=== PATIENT | female | born 2000 | race Caucasian/White ===

== ENCOUNTER 2019-01-21 15:45 | Outpatient (CLI) | payer OTHER, SELFPAY ==
[2019-01-21 15:54] VITALS: BMI 40.8
[2019-01-21 16:37] LABS: ROM Internal Control Test YES-OK TO RESULT pt. (Internal QC); ROM Patient Test Negative (Negative); Record Kit Lot#, ROM+ J8255
[2019-01-21] MEDS: Lactated Ringers 1,000 ML 999 ML IV (17:15)
[2019-01-21 17:25] LABS: Absolute Lymphocyte Count 1.72 X10^3/uL (0.83-4.51); Absolute Neutrophil Count 9.7 X10^3/uL (2.0-7.7); Basophil# 0.02 X10^3/uL; Basophil% 0.2 % (0-1); Eosinophil# 0.05 X10^3/uL; Eosinophils% 0.4 % (0-5); Hematocrit 35.6 % (37-47); Hemoglobin 10.8 g/dL (12.0-15.0); Lymphocyte # 1.72 X10^3/ul (4.0); Lymphocyte % 13.7 % (19-41); Mean Corp Hgb Conc 30.3 g/dL (32-36); Mean Corpuscular Hgb 25.2 pg (27.0-32.0); Mean Platelet Vol. 12.8 fl (6.2-12.0); Monocyte# 1.01 X10^3/uL; NRBC Flagged by Analyzer 0 % (0-5); Neutrophil # 9.71 X10^3/uL (2.7-7.7); Neutrophil % 77.3 % (47-70); Platelet Count 156 K/mm3 (150-450); RBC Distribution Width CV 16.1 % (11.6-14.6); RBC Distribution Width SD 48.9 fl (35.1-43.9); Red Blood Count 4.29 M/mm3 (4.2-5.4); White Blood Count 12.6 K/mm3 (4.4-11.0)
--- NOTE | 2019-01-21 19:40 | OB.TRI.PN ---
Progress Notes Date of Service: 01/21/19 Progress Note: 18 year old female at 34w4d. Presented to L&D for menstrual like cramping. Denies headache, visual changes, chest pain, shortness of breath, vaginal bleeding. Rating pain 8/10 at times. Had increased vaginal discharge and unsure if ROM. O: Gen:No acute distress.Coping well and appears comfortable Heart:RRR, no murmur FHT 135, moderate variability, accels, no decels, Reactive TOCO: Irregular and infrequent. No palpable contractions. Cervix: 3cm/thick/-4. Inner os thicker and only 1cm. No cervical change ROM PLus negative A: Threatened labor P: 1) Celestone x 2 in office 4 days ago. Was 1cm in office 4 days ago. Reviewed PTL and when to call. D/C home and follow up in 1-2 days. Consulted and agrees with plan. 2) ROM Plus negative 3) Vistaril 100mg PO once for therapeutic rest. Laboratory Studies: Laboratory Tests 01/21/19 01/21/19 Range/Units 17:15 15:55 WBC 12.6 H (4.4-11.0) K/mm3 RBC 4.29 (4.2-5.4) M/mm3 Hgb 10.8 L (12.0-15.0) g/dL Hct 35.6 L (37-47) % MCV 83.0 (81-99) fL MCH 25.2 L (27.0-32.0) pg MCHC 30.3 L (32-36) g/dL RDW Std Deviation 48.9 H (35.1-43.9) fl RDW Coeff of Gisel 16.1 H (11.6-14.6) % Plt Count 156 (150-450) K/mm3 MPV 12.8 H (6.2-12.0) fl Immature Gran % (Auto) 0.400 (0.0-0.9) % Neut % (Auto) 77.3 H (47-70) % Lymph % (Auto) 13.7 L (19-41) % Wolfe % (Auto) 8.0 (0-10) % Eos % (Auto) 0.4 (0-5) % Baso % (Auto) 0.2 (0-1) % Absolute Neuts (auto) 9.7 H (2.0-7.7) X10^3/uL Absolute Lymphs (auto) 1.72 (0.83-4.51) X10^3/uL Nucleated RBC % 0 (0-5) % Vag Amniotic Fld Detect Negative (Negative)
[2019-01-21] MEDS: hydrOXYzine PAM 25 MG Capsule 100 MG PO (20:23)
== END 2019-01-21 20:25 | disposition home or self-care (01) ==
LOC: WPOUT 15:51 → OBT 15:52 → WP 01-22 11:09
PROVIDERS: Family Provider Pediatrics; PCP Pediatrics; Referring Provider Advanced Practice Midwife; Visit Provider Advanced Practice Midwife
DX: O60.03 Preterm labor without delivery, third trimester (principal); Z3A.34 34 weeks gestation of pregnancy
CPT/HCPCS: 59025; 59050; 84112; 85025; 99218; J7120; G0378

== ENCOUNTER 2019-02-05 17:25 | Outpatient (CLI) | payer OTHER, SELFPAY ==
[2019-02-05 18:09] VITALS: BMI 41.5
[2019-02-05] MEDS: Acetaminophen 500 MG Tablet 1000 MG PO (18:15)
[2019-02-05 18:51] LABS: ROM Internal Control Test YES-OK TO RESULT pt. (Internal QC); ROM Patient Test Negative (Negative)
[2019-02-05 18:52] LABS: Record Kit Lot#, ROM+ J8255
--- NOTE | 2019-02-06 06:44 | OB.TRI.NOTE ---
History of Present Illness Date of Service: 02/05/19 Was patient seen by the physician?: No Reason For Visit: LEAKING FLUID Date of Service: 02/05/19 Final LINDSEY: 02/28/19 Gestational age: 36 Weeks and 6 Days Allergies No Known Allergies Allergy (Verified 07/11/16 20:38) Laboratory Studies: Laboratory Tests 02/05/19 Range/Units 18:15 Vag Amniotic Fld Detect Negative (Negative) NST - FHR Rate Baby A Baseline: 125 Variability:: Moderate, Marked Decelerations:: None NST Reactive:: Yes FHR Category:: Category I Uterine Activity:: no ctxs Impression/Plan 18-year-old female 1 para 0 36-5/7 weeks for threatened labor. No evidence of spontaneous rupture membranes. No evidence of labor. Patient was given labor precautions and was discharged home to follow-up in the office or here as needed.
== END 2019-02-05 20:00 | disposition home or self-care (01) ==
LOC: WPOUT 17:45 → OBT 17:47
PROVIDERS: Obstetrics & Gynecology; Family Provider Pediatrics; PCP Pediatrics; Visit Provider Advanced Practice Midwife
DX: O60.03 Preterm labor without delivery, third trimester (principal); Z3A.36 36 weeks gestation of pregnancy
CPT/HCPCS: 59025; 59050; 84112; 99218; G0378

== ENCOUNTER 2019-02-12 05:44 | Outpatient (CLI) | payer OTHER, SELFPAY ==
[2019-02-12 06:37] LABS: ROM Internal Control Test YES-OK TO RESULT pt. (Internal QC); ROM Patient Test Negative (Negative)
[2019-02-12 08:13] VITALS: BMI 42.3
--- NOTE | 2019-02-14 12:15 | OB.TRI.PN ---
Progress Notes Date of Service: 02/12/19 Progress Note: female presented for leakage of fluid. Denied any contractions or vaginal bleeding. LINDSEY: 02/28/19 O: 135, moderate variability, accels, no decels, reactive TOCO: no contractions ROM plus negative A: Vaginal discharge P: 1) No signs of labor or ROM. 2) D/C home Laboratory Studies: Laboratory Tests 02/12/19 Range/Units 06:00 Vag Amniotic Fld Detect Negative (Negative)
== END 2019-02-12 08:20 | disposition home or self-care (01) ==
LOC: WPOUT 05:57 → WP 05:58
PROVIDERS: Family Provider Pediatrics; PCP Pediatrics; Referring Provider Obstetrics & Gynecology; Visit Provider Obstetrics & Gynecology
DX: O26.899 Other specified pregnancy related conditions, unspecified trimester (principal); N89.8 Other specified noninflammatory disorders of vagina; Z3A.00 Weeks of gestation of pregnancy not specified
CPT/HCPCS: 59025; 59050; 84112; 99218; G0378

== ENCOUNTER 2019-03-07 06:35 | Inpatient (IN) | payer OTHER, SELFPAY ==
[2019-03-07 07:07] VITALS: BMI 42.9
[2019-03-07] MEDS: Lactated Ringers 1,000 ML 50 ML IV (07:20)
[2019-03-07] MEDS: Nalbuphine 10 MG/ML Ampul IV (07:36)
[2019-03-07] MEDS: Lactated Ringers 500 ML 999 ML IV ×2 (07:42→09:21)
[2019-03-07 07:49] LABS: Absolute Lymphocyte Count 1.31 X10^3/uL (0.83-4.51); Basophil# 0.02 X10^3/uL; Basophil% 0.3 % (0-1); Eosinophil# 0.18 X10^3/uL; Eosinophils% 2.3 % (0-5); Hematocrit 35.4 % (37-47); Hemoglobin 10.9 g/dL (12.0-15.0); Lymphocyte # 1.31 X10^3/ul (4.0); Lymphocyte % 16.4 % (19-41); Mean Corp Hgb Conc 30.8 g/dL (32-36); Mean Corpuscular Hgb 24.9 pg (27.0-32.0); Mean Platelet Vol. 12.3 fl (6.2-12.0); Monocyte# 0.41 X10^3/uL; Monocyte% 5.1 % (0-10); NRBC Flagged by Analyzer 0 % (0-5); Neutrophil # 6.02 X10^3/uL (2.7-7.7); Neutrophil % 75.5 % (47-70); Platelet Count 130 K/mm3 (150-450); RBC Distribution Width CV 16.9 % (11.6-14.6); Red Blood Count 4.37 M/mm3 (4.2-5.4)
[2019-03-07] MEDS: Oxytocin 30 units/NS 500 ml 30 UNITS/500 ML IV.SOLN IV (08:21)
[2019-03-07 09:05] LABS: AST(SGOT) 10 U/L (15-37); Alanine Aminotransfer ALT/SGPT 17 U/L (13-56); Creatinine, Serum 0.85 mg/dL (0.55-1.02); EST Glomerular Filtration Rate 91 mL/min (>60); Est Glom Filt Rate - Afr Amer 110 mL/min (>60); Estimated Creatinine Clearance 107.39 ml/min; International Normalized Ratio 0.9; Prothrombin Time (Protime)PT. 12.2 SECONDS (11.7-14.9); Uric Acid 7.6 mg/dL (2.6-6.0)
[2019-03-07 09:06] LABS: Partial Thromboplast Time 26.4 Seconds (24.1-36.2)
[2019-03-07] MEDS: fentaNYL-bupivacaine (epidural) 100 ML BAG EPIDURAL (09:39)
[2019-03-07 10:48] LABS: Amphetamine Urine VISTA NEGATIVE (<1000 ng/mL); Barbiturate Urine VISTA NEGATIVE (< 200 ng/mL); Benzodiazepine Urine VISTA NEGATIVE (< 200 ng/mL); Cocaine Urine VISTA NEGATIVE (< 300 ng/mL); Ecstacy Urine VISTA NEGATIVE (< 500 ng/mL); Methadone Urine VISTA NEGATIVE (< 300 ng/mL); PCP Urine VISTA NEGATIVE (< 25 ng/mL); THC Urine VISTA NEGATIVE (< 50 ng/mL); Vista UDS pH Range 6
--- NOTE | 2019-03-07 12:51 | PCM.HP.OB ---
History Date of Admission: 03/07/19 Final LINDSEY: 02/28/19 Final LINDSEY Source: US <20 weeks Gestational age: 41 Weeks and 0 Days History of this : This is a 18 year-old, avid 1 para 0 at 41 weeks gestation presents for induction of labor. She actually woke up this morning having some significant tract contractions. She denies any gross vaginal bleeding or leaking of fluid. She is had good movement. has been complicated to date by maternal obesity with BMI of 42, she has a history of depression, she has a history of marijuana use before realizing she was . She is had some anemia during the . Medical history is significant for asthma, tobacco use, headaches, Chiari I malformation, and thyroid nodule. Surgical history: Tonsillectomy, myringotomy, and surgical repair of a broken elbow Allergies No Known Allergies Allergy (Verified 02/12/19 08:14) Home Medications: Home Medications Albuterol Inhaler [Ventolin Hfa (SP)] 2 puff INHALATION Q4H PRN PRN 08/11/14 Pnv No.103/Folic/Om3s/Fish Oil [ Gummies] 1 ea PO DAILY 01/21/19 Ferrous Sulfate [Ferosul] 325 mg PO DAILY 03/07/19 Smoking Status: Former smoker Substance Use Type: Marijuana Number of Fetus(es): 1 History Past Pregnancies: Past Pregnancies Delivery Date Name GA/ Weeks Outcome Route Wt Infant Sex Labor Length Anesthesia Delivery Location Provider FOB Review of Systems Constitutional: Denies: Chills, Fever Eyes: Denies: Blurred vision Cardiovascular: Denies: Chest Pain Respiratory: Denies: Cough Genitourinary: Denies: Dysuria Skin: Denies: Rash Physical Exam General: Alert, Cooperative, No apparent distress Cardiovascular: Regular rate Lungs: No rhonchi Abdomen: Soft, Non Tender, Gravid, Obese, Appropriate for Gestational Age Extremities:: Deep tendon reflexes - 2+, Other - edema 1+ Neurological: Cranial nerves II-XII grossly intact [employer] 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 Here for induction of labor. Pitocin and artificial rupture membranes for induction of labor. Some mildly elevated blood pressures. No symptoms of preeclampsia with severe features. Will monitor blood pressures. Preeclampsia labs were sent and reviewed. Uric acid is elevated, otherwise they are within normal limits. May have dural as needed for pain control. Estimated weight is less than 4500 g clinically and pelvis is clinically adequate to expect vaginal delivery.
[2019-03-07] MEDS: Lactated Ringers 1,000 ML 200 ML IV (13:40)
[2019-03-07] MEDS: Oxytocin 30 units/NS 500 ml 30 UNITS/500 ML IV.SOLN 334 UNITS IV (13:44)
--- NOTE | 2019-03-07 13:59 | PCM.OPRPT ---
Vaginal Delivery Maternal Presentation: Medically Indicated Induction Method of Induction: Pitocin, Amniotomy Medical Reason for Induction: - - 41 weeks Amniotic Membrane Rupture Type: Artificial Amniotic Fluid Description: Clear Final LINDSEY: 02/28/19 Final LINDSEY Source: US <20 weeks Gestational age: 41 Weeks and 0 Days Date of Procedure: 03/07/19 Pre-Operative Diagnosis: preeclampsia without severe features, labor Post-Operative Diagnosis: same Surgery/ Procedure Performed: Spontaneous Vaginal Delivery Type of Anesthesia: Epidural Description of Procedure: A vigorous female was delivered DOMI over intact perineum. Loose nuchal cord x2 was easily reduced. The remainder the was delivered with maternal pushing and gentle traction only in less than 15 seconds. The Pitocin infusion was initiated for active management of the third stage. The cord was clamped and cut after 1 minute. The was attended to by the waiting nursing staff. The placenta was delivered spontaneously and intact. The cervix and vagina were intact. First-degree vaginal 1.5 cm laceration was oversewn with 3-0 Vicryl Rapide sutures. Sponge and needle counts were correct. A vaginal sweep was completed by me. Presentation: DOMI Placental Delivery Description: Spontaneous Placenta Disposition: [facility] Cord Vessel Description: 3 Vessels Nuchal Cord Compression: Without compression Cord Entanglement: Around neck x 2, loose Drain: [place] to straight drain Estimated Blood Loss: 200 Infant A gender: Female (1 minute): 8 (5 minute): 9 Episiotomy Description: None Laceration: 1st degree - vaginal Medications given after delivery: IV Pitocin Complications: None
[2019-03-07] MEDS: 0.9% Saline Lock 10 ML Syringe IV (16:20)
[2019-03-07 21:18] VITALS: BP 133/70; PULSE 108; RESP 18; TEMP 37.5
--- NOTE | 2019-03-07 22:11 | NURSING ---
Patient up to bathroom with stand by assist from this RN, performed brianda care and voided. Patient tolerated activity well, reports some dizziness. Bed changed.
[2019-03-08] MEDS: Naproxen 250 MG Tablet 500 MG PO ×3 (01:28→22:00)
[2019-03-08 01:46] VITALS: BP 137/61; PULSE 99; RESP 18; TEMP 36.8
[2019-03-08] MEDS: oxyCODONE 5 MG Tablet PO (04:08)
[2019-03-08 04:10] VITALS: BP 123/58; PULSE 89; RESP 18; TEMP 36.6
--- NOTE | 2019-03-08 08:13 | PN.OBGYN_ITS ---
Subjective: Patient seen at bedside doing well. Patient reports good pain control. Mild lochia. Breast-feeding without difficulty. Voiding without difficulty. - Physical Exam Vitals/I&O's: Vital Signs Temp Pulse Resp BP 97.9 F 89 18 123/58 H 03/08/19 04:10 03/08/19 04:10 03/08/19 04:10 03/08/19 04:10 Oxygen Delivery Method Room Air Weight: 128 kg Body Mass Index (BMI) 42.9 Intake and Output for Last 24 Hours 03/06/19 03/07/19 03/08/19 23:59 23:59 23:59 Intake Total 2524.03 / 2524.03 Output Total 400 / 400 150 / 150 Balance 2124.03 / 2124.03 -150 / -150 General: Alert, Oriented x3 Laboratory Results 03/07/19 07:20: Blood Type A POSITIVE, Antibody Screen NEGATIVE 03/07/19 07:20: PT 12.2, INR 0.9, APTT 26.4 03/07/19 07:20: Creatinine 0.85, Estim Creat Clear Calc 107.39, Est GFR (MDRD) A f Amer 110, Est GFR (MDRD) Non-Af 91, Uric Acid 7.6 H, AST 10 L, ALT 17 03/07/19 09:10: Urine Opiates Screen NEGATIVE, Urine Methadone Screen NEGATIVE, Ur Barbiturates Screen NEGATIVE, Ur Phencyclidine Scrn NEGATIVE, Ur Amphetamines Screen NEGATIVE, U Methamphetamin-MDMA NEGATIVE, U Benzodiazepines Scrn NEGATIVE, Urine Cocaine Screen NEGATIVE, U Cannabinoids Screen NEGATIVE, Ur Drug Screen Comment Current Medications Acetaminophen (Tylenol) 1,000 mg PO Q8H PRN PRN PRN Reason: Pain Score 1-3/10 Bisacodyl (Dulcolax) 10 mg RECTAL UD PRN PRN Reason: If no BM Dibucaine (Dibucaine) 1 applic TOPICAL TID PRN PRN; Protocol PRN Reason: Discomfort Hydrocortisone (Hytone) 1 applic TOPICAL TID PRN PRN; Protocol PRN Reason: Discomfort Methylergonovine Maleate (Methergine) 0.2 mg IM X1 PRN PRN Reason: Excess bleeding/uterine atony Naproxen (Naprosyn) 500 mg PO Q8H PRN PRN PRN Reason: Pain Score 1-3/10 Last Admin: 03/08/19 01:28 Dose: 500 mg Documented by: Ondansetron HCl (Zofran) 4 mg IV Q4H PRN PRN PRN Reason: Nausea Oxycodone HCl (Oxyir) 5 mg PO Q4H PRN PRN PRN Reason: Pain Score 6-10/10 Last Admin: 03/08/19 04:08 Dose: 5 mg Documented by: Prochlorperazine Edisylate (Compazine Iv) 10 mg IV Q6H PRN PRN PRN Reason: NAUSEA/VOMITING Senna/Docusate Sodium (Senokot-S, Cherelle-Colace) 1 - 2 tablet PO DAILY PRN PRN PRN Reason: Constipation Simethicone (Mylicon) 80 mg PO PCHS PRN PRN Reason: Indigestion/Stomach pain Sodium Chloride () 5 - 15 ml IV UD PRN PRN Reason: SALINE FLUSH Last Admin: 03/07/19 16:20 Dose: 10 ml Documented by: Medical Necessity - Tobacco Use Smoking Status: Former smoker Assessment/Plan Post day #1 Routine care Ambulation Pain management
[2019-03-08 08:20] VITALS: BP 117/58; PULSE 76; RESP 14; TEMP 36.4
[2019-03-08 12:36] VITALS: BP 124/77; PULSE 98; RESP 16; TEMP 36.9; O2SAT 99
[2019-03-08 16:45] VITALS: BP 137/92; PULSE 86; RESP 18; TEMP 36.6
[2019-03-08 20:00] VITALS: BP 135/62; PULSE 92; RESP 16; TEMP 36.7
[2019-03-09 02:00] VITALS: BP 136/68; PULSE 92; RESP 16; TEMP 36.6
[2019-03-09 08:10] VITALS: BP 118/64; PULSE 95; RESP 16; TEMP 36.7; O2SAT 97
--- NOTE | 2019-03-09 08:36 | PCM.PN.OB ---
Subjective: No complaints - Physical Exam Vitals/I&O's: Vital Signs Temp Pulse Resp BP Pulse Ox 98.1 F 95 16 118/64 97 03/09/19 08:10 03/09/19 08:10 03/09/19 08:10 03/09/19 08:10 03/09/19 08:10 Oxygen Delivery Method Room Air Weight: 282 lb 3.067 oz Body Mass Index (BMI) 42.9 Intake and Output for Last 24 Hours 03/07/19 03/08/19 03/09/19 23:59 23:59 23:59 Intake Total 2524.03 / 2524.03 Output Total 400 / 400 400 / 400 Balance 2124.03 / 2124.03 -400 / -400 General: Alert, Oriented x3 Abdomen: Soft, Non Tender, Non-Distended - ff mid & below umb Extremities: No Calf Tenderness Current Medications Acetaminophen (Tylenol) 1,000 mg PO Q8H PRN PRN PRN Reason: Pain Score 1-3/10 Bisacodyl (Dulcolax) 10 mg RECTAL UD PRN PRN Reason: If no BM Dibucaine (Dibucaine) 1 applic TOPICAL TID PRN PRN; Protocol PRN Reason: Discomfort Hydrocortisone (Hytone) 1 applic TOPICAL TID PRN PRN; Protocol PRN Reason: Discomfort Methylergonovine Maleate (Methergine) 0.2 mg IM X1 PRN PRN Reason: Excess bleeding/uterine atony Naproxen (Naprosyn) 500 mg PO Q8H PRN PRN PRN Reason: Pain Score 1-3/10 Last Admin: 03/08/19 22:00 Dose: 500 mg Documented by: Ondansetron HCl (Zofran) 4 mg IV Q4H PRN PRN PRN Reason: Nausea Oxycodone HCl (Oxyir) 5 mg PO Q4H PRN PRN PRN Reason: Pain Score 6-10/10 Last Admin: 03/08/19 04:08 Dose: 5 mg Documented by: Prochlorperazine Edisylate (Compazine Iv) 10 mg IV Q6H PRN PRN PRN Reason: NAUSEA/VOMITING Senna/Docusate Sodium (Senokot-S, Cherelle-Colace) 1 - 2 tablet PO DAILY PRN PRN PRN Reason: Constipation Simethicone (Mylicon) 80 mg PO PCHS PRN PRN Reason: Indigestion/Stomach pain Sodium Chloride () 5 - 15 ml IV UD PRN PRN Reason: SALINE FLUSH Last Admin: 03/07/19 16:20 Dose: 10 ml Documented by: Medical Necessity - Tobacco Use Smoking Status: Former smoker Assessment/Plan PPD#2 D/c home later today PreE - BP's normal, f/u 3-4 days for BP check
--- NOTE | 2019-03-09 08:37 | DCINST_ITS ---
Discharge Diet: No Restrictions Discharge Activity: Return to Normal Activity, May not drive while taking narcotic pain medications., May Shower May resume sexual activity in: 4-6 weeks Additional Activity Instructions:: Nothing in the vagina for 4-6 weeks. You may return to work/school in 6 weeks. Call your doctor if your incision/area has: Continuous Slow Oozing, Sudden Increased Bleeding, Increased Pain/ Swelling, Increased Redness, Foul Smelling Discharge Additional Instructions: If you experience any of the following, contact your healthcare provider. * Bleeding that soaks a pad every hour for 2 hours * Fever 100.4 or higher * Unrelieved incision or abdominal pain * Swelling, redness, discharge or bleeding from your incision or episiotomy site * Your incision begins to separate * Problems urinating (including inability to urinate or burning while urinating). * Visual changes * Severe headache * Flu-like symptoms * Pain or redness in one of both of your breasts * Pain, warmth, tenderness or swelling in your legs, especially the calf area * Frequent nausea and vomiting * Symptoms of depression or anxiety If you experience any of the following, call 911 or go to the nearest Emergency Room. * Chest pain * Problems breathing * Seizure activity * Partial or complete paralysis of a body part, slurred speech, weakness or drooping of the face, or a sudden inability to walk or hold your balance Allergies/Adverse Reactions: Allergies No Known Allergies Allergy (Verified 02/12/19 08:14) Medications to take at Discharge Albuterol Inhaler [Ventolin Hfa] 2 puff INHALATION Q4H PRN PRN 08/11/14 Pnv No.103/Folic/Om3s/Fish Oil [ Gummies] 1 ea PO DAILY 01/21/19 Ferrous Sulfate [Ferosul] 325 mg PO DAILY 03/07/19 Ibuprofen [Motrin] 800 mg PO TID PRN PRN #60 tab 03/09/19 The following prescriptions were given: Ibuprofen [Motrin] 800 mg PO TID PRN PRN #60 tab PRN Reason: Pain Transmission Status: Pending to [facility] Please Follow Up With: Grace Lozada MD - [phone] When: Call to make an appointment with your doctor's office in 1 week and 6 weeks Primary Care Physician: Yeison Michael MD [Primary Care Provider] - Test Results: Test results from this visit will be discussed in further detail at your follow- up appointment, if applicable.
== END 2019-03-09 12:25 | disposition home or self-care (01) | DRG 807 ==
PROVIDERS: Admitting Provider Obstetrics & Gynecology; Family Provider Pediatrics; PCP Pediatrics; Referring Provider Obstetrics & Gynecology; Visit Provider Obstetrics & Gynecology
DX: O14.04 Mild to moderate pre-eclampsia, complicating childbirth (principal); Z37.1 Single stillbirth; O69.81X0 Labor and delivery complicated by cord around neck, without compression, not applicable or unspecified; O99.214 Obesity complicating childbirth; E66.01 Morbid (severe) obesity due to excess calories; Z3A.41 41 weeks gestation of pregnancy; Z87.891 Personal history of nicotine dependence; J45.909 Unspecified asthma, uncomplicated; O99.52 Diseases of the respiratory system complicating childbirth; D64.9 Anemia, unspecified; O99.02 Anemia complicating childbirth; O70.0 First degree perineal laceration during delivery
CPT/HCPCS: 59050; 80307; 82565; 84450; 84460; 84550; 85025; 85610; 85730; 86850; 86900; 86901; 99218; J7120; A4216; G0378; J3490

== ENCOUNTER 2019-03-10 06:03 | Emergency (ER) | payer OTHER, SELFPAY ==
[2019-03-10] VITALS (9 sets, daily range): BP systolic 133–160; BP diastolic 69–83; PULSE 102–121; RESP 13–20; TEMP 37.8; O2SAT 96–977; BMI 42.7
--- NOTE | 2019-03-10 06:22 | RAD_ITS ---
HISTORY: SORE THROAT, COUGH, FEVER DIZZY AND WEAKNESS FOR A COUPLE DAYS BUT GETTING WORSE/PT HAD A BABY TUESDAY EXAMINATION/TECHNIQUE: XR Chest 1 View: Portable COMPARISON: 08/11/2014 FINDINGS: Cardiac telemetry leads in place. Normal heart size. No vascular congestion, pleural effusion, or pulmonary infiltration. No pneumothorax. The bony thorax appears intact. RAD/Chest 1 View (Portable) IMPRESSION: No acute cardiopulmonary disease. at 0640 Reported and signed by: Fili Xiao MD Electronically Signed: Fili Xiao, at 6:39 EST Tel , Service support ,
--- NOTE | 2019-03-10 06:26 | ED.VISSUMM ---
- ER Visit Summary Date of Service: 03/10/19 Chief Complaint: Fever History of Present Illness: The patient is a 18 F presenting with fever. Patient had a normal spontaneous vaginal delivery on Tuesday. She was discharged from the hospital yesterday. She has a cough that started 5 days ago. Her fever started yesterday. She complains of fever, rhinorrhea, sore throat, cough, shortness of breath, nausea, constipation, mild abdominal pain, mild headache. Denies neck pain. Denies dysuria. She was diagnosed with preeclampsia after her delivery. She has a scheduled follow-up appointment on Tuesday. She is breast-feeding without difficulty. Physical Examination: Vitals are stable. Blood pressure 160/74, temperature 100.1, heart rate 121. Alert no acute distress. HEENT exam pharyngeal erythema with no exudate. Uvula midline Neck is supple. No meningismus Lungs are clear and equal bilaterally. No mastitis Heart is regular and tachycardic Abdomen is soft nontender nondistended. No guarding or rebound Extremities are unremarkable. Skin is warm and dry. No rash No focal neurologic deficit. Remainder of exam is unremarkable. Emergency Department Course and Treatment: Patient was given IV fluids, Zofran, Tylenol. CBC shows hemoglobin 9.1, previous 10.9; platelet 129, previous 130. Rapid strep is negative. Chest x-ray shows no acute process. Chemistries unremarkable. Alk phos 150, AST 44. Influenza negative. On reevaluation, patient is feeling improved. Repeat blood pressure 138/72, temperature 99.3. Urinalysis is pending. Discussed with Dr. Fraga. Her blood pressure will continue to be monitored. She will be advised to follow-up at her scheduled appointment on Tuesday. Disposition pending urine results, will be checked out to the oncoming physician. Disposition: Pending Impression: Febrile illness This note was generated with [employer] dictation software. It may contain incorrect words, spelling, and punctuation that were not noted in review of the chart prior to signing ED Disposition - Plan for ED Patient: Referrals: Yeison Michael MD [Primary Care Provider] -
[2019-03-10] MEDS: Acetaminophen 500 MG Tablet 1000 MG PO (06:30)
[2019-03-10] MEDS: 0.9% Normal Saline 1,000 ML 1000 ML IV ×2 (06:31→08:45)
[2019-03-10] MEDS: Ondansetron 4 MG/2 ML Vial IV (06:31)
[2019-03-10 06:33] LABS: Absolute Lymphocyte Count 0.92 X10^3/uL (0.83-4.51); Absolute Neutrophil Count 8.4 X10^3/uL (2.0-7.7); Basophil# 0.02 X10^3/uL; Basophil% 0.2 % (0-1); Eosinophil# 0.19 X10^3/uL; Eosinophils% 1.9 % (0-5); Hematocrit 29.4 % (37-47); Hemoglobin 9.1 g/dL (12.0-15.0); Lymphocyte # 0.92 X10^3/ul (4.0); Mean Corpuscular Hgb 25.1 pg (27.0-32.0); Mean Corpuscular Volume 81.2 fL (81-99); Mean Platelet Vol. 12.2 fl (6.2-12.0); Monocyte# 0.61 X10^3/uL; Monocyte% 5.9 % (0-10); NRBC Flagged by Analyzer 0 % (0-5); Neutrophil # 8.42 X10^3/uL (2.7-7.7); Platelet Count 129 K/mm3 (150-450); RBC Distribution Width CV 17.4 % (11.6-14.6); RBC Distribution Width SD 51.1 fl (35.1-43.9); Red Blood Count 3.62 M/mm3 (4.2-5.4); White Blood Count 10.3 K/mm3 (4.4-11.0)
[2019-03-10 06:51] LABS: ALB/GLOB Ratio 0.6 RATIO (0.9-2.4); AST(SGOT) 44 U/L (15-37); Alanine Aminotransfer ALT/SGPT 50 U/L (13-56); Albumin, Serum 2.3 g/dL (3.2-5.0); Alkaline Phosphatase 150 U/L (45-117); Anion Gap 10 (5-15); BUN 7 mg/dL (7-18); BUN/Creat Ratio 8.7 RATIO (10-20); Calcium,Total 7.9 mg/dL (8.5-10.1); Chloride 108 mmol/L (98-107); EST Glomerular Filtration Rate 98 mL/min (>60); Est Glom Filt Rate - Afr Amer 118 mL/min (>60); Globulin 3.8 g/dL (2.2-4.2); Glucose 98 mg/dL (74-106); Potassium 3.7 mmol/L (3.5-5.1); Protein, Total 6.1 g/dL (6.4-8.2); Sodium Level 141 mmol/L (136-145)
[2019-03-10 08:46] LABS: Mucous, Urine 0 SEEN /hpf (<or=2+)
[2019-03-10 08:49] LABS: Color, Urine Yellow (Yellow); Glucose, Dipstick Normal (Normal); Ketone-Dipstick Negative (Negative); Leukocyte Esterase-Dipstick 500 /ul (Negative); Nitrite-Dipstick Negative (Negative); Occult Blood-Urine 250 /ul (Negative); Protein-Dipstick 30 mg/dl (Negative); Specific Gravity, Urine 1.005 (1.002-1.030); Urine Bilirubin Dipstick Negative (Negative); Urine Clarity Cloudy (Clear); Urine Urobilinogen Normal (Normal); Urine pH 6.5 (5.0 - 8.0)
[2019-03-10 09:02] LABS: Bacteria 1+ /hpf (None Seen); Red Blood Cells-Urine 10-25 SEEN /hpf (0-5); Squamous Epithelial Cells - UA 0-5 SEEN /hpf (5-10); Transitional Epithelial - Ur 0-5 SEEN /hpf (0-5); White Blood Cells 25-50 SEEN /hpf (0-5)
--- NOTE | 2019-03-10 09:11 | ED.DEP ---
ED Disposition - Plan for ED Patient: Disposition: Home or Assisted Living Instructions: Bladder Infection, Female (Adult) Prescriptions: Cephalexin [Keflex] 500 mg PO Q6 #12 cap Prescription Printed Referrals: Grace Lozada MD [STAFF PHYSICIAN] - Additional Instructions: Follow-up on Tuesday for repeat blood pressure check as discussed.
== END 2019-03-10 10:16 | disposition home or self-care (01) ==
PROVIDERS: Emergency Provider Emergency Medicine; Family Provider Pediatrics; PCP Pediatrics
DX: O86.4 Pyrexia of unknown origin following delivery (principal); O86.20 Urinary tract infection following delivery, unspecified
CPT/HCPCS: 71045; 80053; 81001; 85025; 87086; 87088; 87804; 87880; 96361; 96374; 99283; J7030; A4216; J2405

== ENCOUNTER 2020-10-25 21:06 | Emergency (ER) | payer BC, MEDICAID, SELFPAY ==
[2019-03-10 06:04] VITALS: BMI 42.7
[2020-10-25 21:08] VITALS: BP 120/60; PULSE 126; RESP 20; TEMP 37.3; O2SAT 93; BMI 77.4
[2020-10-25] MEDS: Ipratropium/Albuterol Sulfate 3 ML AMPUL.NEB INHALATION (22:27)
[2020-10-25 22:28] VITALS: PULSE 109; RESP 18
--- NOTE | 2020-10-25 23:00 | RAD_ITS ---
INDICATION: cough EXAMINATION/TECHNIQUE: X-RAY - XR Chest 1 View COMPARISON: None. FINDINGS: The lungs are clear. The cardiomediastinal silhouette is unremarkable. No pleural effusion or pneumothorax. No acute osseous abnormalities. RAD/Chest 1 View (Portable) IMPRESSION: No acute radiographic abnormalities. Electronically Signed: Robert Gibbs MD at 23:23 EDT Tel , Service support ,
[2020-10-25 23:10] LABS: Absolute Lymphocyte Count 0.43 X10^3/uL (0.83-4.51); Absolute Neutrophil Count 6.5 X10^3/uL (2.0-7.7); Basophil# 0.02 X10^3/uL; Basophil% 0.3 % (0-1); Eosinophil# 0.08 X10^3/uL; Eosinophils% 1.1 % (0-5); Hematocrit 35.9 % (37-47); Hemoglobin 11.4 g/dL (12.0-15.0); Lymphocyte # 0.43 X10^3/ul (0.83-4.51); Lymphocyte % 5.7 % (19-41); Mean Corp Hgb Conc 31.8 g/dL (32-36); Mean Corpuscular Hgb 24.4 pg (27.0-32.0); Mean Corpuscular Volume 76.9 fL (81-99); Mean Platelet Vol. 12.6 fl (6.2-12.0); Monocyte# 0.47 X10^3/uL; Monocyte% 6.2 % (0-10); NRBC Flagged by Analyzer 0 % (0-5); Neutrophil # 6.54 X10^3/uL (2.7-7.7); Neutrophil % 86.4 % (47-70); POSITIVE DIFFERENTIAL YES; Platelet Count 139 K/mm3 (150-450); RBC Distribution Width CV 16.8 % (11.6-14.6); RBC Distribution Width SD 46.3 fl (35.1-43.9); Red Blood Count 4.67 M/mm3 (4.2-5.4); White Blood Count 7.6 K/mm3 (4.4-11.0)
[2020-10-25 23:25] LABS: ALB/GLOB Ratio 0.8 RATIO (0.9-2.4); AST(SGOT) 15 U/L (15-37); Alanine Aminotransfer ALT/SGPT 23 U/L (13-56); Albumin, Serum 3.2 g/dL (3.2-5.0); Alkaline Phosphatase 81 U/L (45-117); Anion Gap 12 (5-15); BUN 5 mg/dL (7-18); BUN/Creat Ratio 7.8 RATIO (10-20); Chloride 102 mmol/L (98-107); Creatinine, Serum 0.64 mg/dL (0.55-1.02); EST Glomerular Filtration Rate 125 mL/min (>60); Est Glom Filt Rate - Afr Amer 151 mL/min (>60); Estimated Creatinine Clearance 141.45 ml/min; Globulin 4.1 g/dL (2.2-4.2); Glucose 92 mg/dL (74-106); Potassium 3.3 mmol/L (3.5-5.1); Protein, Total 7.3 g/dL (6.4-8.2); Sodium Level 136 mmol/L (136-145)
[2020-10-25 23:29] LABS: Differential Indicated SCAN CRITERIA MET
[2020-10-25 23:33] LABS: Lactic Acid 1.2 mmol/L (0.4-1.9)
[2020-10-25 23:45] VITALS: BP 144/63; PULSE 119; RESP 24; TEMP 37.1; O2SAT 91
[2020-10-26] MEDS: Acetaminophen 500 MG Tablet 1000 MG PO (00:32)
[2020-10-26 00:33] VITALS: BP 146/59; PULSE 118; RESP 21; O2SAT 93
--- NOTE | 2020-10-26 01:19 | EDS_ITS ---
HPI History of Present Illness Chief Complaint: General Illness Informant: patient and parent Onset/Context/Timing Onset: Yesterday Context: Gradual Onset Timing: Continuous Quality: Sharp Location: Generalized Worsened by: Nothing Relieved by: Nothing Narrative Narrative: Patient presents with cough, nausea, vomiting, shortness of breath, and chest pain that began yesterday. Patient states it has gradually gotten worse. Patient states her pain is sharp. Patient states she has pain all over. Patient states nothing makes it better nothing makes it worse. Mother states the patient had a fever today. Patient admits to some rhinorrhea. Patient also admits to some nausea and vomiting. Patient states she does not know if she has been in contact with anyone diagnosed with Covid recently. Patient has not had any Covid vaccines. PFSH PFSH Home Medications albuterol sulfate [Ventolin HFA] 2 puff INHALATION Q4H PRN PRN 08/11/14 [History Last Taken 08/11/14 0830] fluoxetine 50 mg PO DAILY 10/25/20 [History Last Taken Unknown] fluticasone propion-salmeterol 1 puff NASAL BID 10/25/20 [History Last Taken Unknown] Allergy/AdvReac Type Severity Reaction Status Date / Time No Known Allergies Allergy Verified 10/25/20 21:08 Social History Smoking Status: Never smoker ROS ROS ED Constitutional Constitutional ED: Reports fever(s) and subjective; Denies chills Eyes Eyes: Denies blurry vision or change in vision ENT ENT ED: Reports rhinorrhea; Denies sore throat Cardiovascular Cardiovascular: Reports chest pain; Denies palpitations Respiratory/Chest Respiratory/Chest: Reports cough and dyspnea Gastrointestinal Gastrointestinal: Reports nausea and vomiting Genitourinary Genitourinary ED: Denies dysuria or hematuria Musculoskeletal Musculoskeletal: Reports arthralgias and myalgias Integumentary Denies abscess or rash Neurologic Neurologic: Reports weakness; Denies headache(s) Allergic/Immunologic Allergic/Immunologic ED: Denies mouth swelling or urticaria EXAM Physical Exam Const Vital Signs: 10/25/20 21:08 10/25/20 22:28 10/25/20 23:45 Temperature 99.1 F 98.7 F Temperature Source Temporal Oral Pulse Rate 126 H 109 H 119 H Respiratory Rate 20 H 18 24 H Respiratory Pattern Normal Blood Pressure 120/60 144/63 H Blood Pressure Mean 80 90 Pulse Ox 93 91 Oxygen Delivery Method Room Air Room Air 10/26/20 00:33 Temperature Temperature Source Pulse Rate 118 H Respiratory Rate 21 H Respiratory Pattern Blood Pressure 146/59 H Blood Pressure Mean 88 Pulse Ox 93 Oxygen Delivery Method Room Air Positive well nourished, well developed and obese General Appearance ED: well developed Nutritional Appearance: obese HEENT Reports moist mucous membranes Neck supple and no JVD Resp normal respiratory effort Auscultation: wheezes expiratory wheezes and throughout Cardio regular rhythm and no murmurs Rate: tachycardic GI normal to inspection, nondistended, normoactive bowel sounds and non-tender Palpation: soft Extremity normal to inspection General Extremety ED: Negative for edema or tenderness General Extremity: Negative for edema Neuro oriented x3, CN's II-XII intact bilaterally and no sensory deficits noted Sensorium / Orientation: alert Motor Exam: strength 5/5 throughout Psych mental status grossly normal Skin no rashes or lesions noted MDM MDM MDM Narrative Medical decision making narrative: Patient was given IV fluids. Patient was given a DuoNeb aerosol. COVID-19 rapid antigen was obtained and was negative. CBC shows a slight anemia with a hemoglobin of 11.4 and hematocrit of 35.9. Platelets were slightly low at 139. Comprehensive metabolic profile was within normal limits. Lactate was normal. Portable 1 view chest x-ray was obtained. On my interpretation, lung blas are clear. There is normal cardiac silhouette. Bony thorax is normal. There is no acute process noted. Radiologist also interpreted the x-ray and agrees. Patient was given a dose of Tylenol here. Patient was advised of her findings. Patient was advised that this is most likely a viral illness. Patient was instructed to drink plenty of fluids. Patient was instructed continue Tylenol as needed for pain or fevers. Patient was instructed to continue her inhalers as prescribed. Patient was instructed to follow-up with her primary care physician and MEDICAL LABORATORY SCIENTIST in 3 to 5 days. Patient understood and was agreeable with the plan. All questions were answered. Lab Data Attestation: I reviewed the patient's lab results. Labs: Laboratory Results - last 24 hr 10/25/20 10/25/20 10/25/20 22:35 22:35 22:35 WBC 7.6 RBC 4.67 Hgb 11.4 L Hct 35.9 L MCV 76.9 L MCH 24.4 L MCHC 31.8 L RDW Std Deviation 46.3 H RDW Coeff of Gisel 16.8 H Plt Count 139 L MPV 12.6 H Immature Gran % (Auto) 0.300 Neut % (Auto) 86.4 H Lymph % (Auto) 5.7 L Stokes % (Auto) 6.2 Eos % (Auto) 1.1 Baso % (Auto) 0.3 Absolute Neuts (auto) 6.5 Absolute Lymphs (auto) 0.43 L Nucleated RBC % 0 Sodium 136 Potassium 3.3 L Chloride 102 Carbon Dioxide 22.0 Anion Gap 12 BUN 5 L Creatinine 0.64 Estim Creat Clear Calc 141.45 Est GFR (MDRD) Af Amer 151 Est GFR (MDRD) Non-Af 125 BUN/Creatinine Ratio 7.8 L Glucose 92 Lactic Acid 1.2 Calcium 9.0 Total Bilirubin 0.50 AST 15 ALT 23 Alkaline Phosphatase 81 Total Protein 7.3 Albumin 3.2 Globulin 4.1 Albumin/Globulin Ratio 0.8 L Radiography Chest X-Ray - ED: 1 View, Read by ED Physician, Read by Radiologist and Normal Diagnostic Testing: Radiology Impression Chest X-Ray 10/25/20 23:00 IMPRESSION: No acute radiographic abnormalities. Electronically Signed: Robert Gibbs MD at 23:23 EDT Tel , Service support , Discharge Plan Triage Chief Complaint: General Illness ED Provider: Nathan Torres Dx/Rx/DC Orders Clinical Impression: Viral URI Instructions: ED URI, Viral W/ Wheezing (Adult) Prescriptions: No Action albuterol sulfate [Ventolin HFA] 1 INHALER inhaler 2 puff inhalation Q4H PRN PRN (Reason: Wheezing) RF: 0 fluoxetine 60 mg Tablet 50 mg PO DAILY RF: 0 fluticasone propion-salmeterol 1 puff NASAL BID RF: 0 Stand Alone Forms: ED Work / School Excuse Primary Care Provider: Kris Amaro Referrals: Kris Amaro MD [Primary Care Provider] - 3-5 Days Disposition Disposition: Home, Self Care Discharge Date/Time: 10/26/20 01:46
[2020-10-26 01:32] VITALS: BMI 34.6
[2020-10-26 01:46] VITALS: PULSE 110; RESP 18; O2SAT 95
== END 2020-10-26 01:46 | disposition home or self-care (01) ==
PROVIDERS: Emergency Provider Emergency Medicine; PCP Family Medicine
DX: R05 Cough (principal); R11.2 Nausea with vomiting, unspecified; R06.02 Shortness of breath; E66.9 Obesity, unspecified; R07.9 Chest pain, unspecified
CPT/HCPCS: 71045; 80053; 83605; 85025; 87040; 87426; 94640; 99284; J7030; A4216

== ENCOUNTER 2020-12-18 12:15 | Outpatient (CLI) | payer BC, MEDICAID, SELFPAY ==
[2020-12-18 12:31] VITALS: BP 117/58; PULSE 73
[2020-12-18 12:39] VITALS: BMI 35.5
[2020-12-18 13:21] LABS: ROM Internal Control Test YES-OK TO RESULT pt. (Internal QC); ROM Patient Test Negative (Negative)
--- NOTE | 2020-12-24 08:44 | OB.TRI.NOTE ---
HPI - General HPI Narrative TACOS BLANC, is a 20 F who presents with complaint of abdominal cramping, vaginal discharge and spotting during . She is a two para one at 30 weeks and 6 days. Maternal Data Information Final LINDSEY: 02/20/21 Final LINDSEY Source: [place] <20 weeks Gestational age: 30 6/7 PFSH PFSH Home Medications albuterol sulfate [Ventolin HFA] 2 puff INHALATION Q4H PRN PRN 08/11/14 [History Last Taken 08/11/14 0830] fluoxetine 50 mg PO DAILY 10/25/20 [History Last Taken 12/11/20] fluticasone propion-salmeterol 1 puff NASAL BID 10/25/20 [History Last Taken 12/17/20] Allergy/AdvReac Type Severity Reaction Status Date / Time No Known Allergies Allergy Verified 10/25/20 21:08 Social History Smoking Status: Never smoker History Elective abortions Hx Para 0 Spontaneous abortions Hx # Term Pregnancies Ectopic pregnancies Hx # Pregnancies Multiple births # of living children NST FHR Rate Baby A Baseline: 130 Variability:: Moderate Accelerations:: 15 x 15 Decelerations:: None NST Reactive:: Yes FHR Category:: Category I Uterine Activity:: Quiet Assessment & Plan (1) Threatened labor, antepartum: PLAN: Date of service was 12/18/2020. Tacos is a 20-year-old two para one at 39 weeks and 6 days who presented complaining of cramping and discharge. There is no evidence of labor. No vaginal bleeding noted upon arrival. Blood type is Rh+. She was discharged home to follow-up in the office or return as needed. (2) 30 weeks gestation of :
== END 2020-12-18 15:11 | disposition home or self-care (01) ==
LOC: WPOUT 12:19 → WP 12:20
PROVIDERS: PCP Family Medicine; Referring Provider Obstetrics & Gynecology; Visit Provider Obstetrics & Gynecology
DX: O47.1 False labor at or after 37 completed weeks of gestation (principal); O26.853 Spotting complicating pregnancy, third trimester; R10.9 Unspecified abdominal pain; N89.8 Other specified noninflammatory disorders of vagina; Z79.51 Long term (current) use of inhaled steroids; Z3A.39 39 weeks gestation of pregnancy
CPT/HCPCS: 59025; 59050; 84112; 87426; 99218; G0378

== ENCOUNTER 2021-02-18 06:50 | Inpatient (IN) | payer BC, MEDICAID, SELFPAY ==
[2021-02-18] VITALS (29 sets, daily range): BP systolic 103–144; BP diastolic 49–78; PULSE 55–79; RESP 16–20; TEMP 36–36.9; O2SAT 95–100; BMI 36.6
[2021-02-18] MEDS: Lactated Ringers 1,000 ML 50 ML IV (07:40)
[2021-02-18] MEDS: Oxytocin 30 units/NS 500 ml 30 UNITS/500 ML IV.SOLN IV (08:33)
[2021-02-18 08:40] LABS: Absolute Lymphocyte Count 1.16 X10^3/uL (0.83-4.51); Absolute Neutrophil Count 5.6 X10^3/uL (2.0-7.7); Basophil# 0.04 X10^3/uL; Basophil% 0.5 % (0-1); Eosinophil# 0.19 X10^3/uL; Eosinophils% 2.5 % (0-5); Hemoglobin 10.7 g/dL (12.0-15.0); Lymphocyte # 1.16 X10^3/ul (0.83-4.51); Lymphocyte % 15.2 % (19-41); Mean Corp Hgb Conc 32.4 g/dL (32-36); Mean Corpuscular Hgb 26.4 pg (27.0-32.0); Mean Corpuscular Volume 81.3 fL (81-99); Mean Platelet Vol. 13.8 fl (6.2-12.0); Monocyte# 0.62 X10^3/uL; Monocyte% 8.1 % (0-10); NRBC Flagged by Analyzer 0 % (0-5); Neutrophil % 73.4 % (47-70); Platelet Count 122 K/mm3 (150-450); RBC Distribution Width SD 44.3 fl (35.1-43.9); Red Blood Count 4.06 M/mm3 (4.2-5.4); White Blood Count 7.6 K/mm3 (4.4-11.0)
[2021-02-18 09:30] LABS: Amphetamine Urine VISTA NEGATIVE (<1000 ng/mL); Barbiturate Urine VISTA NEGATIVE (< 200 ng/mL); Benzodiazepine Urine VISTA NEGATIVE (< 200 ng/mL); Cocaine Urine VISTA NEGATIVE (< 300 ng/mL); Ecstacy Urine VISTA NEGATIVE (< 500 ng/mL); Methadone Urine VISTA NEGATIVE (< 300 ng/mL); PCP Urine VISTA NEGATIVE (< 25 ng/mL); THC Urine VISTA NEGATIVE (< 50 ng/mL); Vista UDS pH Range 6
[2021-02-18] MEDS: fentaNYL 100 MCG/2 ML Ampul IV (12:18)
[2021-02-18] MEDS: Lactated Ringers 1,000 ML 200 ML IV (13:41)
--- NOTE | 2021-02-18 14:19 | HP.PCM.OB_ITS ---
HPI - General General Date of Admission: 02/18/21 HPI Narrative TACOS BLANC, is a 20 F who presents [facility] Medical History (Updated 02/18/21 @ 09:05 by Jovi Choi) Anxiety Asthma Chiari I malformation Depression depression Uninodular goiter Home Medications albuterol sulfate [Ventolin HFA] 2 puff INHALATION Q4H PRN PRN 08/11/14 [History Last Taken 3 Months Ago ~11/18/20] fluoxetine 50 mg PO DAILY 10/25/20 [History Last Taken 02/17/21 09:00] fluticasone propion-salmeterol 1 puff NASAL BID 10/25/20 [History Last Taken 12/17/20] Allergy/AdvReac Type Severity Reaction Status Date / Time No Known Allergies Allergy Verified 02/18/21 07:55 Surgical History (Updated 02/18/21 @ 09:05 by Jovi Choi) History of placement of ear tubes Social History Smoking Status: Former smoker History Elective abortions Hx Para 1 Spontaneous abortions Hx # Term Pregnancies Ectopic pregnancies Hx # Pregnancies Multiple births # of living children Vital Signs Vital Signs Vital Signs: 02/18/21 07:27 02/18/21 07:28 02/18/21 08:32 Temperature 98.1 F 98.0 F Temperature Source Pulse Rate 70 61 Respiratory Rate Blood Pressure 130/63 H 132/65 H Blood Pressure Mean BP Systolic 130 132 BP Diastolic 63 65 Blood Pressure Source Blood Pressure Position Blood Pressure Location Pulse Ox 97 Oxygen Delivery Method 02/18/21 09:49 02/18/21 10:51 02/18/21 10:59 Temperature 97.3 F L 97.3 F L Temperature Source Pulse Rate 65 56 L Respiratory Rate Blood Pressure 120/74 130/78 H Blood Pressure Mean BP Systolic 120 130 BP Diastolic 74 78 Blood Pressure Source Blood Pressure Position Blood Pressure Location Pulse Ox Oxygen Delivery Method 02/18/21 11:01 02/18/21 11:34 02/18/21 11:39 Temperature 97.3 F L Temperature Source Temporal Pulse Rate 59 L 56 L 78 Respiratory Rate 16 Blood Pressure 130/78 H Blood Pressure Mean 95 BP Systolic BP Diastolic Blood Pressure Source Monitor Blood Pressure Position Semi-Fowlers Blood Pressure Location Right Arm Pulse Ox 100 100 98 Oxygen Delivery Method Room Air 02/18/21 12:23 02/18/21 12:26 02/18/21 13:30 Temperature 98.4 F Temperature Source Pulse Rate 55 L Respiratory Rate Blood Pressure 130/74 H 125/64 H Blood Pressure Mean BP Systolic 130 125 BP Diastolic 74 64 Blood Pressure Source Blood Pressure Position Blood Pressure Location Pulse Ox 100 Oxygen Delivery Method 02/18/21 13:31 02/18/21 14:13 Temperature Temperature Source Pulse Rate 63 61 Respiratory Rate Blood Pressure 128/70 H Blood Pressure Mean BP Systolic 128 BP Diastolic 70 Blood Pressure Source Blood Pressure Position Blood Pressure Location Pulse Ox 100 98 Oxygen Delivery Method Weight Weight: 241 lb 2.971 oz Body Mass Index (BMI) 36.6 Labs Labs Labs: Blood Type A POSITIVE Antibody Screen NEGATIVE Hct 33.0 % (37-47) L Hgb 10.7 g/dL (12.0-15.0) L Rhogam given: No
[2021-02-18] MEDS: Lactated Ringers 1,000 ML 999 ML IV (14:40)
[2021-02-18] MEDS: Acetaminophen 500 MG Tablet 1000 MG PO ×2 (14:44→21:28)
[2021-02-18] MEDS: Sodium Citrate/Citric Acid 30 ML UDC PO (15:18)
[2021-02-18] MEDS: Cefazolin 2 GM in 0.9% Normal Saline 100 ML IV (15:20)
--- NOTE | 2021-02-18 15:20 | OP.PCM_ITS ---
Problems Associated Problem List Diagnoses (1) 39 weeks gestation of : (2) Breech presentation: (3) Elective induction of labor planned: Report of Operation Date of Procedure: 02/18/21 Pre-Operative Diagnosis: 39 week gestation, single IUP, multiparous patient, javon ech presentation noted during elective IOL Post-Operative Diagnosis: As above Surgery/Procedure Performed:: External cephalic version Description of Surgical Findings:: Patient was scheduled for an elective 39-week induction of labor. She progressed to 5 cm dilated with Pitocin. At that time it was noted she was breech presentation on cervical exam, as well as on transabdominal ultrasound. Surgeon: Asmita Heath aircraft refueler: Wolf Victor Type of Anesthesia: None Special Medications: None Specimen's removed: None Drains: None Estimated Blood Loss (mL): 0 Fluids Replaced: N/A Description of Procedure: A bedside ultrasound was performed which confirmed a single intrauterine and complete breech presentation. There was subjectively adequate fluid noted. Category one tracing. Pitocin was stopped, as it was running for her elective induction of labor. Cervix was 5/60/-4 station and baby was ballotable. Discussed risk, benefits, alternatives to external cephalic version and patient consented and desired to proceed. Using manual pressure the fetus was manipulated with gentle pressure from the palms against the buttocks and posterior occiput to stimulate a forward roll. Two attempts were made and the heart rate was obtained between each attempt and was reassuring. Next the fetus was manipulated with gentle pressure to stimulate a backwards roll. Two attempts were made with this. heart rate was obtained to each attempt and was reassuring. In total 4 attempts were made. The fetus shifted into a transverse lie. Following the procedure she was noted to have a reassuring and reactive tracing. A section was recommended. Discussed risk, benefits, turnips a section she desires to proceed. Grafts/Implants Used: None Complications None Admit VTE Documentation VTE Present on Admission: No VTE Pharm Prophylaxis ordered?: No
--- NOTE | 2021-02-18 15:27 | PCM.HP.OB ---
HPI - General General Date of Admission: 02/18/21 HPI Narrative TACOS BLANC, is a 20 F who presents for an elective IOL at 39 weeks per Dena Victor CNM. The patient requested an elective induction for social reasons. Maternal Data Information LINDSEY Calculator Estimated Delivery Date Method Current WG Current Estimate 02/20/21 Ultrasound #1 39w 5d Other Estimates 03/02/21 LMP (Uncertain) 38w 2d PFSH PFSH Medical History (Updated 02/18/21 @ 15:[address] Asmita Heath DO) Anxiety Asthma Chiari I malformation Depression depression Uninodular goiter Home Medications albuterol sulfate [Ventolin HFA] 2 puff INHALATION Q4H PRN PRN 08/11/14 [History Last Taken 3 Months Ago ~11/18/20] fluoxetine 50 mg PO DAILY 10/25/20 [History Last Taken 02/17/21 09:00] fluticasone propion-salmeterol 1 puff NASAL BID 10/25/20 [History Last Taken 12/17/20] Allergy/AdvReac Type Severity Reaction Status Date / Time No Known Allergies Allergy Verified 02/18/21 07:55 Surgical History (Updated 02/18/21 @ 09:05 by Jovi Choi) History of placement of ear tubes Social History Smoking Status: Former smoker History Elective abortions Hx Para 1 Spontaneous abortions Hx # Term Pregnancies Ectopic pregnancies Hx # Pregnancies Multiple births # of living children NST FHR Rate Baby A FHR Category:: Category I Vital Signs Vital Signs Vital Signs: 02/18/21 07:27 02/18/21 07:28 02/18/21 08:32 Temperature 98.1 F 98.0 F Temperature Source Pulse Rate 70 61 Respiratory Rate Blood Pressure 130/63 H 132/65 H Blood Pressure Mean BP Systolic 130 132 BP Diastolic 63 65 Blood Pressure Source Blood Pressure Position Blood Pressure Location Pulse Ox 97 Oxygen Delivery Method 02/18/21 09:49 02/18/21 10:51 02/18/21 10:59 Temperature 97.3 F L 97.3 F L Temperature Source Pulse Rate 65 56 L Respiratory Rate Blood Pressure 120/74 130/78 H Blood Pressure Mean BP Systolic 120 130 BP Diastolic 74 78 Blood Pressure Source Blood Pressure Position Blood Pressure Location Pulse Ox Oxygen Delivery Method 02/18/21 11:01 02/18/21 11:34 02/18/21 11:39 Temperature 97.3 F L Temperature Source Temporal Pulse Rate 59 L 56 L 78 Respiratory Rate 16 Blood Pressure 130/78 H Blood Pressure Mean 95 BP Systolic BP Diastolic Blood Pressure Source Monitor Blood Pressure Position Semi-Fowlers Blood Pressure Location Right Arm Pulse Ox 100 100 98 Oxygen Delivery Method Room Air 02/18/21 12:23 02/18/21 12:26 02/18/21 13:30 Temperature 98.4 F Temperature Source Pulse Rate 55 L Respiratory Rate Blood Pressure 130/74 H 125/64 H Blood Pressure Mean BP Systolic 130 125 BP Diastolic 74 64 Blood Pressure Source Blood Pressure Position Blood Pressure Location Pulse Ox 100 Oxygen Delivery Method 02/18/21 13:31 02/18/21 14:13 02/18/21 15:12 Temperature 97.6 F L Temperature Source Temporal Pulse Rate 63 61 56 L Respiratory Rate 16 Blood Pressure 128/70 H 130/69 H Blood Pressure Mean 89 BP Systolic 128 BP Diastolic 70 Blood Pressure Source Monitor Blood Pressure Position Semi-Fowlers Blood Pressure Location Right Arm Pulse Ox 100 98 99 Oxygen Delivery Method Room Air 02/18/21 15:13 02/18/21 15:14 Temperature 97.5 F L Temperature Source Pulse Rate 56 L Respiratory Rate Blood Pressure 130/69 H Blood Pressure Mean BP Systolic 130 BP Diastolic 69 Blood Pressure Source Blood Pressure Position Blood Pressure Location Pulse Ox 99 Oxygen Delivery Method Weight Weight: 241 lb 2.971 oz Body Mass Index (BMI) 36.6 Physical Exam Const alert and no apparent distress General Appearance: comfortable HEENT normocephalic Resp normal respiratory effort GI soft to palpation and non-tender Extremity normal to inspection Labs Labs Labs: Blood Type A POSITIVE Antibody Screen NEGATIVE Hct 33.0 % (37-47) L Hgb 10.7 g/dL (12.0-15.0) L Rhogam given: No Assessment & Plan (1) Elective induction of labor planned: PLAN: - Patient was admitted for an elective IOL as requested by patient for social reason. She was started on Pitocin and progressed to 5 cm dilated. At that time it was noted on exam that she was breech presentation. This was confirmed by ultrasound. Discussed r/b/a to ECV and she desired to proceed. She other operative report for details of failed ECV. Routine pre op care. Neurology records printed for anesthesia given Chiari malformation. Ancef pre op. (2) Breech presentation: (3) 39 weeks gestation of : (4) History of depression: (5) Obesity affecting : (6) Marijuana use: (7) Chiari malformation type I:
--- NOTE | 2021-02-18 17:11 | PCM.OPRPT ---
Problems Associated Problem List Diagnoses (1) Chiari malformation type I: (2) Marijuana use: (3) Obesity affecting : (4) History of depression: (5) Elective induction of labor planned: (6) Breech presentation: (7) 39 weeks gestation of : Report of Operation Date of Procedure: 02/18/21 Pre-Operative Diagnosis: 39 week gestation, breech presentation Post-Operative Diagnosis: As above Surgery/Procedure Performed:: PLTCS via pfannenstiel insicion Description of Surgical Findings:: Patient was scheduled for an elective 39 wk IOL. She progressed to 5 cm dilated on pitocin and was found to be breech presentation. She had a failed ECV. in footling presentation. Clear fluid. Normal appearing placenta. Normal appearing uterus and bilateral adnexa. Surgeon: Melva Heath fiction and nonfiction writer prose: Astrid Type of Anesthesia: General (Due to Chairi Malformation) Special Medications: None Specimen's removed: Placenta Drains: [place] Estimated Blood Loss (mL): 1200 cc Fluids Replaced: 1100 cc Description of Procedure: Patient was taken to the operating room where epidural anesthesia was attempted. Anesthesia was unable to place epidural; see their note for details. They decided to proceed with general anesthesia. She was prepped and draped in the dorsal position with a leftward tilt. After general anesthesia was induced, a pfannenstiel skin incision was made using the scalpel. This was carried down to the fascia, which was incision in the midline with the scalpel. The fascia was extended laterally in blunt fashion. The rectus muscles were in the midline and the peritoneum was entered bluntly with good visualization of the bladder. The incision was extended bluntly. A low transverse incision was made on the uterus with the scalpel. She was ruptured for clear fluid. Infant was noted to be in footling presentation. The feet of the infant were delivered, followed by the body, shoulders, arms, and head without any force or delay. A VMI was delivered atraumatically and the cord was clamped and cut immediately. The was handed off to nursery staff. The uterus was exteriorized and the placenta removed. The uterus was cleared of all clot and debris. The uterus was closed in 2 layer fashion. The first layer was performed using Vicryl in a running locked fashion. The second layer was performed using Vicryl in an imbricating layer. Several additional figure of eight sutures using the 1-0 Vicrly were placed at the left side of the uterine incision for hemostasis. The uterus was placed back into the abdomen. Arrista was placed over the hysterotomy. The incision was noted to be hemostatic. The peritoneum was closed in a running fashion using 3-0 Vicryl. The fascia was closed using Stratifix in a running fashion. The subcutaneous space was irrigated, made hemostatic with the Bovie, and reapproximated using 3-0 Vicryl. The skin was closed with 4-0 Monocryl in a subcuticular fashion. A dressing was placed. Instrument, sponge and needle counts were correct and she was taken to the recovery room in stable condition. Apgars 8,9 Grafts/Implants Used: None Procedure Start Time: 16:11 Procedure Stop Time: 17:00 Complications None Admit VTE Documentation VTE Present on Admission: No VTE Mechan Device Prophylaxis: SCD's
[2021-02-18] MEDS: Oxytocin 30 units/NS 500 ml 30 UNITS/500 ML IV.SOLN 167 UNITS IV (17:25)
[2021-02-18] MEDS: Ketorolac 30 MG/ML Syringe IV (18:08)
[2021-02-18] MEDS: HYDROmorphone 1 MG/ML Syringe IV ×2 (19:29→22:48)
[2021-02-18] MEDS: Lactated Ringers 1,000 ML 100 ML IV (20:29)
[2021-02-19] MEDS: Ketorolac 30 MG/ML Syringe IV ×3 (00:20→12:59)
[2021-02-19 01:20] VITALS: BP 116/55; PULSE 69; RESP 16; TEMP 36.6; O2SAT 96
[2021-02-19] MEDS: Acetaminophen 500 MG Tablet 1000 MG PO ×4 (03:39→21:04)
[2021-02-19 03:41] VITALS: BP 107/50; PULSE 67; RESP 16; TEMP 36.5; O2SAT 96
[2021-02-19] MEDS: 0.9% Saline Lock 10 ML Syringe IV ×4 (04:39→13:00)
[2021-02-19] MEDS: HYDROmorphone 1 MG/ML Syringe IV (04:39)
[2021-02-19] MEDS: Enoxaparin 40 MG/0.4 ML Syringe SC (05:26)
[2021-02-19 05:33] LABS: Hematocrit 27.1 % (37-47); Hemoglobin 8.8 g/dL (12.0-15.0); Mean Corp Hgb Conc 32.5 g/dL (32-36); Mean Corpuscular Hgb 26.7 pg (27.0-32.0); Mean Corpuscular Volume 82.1 fL (81-99); Mean Platelet Vol. 12.7 fl (6.2-12.0); Platelet Count 100 K/mm3 (150-450); RBC Distribution Width CV 14.8 % (11.6-14.6); RBC Distribution Width SD 44.7 fl (35.1-43.9); White Blood Count 7.1 K/mm3 (4.4-11.0)
[2021-02-19 08:20] VITALS: BP 104/53; PULSE 70; RESP 16; TEMP 36.8
[2021-02-19] MEDS: FLUoxetine 20 MG Capsule 40 MG PO (09:44)
[2021-02-19] MEDS: FLUoxetine 10 MG Capsule PO (09:44)
[2021-02-19] MEDS: Senna/Docusate Sodium 1 Tablet PO ×2 (09:44→16:48)
--- NOTE | 2021-02-19 10:32 | PN.OBGYN_ITS ---
Subjective Subjective Doing well. Ambulating and voiding without difficulty. She notes occasional lightheadedness. Pain is well controlled. Lochia normal. Denies chest pain, shortness of breath, leg pain. Tolerating regular diet without nausea or vomiting. Objective Data Objective Data Vital Signs: Vital Signs Temp Pulse Resp BP Pulse Ox 98.2 F 70 16 104/53 L 96 02/19/21 08:20 02/19/21 08:20 02/19/21 08:20 02/19/21 08:20 02/19/21 03:41 Oxygen Delivery Method Room Air Weight: 241 lb 2.971 oz Body Mass Index (BMI) 36.6 Intake & Output: Intake and Output for Last 24 Hours 02/17/21 02/18/21 02/19/21 23:59 23:59 23:59 Intake Total 3753.31 / 3753.31 751.67 / 751.67 Output Total 628 / 628 1700 / 1700 Balance 3125.31 / 3125.31 -948.33 / -948.33 Lab / Micro Data Result Diagrams: 02/19/21 05:25 Labs: Laboratory Results - last 24 hr 02/19/21 05:25: WBC 7.1, RBC 3.30 L, Hgb 8.8 L, Hct 27.1 L, MCV 82.1, MCH 26.7 L , MCHC 32.5, RDW Std Deviation 44.7 H, RDW Coeff of Gisel 14.8 H, Plt Count 100 L, MPV 12.7 H Physical Exam Const alert and no apparent distress General Appearance: comfortable HEENT normocephalic Resp normal respiratory effort GI soft to palpation and non-distended GI Narrative: ATTP, dressing c/d/i Assessment & Plan (1) Chiari malformation type I: (2) History of depression: (3) Obesity: (4) Delivery by section: PLAN: - POD#1 s/p PLTCS for breech presentation noted during elective IOL at 39 wks. section under general anesthesia due to Chiari Malformation - Pain well controll - Hgb 8.8 from 10.7 and Plt's 100. Will order for IV iron today and recheck CBC in AM. Discussed need for oral iron at discharge. HDS and abdominal exam non acute - Dispo: Anticipate discharge tomorrow
[2021-02-19 12:44] VITALS: BP 119/47; PULSE 78; RESP 16; TEMP 36.9
[2021-02-19] MEDS: oxyCODONE 5 MG Tablet PO ×2 (17:16→22:27)
[2021-02-19 17:20] VITALS: BP 125/44; PULSE 79; RESP 16; TEMP 36.9
[2021-02-19 20:51] VITALS: BP 123/56; PULSE 70; RESP 18; TEMP 36.3; O2SAT 98
[2021-02-19] MEDS: Ibuprofen 600 MG Tablet PO (21:01)
[2021-02-20] VITALS (15 sets, daily range): BP systolic 112–136; BP diastolic 47–72; PULSE 67–98; RESP 16–18; TEMP 36.2–36.7; O2SAT 96–99
[2021-02-20] MEDS: Acetaminophen 500 MG Tablet 1000 MG PO ×4 (03:19→21:00)
[2021-02-20] MEDS: Ibuprofen 600 MG Tablet PO ×4 (03:20→21:00)
[2021-02-20 05:23] LABS: Hematocrit 27.2 % (37-47); Hemoglobin 8.5 g/dL (12.0-15.0); Mean Corp Hgb Conc 31.3 g/dL (32-36); Mean Corpuscular Hgb 26.2 pg (27.0-32.0); Mean Platelet Vol. 12.2 fl (6.2-12.0); Platelet Count 129 K/mm3 (150-450); RBC Distribution Width CV 15.3 % (11.6-14.6); RBC Distribution Width SD 46.5 fl (35.1-43.9); Red Blood Count 3.24 M/mm3 (4.2-5.4); White Blood Count 8.3 K/mm3 (4.4-11.0)
--- NOTE | 2021-02-20 06:41 | PN.OBGYN_ITS ---
Subjective Subjective Patient seen at bedside laying flat in bed due to headache that started yesterday. Headache improves when laying flat. Anesthesia to evaluate today. Has minimally ambulated due to headache and feeling dizzy, and is voiding without difficulty. Passing flatus. with minimal support. Lochia minimal Objective Data Objective Data Vital Signs: Vital Signs Temp Pulse Resp BP Pulse Ox 97.2 F L 76 16 114/58 L 97 02/20/21 02:00 02/20/21 02:00 02/20/21 02:00 02/20/21 02:00 02/20/21 02:00 Oxygen Delivery Method Room Air Weight: 241 lb 2.971 oz Body Mass Index (BMI) 36.6 Intake & Output: Intake and Output for Last 24 Hours 02/18/21 02/19/21 02/20/21 23:59 23:59 23:59 Intake Total 3753.31 / 3753.31 861.67 / 861.67 Output Total 628 / 628 1700 / 1700 Balance 3125.31 / 3125.31 -838.33 / -838.33 Lab / Micro Data Result Diagrams: 02/20/21 05:15 Labs: Laboratory Results - last 24 hr 02/20/21 05:15: WBC 8.3, RBC 3.24 L, Hgb 8.5 L, Hct 27.2 L, MCV 84.0, MCH 26.2 L , MCHC 31.3 L, RDW Std Deviation 46.5 H, RDW Coeff of Gisel 15.3 H, Plt Count 129 L, MPV 12.2 H ROS Eyes Eyes: Denies blurry vision, change in vision or spots in vision Cardiovascular Cardiovascular: Denies abdominal pain, chest pain or dyspnea Respiratory/Chest Respiratory/Chest: Denies cough, dyspnea, shortness of breath at rest or shortness of breath with exertion Gastrointestinal Gastrointestinal: Denies abdominal pain, diarrhea or vomiting Genitourinary Genitourinary: Denies change in urinary stream, difficulty urinating or dysuria Musculoskeletal Musculoskeletal: Reports none Integumentary Integumentary: Denies rash Neurologic Neurologic: Reports dizziness, headache(s) and weakness Physical Exam Narrative Dressing is dry and intact Const alert and no apparent distress General Appearance: cooperative and comfortable Exam Limitations: no limitations HEENT normocephalic Eyes General Eye: normal appearance of both eyes Neck full ROM General: normal visual inspection Chest Chest: symmetrical chest wall rise Resp normal respiratory effort and normal air movement Effort and Inspection: symmetric chest movement Auscultation: clear to auscultation bilaterally Cardio regular rate and regular rhythm GI normal to inspection, nondistended, normoactive bowel sounds Back/Spine normal ROM Extremity full ROM and no calf tenderness General Extremity: normal exam except as noted Skin no rashes or lesions noted Neuro CN's II-XII intact bilaterally Psych mental status grossly normal Assessment & Plan (1) Delivery by section: (2) Obesity: QUALIFIERS: Obesity type: unspecified obesity type (3) Chiari malformation type I: (4) Anemia due to blood loss, acute: (5) Anemia, chronic disease: (6) Headache: QUALIFIERS: Headache type: other headache syndrome Qualified Co de(s): G44.89 - Other headache syndrome PLAN: PO #2 Primary C/S HGB- 10.7/8.8/8.6- received IV FE yesterday without improvement Transfuse 1 unit PRBC now and redraw CBC Pain control Consult to anesthesia for headache-possibly spinal Will reevaluate for discharge later today
[2021-02-20] MEDS: 0.9% Normal Saline 1,000 ML 125 ML IV (10:23)
[2021-02-20] MEDS: Senna/Docusate Sodium 1 Tablet PO (10:23)
[2021-02-20] MEDS: FLUoxetine 20 MG Capsule 40 MG PO (10:24)
[2021-02-20] MEDS: FLUoxetine 10 MG Capsule PO (10:25)
--- NOTE | 2021-02-20 13:54 | RAD_ITS ---
PROCEDURE: Epidural blood patch. DATE OF EXAMINATION: 02/20/2021. INDICATION: Female, 20 years old. Headaches. FLUOROSCOPY TIME (if supplied): (26.7 seconds) minutes/seconds. 6 images were obtained. Intraoperative imaging provided for L4-L5 epidural blood patch. RAD/Fluor Guidance for Spine Inj IMPRESSION: Intraoperative imaging provided for L4-L5 epidural blood patch. Electronically Signed: Anthony Gallegos MD at 8:21 EDT , Service support ,
--- NOTE | 2021-02-20 13:59 | NURSING ---
Student charting reviewed and appropriate. PGardner NS
--- NOTE | 2021-02-20 14:21 | OP.PCM_ITS ---
Problems Associated Problem List Diagnoses (1) Headache: (2) Postdural puncture headache: (3) Post-dural puncture headache: Report of Operation Date of Procedure: 02/20/21 Pre-Operative Diagnosis: Postdural puncture headache Post-Operative Diagnosis: Posterior puncture headache Surgery/Procedure Performed:: Lumbar epidural blood patch at the level of the L4-5 Description of Surgical Findings:: Under sterile condition, patient placed in the prone position was guided fluoroscopy, identified the entrance at the lumbar interlaminar space at the L4-5, using local anesthesia 0.5% lidocaine diluted to the skin, using 18-gauge Touhy needle accessed the posterior epidural space at the midline at the interlaminar space L4-5 successfully with loss of resistance with preservative-free normal saline, guided with fluoroscopy guidance and contrast injection which showed appropriate epidurogram distribution of the contrast at that level. Ensure negative aspiration for any CSF and blood. At that time under sterile condition [employer] Developer has provided access with a sterile condition to the right antecubital 15 cc of the patient on fresh blood was aspirated and injected successfully immediately into the posterior epidural space, slowly injected, patient has no complication during the procedure she reported no major pain or any complication after the procedure. Patient was taken to the supine position placed on supine position, appropriate hydration postoperative instruction provided. No complication. Surgeon: Shade Hennessy Type of Anesthesia: Local Complications No complication.
--- NOTE | 2021-02-20 14:48 | NURSING ---
pt brought back to room from surgery after blood patch
[2021-02-20 18:19] LABS: Absolute Lymphocyte Count 1.22 X10^3/uL (0.83-4.51); Basophil# 0.03 X10^3/uL; Basophil% 0.3 % (0-1); Eosinophil# 0.18 X10^3/uL; Hematocrit 28.2 % (37-47); Hemoglobin 8.8 g/dL (12.0-15.0); Lymphocyte # 1.22 X10^3/ul (0.83-4.51); Lymphocyte % 13.9 % (19-41); Mean Corp Hgb Conc 31.2 g/dL (32-36); Mean Corpuscular Hgb 26.3 pg (27.0-32.0); Mean Corpuscular Volume 84.2 fL (81-99); Mean Platelet Vol. 12.4 fl (6.2-12.0); Monocyte# 0.31 X10^3/uL; Monocyte% 3.5 % (0-10); NRBC Flagged by Analyzer 0 % (0-5); Neutrophil # 7.03 X10^3/uL (2.7-7.7); Platelet Count 130 K/mm3 (150-450); RBC Distribution Width SD 46.3 fl (35.1-43.9); Red Blood Count 3.35 M/mm3 (4.2-5.4); White Blood Count 8.8 K/mm3 (4.4-11.0)
--- NOTE | 2021-02-20 23:06 | PCM.DC.BLA ---
Discharge Summary Date of Admission: 02/18/21 Date of Discharge: 02/20/21 Summary: Patient was admitted for labor induction progressed to 5 cm was found to be breech presentation at that time. Attempted external cephalic version was performed and failed. Patient underwent a primary Low Transverse section by Dr. aJqui Heath that was uncomplicated. Postoperatively patient had acute on chronic anemia that was symptomatic. On postoperative day #2 she received 1 unit of packed red blood cells. Patient also had a spinal headache and received a blood patch. Patient was then discharged home on postoperative day 2 in stable condition. Meaningful Use Info Meaningful Use Diagnoses (Choose all that apply): None applicable Discharge Plan Admission Admit Date/Time: 02/18/21 06:50 Primary Reason for Your Visit: Receiving epidural lumbar blood patch for post dural puncture headache Attending Provider: Asmita Heath Primary Care Provider: Kris Amaro Consulting Providers: Shade Hennessy Instructions Forms: Information Patient Instructions: After a Additional Instructions / Restrictions: no lifiting anything heavier than 8lbs for 24 hours Discharge Orders/Prescriptions Prescriptions: No Action albuterol sulfate [Ventolin HFA] 1 INHALER inhaler 2 puff inhalation Q4H PRN PRN (Reason: Wheezing) RF: 0 fluoxetine 60 mg Tablet 50 mg PO DAILY RF: 0 fluticasone propion-salmeterol 1 puff NASAL BID RF: 0 Referrals / Follow Up: Kris Amaro MD [Primary Care Provider] - Disposition Disposition (needs filled in before D/C Order can be placed): Home, Self Care
== END 2021-02-20 21:01 | disposition home or self-care (01) | DRG 786 ==
PROVIDERS: Anesthesiology; Obstetrics & Gynecology; Admitting Provider Obstetrics & Gynecology; PCP Family Medicine; Visit Provider Obstetrics & Gynecology
PROC: 3E0S3BZ Introduction of Anesthetic Agent into Epidural Space, Percutaneous Approach (ICD-10-PCS; principal; 2021-02-20 13:40)
DX: O32.1XX0 Maternal care for breech presentation, not applicable or unspecified (principal); G93.5 Compression of brain; D62 Acute posthemorrhagic anemia; G97.1 Other reaction to spinal and lumbar puncture; Y84.4 Aspiration of fluid as the cause of abnormal reaction of the patient, or of later complication, without mention of misadventure at the time of the procedure; F12.90 Cannabis use, unspecified, uncomplicated; O32.2XX0 Maternal care for transverse and oblique lie, not applicable or unspecified; Z3A.39 39 weeks gestation of pregnancy; Z37.0 Single live birth; Z87.891 Personal history of nicotine dependence; O99.02 Anemia complicating childbirth; D64.9 Anemia, unspecified; O99.214 Obesity complicating childbirth; E66.9 Obesity, unspecified
CPT/HCPCS: 59025; 59050; 76000; 76815; 77003; 80307; 85025; 85027; 86850; 86900; 86901; 86920; 86922; 99218; 99251; J1756; J7030; J7120; P9016; A4216; G0378; G0463; J2405

== ENCOUNTER 2021-12-31 09:32 | Emergency (ER) | payer OTHER, MEDICAID, SELFPAY ==
[2021-12-31 09:33] VITALS: BP 147/79; PULSE 124; RESP 24; TEMP 37.2; O2SAT 92; BMI 33.0
--- NOTE | 2021-12-31 09:41 | RAD_ITS ---
STUDY: X-RAY CHEST REASON FOR EXAM: Female, 21 years old. Cough TECHNIQUE: Single AP portable view of the chest. COMPARISON: Comparison is made with prior study 10/25/2020. FINDINGS: The lungs are clear and expanded. There is no demonstrated pleural abnormality. Normal size heart. Normal mediastinum and jatinder. Normal visualized pulmonary arteries. Normal visualized aortic arch and descending thoracic aorta. Normal visualized thoracic spine. Normal visualized ribs, clavicles, and shoulders. There is no demonstrated abnormality of the visualized soft tissue structures of the upper abdomen. RAD/Chest 1 View (Portable) IMPRESSION: Normal x-ray examination of the chest. Electronically Signed: Anthony Gallegos MD at 10:35 EDT ,
--- NOTE | 2021-12-31 09:44 | ED.VIS.DYS ---
HPI History of Present Illness Chief Complaint: Asthma Narrative Narrative: 21-year-old female with history of asthma presenting with exacerbation of this. She states has been ongoing for a few days and she is having difficulty breathing. She does have a cough and she states it is productive. She is not had fever, chills, body aches. She states that she just started her menstrual cycle. Last menstrual period was just over a month ago. She took a test a couple of days ago and states it was negative. [facility] Medical History Anxiety Asthma Asthmatic bronchitis with exacerbation Chiari I malformation Depression Post-dural puncture headache depression Uninodular goiter Home Medications albuterol sulfate 90 mcg/actuation aerosol inhaler (Ventolin HFA) 2 puff inhalation Q4H PRN PRN Wheezing 08/11/14 [History Last Taken 3 Months Ago ~11/18/20] fluoxetine 60 mg tablet 50 mg PO DAILY allergies 10/25/20 [History Last Taken 02/17/21 09:00] fluticasone propion-salmeterol 1 puff NASAL BID allergies 10/25/20 [History Last Taken 12/17/20] albuterol sulfate 2.5 mg/3 mL (0.083 %) solution for nebulization 2.5 mg continuous nebulization 07/16/21 [History Last Taken Unknown] doxycycline monohydrate 100 mg capsule 100 mg PO BID #20 caps 07/16/21 [Rx Last Taken Unknown] drospirenone 3 mg-ethinyl estradiol 0.02 mg tablet tablet PO 07/16/21 [History Last Taken Unknown] methylprednisolone 4 mg tablets in a dose pack (Medrol (Jagjit)) 4 mg PO DAILY #21 tabs 07/16/21 [Rx Last Taken Unknown] albuterol sulfate 2.5 mg/3 mL (0.083 %) solution for nebulization 2.5 mg (3 mL) inhalation Q4H PRN #25 vials 12/31/21 [Rx Last Taken Unknown] prednisone 50 mg tablet 50 mg PO DAILY 5 days #5 tabs 12/31/21 [Rx Last Taken Unknown] Allergy/AdvReac Type Severity Reaction Status Date / Time No Known Allergies Allergy Verified 12/31/21 09:33 Surgical History History of placement of ear tubes Hx of section Social History Smoking Status: Former smoker ROS ROS ED Constitutional Constitutional ED: Denies chills or fever(s) Eyes Eyes: Denies change in vision or diplopia ENT ENT ED: Reports rhinorrhea Cardiovascular Cardiovascular: Denies chest pain or palpitations Respiratory/Chest Respiratory/Chest: Reports cough, dyspnea and dyspnea on exertion Gastrointestinal Gastrointestinal: Denies abdominal pain or constipation Genitourinary Genitourinary ED: Denies dysuria or hematuria Musculoskeletal Musculoskeletal: Denies arthralgias Integumentary Denies abscess or Abrasions Neurologic Neurologic: Denies headache(s) or paresthesias EXAM Physical Exam Const Vital Signs: 12/31/21 09:33 12/31/21 09:58 12/31/21 10:25 Temperature 98.9 F Temperature Source Temporal Pulse Rate 124 H 107 H Respiratory Rate 24 H 18 Respiratory Effort Accessory Muscle Use Respiratory Depth Normal Respiratory Pattern Tachypnea Normal Blood Pressure 147/79 H Blood Pressure Mean 101 Pulse Ox 92 Oxygen Delivery Method Room Air Room Air Positive well nourished General Appearance ED: NAD; Negative for pallor HEENT Reports moist mucous membranes atraumatic Eyes PERRL and EOMs intact bilaterally Neck no lymphadenopathy and supple Resp normal respiratory effort and clear to auscultation bilaterally Auscultation: wheezes throughout; Negative for rales or rhonchi Cardio regular rhythm Rate: tachycardic GI non-tender Extremity normal to inspection Neuro oriented x3 and CN's II-XII intact bilaterally Sensorium / Orientation: alert Speech: speech normal Gait (Neuro): normal gait Motor Exam: strength 5/5 throughout Psych Mood & Affect: anxious Skin no wounds and skin turgor normal General Skin Exam: Negative for jaundice or pallor MDM MDM MDM Narrative Medical decision making narrative: 21-year-old female presenting with asthma exacerbation. She was given breathing treatments and Solu-Medrol 125 mg. Chest x-ray was obtained and on my interpretation this shows no acute cardiopulmonary process. Radiologist does agree. CBC and BMP are unremarkable. Patient feeling improved after treatments. Rapid flu was negative. Rapid COVID pending but patient feels well enough to follow-up for the results of this at home. She request a refill on her aerosols. This was provided. She is also placed on a prednisone burst for home. Return precautions were discussed. Impression: 1. Asthma exacerbation Lab Data Attestation: I reviewed the patient's lab results. Labs: Laboratory Results - last 24 hr 12/31/21 12/31/21 09:55 09:55 WBC 7.8 RBC 5.15 Hgb 13.4 Hct 41.0 MCV 79.6 L MCH 26.0 L MCHC 32.7 RDW Std Deviation 39.6 RDW Coeff of Gisel 13.7 Plt Count 214 MPV 11.9 Immature Gran % (Auto) 0.100 Neut % (Auto) 57.8 Lymph % (Auto) 13.9 L Gillespie % (Auto) 9.3 Eos % (Auto) 17.6 H Baso % (Auto) 1.3 H Absolute Neuts (auto) 4.5 Absolute Lymphs (auto) 1.09 Nucleated RBC % 0 Sodium 140 Potassium 4.1 Chloride 105 Carbon Dioxide 24.0 Anion Gap 11 BUN 11 Creatinine 0.92 Estim Creat Clear Calc 96.76 Est GFR (MDRD) Af Amer 98 Est GFR (MDRD) Non-Af 81 BUN/Creatinine Ratio 11.9 Glucose 98 Calcium 9.3 Radiography Diagnostic Testing: Clinical Impression(s) from Imaging Studies Chest X-Ray 12/31/21 09:41 IMPRESSION: Normal x-ray examination of the chest. Electronically Signed: Anthony Gallegos MD at 10:35 EDT Reading Location ID and State: [facility] / [place] , Service support , Discharge Plan Triage Chief Complaint: Asthma Other Complaint: Shortness of Breath ED Provider: Sahil Patterson Dx/Rx/DC Orders Instructions: ED Asthma, Acute (Adult) Prescriptions: New prednisone 50 mg tablet 50 mg PO DAILY 5 Days Qty: 5 0RF albuterol sulfate 2.5 mg /3 mL (0.083 %) solution for nebulization 2.5 mg inhalation Q4H PRN Qty: 25 0RF Rx Instructions: Use q4 hours and PRN for wheezing No Action drospirenone-ethinyl estradiol 3-0.02 mg tablet PO albuterol sulfate 2.5 mg /3 mL (0.083 %) solution for nebulization 2.5 mg continuous nebulization Label Comments: inhale contents of 1 vial ( 3 milliliters ) in nebulizer by mouth and INTO THE LUNGS every 6 hours doxycycline monohydrate 100 mg capsule 100 mg PO BID Qty: 20 0RF methylprednisolone [Medrol (Jagjit)] 4 mg tablets,dose pack 4 mg PO DAILY Qty: 21 0RF Rx Instructions: Per package instructions albuterol sulfate [Ventolin HFA] 1 INHALER inhaler 2 puff inhalation Q4H PRN PRN (Reason: Wheezing) fluoxetine 60 mg Tablet 50 mg PO DAILY fluticasone propion-salmeterol 1 puff NASAL BID Stand Alone Forms: ED Work / School Excuse Primary Care Provider: Kris Amaro Referrals: Kris Amaro MD [Primary Care Provider] - Disposition Disposition: Home, Self Care Discharge Date/Time: 12/31/21 11:19
[2021-12-31 09:58] VITALS: O2SAT 96
[2021-12-31] MEDS: MethylPREDNISolone 125 MG/2 ML Vial IV (09:59)
[2021-12-31] MEDS: Ipratropium/Albuterol Sulfate 3 ML AMPUL.NEB INHALATION (09:59)
[2021-12-31] MEDS: Albuterol 2.5 MG/3 ML VIAL.NEB. INHALATION (09:59)
[2021-12-31 10:11] LABS: Absolute Lymphocyte Count 1.09 X10^3/uL (0.83-4.51); Absolute Neutrophil Count 4.5 X10^3/uL (2.0-7.7); Basophil% 1.3 % (0-1); Eosinophil# 1.38 X10^3/uL; Eosinophils% 17.6 % (0-5); Hemoglobin 13.4 g/dL (12.0-15.0); Lymphocyte # 1.09 X10^3/ul (0.83-4.51); Lymphocyte % 13.9 % (19-41); Mean Corp Hgb Conc 32.7 g/dL (32-36); Mean Corpuscular Volume 79.6 fL (81-99); Mean Platelet Vol. 11.9 fl (6.2-12.0); Monocyte# 0.73 X10^3/uL; Monocyte% 9.3 % (0-10); NRBC Flagged by Analyzer 0 % (0-5); Neutrophil # 4.53 X10^3/uL (2.7-7.7); Neutrophil % 57.8 % (47-70); Platelet Count 214 K/mm3 (150-450); RBC Distribution Width CV 13.7 % (11.6-14.6); RBC Distribution Width SD 39.6 fl (35.1-43.9); Red Blood Count 5.15 M/mm3 (4.2-5.4); White Blood Count 7.8 K/mm3 (4.4-11.0)
[2021-12-31 10:23] LABS: Anion Gap 11 (5-15); BUN 11 mg/dL (7-18); BUN/Creat Ratio 11.9 RATIO (10-20); Calcium,Total 9.3 mg/dL (8.5-10.1); Chloride 105 mmol/L (98-107); Creatinine, Serum 0.92 mg/dL (0.55-1.02); EST Glomerular Filtration Rate 81 mL/min (>60); Est Glom Filt Rate - Afr Amer 98 mL/min (>60); Estimated Creatinine Clearance 96.76 ml/min; Glucose 98 mg/dL (74-106); Potassium 4.1 mmol/L (3.5-5.1); Sodium Level 140 mmol/L (136-145)
[2021-12-31 10:25] VITALS: PULSE 107; RESP 18
== END 2021-12-31 11:19 | disposition home or self-care (01) ==
PROVIDERS: Emergency Provider Student in an Organized Health Care Education/Training Program; PCP Family Medicine; Visit Provider Student in an Organized Health Care Education/Training Program
DX: J45.901 Unspecified asthma with (acute) exacerbation (principal); Z87.891 Personal history of nicotine dependence; R05.9 Cough, unspecified
CPT/HCPCS: 71045; 80048; 85025; 87804; 87811; 94640; 96374; 99283

== ENCOUNTER 2022-02-04 05:43 | Day surgery (SDC) | payer OTHER, MEDICAID, SELFPAY ==
[2022-02-02 09:13] LABS: Absolute Lymphocyte Count 1.93 X10^3/uL (0.83-4.51); Absolute Neutrophil Count 2.7 X10^3/uL (2.0-7.7); Basophil# 0.06 X10^3/uL; Eosinophil# 1.05 X10^3/uL; Hematocrit 41.5 % (37-47); Hemoglobin 12.6 g/dL (12.0-15.0); Lymphocyte # 1.93 X10^3/ul (0.83-4.51); Lymphocyte % 31.2 % (19-41); Mean Corp Hgb Conc 30.4 g/dL (32-36); Mean Corpuscular Hgb 24.4 pg (27.0-32.0); Mean Corpuscular Volume 80.4 fL (81-99); Mean Platelet Vol. 12.1 fl (6.2-12.0); Monocyte# 0.42 X10^3/uL; Monocyte% 6.8 % (0-10); NRBC Flagged by Analyzer 0 % (0-5); Neutrophil # 2.72 X10^3/uL (2.7-7.7); Neutrophil % 43.8 % (47-70); Platelet Count 182 K/mm3 (150-450); RBC Distribution Width CV 14.6 % (11.6-14.6); RBC Distribution Width SD 42.1 fl (35.1-43.9); Red Blood Count 5.16 M/mm3 (4.2-5.4); White Blood Count 6.2 K/mm3 (4.4-11.0)
[2022-02-04] VITALS (7 sets, daily range): BP systolic 106–127; BP diastolic 64–79; PULSE 66–75; RESP 16; TEMP 36.3–37.1; O2SAT 94–100; BMI 32.7
[2022-02-04 06:25] LABS: Internal QC Validated? YES +Cl - CLEAR BKGD; Pregnancy, Urine Negative Negative
[2022-02-04] MEDS: Lactated Ringers 1,000 ML 15 ML IV (06:37)
--- NOTE | 2022-02-04 07:30 | FALS_PTH ---
PATIENT: TACOS BLANC [place] [facility] [place][id number] AGE/SX: 21/F ROOM: RE02/04/[address]: Dr. Asmita Heath DO : 2000 BED: DIS: 02/04/2022 SPEC #: [id number] RECD: 02/04/22 14:33 STATUS: KIMBERLEE JAKOB #: [id number] LAURA: 02/04/22 07:[address]: Asmita Heath DEPT: SURGICAL PATHOLOGY RECD BY: Alexx Perez ENTERED: 02/05/22 07:51 SP TYPE: FALL TUBES OTHR DR: Dr. Kris Amaro MD Tissues: Fallopian tube Procedures: Surgery Specimen Level II HEADER OPERATION: Laparoscopic salpingectomy PRE-OP DIAGNOSIS: Sterilization TISSUE SUBMITTED: Right and left fallopian tubes MICROSCOPIC DIAGNOSIS Right and left fallopian tubes, salpingectomies: Complete segments of fallopian tubes with no pathologic change. AM:hali 02/08/2022 MICROSCOPIC DESCRIPTION Slides are reviewed. GROSS DESCRIPTION Received in fixative is one container labeled with the patient's name and designated right and left fallopian tubes. The specimen consists of bilateral fallopian tubes including fimbrial ends measuring 6.5 cm in length and 0.5 cm in diameter and 6 cm in length and 0.5 cm in diameter. The fallopian tubes are not identified as right or left. One of the fallopian tubes contains a cyst measuring 0.5 cm in greatest dimension. Sections reveal unremarkable cut surfaces. Slp sections are submitted in two cassettes as follows: 1 ? one fallopian tube, 2 ? second fallopian tube and paratubal cyst. / SJ:hali 02/05/2022 TC:5 CPT: 11569 x2
--- NOTE | 2022-02-04 08:25 | DCINST_ITS ---
Discharge Instructions Diet Discharge Diet: No restrictions Activity Discharge Activity: May Drive (Once you are more than 24 hours out from anesthesia and are no longer taking Percocet. Once you feel strong enough to slam on a brake or turn a steering wheel sharply) and May Shower (Once you are more than 24 hours out from anesthesia) May resume sexual activity in: 1 week (No intercourse, tampons, soaking in water for 1 week) Ice area for (Minutes): 15 Weight Bearing Status: Weight bearing as tolerated Lifting Restrictions: Nothing heavier than 10-15 lbs for 1 week Dressing / Incision Call your doctor if your incision/area has: Continuous Slow Oozing, Sudden Increased Bleeding, Increased Pain/ Swelling, Increased Redness, Foul Smelling Discharge and Swelling at the incision site Call your doctor if you observe: Fever of 101 or Higher, Coldness, Increased Pain, Numbness or Tingling, Change in Color, Inability to urinate, Inability to have a bowel movement, Using more than 1 pad per hour, Shortness of breath, Dizziness, Fainting spells, Swelling in the ankles, Chest pain, Increased palpitations (irregular heartbeat), Calf discomfort and Uncontrolled pain Suture Line Care: Avoid Pulling/Pushing and Avoid Pinching/Bending Remove Dressing in: leave until fall off Cleanse incision/area with: Soap & Water Follow Up Care Please Follow Up With: Asmita Heath DO When: 1-2 weeks post op Test Results: Test results from this visit will be discussed in further detail at your follow- up appointment, if applicable. Discharge Plan Admission Primary Reason for Your Visit: surgery Attending Provider: Asmita Heath Primary Care Provider: Kris Amaro Discharge Orders/Prescriptions Prescriptions: New oxycodone-acetaminophen [Percocet] 5-325 mg tablet 1 tab PO Q6H PRN (Reason: pain) 7 Days Qty: 10 0RF ibuprofen 600 mg tablet 600 mg PO Q6H PRN (Reason: pain) Qty: 30 0RF Continued albuterol sulfate 2.5 mg /3 mL (0.083 %) solution for nebulization 2.5 mg continuous nebulization PRN PRN (Reason: BREATHING) Label Comments: inhale contents of 1 vial ( 3 milliliters ) in nebulizer by mouth and INTO THE LUNGS every 6 hours albuterol sulfate [Ventolin HFA] 1 INHALER inhaler 2 puff inhalation Q4H PRN PRN (Reason: Wheezing) fluoxetine 60 mg Tablet 50 mg PO DAILY fluticasone propion-salmeterol [Advair Diskus] 250-50 mcg/dose blister with device 1 ea INHALATION DAILY Label Comments: inhale 1 puff as directed twice a day (RINSE AND GARGLE MOUTH AFTER USE WITH WATER) Discontinued drospirenone-ethinyl estradiol 3-0.02 mg tablet 1 tablet PO DAILY Referrals / Follow Up: Kris Amaro MD [Primary Care Provider] - Disposition Disposition (needs filled in before D/C Order can be placed): Home, Self Care
--- NOTE | 2022-02-04 08:27 | OP.PCM_ITS ---
Problems Associated Problem List Diagnoses (1) Sterilization: Report of Operation Date of Procedure: 02/04/22 Pre-Operative Diagnosis: Request for sterilization Post-Operative Diagnosis: As above Surgery/Procedure Performed:: Laparoscopic bilateral salpingectomy Lysis of adhesions Description of Surgical Findings:: Omental adhesions present to anterior abdominal wall. Normal appearing uterus, bilateral tubes and bilateral ovaries. Minimal adhesions of left ovary to left pelvic side wall. Moderate adhesions of bladder to uterus. Normal appearing pelvis Surgeon: Asmita Heath cover machine operator: Magaly CHAND Type of Anesthesia: General Special Medications: None Specimen's removed: Bilateral fallopian tubes Drains: None Estimated Blood Loss (mL): < 50 cc Fluids Replaced: 800 cc Description of Procedure: Patient was taken to the operating room where general anesthesia was induced. She was prepped and draped in the dorsal lithotomy position using yellowfin stirrups. From below a weighted speculum was placed to expose the cervix. A single-tooth tenaculum was placed on the anterior lip of the cervix and a acorn uterine manipulator was placed. Gloves were changed and attention was turned to the abdominal portion of the procedure. Local was infiltrated at all port sites. An infraumbilical incision was made to accommodate a 5 mm port. This 5 mm port was placed using the laparoscope under direct visualization. Once confirmed intraperitoneal, CO2 gas was insufflated. Omental adhesions were noted to the anterior abdominal wall. No injuries were noted upon entry. A left lateral 5 mm port was placed. A right lateral 5 mm port was placed. The omental adhesions were brought down using the LigaSure device. The adhesions were clamped, cauterized, and transected. Once all of the omental adhesions were lysed from the anterior abdominal wall, the pelvis was able to be inspected. The uterus was normal-appearing with moderate adhesions of the bladder to the uterus. Bilateral fallopian tubes and ovaries were normal- appearing. There were minimal adhesions of the left ovary to the left pelvic sidewall. The right fallopian tube was elevated out of the pelvis and followed out to the fimbriated end. The LigaSure device was used along the mesosalpinx to serially clamped, cauterized, and transected until reaching level of the cor nua. Once at the level of the cornua the fallopian tube was transected. The right fallopian tube was removed from the pelvis. The same was performed on the left. The left fallopian tube was elevated out of the pelvis and followed out to the fimbriated end. The mesosalpinx was serially clamped, cauterized, and transected to the level of the cornua. Once at the level of the cornua the fallopian tube was transected. The left fallopian tube was removed from the pelvis. The pelvis was inspected and hemostasis was noted. The abdomen was exsufflated. Ports were removed. The port sites were closed with Monocryl and glue. From below all instruments were removed from the vagina and bleeding was hemostatic. A vaginal sweep was performed. Instrument, sponge, needle counts were correct. The patient was taken to the recovery room in good condition. Magaly CHAND was present for the entire case and assisted with draping the patient, placing ports, JERRELL, removing fallopian tubes, and closure. Grafts/Implants Used: None Procedure Start Time: 07:48 Procedure Stop Time: 08:24 Complications None Admit VTE Documentation VTE Present on Admission: No VTE Mechan Device Prophylaxis: SCD's
== END 2022-02-04 09:47 | disposition home or self-care (01) ==
LOC: SDC 05:44 → AC 05:44
PROVIDERS: PCP Family Medicine; Referring Provider Obstetrics & Gynecology; Visit Provider Obstetrics & Gynecology
PROC: (CPT 58661; principal; 2022-02-04 07:15)
DX: Z30.2 Encounter for sterilization (principal); G93.5 Compression of brain; Z87.891 Personal history of nicotine dependence; J45.909 Unspecified asthma, uncomplicated
CPT/HCPCS: 58661; 00840; 36415; 81025; 85025; 86850; 86900; 86901; 88302; J7120; J2405

== ENCOUNTER 2025-01-02 17:30 | Emergency (ER) | payer MEDICAID, SELFPAY ==
[2025-01-02 17:31] VITALS: BP 121/63; PULSE 104; RESP 26; TEMP 36.8; O2SAT 100; BMI 27.2
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
[2025-01-02 19:44] VITALS: BP 121/63; PULSE 104; RESP 26; TEMP 36.8; O2SAT 100
== END 2025-01-02 19:52 | disposition home or self-care (01) ==
PROVIDERS: Emergency Provider Surgery; PCP Family Medicine; Visit Provider Surgery
DX: S09.90XA Unspecified injury of head, initial encounter (principal); F41.9 Anxiety disorder, unspecified; Y92.410 Unspecified street and highway as the place of occurrence of the external cause; Z87.891 Personal history of nicotine dependence; V43.63XA Car passenger injured in collision with pick-up truck in traffic accident, initial encounter
CPT/HCPCS: 70450; 99284

== ENCOUNTER 2025-01-07 12:19 | Emergency (ER) | payer MEDICAID, SELFPAY ==
[2025-01-07 12:20] VITALS: BP 146/82; PULSE 79; RESP 14; TEMP 36.6; O2SAT 100; BMI 27.7
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
[2025-01-07 14:19] VITALS: BP 101/62; PULSE 54; O2SAT 100
[2025-01-07 14:28] VITALS: BP 101/62; PULSE 54; RESP 14; TEMP 36.6; O2SAT 100
--- OUTSIDE RECORDS SUMMARY | 2025-01-07 22:40 | XMS RPT_ITS | CCD ---
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 today, we recorded the following information about you: Pulse Blood pressure Weight Height 75/minute 118/72 80.7 kg 1.724 m Deana Amaro MD 12/04/2024 9:52 AM Signed Chief Complaint Patient presents with: Knee Pain: Right knee locking up. Painful when happens but no pain otherwise. Certain movements causing something to move in her knee and it stiffens. Has to straighten her leg out to be able to move it again. Started about a month and a half ago. Was not very frequent at first but is progressing. Happens a couple times a day. No injury. Recording using [employer] software for draft documentation of the visit was discussed with the patient/authorized registered representative; all questions welcomed and answered. Patient/authorized registered representative agreed to proceed HPI Tacos Blanc is a 23 year old female who presents here today for Above Complaints. Right Knee Pain and Locking: - Onset: Approximately one month ago. - Frequency: Occurs every other day. - Aggravating Factors: Bending, reaching, getting into bed or car. - Pain: Sharp pain localized to the lateral aspect of the knee during episodes. - Duration of Locking: Lasts up to 5 minutes, depending on pain severity. - Sensation: Tacos reports feeling something moving inside the knee during episodes. - Denies knee giving out while walking. - Denies known trauma or injury. - No treatment currently being used for pain. Past medical history, appointments, medications, allergies reviewed. Previous Medical History PAST MEDICAL HISTORY Diagnosis Date allergies 2010 Enviromental allergies previous IT anxiety Asthma ([facility]) mild obstruction PFT 03/2022 Chiari I malformation ([facility]) Dr. 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 PMH - PAST MEDICAL HISTORY OF bilateral broken elbows, did have pins in one elbow per mom Previous Surgical History PAST SURGICAL HISTORY Procedure Laterality Date ADENOIDECTOMY PRIMARY Adenoidectomy DELIVERY ONLY 02/18/2021 [facility] MYRINGOTOMY ASPIRAND/EUSTACHIAN TUBE NFLTJ ANES Myringotomy/tubes PAST SURGICAL HISTORY OF age 10 BROKEN LEFT ELBOW WITH PINS PAST SURGICAL HISTORY OF 2014 goiter removal SALPINGECTOMY Bilateral 02/04/2022 laparoscopic TONSILLECTOMY PRIMARY/SECONDARY Tonsillectomy Family History FAMILY HISTORY Problem Relation Age of Onset Heart Mother cardiomyopathy No Known Problems Father other (Benign chest tumor) Sister Asthma Brother Asthma Brother No Known Problems Brother Colon Cancer Maternal Grandmother Cancer Maternal Grandfather Bladder Skin Cancer Maternal Grandfather other (MS) Paternal Grandmother Heart Paternal Grandfather Patient Allergies ALLERGIES No Known Allergies Current Medications Current Outpatient Medications on File Prior to Visit Medication Sig albuterol HFA (PROVENTIL HFA, VENTOLIN HFA) 90 mcg/actuation inhaler Inhale 2 puffs as instructed every 4 hours as needed for wheezing/shortness of breath. beclomethasone (QVAR REDIHALER) 40 mcg/actuation inhaler Inhale 1 puff as instructed two times a day. fluticasone (FLONASE ALLERGY RELIEF) 50 mcg/actuation nasal spray Use 1 Hammond in each nostril once daily. FLUoxetine (PROZAC) 40 mg capsule Take 1 capsule by mouth once daily. No current facility-administered medications on file prior to visit. Social History SOCIAL HISTORY[1] Review of Symptoms REVIEW OF SYSTEMS See HPI EXAM: BP 118/72 Pulse 75 Ht 172.4 cm (5' 7.87) Wt 80.7 kg (178 lb) LMP 02/19/2022 (Exact Date) SpO2 98% BMI 27.17 kg/m? General Appearance: Well appearing, alert, in no acute distress, well-hydrated, well nourished.. Skin: Skin color, texture, turgor normal, no suspicious rashes or lesions. KNEE:Location: Right Redness: No. Warmth: No. Crepitus: No. Effusion: No. Joint line tenderness: No. Lateral tenderness: No. Medial tenderness: No. Drawer sign negative: Yes. Medial or lateral laxity: No. Say's sign: No. Health Maintenance List Cervical Cancer Screening Never done Annual PCP Team Chronic Disease Visit due on 03/09/2023 Influenza Vaccine(1) due on 12/24/2024 DTaP,Tdap,Td Vaccine(10 - Td or Tdap) due on 12/05/2030 Hepatitis B Vaccine Completed HPV Vaccine Completed Hepatitis C Screening Completed HIV Screening Completed 1. Knee locking, right (M23.91) 2. Acute pain of right knee (M25.561) - Symptoms and exam findings most c (more content not included)... Normal [facility] XR KNEE 4V AP/PA BOTH+LAT/ME R RTon 12-04-2024 XR KNEE 4V AP/PA BOTH+LAT/ALONA RT * * *Final Report* * * DATE OF EXAM: Dec 04 2024 10:26AM WOX [id number] - XR KNEE 4V AP/PA BOTH+LAT/ALONA RT / PROCEDURE REASON: Knee locking, right * * * * Physician Interpretation * * * * EXAM TITLE: XR KNEE 4V AP/PA BOTH+LAT/ALONA RT EXAM DATE/TIME: 12/04/2024 10:26 AM COMPARISON: None. CLINICAL INDICATION/HISTORY: Right knee locking. TECHNIQUE: AP/PA, lateral and sunrise views of the right knee are presented. FINDINGS: No fractures or subluxations are noted. Fragmentation of the tibial tubercle is noted, likely chronic. No obvious osteophyte formation The joint spaces are well preserved. There is no evidence of joint effusion. The mineralization of the bones is normal. There is no significant soft tissue swelling. IMPRESSION: Unremarkable right knee x-ray. Tile Decorator: PSCB Transcribe Date/Time: Dec 06 2024 4:18P Dictated by : FRANCHESCA REESE MD This examination was interpreted and the report reviewed and electronically signed by: FRANCHESCA REESE MD on Dec 06 2024 4:22PM EST [id number] Normal [facility] CNOVon 06-20-2024 CNOV Office Visit (PULMWS ) GUANACOTACOS ([id number]) 89 F Date Time Provider Department 06/20/24 9:30 AM ROSSANA SANCHEZ PULMWS During your visit today, we recorded the following information about you: Pulse Blood pressure Weight 71/minute 116/70 78 kg Rossana Sanchez, SUSANNEC 06/20/2024 9:49 AM Signed Patient: Tacos Blanc PCP: Deana Amaro MD CC: follow up HPI: Tacos Blanc 23 year old female former minimal smoker with PMH significant for Chiari I malformation, Goiter, Anemia, Allergies, and Asthma. Last office visit 10/14/[address] Noble. At last OV, therapy was stepped down from Trelegy. Current maintenance therapy with Dulera and as needed Albuterol. Today, patient reports she has been doing well with the exception of having an URI and Strep throat earlier this month. At that time, she used her Albuterol inhaler, but has not required it since. Denies cough, sputum production, wheezing or SOB. No chest tightness. No nocturnal awakenings due to asthma symptoms. PAST MEDICAL HISTORY Diagnosis Date allergies 2010 Enviromental allergies previous IT anxiety Asthma mild obstruction PFT 03/2022 Chiari I malformation (HCC) Dr. 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 albuterol HFA (PROVENTIL HFA, VENTOLIN HFA) 90 mcg/actuation inhaler Inhale 2 Puffs as instructed every 4 hours as needed for wheezing/shortness of breath. fluticasone (FLONASE ALLERGY RELIEF) 50 mcg/actuation nasal spray Use 1 Hammond in each nostril once daily. FLUoxetine (PROZAC) 40 mg capsule Take 1 capsule by mouth once daily. Social History Tobacco Use Smoking status: Former Current packs/day: 0.00 Average packs/day: 0.1 packs/day for 1 year (0.1 ttl pk-yrs) Types: Cigarettes Start date: 07/15/2017 Quit date: 07/15/2018 Years since quittin.9 Smokeless tobacco: Never Vaping Use Vaping status: Some Days Substances: Nicotine, THC, CBD, Flavoring Substance Use Topics Alcohol use: No Comment: Not while Drug use: Not Currently Frequency: 4.0 times per week Types: Marijuana Family History Problem Relation Age of Onset Heart Mother cardiomyopathy No Known Problems Father other (Benign chest tumor) Sister Asthma Brother Asthma Brother No Known Problems Brother Colon Cancer Maternal Grandmother Cancer Maternal Grandfather Bladder Skin Cancer Maternal Grandfather other (MS) Paternal Grandmother Heart Paternal Grandfather PAST SURGICAL HISTORY Procedure Laterality Date ADENOIDECTOMY PRIMARY Adenoidectomy DELIVERY ONLY 02/18/2021 [facility] MYRINGOTOMY ASPIRAND/EUSTACHIAN TUBE NFLTJ ANES Myringotomy/tubes PAST SURGICAL HISTORY OF age 10 BROKEN LEFT ELBOW WITH PINS PAST SURGICAL HISTORY OF 2013 goiter removal SALPINGECTOMY Bilateral 02/04/2022 laparoscopic TONSILLECTOMY PRIMARY/SECONDARY Tonsillectomy I reviewed the past medical history, family history, social history and surgical history with changes noted above and updated in EMR. IMMUNIZATIONS Immunization History Administered Date(s) Administered Haemophilus influenzae b (HbOC) vaccine, 4-dose series (HIBTITER) 02/08/2000 04/05/2000 06/10/2000 06/28/2001 diphtheria tetanus pertussis (DTaP) vaccine, pediatric (INFANRIX) 02/08/2000 04/05/2000 06/10/2000 06/28/2001 12/20/2003 hepatitis B (HepB) vaccine, 3-dose series, age 0 yr - 19 yr (ENGERIX B-PEDS, RECOMBIVAX HB-PEDS) 1999 06/10/2000 08/26/2000 human papillomavirus (HPV4) vaccine, quadrivalent (GARDASIL) 12/09/2010 02/16/2011 06/30/2011 influenza (IIV3) vaccine, age 6 mo - 64 yr, trivalent (AFLURIA, FLULAVAL, FLUVIRIN, FLUZONE) 02/07/2014 influenza (IIV4) vaccine, age 6 mo - 64 yr, quadrivalent (AFLURIA, FLULAVAL, FLUZONE) 02/01/2015 02/14/2016 02/26/2017 01/04/2019 01/09/2020 01/12/2021 01/05/2022 influenza (LAIV3) vaccine, trivalent, live, intranasal (FLUMIST) 02/23/2008 02/06/2009 influenza vaccine, unspecified formulation 03/09/2007 04/08/2007 02/07/2010 02/16/2011 01/15/2012 02/02/2013 measles mumps rubella (MMR) vaccine (M-M-R II, PRIORIX) 06/28/2001 12/20/2003 meningococcal (MenACWY-D) vaccine, quadrivalent (MENACTRA) 01/17/2016 meningococcal (MenACYW) vaccine, quadrivalent, unspecified formulation 12/09/2010 pneumococcal conjugate (PCV20) vaccine, 20 valent (PREVNAR 20) 12/24 (more content not included)... Normal [facility] CNOVon 05-30-2024 CNOV Office Visit (UCTR ) TACOS BLANC ([id number]) 89 F Date Time Provider Department 05/30/24 9:30 AM [facility] During your visit today, we recorded the following information about you: Temperature Pulse Respiration Blood pressure 100.6 degrees 106/minute 18/minute 118/70 Weight 78.8 kg Jason Sweeney APRN.[facility] 05/30/2024 10:01 AM Signed CC: Patient presents with: Nasal Congestion: chills, diarrhea, sore throat and headache x 2 days HPI: Tacos Blanc is a 23 year old female who presents to the office with complaint of head congestion, cough, nonproductive, sore throat, and sinus symptoms for 2 days. Symptoms are staying the same. Associated symptoms includes headache. Denies wheezing, dyspnea, nausea, and vomiting . Treatments tried include nothing so far. with no relief of symptoms. Sick contacts: unknown. History of asthma, frequent episodes of bronchitis, chronic bronchitis, bronchiectasis or COPD: No Smoker: No Seasonal/environmenta l allergies: No The ROS is otherwise negative. The patient's pmh, medications, allergies, and past visits are reviewed. PHYSICAL EXAM: BP 118/70 Pulse 106 Temp (!) 38.1 ?C (100.6 ?F) Resp 18 Wt 78.8 kg (173 lb 11.6 oz) LMP 02/19/2022 (Exact Date) SpO2 99% BMI 26.52 kg/m? General appearance: alert, cooperative, pleasant, in no acute distress Head: Normocephalic Eyes: EOM's intact, conjunctiva pink and moist, no icterus, sclera white, non-injected Ears: Right ear: External ear/canal- Normal, TM - clear with good landmarks. Left ear: External ear/canal- Normal, TM - clear with good landmarks Oropharynx:moist without lesions, No erythema, exudates or tonsillar hypertrophy. Heart: Negative. RRR without obvious murmur, gallop, or rubs. No ectopy. Lungs: clear to auscultation, without rales or wheeze, good air exchange PAST MEDICAL HISTORY Diagnosis Date allergies 2010 Enviromental allergies previous IT anxiety Asthma mild obstruction PFT 03/2022 Chiari I malformation (HCC) Dr. 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 MEDICATIONS mometasone-formoterol (DULERA) 200-5 mcg/actuation inhaler Inhale 1 Puff as instructed two times a day. albuterol HFA (PROVENTIL HFA, VENTOLIN HFA) 90 mcg/actuation inhaler Inhale 2 Puffs as instructed every 4 hours as needed for wheezing/shortness of breath. fluticasone (FLONASE ALLERGY RELIEF) 50 mcg/actuation nasal spray Use 1 Hammond in each nostril once daily. FLUoxetine (PROZAC) 40 mg capsule Take 1 capsule by mouth once daily. FAMILY HISTORY Problem Relation Age of Onset Heart Mother cardiomyopathy No Known Problems Father other (Benign chest tumor) Sister Asthma Brother Asthma Brother No Known Problems Brother Colon Cancer Maternal Grandmother Cancer Maternal Grandfather Bladder Skin Cancer Maternal Grandfather other (MS) Paternal Grandmother Heart Paternal Grandfather Social History Tobacco Use Smoking status: Former Current packs/day: 0.00 Average packs/day: 0.1 packs/day for 1 year (0.1 ttl pk-yrs) Types: Cigarettes Start date: 07/15/2017 Quit date: 07/15/2018 Years since quittin.8 Smokeless tobacco: Never Vaping Use Vaping status: Some Days Substances: Nicotine, THC, CBD, Flavoring Substance Use Topics Alcohol use: No Comment: Not while Drug use: Not Currently Frequency: 4.0 times per week Types: Marijuana ASSESSMENT/PLAN: 1. Sore throat - ICD9: 462, ICD10: J02.9 (primary diagnosis) - STREP A MOLECULAR (POC) - pos 2. URI, acute - ICD9: 465.9, ICD10: J06.9 3. Strep throat - ICD9: 034.0, ICD10: J02.0 - AMOXICILLIN 500 MG CAPSULE Prescription instructions reviewed with patient as applicable. Potential red flag symptoms discussed with the patient. Reviewed appropriate action plan to take if red flag symptoms occur. Patient agreeable to treatment plan. Jason Sweeney APRN.[facility] Allergies As of Date: 05/30/2024 (No Known Allergies) Date Reviewed: 05/30/2024 Reviewed by: Mary Ann Mccray MA - Fully Assessed (more content not included)... Normal [facility] .Auto Diffon 06-11-2022 Basophil, Absolute 0.0 10 3/mcL Normal 0.0-0.2 [facility] ([place]) Comment on above: Performed By: #### M G #### [address] [address] Basophils/100 WBC (Bld) 0.1 % Normal 0.0-2.5 [facility] ([place] Comment on above: Performed By: #### M G #### [address] [address] Eosinophil, Absolute 0.0 10 3/mcL Normal 0.0-0.4 [facility] ([place] Comment on above: Performed By: #### M G #### [address] [address] Eosinophils/100 WBC (Bld) 0.2 % Normal 0.0-7.0 [facility] ([place] Comment on above: Performed By: #### M G #### [address] [address] Lymphocyte, Absolute 0.4 10 3/mcL Low 0.8-3.9 [facility] ([place] Comment on above: Performed By: #### M G #### [address] [address] Lymphocytes/100 WBC (Bld) 6.7 % Low 10.0-50.0 [facility] ([place] Comment on above: Performed By: #### M G #### [address] [address] Monocyte, Absolute 0.1 10 3/mcL Low 0.2-1.0 [facility] ([place] Comment on above: Performed By: #### M G #### [address] [address] Monocytes/100 WBC (Bld) 1.1 % Low 1.7-13.0 [facility] ([place] Comment on above: Performed By: #### M G #### [address] [address] Neutrophils/100 WBC (Bld) 91.9 % High 37.0-80.0 [facility] ([place] Comment on above: Performed By: #### M G #### [address] [address] .GFRon 06-11-2022 GFR 70 ml/min/1.73sqm Normal [facility] ([place] Comment on above: Result Comment: GFR Population mean for , Non- Americans Ages 20-29 = 116 mL/min/1.73 sq.m. Ages 30-39 = 107 mL/min/1.73 sq.m. Ages 40-49 = 99 mL/min/1.73 sq.m. Ages 50-59 = 93 mL/min/1.73 sq.m. Ages 60-69 = 85 mL/min/1.73 sq.m. Ages 70+ = 75 mL/min/1.73 sq.m. Chronic Kidney Disease: Less than 60 mL/min/1.73 square meters End Stage Renal Disease: Less than 15 mL/min/1.73 square meters Performed By: #### M G #### [address] [address] GFR Non- 58 ml/min/1.73sqm Normal [facility] ([place] Comment on above: Result Comment: GFR Population mean for , Non- Americans Ages 20-29 = 116 mL/min/1.73 sq.m. Ages 30-39 = 107 mL/min/1.73 sq.m. Ages 40-49 = 99 mL/min/1.73 sq.m. Ages 50-59 = 93 mL/min/1.73 sq.m. Ages 60-69 = 85 mL/min/1.73 sq.m. Ages 70+ = 75 mL/min/1.73 sq.m. Chronic Kidney Disease: Less than 60 mL/min/1.73 square meters End Stage Renal Disease: Less than 15 mL/min/1.73 square meters Performed By: #### M G #### [address] [address] .MDWon 06-11-2022 Monocyte Distribution Width See Comment Normal 0.00-20.00 [facility] ([place] Comment on above: Result Comment: The MDW result could not be reported due to a sample abnormality that prevents the MDW from being calculated. Performed By: #### R ESCVID #### [address] [address] .NEUABSon 06-11-2022 Neutrophil, Absolute 5.1 10 3/mcL Normal 2.9-6.2 [facility] ([place] Comment on above: Performed By: #### M G #### [address] [address] BMPon 06-11-2022 BUN/Creatinine Ratio 6 ratio Low 7-27 [facility] ([place] Comment on above: Performed By: #### M G #### [address] [address] Calcium [Mass/Vol] 9.2 mg/dL Normal 8.4-10.2 [facility] ([place] Comment on above: Performed By: #### M G #### [address] [address] Chloride [Moles/Vol] 104 mmol/L Normal 98-107 [facility] ([place] Comment on above: Performed By: #### M G #### [address] [address] CO2 [Moles/Vol] 21 mmol/L Low 22-29 [facility] ([place] Comment on above: Performed By: #### M G #### [address] [address] Creatinine [Mass/Vol] 1.17 mg/dL High 0.55-1.02 [facility] ([place]) Comment on above: Performed By: #### M G #### [address] [address] Electrolyte Balance 17.0 mEq/L High 4.0-15.0 [facility] ([place]) Comment on above: Performed By: #### M G #### [address] [address] Glucose [Mass/Vol] 178 mg/dL High 70-105 [facility] ([place] Comment on above: Performed By: #### M G #### [address] [address] Potassium [Moles/Vol] 3.6 mmol/L Normal 3.5-5.1 [facility] ([place] Comment on above: Performed By: #### M G #### [address] [address] Sodium [Moles/Vol] 142 mmol/L Normal 136-145 [facility] ([place] Comment on above: Performed By: #### M G #### [address] [address] Urea nitrogen [Mass/Vol] 7 mg/dL Normal 7-18 [facility] ([place] Comment on above: Performed By: #### M G #### [address] [address] CBCon 06-11-2022 Erythrocyte distribution width (RBC) [Ratio] 16.5 % High 11.5-14.5 [facility] ([place] Comment on above: Performed By: #### M G #### [address] [address] Hematocrit (Bld) [Volume fraction] 41.5 % Normal 37.0-47.0 [facility] ([place] Comment on above: Performed By: #### M G #### [address] [address] Hgb 13.5 G/dL Normal 12.0-16.0 [facility] ([place] Comment on above: Performed By: #### M G #### [address] [address] MCH (RBC) [Entitic mass] 24.9 pg Low 27.0-31.2 [facility] ([place] Comment on above: Performed By: #### M G #### [address] [address] MCHC 32.5 G/dL Low 33.0-37.0 [facility] ([place] Comment on above: Performed By: #### M G #### [address] [address] MCV (RBC) [Entitic vol] 76.7 fL Low 80.0-94.0 [facility] ([place] Comment on above: Performed By: #### M G #### [address] [place], [place] [address] Platelet 212 10 3/mcL Normal 130-400 [facility] ([place] Comment on above: Performed By: #### M G #### [address] [place], [place] [address] Platelet mean volume (Bld) [Entitic vol] 9.5 fL Normal 7.4-10.4 [facility] ([place] Comment on above: Performed By: #### M G #### [address] [address] RBC 5.41 10 6/mcL High 4.20-5.40 [facility] ([place] Comment on above: Performed By: #### M G #### [address] [address] WBC 5.6 10 3/mcL Normal 4.6-10.8 [facility] ([place] Comment on above: Performed By: #### M G #### [address] [address] [id number] 06-10-2022 SARS-CoV-2 (COVID-19) RNA RUSSEL+probe Ql (Unsp spec) Negative Normal Negative [facility] ([place] Comment on above: Performed By: #### G FR, BMP #### [address] [address] SARS-CoV-2 (COVID-19) RNA RUSSEL+probe Ql (Unsp spec) Normal [facility] ([place] Comment on above: Result Comment: Nega tive results do not preclude SARS-CoV-2 infection and should not be used as the sole basis for patient management decisions. Negative results must be combined with clinical observations, patient history, and epidemiological information. There is a risk of false negative values resulting from improperly collected, transported, or handled specimens. There is a risk of false negative values due to the presence of sequence variants in the pathogen targets of the assay, procedural errors, amplification inhibitors in specimens, or inadequate numbers of organisms for amplification. VINNY SARS-CoV-2 Assay is a Real-Time reverse-transcriptase polymerase chain reaction (RT-PCR) based qualitative in vitro diagnostic test intended for the qualitative detection of nucleic acid from the SARS-CoV-2 in nasopharyngeal swab specimens collected from individuals suspected of COVID-19 by their healthcare provider. Testing is limited to laboratories certified under the Clinical Laboratory Improvement Amendments of 1988 (CLIA), 42 U.S.C. ?263a, to perform moderate and high complexity tests. COVID-19 Int Performed By: #### G , ENDER #### [place] [address] [address] FLURSVon 06-10-2022 Flu A PCR (AO) Negative Normal Negative [facility] ([place]) Comment on above: Result Comment: Posi tive Results: Positive Flu A/B or RSV for by PCR. Positive test results do not rule out bacterial infection or co-infection with other pathogens. Test results should be interpreted in conjunction with other laboratory and clinical data. Negative Results: Negative for by PCR. Negative test results do not preclude influenza virus or RSV infection and should not be used as the sole basis for diagnosis, treatment, or other management decisions. There is a risk of false negative RSV results when at low concentration and in the presence of co-infection with high concentration of influenza A. Invalid Results: An Invalid result (INV) was obtained. The test was repeated with similar results. REPEAT COLLECTION AND TESTING IS RECOMMENDED. The [email or web address] Flu A/B & RSV Assay is a real-time polymerase chain reaction (PCR) based qualitative in vitro diagnostic test for the direct detection and differentiation of influenza A virus, influenza B virus, and respiratory syncytial virus (RSV) nucleic acid in nasopharyngeal swab (PHOTOGRAPH ENLARGER) specimens from patients with signs and symptoms of respiratory infection in conjunction with clinical and laboratory findings. The test is intended for use as an aid in the differential diagnosis of influenza A virus, influenza B virus, and RSV in humans and is not intended to detect influenza C. Performed By: #### G , [facility] #### [address] [address] Flu B PCR (AO) Negative Normal Negative [facility] ([place]) Comment on above: Result Comment: Posi tive Results: Positive Flu A/B or RSV for by PCR. Positive test results do not rule out bacterial infection or co-infection with other pathogens. Test results should be interpreted in conjunction with other laboratory and clinical data. Negative Results: Negative for by PCR. Negative test results do not preclude influenza virus or RSV infection and should not be used as the sole basis for diagnosis, treatment, or other management decisions. There is a risk of false negative RSV results when at low concentration and in the presence of co-infection with high concentration of influenza A. Invalid Results: An Invalid result (INV) was obtained. The test was repeated with similar results. REPEAT COLLECTION AND TESTING IS RECOMMENDED. The [email or web address] Flu A/B & RSV Assay is a real-time polymerase chain reaction (PCR) based qualitative in vitro diagnostic test for the direct detection and differentiation of influenza A virus, influenza B virus, and respiratory syncytial virus (RSV) nucleic acid in nasopharyngeal swab (PHOTOGRAPH ENLARGER) specimens from patients with signs and symptoms of respiratory infection in conjunction with clinical and laboratory findings. The test is intended for use as an aid in the differential diagnosis of influenza A virus, influenza B virus, and RSV in humans and is not intended to detect influenza C. Performed By: #### G , [facility] #### [address] [place], [place] [address] RSV PCR (AO) Negative Normal Negative [facility] ([place]) Comment on above: Result Comment: Posi tive Results: Positive Flu A/B or RSV for by PCR. Positive test results do not rule out bacterial infection or co-infection with other pathogens. Test results should be interpreted in conjunction with other laboratory and clinical data. Negative Results: Negative for by PCR. Negative test results do not preclude influenza virus or RSV infection and should not be used as the sole basis for diagnosis, treatment, or other management decisions. There is a risk of false negative RSV results when at low concentration and in the presence of co-infection with high concentration of influenza A. Invalid Results: An Invalid result (INV) was obtained. The test was repeated with similar results. REPEAT COLLECTION AND TESTING IS RECOMMENDED. The [employer] Flu A/B & RSV Assay is a real-time polymerase chain reaction (PCR) based qualitative in vitro diagnostic test for the direct detection and differentiation of influenza A virus, influenza B virus, and respiratory syncytial virus (RSV) nucleic acid in nasopharyngeal swab (PHOTOGRAPH ENLARGER) specimens from patients with signs and symptoms of respiratory infection in conjunction with clinical and laboratory findings. The test is intended for use as an aid in the differential diagnosis of influenza A virus, influenza B virus, and RSV in humans and is not intended to detect influenza C. Performed By: #### G , [facility] #### [place] [address] LABORATORYOrdered By: Landon Hartman on 06-10-2022 Basophil, Absolute 0.0 103/mcL Invalid Interpretation Code 0.0 - 0.2 10^3/mcL AO Workflow SS Basophils/100 WBC (Bld) 0.1 % Invalid Interpretation Code 0.0 - 2.5 % AO Workflow SS Eosinophil, Absolute 0.0 103/mcL Invalid Interpretation Code 0.0 - 0.4 10^3/mcL AO Workflow SS Eosinophils/100 WBC (Bld) 0.2 % Invalid Interpretation Code 0.0 - 7.0 % AO Workflow SS Erythrocyte distribution width (RBC) [Ratio] 16.5 % Invalid Interpretation Code 11.5 - 14.5 % AO Workflow SS Hematocrit (Bld) [Volume fraction] 41.5 % Invalid Interpretation Code 37.0 - 47.0 % AO Workflow SS Hemoglobin (Bld) [Mass/Vol] 13.5 G/dL Invalid Interpretation Code 12.0 - 16.0 G/dL AO Workflow SS Lymphocyte, Absolute 0.4 103/mcL Invalid Interpretation Code 0.8 - 3.9 10^3/mcL AO Workflow SS Lymphocytes/100 WBC (Bld) 6.7 % Invalid Interpretation Code 10.0 - 50.0 % AO Workflow SS MCH (RBC) [Entitic mass] 24.9 pg Invalid Interpretation Code 27.0 - 31.2 pg AO Workflow SS MCHC 32.5 G/dL Invalid Interpretation Code 33.0 - 37.0 G/dL AO Workflow SS MCV (RBC) [Entitic vol] 76.7 fL Invalid Interpretation Code 80.0 - 94.0 fL AO Workflow SS Monocyte, Absolute 0.1 103/mcL Invalid Interpretation Code 0.2 - 1.0 10^3/mcL AO Workflow SS Monocytes/100 WBC (Bld) 1.1 % Invalid Interpretation Code 1.7 - 13.0 % AO Workflow SS Neutrophil, Absolute 5.1 103/mcL Invalid Interpretation Code 2.9 - 6.2 10^3/mcL AO Workflow SS Neutrophils/100 WBC (Bld) 91.9 % Invalid Interpretation Code 37.0 - 80.0 % AO Workflow SS Platelet mean volume (Bld) [Entitic vol] 9.5 fL Invalid Interpretation Code 7.4 - 10.4 fL AO Workflow SS Platelets (Bld) [#/Vol] 212 103/mcL Invalid Interpretation Code 130 - 400 10^3/mcL AO Workflow SS RBC (Bld) [#/Vol] 5.41 106/mcL Invalid Interpretation Code 4.20 - 5.40 10^6/mcL AO Workflow SS WBC (Bld) [#/Vol] 5.6 103/mcL Invalid Interpretation Code 4.6 - 10.8 10^3/mcL AO Workflow SS SARS-CoV-2 (COVID-19) RNA RUSSEL+probe Ql (Resp) Negative results do not preclude SARS-CoV-2 infection and should not be used as the sole basis for patient management decisions. Negative results must be combined with clinical observations, patient history, and epidemiological information.There is a risk of false negative values resulting from improperly collected, transported, or handled specimens.There is a risk of false negative values due to the presence of sequence variants in the pathogen targets of the assay, procedural errors, amplification inhibitors in specimens, or inadequate numbers of organisms for amplification.[employer] SARS-CoV-2 Assay is a Real-Time reverse-transcriptase polymerase chain reaction (RT-PCR) based qualitative in vitro diagnostic test intended for the qualitative detection of nucleic acid from the SARS-CoV-2 in nasopharyngeal swab specimens collected from individuals suspected of COVID-19 by their healthcare provider. Testing is limited to laboratories certified under the Clinical Laboratory Improvement Amendments of 1988 (CLIA), 42 U.S.C. 263a, to perform moderate and high complexity tests. Invalid Interpretation Code AO Auto Urine SS LABORATORYOrdered By: SYSTEM SYSTEM on 06-10-2022 Calcium [Mass/Vol] 9.2 mg/dL Invalid Interpretation Code 8.4 - 10.2 mg/dL AO ADM SS Chloride [Moles/Vol] 104 mmol/L Invalid Interpretation Code 98 - 107 mmol/L AO ADM SS CO2 [Moles/Vol] 21 mmol/L Invalid Interpretation Code 22 - 29 mmol/L AO ADM SS Creatinine [Mass/Vol] 1.17 mg/dL Invalid Interpretation Code 0.55 - 1.02 mg/dL AO ADM SS Electrolyte Balance 17.0 mEq/L Invalid Interpretation Code 4.0 - 15.0 mEq/L AO ADM SS GFR 70 ml/min/1.73sqm Invalid Interpretation Code AO Chemistry S GFR Non- 58 ml/min/1.73sqm Invalid Interpretation Code AO Chemistry S Glucose [Mass/Vol] 178 mg/dL Invalid Interpretation Code 70 - 105 mg/dL AO ADM SS Monocyte distribution width Auto (Bld) [Entitic vol] See Comment Invalid Interpretation Code 0.00 - 20.00 AO Hematology S Comment on above: Result Comment: The MDW result could not be reported due to a sample abnormality that prevents the MDW from being calculated. Potassium [Moles/Vol] 3.6 mmol/L Invalid Interpretation Code 3.5 - 5.1 mmol/L AO ADM SS Sodium [Moles/Vol] 142 mmol/L Invalid Interpretation Code 136 - 145 mmol/L AO ADM SS Urea nitrogen [Mass/Vol] 7 mg/dL Invalid Interpretation Code 7 - 18 mg/dL AO ADM SS Urea nitrogen/Creatinine [Mass ratio] 6 ratio Invalid Interpretation Code 7 - 27 ratio AO ADM SS LABORATORYOrdered By: Landon Lombardo on 06-10-2022 FLUAV RNA RUSSEL+probe Ql (Upper resp) Negative (06/10/22 3:01 PM) Invalid Interpretation Code Negative AO Auto Urine SS FLUBV RNA RUSSEL+probe Ql (Upper resp) Negative (06/10/22 3:01 PM) Invalid Interpretation Code Negative AO Auto Urine SS RSV RNA RUSSEL+probe Ql (Upper resp) Negative (06/10/22 3:01 PM) Invalid Interpretation Code Negative AO Auto Urine SS XR CHEST 1 VIEWon 06-10-2022 XR CHEST 1 VIEW ORIGINAL EXAMINATION: ONE XRAY VIEW OF THE CHEST06/10/2022 3:20 pm XR Chest portable upright COMPARISON: 02/27/2022 HISTORY: ORDERING SYSTEM PROVIDED HISTORY: Reason for Exam: sob, FINDINGS: No acute infiltrate, consolidation,mass, pneumothorax, pleural fluid, or vascular congestion is seen. Heart size and mediastinal contours are within normal limits for age and projection. No acute skeletal abnormality. IMPRESSION: No acute cardiopulmonary process. Interpreted by: Isaac Rogers MD Preliminary Report By: Isaac Rogers MD Electronically signed By Isaac Rogers MD Dictated Date: 06/10/2022 3:24:01 PM Prelim Date: 06/10/2022 3:25:54 PM Sign Date: 06/10/2022 3:25:54 PM Ordering Provider: JESSIKA WORTHINGTON Normal [facility] [place] Ana María 03-05-2022 Mycoplasma IgG Positive Normal [facility] [place] Comment on above: Result Comment: INTE RPRETATION OF MYCOPLASMA IgG BY EIA: Negative: No detectable M. pneumoniae IgG antibody. Positive: Mycoplasma pneumoniae IgG antibody Detected. Equivocal: Equivocal for IgG antibodies to Mycoplasma pneumoniae. Suggest repeat testing in 10-14 days. Performed By: #### M YCO #### [address] [address] #### CRP, DIMER #### [address] [address] .Auto Diffon 03-03-2022 Basophil, Absolute 0.0 10 3/mcL Normal 0.0-0.2 [facility] ([place] Comment on above: Performed By: #### R ESCVID #### [address] [address] Basophils/100 WBC (Bld) 0.2 % Normal 0.0-2.5 [facility] [place] Comment on above: Performed By: #### R ESCVID #### [address] [address] Eosinophil, Absolute 0.0 10 3/mcL Normal 0.0-0.4 [facility] ([place] Comment on above: Performed By: #### R ESCVID #### [address] [address] Eosinophils/100 WBC (Bld) 0.0 % Normal 0.0-7.0 [facility] [place] Comment on above: Performed By: #### R ESCVID #### [address] [address] Lymphocyte, Absolute 1.1 10 3/mcL Normal 0.8-3.9 [facility] ([place] Comment on above: Performed By: #### R ESCVID #### [address] [address] Lymphocytes/100 WBC (Bld) 12.5 % Normal 10.0-50.0 [facility] [place] Comment on above: Performed By: #### R ESCVID #### [address] [address] Monocyte, Absolute 0.4 10 3/mcL Normal 0.2-1.0 [facility] ([place] Comment on above: Performed By: #### R ESCVID #### [address] [address] Monocytes/100 WBC (Bld) 4.7 % Normal 1.7-13.0 [facility] [place] Comment on above: Performed By: #### R ESCVID #### [address] [address] Neutrophils/100 WBC (Bld) 82.6 % High 37.0-80.0 [facility] [place] Comment on above: Performed By: #### R ESCVID #### [address] [address] .GFRon 03-03-2022 GFR Non- 70 ml/min/1.73sqm Normal [facility] ([place]) Comment on above: Result Comment: GFR Population mean for , Non- Americans Ages 20-29 = 116 mL/min/1.73 sq.m. Ages 30-39 = 107 mL/min/1.73 sq.m. Ages 40-49 = 99 mL/min/1.73 sq.m. Ages 50-59 = 93 mL/min/1.73 sq.m. Ages 60-69 = 85 mL/min/1.73 sq.m. Ages 70+ = 75 mL/min/1.73 sq.m. Chronic Kidney Disease: Less than 60 mL/min/1.73 square meters End Stage Renal Disease: Less than 15 mL/min/1.73 square meters Performed By: #### R ESCVID #### [address] [address] GFR 85 ml/min/1.73sqm Normal [facility] [place] Comment on above: Result Comment: GFR Population mean for , Non- Americans Ages 20-29 = 116 mL/min/1.73 sq.m. Ages 30-39 = 107 mL/min/1.73 sq.m. Ages 40-49 = 99 mL/min/1.73 sq.m. Ages 50-59 = 93 mL/min/1.73 sq.m. Ages 60-69 = 85 mL/min/1.73 sq.m. Ages 70+ = 75 mL/min/1.73 sq.m. Chronic Kidney Disease: Less than 60 mL/min/1.73 square meters End Stage Renal Disease: Less than 15 mL/min/1.73 square meters Performed By: #### R ESCVID #### [address] [address] .NEUABSon 03-03-2022 Neutrophil, Absolute 7.1 10 3/mcL High 2.9-6.2 [facility] ([place] Comment on above: Performed By: #### R ESCVID #### [place] [id number] CBCon 03-03-2022 Erythrocyte distribution width (RBC) [Ratio] 15.7 % High 11.5-14.5 [facility] [place] Comment on above: Performed By: #### R ESCVID #### [place] [address] Hematocrit (Bld) [Volume fraction] 33.5 % Low 37.0-47.0 [facility] [place] Comment on above: Performed By: #### R ESCVID #### [place] [address] Hgb 10.9 G/dL Low 12.0-16.0 [facility] [place] Comment on above: Performed By: #### R ESCVID #### [place] [id number] MCH (RBC) [Entitic mass] 24.5 pg Low 27.0-31.2 [facility] [place] Comment on above: Performed By: #### R ESCVID #### [place] [id number] MCHC 32.6 G/dL Low 33.0-37.0 [facility] [place] Comment on above: Performed By: #### R ESCVID #### [place] [address] MCV (RBC) [Entitic vol] 75.2 fL Low 80.0-94.0 [facility] [place] Comment on above: Performed By: #### R ESCVID #### [place] [id number] Platelet 215 10 3/mcL Normal 130-400 [facility] [place] Comment on above: Performed By: #### R ESCVID #### [place] [id number] Platelet mean volume (Bld) [Entitic vol] 8.7 fL Normal 7.4-10.4 [facility] [place] Comment on above: Performed By: #### R ESCVID #### [place] [id number] RBC 4.46 10 6/mcL Normal 4.20-5.40 [facility] [place] Comment on above: Performed By: #### R ESCVIBárbara #### [place] [id number] WBC 8.6 10 3/mcL Normal 4.6-10.8 [facility] [place] Comment on above: Performed By: #### R ESCVIBárbara #### [place] [address] CMPon 03-03-2022 Albumin Level 2.9 G/dL Low 3.5-5.0 [facility] [place] Comment on above: Performed By: #### R ESCVID #### [place] [id number] Albumin/Globulin [Mass ratio] 1.0 {ratio} Low 1.1-2.5 [facility] [place] Comment on above: Performed By: #### R ESCVID #### [place] [id number] ALP [Catalytic activity/Vol] 71 U/L Normal 40-135 [facility] [place] Comment on above: Performed By: #### R ESCVIBárbara #### [place] [id number] ALT [Catalytic activity/Vol] 23 U/L Normal 14-59 [facility] [place] Comment on above: Performed By: #### R ESCVID #### [address] [address] AST [Catalytic activity/Vol] 9 U/L Low 10-40 [facility] [place] Comment on above: Performed By: #### R ESCVID #### [address] [address] Bili Total 0.1 mg/dL Low 0.2-1.0 [facility] [place] Comment on above: Result Comment: Use of this assay is not recommended for patients undergoing treatment with eltrombopag due to the potential for falsely elevated results. Performed By: #### R ESCVID #### [place] [id number] BUN/Creatinine Ratio 18 ratio Normal 7-27 [facility] ([place] Comment on above: Performed By: #### R ESCVID #### [place] [id number] Calcium [Mass/Vol] 8.5 mg/dL Normal 8.4-10.2 [facility] ([place] Comment on above: Performed By: #### R ESCVID #### [place] [id number] Chloride [Moles/Vol] 102 mmol/L Normal 98-107 [facility] ([place] Comment on above: Performed By: #### R ESCVID #### [place] [id number] CO2 [Moles/Vol] 33 mmol/L High 22-29 [facility] [place] Comment on above: Performed By: #### R ESCVID #### [address] [address] Creatinine [Mass/Vol] 0.99 mg/dL Normal 0.55-1.02 [facility] ([place] Comment on above: Performed By: #### R ESCVID #### [place] [id number] Electrolyte Balance 5.0 mEq/L Normal 4.0-15.0 [facility] ([place]) Comment on above: Performed By: #### R ESCVID #### [address] [address] Globulin 3.0 G/dL Normal [facility] [place] Comment on above: Performed By: #### R ESCVID #### [address] [address] Glucose [Mass/Vol] 109 mg/dL High 70-105 [facility] ([place] Comment on above: Performed By: #### R ESCVID #### [address] [address] Potassium [Moles/Vol] 4.3 mmol/L Normal 3.5-5.1 [facility] ([place] Comment on above: Performed By: #### R ESCVID #### [place] [id number] Sodium [Moles/Vol] 140 mmol/L Normal 136-145 [facility] [place] Comment on above: Performed By: #### R ESCVID #### [place] [address] Total Protein 5.9 G/dL Low 6.4-8.2 [facility] [place] Comment on above: Performed By: #### R ESCVID #### [address] [address] Urea nitrogen [Mass/Vol] 18 mg/dL Normal 7-18 [facility] [place] Comment on above: Performed By: #### R ESCVID #### [address] [address] LABORATORYOrdered By: Jenny Moreland on 03-03-2022 Albumin BCP dye [Mass/Vol] 2.9 G/dL Invalid Interpretation Code 3.5 - 5.0 G/dL AO ADM SS Albumin/Globulin [Mass ratio] 1.0 {ratio} Invalid Interpretation Code 1.1 - 2.5 ratio AO ADM SS ALP [Catalytic activity/Vol] 71 U/L Invalid Interpretation Code 40 - 135 U/L AO ADM SS ALT With P-5'-P [Catalytic activity/Vol] 23 U/L Invalid Interpretation Code 14 - 59 U/L AO ADM SS AST With P-5'-P [Catalytic activity/Vol] 9 U/L Invalid Interpretation Code 10 - 40 U/L AO ADM SS Basophil, Absolute 0.0 103/mcL Invalid Interpretation Code 0.0 - 0.2 10^3/mcL AO Workflow SS Basophils/100 WBC (Bld) 0.2 % Invalid Interpretation Code 0.0 - 2.5 % AO Workflow SS Bilirubin [Mass/Vol] 0.1 mg/dL Invalid Interpretation Code 0.2 - 1.0 mg/dL AO ADM SS Calcium [Mass/Vol] 8.5 mg/dL Invalid Interpretation Code 8.4 - 10.2 mg/dL AO ADM SS Chloride [Moles/Vol] 102 mmol/L Invalid Interpretation Code 98 - 107 mmol/L AO ADM SS CO2 [Moles/Vol] 33 mmol/L Invalid Interpretation Code 22 - 29 mmol/L AO ADM SS Creatinine [Mass/Vol] 0.99 mg/dL Invalid Interpretation Code 0.55 - 1.02 mg/dL AO ADM SS Electrolyte Balance 5.0 mEq/L Invalid Interpretation Code 4.0 - 15.0 mEq/L AO ADM SS Eosinophil, Absolute 0.0 103/mcL Invalid Interpretation Code 0.0 - 0.4 10^3/mcL AO Workflow SS Eosinophils/100 WBC (Bld) 0.0 % Invalid Interpretation Code 0.0 - 7.0 % AO Workflow SS Erythrocyte distribution width (RBC) [Ratio] 15.7 % Invalid Interpretation Code 11.5 - 14.5 % AO Workflow SS Globulin 3.0 G/dL Invalid Interpretation Code AO ADM SS Glucose [Mass/Vol] 109 mg/dL Invalid Interpretation Code 70 - 105 mg/dL AO ADM SS Hematocrit (Bld) [Volume fraction] 33.5 % Invalid Interpretation Code 37.0 - 47.0 % AO Workflow SS Hemoglobin (Bld) [Mass/Vol] 10.9 G/dL Invalid Interpretation Code 12.0 - 16.0 G/dL AO Workflow SS Lymphocyte, Absolute 1.1 103/mcL Invalid Interpretation Code 0.8 - 3.9 10^3/mcL AO Workflow SS Lymphocytes/100 WBC (Bld) 12.5 % Invalid Interpretation Code 10.0 - 50.0 % AO Workflow SS Magnesium [Mass/Vol] 2.4 mg/dL Invalid Interpretation Code 1.8 - 2.4 mg/dL AO ADM SS MCH (RBC) [Entitic mass] 24.5 pg Invalid Interpretation Code 27.0 - 31.2 pg AO Workflow SS MCHC 32.6 G/dL Invalid Interpretation Code 33.0 - 37.0 G/dL AO Workflow SS MCV (RBC) [Entitic vol] 75.2 fL Invalid Interpretation Code 80.0 - 94.0 fL AO Workflow SS Monocyte, Absolute 0.4 103/mcL Invalid Interpretation Code 0.2 - 1.0 10^3/mcL AO Workflow SS Monocytes/100 WBC (Bld) 4.7 % Invalid Interpretation Code 1.7 - 13.0 % AO Workflow SS Neutrophil, Absolute 7.1 103/mcL Invalid Interpretation Code 2.9 - 6.2 10^3/mcL AO Workflow SS Neutrophils/100 WBC (Bld) 82.6 % Invalid Interpretation Code 37.0 - 80.0 % AO Workflow SS Platelet mean volume (Bld) [Entitic vol] 8.7 fL Invalid Interpretation Code 7.4 - 10.4 fL AO Workflow SS Platelets (Bld) [#/Vol] 215 103/mcL Invalid Interpretation Code 130 - 400 10^3/mcL AO Workflow SS Potassium [Moles/Vol] 4.3 mmol/L Invalid Interpretation Code 3.5 - 5.1 mmol/L AO ADM SS Protein [Mass/Vol] 5.9 G/dL Invalid Interpretation Code 6.4 - 8.2 G/dL AO ADM SS RBC (Bld) [#/Vol] 4.46 106/mcL Invalid Interpretation Code 4.20 - 5.40 10^6/mcL AO Workflow SS Sodium [Moles/Vol] 140 mmol/L Invalid Interpretation Code 136 - 145 mmol/L AO ADM SS Urea nitrogen [Mass/Vol] 18 mg/dL Invalid Interpretation Code 7 - 18 mg/dL AO ADM SS Urea nitrogen/Creatinine [Mass ratio] 18 ratio Invalid Interpretation Code 7 - 27 ratio AO ADM SS WBC (Bld) [#/Vol] 8.6 103/mcL Invalid Interpretation Code 4.6 - 10.8 10^3/mcL AO Workflow SS LABORATORYOrdered By: SYSTEM SYSTEM on 03-03-2022 GFR 85 ml/min/1.73sqm Invalid Interpretation Code AO Chemistry S GFR Non- 70 ml/min/1.73sqm Invalid Interpretation Code AO Chemistry S MGon 03-03-2022 Magnesium [Mass/Vol] 2.4 mg/dL Normal 1.8-2.4 [facility] [place] Comment on above: Performed By: #### C OVD19, FLURSV #### [address] [address] .Auto Diffon 03-02-2022 Basophil, Absolute 0.0 10 3/mcL Normal 0.0-0.2 [facility] ([place] Comment on above: Performed By: #### G FR, BMP #### [address] [address] Basophils/100 WBC (Bld) 0.1 % Normal 0.0-2.5 [facility] ([place] Comment on above: Performed By: #### G FR, BMP #### [address] [address] Eosinophil, Absolute 0.0 10 3/mcL Normal 0.0-0.4 [facility] ([place] Comment on above: Performed By: #### G FR, BMP #### [address] [address] Eosinophils/100 WBC (Bld) 0.0 % Normal 0.0-7.0 [facility] [place] Comment on above: Performed By: #### G FR, BMP #### [address] [address] Lymphocyte, Absolute 0.9 10 3/mcL Normal 0.8-3.9 [facility] ([place] Comment on above: Performed By: #### G FR, BMP #### [address] [address] Lymphocytes/100 WBC (Bld) 9.7 % Low 10.0-50.0 [facility] [place] Comment on above: Performed By: #### G FR, BMP #### [address] [address] Monocyte, Absolute 0.5 10 3/mcL Normal 0.2-1.0 [facility] ([place] Comment on above: Performed By: #### G FR, BMP #### [address] [address] Monocytes/100 WBC (Bld) 5.4 % Normal 1.7-13.0 [facility] [place] Comment on above: Performed By: #### G FR, BMP #### [address] [address] Neutrophils/100 WBC (Bld) 84.8 % High 37.0-80.0 [facility] ([place]) Comment on above: Performed By: #### G FR, BMP #### [address] [address] .GFRon 03-02-2022 GFR Non- 73 ml/min/1.73sqm Normal [facility] ([place] Comment on above: Result Comment: GFR Population mean for , Non- Americans Ages 20-29 = 116 mL/min/1.73 sq.m. Ages 30-39 = 107 mL/min/1.73 sq.m. Ages 40-49 = 99 mL/min/1.73 sq.m. Ages 50-59 = 93 mL/min/1.73 sq.m. Ages 60-69 = 85 mL/min/1.73 sq.m. Ages 70+ = 75 mL/min/1.73 sq.m. Chronic Kidney Disease: Less than 60 mL/min/1.73 square meters End Stage Renal Disease: Less than 15 mL/min/1.73 square meters Performed By: #### G FR, BMP #### [address] [address] GFR 88 ml/min/1.73sqm Normal [facility] ([place]) Comment on above: Result Comment: GFR Population mean for , Non- Americans Ages 20-29 = 116 mL/min/1.73 sq.m. Ages 30-39 = 107 mL/min/1.73 sq.m. Ages 40-49 = 99 mL/min/1.73 sq.m. Ages 50-59 = 93 mL/min/1.73 sq.m. Ages 60-69 = 85 mL/min/1.73 sq.m. Ages 70+ = 75 mL/min/1.73 sq.m. Chronic Kidney Disease: Less than 60 mL/min/1.73 square meters End Stage Renal Disease: Less than 15 mL/min/1.73 square meters Performed By: #### Ilia FUENTES, BMP #### [address] [address] .NEUABSon 03-02-2022 Neutrophil, Absolute 7.6 10 3/mcL High 2.9-6.2 [facility] ([place] Comment on above: Performed By: #### Ilia FUENTES, BMP #### [address] [address] CBCon 03-02-2022 Erythrocyte distribution width (RBC) [Ratio] 15.9 % High 11.5-14.5 [facility] ([place] Comment on above: Performed By: #### Ilia FUENTES, BMP #### [address] [address] Hematocrit (Bld) [Volume fraction] 33.3 % Low 37.0-47.0 [facility] ([place] Comment on above: Performed By: #### Ilia FUENTES, BMP #### [address] [address] Hgb 10.7 G/dL Low 12.0-16.0 [facility] ([place] Comment on above: Performed By: #### Ilia FUENTES, BMP #### [address] [address] MCH (RBC) [Entitic mass] 24.2 pg Low 27.0-31.2 [facility] ([place] Comment on above: Performed By: #### Ilia FUENTES, BMP #### [address] [address] MCHC 32.1 G/dL Low 33.0-37.0 [facility] ([place] Comment on above: Performed By: #### Ilia FUENTES, BMP #### [address] [address] MCV (RBC) [Entitic vol] 75.4 fL Low 80.0-94.0 [facility] ([place] Comment on above: Performed By: #### Ilia FUENTES, BMP #### [address] [address] Platelet 193 10 3/mcL Normal 130-400 [facility] ([place] Comment on above: Performed By: #### G FR, BMP #### [address] [address] Platelet mean volume (Bld) [Entitic vol] 9.1 fL Normal 7.4-10.4 [facility] ([place] Comment on above: Performed By: #### G , BMP #### [address] [address] RBC 4.42 10 6/mcL Normal 4.20-5.40 [facility] ([place] Comment on above: Performed By: #### Ilia FUENTES, BMP #### [address] [address] WBC 8.9 10 3/mcL Normal 4.6-10.8 [facility] ([place] Comment on above: Performed By: #### Ilia FUENTES, BMP #### [address] [address] CMPon 03-02-2022 Albumin Level 2.8 G/dL Low 3.5-5.0 [facility] ([place] Comment on above: Performed By: #### Ilia FUENTES, BMP #### [address] [address] Albumin/Globulin [Mass ratio] 1.0 {ratio} Low 1.1-2.5 [facility] ([place] Comment on above: Performed By: #### Ilia FR, BMP #### [address] [address] ALP [Catalytic activity/Vol] 72 U/L Normal 40-135 [facility] [place] Comment on above: Performed By: #### G FR, BMP #### [place] [address] [address] ALT [Catalytic activity/Vol] 20 U/L Normal 14-59 [facility] ([place] Comment on above: Performed By: #### Ilia FUENTES, BMP #### [address] [address] AST [Catalytic activity/Vol] 9 U/L Low 10-40 [facility] [place] Comment on above: Performed By: #### G , BMP #### [address] [address] Bili Total 0.2 mg/dL Normal 0.2-1.0 [facility] ([place] Comment on above: Result Comment: Use of this assay is not recommended for patients undergoing treatment with eltrombopag due to the potential for falsely elevated results. Performed By: #### Ilia FUENTES, BMP #### [address] [address] BUN/Creatinine Ratio 16 ratio Normal 7-27 [facility] ([place] Comment on above: Performed By: #### Ilia FUENTES, BMP #### [address] [address] Calcium [Mass/Vol] 8.6 mg/dL Normal 8.4-10.2 [facility] ([place] Comment on above: Performed By: #### Ilia FUENTES, BMP #### [address] [address] Chloride [Moles/Vol] 102 mmol/L Normal 98-107 [facility] ([place] Comment on above: Performed By: #### Ilia FUENTES, BMP #### [address] [address] CO2 [Moles/Vol] 31 mmol/L High 22-29 [facility] [place] Comment on above: Performed By: #### Ilia FUENTES, BMP #### [address] [address] Creatinine [Mass/Vol] 0.96 mg/dL Normal 0.55-1.02 [facility] ([place]) Comment on above: Performed By: #### Ilia FUENTES, BMP #### [address] [address] Electrolyte Balance 7.0 mEq/L Normal 4.0-15.0 [facility] ([place]) Comment on above: Performed By: #### G , BMP #### [address] [address] Globulin 2.9 G/dL Normal [facility] ([place] Comment on above: Performed By: #### G FR, BMP #### [address] [address] Glucose [Mass/Vol] 132 mg/dL High 70-105 [facility] ([place] Comment on above: Performed By: #### G , BMP #### [address] [address] Potassium [Moles/Vol] 3.8 mmol/L Normal 3.5-5.1 [facility] ([place] Comment on above: Performed By: #### Ilia FUENTES, BMP #### [address] [address] Sodium [Moles/Vol] 140 mmol/L Normal 136-145 [facility] ([place] Comment on above: Performed By: #### G , BMP #### [address] [address] Total Protein 5.7 G/dL Low 6.4-8.2 [facility] ([place] Comment on above: Performed By: #### G , BMP #### [address] [address] Urea nitrogen [Mass/Vol] 15 mg/dL Normal 7-18 [facility] ([place] Comment on above: Performed By: #### G , BMP #### [address] [address] LABORATORYOrdered By: Cathi Patel on 03-02-2022 Albumin BCP dye [Mass/Vol] 2.8 G/dL Invalid Interpretation Code 3.5 - 5.0 G/dL AO ADM SS Albumin/Globulin [Mass ratio] 1.0 {ratio} Invalid Interpretation Code 1.1 - 2.5 ratio AO ADM SS ALP [Catalytic activity/Vol] 72 U/L Invalid Interpretation Code 40 - 135 U/L AO ADM SS ALT With P-5'-P [Catalytic activity/Vol] 20 U/L Invalid Interpretation Code 14 - 59 U/L AO ADM SS AST With P-5'-P [Catalytic activity/Vol] 9 U/L Invalid Interpretation Code 10 - 40 U/L AO ADM SS Basophil, Absolute 0.0 103/mcL Invalid Interpretation Code 0.0 - 0.2 10^3/mcL AO Workflow SS Basophils/100 WBC (Bld) 0.1 % Invalid Interpretation Code 0.0 - 2.5 % AO Workflow SS Bilirubin [Mass/Vol] 0.2 mg/dL Invalid Interpretation Code 0.2 - 1.0 mg/dL AO ADM SS Calcium [Mass/Vol] 8.6 mg/dL Invalid Interpretation Code 8.4 - 10.2 mg/dL AO ADM SS Chloride [Moles/Vol] 102 mmol/L Invalid Interpretation Code 98 - 107 mmol/L AO ADM SS CO2 [Moles/Vol] 31 mmol/L Invalid Interpretation Code 22 - 29 mmol/L AO ADM SS Creatinine [Mass/Vol] 0.96 mg/dL Invalid Interpretation Code 0.55 - 1.02 mg/dL AO ADM SS Electrolyte Balance 7.0 mEq/L Invalid Interpretation Code 4.0 - 15.0 mEq/L AO ADM SS Eosinophil, Absolute 0.0 103/mcL Invalid Interpretation Code 0.0 - 0.4 10^3/mcL AO Workflow SS Eosinophils/100 WBC (Bld) 0.0 % Invalid Interpretation Code 0.0 - 7.0 % AO Workflow SS Erythrocyte distribution width (RBC) [Ratio] 15.9 % Invalid Interpretation Code 11.5 - 14.5 % AO Workflow SS Globulin 2.9 G/dL Invalid Interpretation Code AO ADM SS Glucose [Mass/Vol] 132 mg/dL Invalid Interpretation Code 70 - 105 mg/dL AO ADM SS Hematocrit (Bld) [Volume fraction] 33.3 % Invalid Interpretation Code 37.0 - 47.0 % AO Workflow SS Hemoglobin (Bld) [Mass/Vol] 10.7 G/dL Invalid Interpretation Code 12.0 - 16.0 G/dL AO Workflow SS Lymphocyte, Absolute 0.9 103/mcL Invalid Interpretation Code 0.8 - 3.9 10^3/mcL AO Workflow SS Lymphocytes/100 WBC (Bld) 9.7 % Invalid Interpretation Code 10.0 - 50.0 % AO Workflow SS Magnesium [Mass/Vol] 2.1 mg/dL Invalid Interpretation Code 1.8 - 2.4 mg/dL AO ADM SS MCH (RBC) [Entitic mass] 24.2 pg Invalid Interpretation Code 27.0 - 31.2 pg AO Workflow SS MCHC 32.1 G/dL Invalid Interpretation Code 33.0 - 37.0 G/dL AO Workflow SS MCV (RBC) [Entitic vol] 75.4 fL Invalid Interpretation Code 80.0 - 94.0 fL AO Workflow SS Monocyte, Absolute 0.5 103/mcL Invalid Interpretation Code 0.2 - 1.0 10^3/mcL AO Workflow SS Monocytes/100 WBC (Bld) 5.4 % Invalid Interpretation Code 1.7 - 13.0 % AO Workflow SS Neutrophil, Absolute 7.6 103/mcL Invalid Interpretation Code 2.9 - 6.2 10^3/mcL AO Workflow SS Neutrophils/100 WBC (Bld) 84.8 % Invalid Interpretation Code 37.0 - 80.0 % AO Workflow SS Platelet mean volume (Bld) [Entitic vol] 9.1 fL Invalid Interpretation Code 7.4 - 10.4 fL AO Workflow SS Platelets (Bld) [#/Vol] 193 103/mcL Invalid Interpretation Code 130 - 400 10^3/mcL AO Workflow SS Potassium [Moles/Vol] 3.8 mmol/L Invalid Interpretation Code 3.5 - 5.1 mmol/L AO ADM SS Protein [Mass/Vol] 5.7 G/dL Invalid Interpretation Code 6.4 - 8.2 G/dL AO ADM SS RBC (Bld) [#/Vol] 4.42 106/mcL Invalid Interpretation Code 4.20 - 5.40 10^6/mcL AO Workflow SS Sodium [Moles/Vol] 140 mmol/L Invalid Interpretation Code 136 - 145 mmol/L AO ADM SS Urea nitrogen [Mass/Vol] 15 mg/dL Invalid Interpretation Code 7 - 18 mg/dL AO ADM SS Urea nitrogen/Creatinine [Mass ratio] 16 ratio Invalid Interpretation Code 7 - 27 ratio AO ADM SS WBC (Bld) [#/Vol] 8.9 103/mcL Invalid Interpretation Code 4.6 - 10.8 10^3/mcL AO Workflow SS LABORATORYOrdered By: SYSTEM SYSTEM on 03-02-2022 GFR 88 ml/min/1.73sqm Invalid Interpretation Code AO Chemistry S GFR Non- 73 ml/min/1.73sqm Invalid Interpretation Code AO Chemistry S MGon 03-02-2022 Magnesium [Mass/Vol] 2.1 mg/dL Normal 1.8-2.4 [facility] ([place] Comment on above: Performed By: #### C OVD19, FLURSV #### [address] [address] .Auto Diffon 03-01-2022 Basophil, Absolute 0.0 10 3/mcL Normal 0.0-0.2 [facility] ([place] Comment on above: Performed By: #### C OVD19, FLURSV #### [address] [address] Basophils/100 WBC (Bld) 0.1 % Normal 0.0-2.5 [facility] ([place] Comment on above: Performed By: #### C OVD19, FLURSV #### [address] [address] Eosinophil, Absolute 0.0 10 3/mcL Normal 0.0-0.4 [facility] ([place] Comment on above: Performed By: #### C OVD19, FLURSV #### [address] [address] Eosinophils/100 WBC (Bld) 0.0 % Normal 0.0-7.0 [facility] ([place] Comment on above: Performed By: #### C OVD19, FLURSV #### [address] [address] Lymphocyte, Absolute 0.8 10 3/mcL Normal 0.8-3.9 [facility] ([place] Comment on above: Performed By: #### C OVD19, FLURSV #### [address] [address] Lymphocytes/100 WBC (Bld) 8.1 % Low 10.0-50.0 [facility] ([place] Comment on above: Performed By: #### C OVD19, FLURSV #### [address] [address] Monocyte, Absolute 0.3 10 3/mcL Normal 0.2-1.0 [facility] ([place] Comment on above: Performed By: #### C OVD19, FLURSV #### [address] [address] Monocytes/100 WBC (Bld) 3.5 % Normal 1.7-13.0 [facility] ([place] Comment on above: Performed By: #### C OVD19, FLURSV #### [address] [address] Neutrophils/100 WBC (Bld) 88.3 % High 37.0-80.0 [facility] ([place] Comment on above: Performed By: #### C OVD19, FLURSV #### [address] [address] .GFRon 03-01-2022 GFR Non- 86 ml/min/1.73sqm Normal [facility] ([place] Comment on above: Result Comment: GFR Population mean for , Non- Americans Ages 20-29 = 116 mL/min/1.73 sq.m. Ages 30-39 = 107 mL/min/1.73 sq.m. Ages 40-49 = 99 mL/min/1.73 sq.m. Ages 50-59 = 93 mL/min/1.73 sq.m. Ages 60-69 = 85 mL/min/1.73 sq.m. Ages 70+ = 75 mL/min/1.73 sq.m. Chronic Kidney Disease: Less than 60 mL/min/1.73 square meters End Stage Renal Disease: Less than 15 mL/min/1.73 square meters Performed By: #### C OVD19, FLURSV #### [address] [address] GFR 104 ml/min/1.73sqm Normal [facility] ([place] Comment on above: Result Comment: GFR Population mean for , Non- Americans Ages 20-29 = 116 mL/min/1.73 sq.m. Ages 30-39 = 107 mL/min/1.73 sq.m. Ages 40-49 = 99 mL/min/1.73 sq.m. Ages 50-59 = 93 mL/min/1.73 sq.m. Ages 60-69 = 85 mL/min/1.73 sq.m. Ages 70+ = 75 mL/min/1.73 sq.m. Chronic Kidney Disease: Less than 60 mL/min/1.73 square meters End Stage Renal Disease: Less than 15 mL/min/1.73 square meters Performed By: #### C OVD19, FLURSV #### [address] [address] .NEUABSon 03-01-2022 Neutrophil, Absolute 8.3 10 3/mcL High 2.9-6.2 [facility] ([place] Comment on above: Performed By: #### C OVD19, FLURSV #### [address] [address] CBCon 03-01-2022 Erythrocyte distribution width (RBC) [Ratio] 16.0 % High 11.5-14.5 [facility] ([place] Comment on above: Performed By: #### C OVD19, FLURSV #### [address] [address] Hematocrit (Bld) [Volume fraction] 35.6 % Low 37.0-47.0 [facility] ([place] Comment on above: Performed By: #### C OVD19, FLURSV #### [address] [address] Hgb 11.7 G/dL Low 12.0-16.0 [facility] ([place] Comment on above: Performed By: #### C OVD19, FLURSV #### [address] [address] MCH (RBC) [Entitic mass] 24.8 pg Low 27.0-31.2 [facility] ([place] Comment on above: Performed By: #### C OVD19, FLURSV #### [address] [address] MCHC 32.9 G/dL Low 33.0-37.0 [facility] ([place] Comment on above: Performed By: #### C OVD19, FLURSV #### [address] [address] MCV (RBC) [Entitic vol] 75.3 fL Low 80.0-94.0 [facility] ([place] Comment on above: Performed By: #### C OVD19, FLURSV #### [address] [address] Platelet 213 10 3/mcL Normal 130-400 [facility] ([place] Comment on above: Performed By: #### C OVD19, FLURSV #### [address] [address] Platelet mean volume (Bld) [Entitic vol] 9.2 fL Normal 7.4-10.4 [facility] ([place] Comment on above: Performed By: #### C OVRachel9, FLURSV #### [address] [address] RBC 4.72 10 6/mcL Normal 4.20-5.40 [facility] ([place] Comment on above: Performed By: #### C OVRachel9, FLURSV #### [address] [address] WBC 9.4 10 3/mcL Normal 4.6-10.8 [facility] ([place] Comment on above: Performed By: #### C OVRachel9, FLURSV #### [address] [address] CMPon 03-01-2022 Albumin Level 3.0 G/dL Low 3.5-5.0 [facility] ([place] Comment on above: Performed By: #### C OVD19, FLURSV #### [address] [address] Albumin/Globulin [Mass ratio] 0.9 {ratio} Low 1.1-2.5 [facility] ([place] Comment on above: Performed By: #### C OVD19, FLURSV #### [address] [address] ALP [Catalytic activity/Vol] 88 U/L Normal 40-135 [facility] ([place] Comment on above: Performed By: #### C OVD19, FLURSV #### [address] [address] ALT [Catalytic activity/Vol] 25 U/L Normal 14-59 [facility] ([place] Comment on above: Performed By: #### C OVD19, FLURSV #### [address] [address] AST [Catalytic activity/Vol] 11 U/L Normal 10-40 [facility] ([place] Comment on above: Performed By: #### C OVD19, FLURSV #### [address] [address] Bili Total 0.2 mg/dL Normal 0.2-1.0 [facility] ([place] Comment on above: Result Comment: Use of this assay is not recommended for patients undergoing treatment with eltrombopag due to the potential for falsely elevated results. Performed By: #### C OVD19, FLURSV #### [address] [address] BUN/Creatinine Ratio 13 ratio Normal 7-27 [facility] ([place] Comment on above: Performed By: #### C OVD19, FLURSV #### [address] [address] Calcium [Mass/Vol] 9.0 mg/dL Normal 8.4-10.2 [facility] ([place] Comment on above: Performed By: #### C OVD19, FLURSV #### [address] [address] Chloride [Moles/Vol] 104 mmol/L Normal 98-107 [facility] ([place] Comment on above: Performed By: #### C OVD19, FLURSV #### [address] [address] CO2 [Moles/Vol] 31 mmol/L High 22-29 [facility] ([place] Comment on above: Performed By: #### C OVD19, FLURSV #### [address] [address] Creatinine [Mass/Vol] 0.83 mg/dL Normal 0.55-1.02 [facility] ([place] Comment on above: Performed By: #### C OVD19, FLURSV #### [address] [address] Electrolyte Balance 9.0 mEq/L Normal 4.0-15.0 [facility] ([place] Comment on above: Performed By: #### C OVRachel9, FLURSV #### [address] [address] Globulin 3.4 G/dL Normal [facility] ([place] Comment on above: Performed By: #### C NEMESIO9, FLURSV #### [address] [address] Glucose [Mass/Vol] 137 mg/dL High 70-105 [facility] ([place] Comment on above: Performed By: #### C OVRachel9, FLURSV #### [address] [address] Potassium [Moles/Vol] 5.0 mmol/L Normal 3.5-5.1 [facility] ([place] Comment on above: Performed By: #### C OVD19, FLURSV #### [address] [address] Sodium [Moles/Vol] 144 mmol/L Normal 136-145 [facility] ([place] Comment on above: Performed By: #### C OVD19, FLURSV #### [address] [address] Total Protein 6.4 G/dL Normal 6.4-8.2 [facility] ([place] Comment on above: Performed By: #### C OVD19, FLURSV #### [address] [address] Urea nitrogen [Mass/Vol] 11 mg/dL Normal 7-18 [facility] ([place] Comment on above: Performed By: #### C OVD19, FLURSV #### [facility] [address] [place], [place] [address] LABORATORYOrdered By: Lalita Guerrero on 03-01-2022 Albumin BCP dye [Mass/Vol] 3.0 G/dL Invalid Interpretation Code 3.5 - 5.0 G/dL AO ADM SS Albumin/Globulin [Mass ratio] 0.9 {ratio} Invalid Interpretation Code 1.1 - 2.5 ratio AO ADM SS ALP [Catalytic activity/Vol] 88 U/L Invalid Interpretation Code 40 - 135 U/L AO ADM SS ALT With P-5'-P [Catalytic activity/Vol] 25 U/L Invalid Interpretation Code 14 - 59 U/L AO ADM SS AST With P-5'-P [Catalytic activity/Vol] 11 U/L Invalid Interpretation Code 10 - 40 U/L AO ADM SS Basophil, Absolute 0.0 103/mcL Invalid Interpretation Code 0.0 - 0.2 10^3/mcL AO Workflow SS Basophils/100 WBC (Bld) 0.1 % Invalid Interpretation Code 0.0 - 2.5 % AO Workflow SS Bilirubin [Mass/Vol] 0.2 mg/dL Invalid Interpretation Code 0.2 - 1.0 mg/dL AO ADM SS Calcium [Mass/Vol] 9.0 mg/dL Invalid Interpretation Code 8.4 - 10.2 mg/dL AO ADM SS Chloride [Moles/Vol] 104 mmol/L Invalid Interpretation Code 98 - 107 mmol/L AO ADM SS CO2 [Moles/Vol] 31 mmol/L Invalid Interpretation Code 22 - 29 mmol/L AO ADM SS Creatinine [Mass/Vol] 0.83 mg/dL Invalid Interpretation Code 0.55 - 1.02 mg/dL AO ADM SS Electrolyte Balance 9.0 mEq/L Invalid Interpretation Code 4.0 - 15.0 mEq/L AO ADM SS Eosinophil, Absolute 0.0 103/mcL Invalid Interpretation Code 0.0 - 0.4 10^3/mcL AO Workflow SS Eosinophils/100 WBC (Bld) 0.0 % Invalid Interpretation Code 0.0 - 7.0 % AO Workflow SS Erythrocyte distribution width (RBC) [Ratio] 16.0 % Invalid Interpretation Code 11.5 - 14.5 % AO Workflow SS Globulin 3.4 G/dL Invalid Interpretation Code AO ADM SS Glucose [Mass/Vol] 137 mg/dL Invalid Interpretation Code 70 - 105 mg/dL AO ADM SS Hematocrit (Bld) [Volume fraction] 35.6 % Invalid Interpretation Code 37.0 - 47.0 % AO Workflow SS Hemoglobin (Bld) [Mass/Vol] 11.7 G/dL Invalid Interpretation Code 12.0 - 16.0 G/dL AO Workflow SS Lymphocyte, Absolute 0.8 103/mcL Invalid Interpretation Code 0.8 - 3.9 10^3/mcL AO Workflow SS Lymphocytes/100 WBC (Bld) 8.1 % Invalid Interpretation Code 10.0 - 50.0 % AO Workflow SS MCH (RBC) [Entitic mass] 24.8 pg Invalid Interpretation Code 27.0 - 31.2 pg AO Workflow SS MCHC 32.9 G/dL Invalid Interpretation Code 33.0 - 37.0 G/dL AO Workflow SS MCV (RBC) [Entitic vol] 75.3 fL Invalid Interpretation Code 80.0 - 94.0 fL AO Workflow SS Monocyte, Absolute 0.3 103/mcL Invalid Interpretation Code 0.2 - 1.0 10^3/mcL AO Workflow SS Monocytes/100 WBC (Bld) 3.5 % Invalid Interpretation Code 1.7 - 13.0 % AO Workflow SS Neutrophil, Absolute 8.3 103/mcL Invalid Interpretation Code 2.9 - 6.2 10^3/mcL AO Workflow SS Neutrophils/100 WBC (Bld) 88.3 % Invalid Interpretation Code 37.0 - 80.0 % AO Workflow SS Platelet mean volume (Bld) [Entitic vol] 9.2 fL Invalid Interpretation Code 7.4 - 10.4 fL AO Workflow SS Platelets (Bld) [#/Vol] 213 103/mcL Invalid Interpretation Code 130 - 400 10^3/mcL AO Workflow SS Potassium [Moles/Vol] 5.0 mmol/L Invalid Interpretation Code 3.5 - 5.1 mmol/L AO ADM SS Protein [Mass/Vol] 6.4 G/dL Invalid Interpretation Code 6.4 - 8.2 G/dL AO ADM SS RBC (Bld) [#/Vol] 4.72 106/mcL Invalid Interpretation Code 4.20 - 5.40 10^6/mcL AO Workflow SS Sodium [Moles/Vol] 144 mmol/L Invalid Interpretation Code 136 - 145 mmol/L AO ADM SS Urea nitrogen [Mass/Vol] 11 mg/dL Invalid Interpretation Code 7 - 18 mg/dL AO ADM SS Urea nitrogen/Creatinine [Mass ratio] 13 ratio Invalid Interpretation Code 7 - 27 ratio AO ADM SS WBC (Bld) [#/Vol] 9.4 103/mcL Invalid Interpretation Code 4.6 - 10.8 10^3/mcL AO Workflow SS Magnesium [Mass/Vol] 2.1 mg/dL Invalid Interpretation Code 1.8 - 2.4 mg/dL AO ADM SS LABORATORYOrdered By: SYSTEM SYSTEM on 03-01-2022 GFR 104 ml/min/1.73sqm Invalid Interpretation Code AO Chemistry S GFR Non- 86 ml/min/1.73sqm Invalid Interpretation Code AO Chemistry S MGon 03-01-2022 Magnesium [Mass/Vol] 2.1 mg/dL Normal 1.8-2.4 [facility] [place] Comment on above: Performed By: #### M G #### [place] [address] MYCOon 03-01-2022 Mycoplasma IgM Negative Normal [facility] ([place] Comment on above: Result Comment: INTE RPRETATION OF MYCOPLASMA IgM: Negative: IgM to M. pneumoniae Absent, or at levels below the assay limit of detection. Positive: IgM to M. pneumoniae Present. Invalid: Test results are invalid due to invalid internal control. Assay was performed in duplicate. Repeat testing is suggested if clinically indicated. Performed By: #### M YCO #### [place] [address] #### CRP, DIMER #### [address] [address] RESCVIDon 03-01-2022 Adenovirus Not detected Normal Not Detected [facility] ([place] Comment on above: Result Comment: Call kaila De Paz at [facility] 02/28/2022 22:45:58 EST TLM Performed By: #### R ESCVID #### [place] [address] Bordetella Parapertussis Not detected Normal Not Detected [facility] ([place]) Comment on above: Performed By: #### R ESCVID #### [facility] [address] [place] [id number] Bordetella Pertussis Not detected Normal Not Detected [facility] ([place]) Comment on above: Performed By: #### R ESCVID #### [facility] [address] [place] [address] Chlamydophila pneumoniae Not detected Normal Not Detected [facility] ([place] Comment on above: Performed By: #### R ESCVID #### [place] [address] Coronavirus 229E (Not COVID-19) Not detected Normal Not Detected [facility] ([place] Comment on above: Performed By: #### R ESCVID #### [place] [address] Coronavirus HKU1 (Not COVID-19) Not detected Normal Not Detected [facility] ([place] Comment on above: Performed By: #### R ESCVID #### [place] [address] Coronavirus NL63 (Not COVID-19) Not detected Normal Not Detected [facility] ([place] Comment on above: Performed By: #### R ESCVID #### [place] [address] Coronavirus OC43 (Not COVID-19) Not detected Normal Not Detected [facility] ([place] Comment on above: Performed By: #### R ESCVID #### [place] [address] Human Metapneumovirus Not detected Normal Not Detected [facility] ([place] Comment on above: Performed By: #### R ESCVID #### [facility] [address] [place], [place] [id number] Influenza A Not detected Normal Not Detected [facility] ([place] Comment on above: Performed By: #### R ESCVID #### [facility] [address] [place] [address] Influenza B Not detected Normal Not Detected [facility] ([place] Comment on above: Performed By: #### R ESCVID #### [facility] [address] [place] [address] Mycoplasma pneumoniae Not detected Normal Not Detected [facility] ([place]) Comment on above: Performed By: #### R ESCVID #### [facility] [address] [place] [address] Parainfluenza 1 Not detected Normal Not Detected [facility] ([place]) Comment on above: Performed By: #### R ESCVID #### [facility] [address] [place] [address] Parainfluenza 2 Not detected Normal Not Detected [facility] ([place]) Comment on above: Performed By: #### R ESCVID #### [facility] [address] [place] [address] Parainfluenza 3 Detected Abnormal Not Detected [facility] ([place]) Comment on above: Performed By: #### R ESCVID #### [facility] [address] [place], [place] [id number] Parainfluenza 4 Not detected Normal Not Detected [facility] ([place]) Comment on above: Performed By: #### R ESCVID #### [facility] [address] [place] [address] Respiratory Syncytial Virus Not detected Normal Not Detected [facility] ([place]) Comment on above: Performed By: #### R ESCVID #### [facility] [address] [place] [address] Rhinovirus/Enterovirus Not detected Normal Not Detecte d [facility] ([place]) Comment on above: Performed By: #### R ESCVID #### [facility] [address] [place] [address] SARS-CoV-2 (COVID-19) RNA RUSSEL+probe Ql (Unsp spec) Not detected Normal Not Detected [facility] ([place]) Comment on above: Result Comment: This test is being used under the FDA EUA procedure. This assay has been validated in the [facility] for use with nasopharyngeal specimens in [facility]. If a non-validated specimen or test collection method was used, please interpret the results with caution, especially if the test result is negative. A positive test result for COVID-19 indicates that RNA from SARS-CoV-2 was detected, and the patient is infected with the virus and presumed to be contagious. Laboratory test results should always be considered in the context of clinical observations and epidemiological data in making a final diagnosis and patient management decisions. Patient management should follow current CDC guidelines. A negative test result for this test means that SARS-CoV-2 RNA was not present in the specimen above the limit of detection. However, a negative result does not rule out COVID-19 and should not be used as the sole basis for treatment or patient management decisions. A negative result does not exclude the possibility of COVID-19. When diagnostic testing is negative, the possibility of a false negative result should be considered in the context of a patient's recent exposures and the presence of clinical signs and symptoms consistent with COVID-19. The possibility of a false negative result should especially be considered if the patient?s recent exposures or clinical presentation indicate that COVID-19 is likely, and diagnostic tests for other causes of illness (e.g., other respiratory illness) are negative. If COVID-19 is still suspected based on exposure history together with other clinical findings, re-testing should be considered by healthcare providers in consultation with public health authorities. Performed By: #### R ESCVID #### [place] [address] .Auto Diffon 02-28-2022 Basophil, Absolute 0.0 10 3/mcL Normal 0.0-0.2 [facility] ([place]) Comment on above: Performed By: #### M YCO #### [place] [address] #### CRP, DIMER #### [address] [address] Basophils/100 WBC (Bld) 0.3 % Normal 0.0-2.5 [facility] ([place]) Comment on above: Performed By: #### M YCO #### [place] [address] #### CRP, DIMER #### [address] [address] Eosinophil, Absolute 0.1 10 3/mcL Normal 0.0-0.4 [facility] ([place]) Comment on above: Performed By: #### M YCO #### [place] [address] #### CRP, DIMER #### [address] [address] Eosinophils/100 WBC (Bld) 0.6 % Normal 0.0-7.0 [facility] ([place] Comment on above: Performed By: #### M YCO #### [place] [address] #### CRP, DIMER #### [address] [address] Lymphocyte, Absolute 0.5 10 3/mcL Low 0.8-3.9 [facility] ([place]) Comment on above: Performed By: #### M YCO #### [place] [address] #### CRP, DIMER #### [address] [address] Lymphocytes/100 WBC (Bld) 5.8 % Low 10.0-50.0 [facility] ([place]) Comment on above: Performed By: #### M YCO #### [place] [address] #### CRP, DIMER #### [address] [address] Monocyte, Absolute 0.4 10 3/mcL Normal 0.2-1.0 [facility] ([place]) Comment on above: Performed By: #### M YCO #### [place] [address] #### CRP, DIMER #### [address] [address] Monocytes/100 WBC (Bld) 3.9 % Normal 1.7-13.0 [facility] ([place]) Comment on above: Performed By: #### M YCO #### [place] [address] #### CRP, DIMER #### [address] [address] Neutrophils/100 WBC (Bld) 89.4 % High 37.0-80.0 [facility] ([place] Comment on above: Performed By: #### M YCO #### [address] [address] #### CRP, DIMER #### [address] [address] .GFRon 02-28-2022 GFR 94 ml/min/1.73sqm Normal [facility] ([place]) Comment on above: Result Comment: GFR Population mean for , Non- Americans Ages 20-29 = 116 mL/min/1.73 sq.m. Ages 30-39 = 107 mL/min/1.73 sq.m. Ages 40-49 = 99 mL/min/1.73 sq.m. Ages 50-59 = 93 mL/min/1.73 sq.m. Ages 60-69 = 85 mL/min/1.73 sq.m. Ages 70+ = 75 mL/min/1.73 sq.m. Chronic Kidney Disease: Less than 60 mL/min/1.73 square meters End Stage Renal Disease: Less than 15 mL/min/1.73 square meters Performed By: #### C OVD19, FLURSV #### [address] [address] GFR Non- 77 ml/min/1.73sqm Normal [facility] ([place] Comment on above: Result Comment: GFR Population mean for , Non- Americans Ages 20-29 = 116 mL/min/1.73 sq.m. Ages 30-39 = 107 mL/min/1.73 sq.m. Ages 40-49 = 99 mL/min/1.73 sq.m. Ages 50-59 = 93 mL/min/1.73 sq.m. Ages 60-69 = 85 mL/min/1.73 sq.m. Ages 70+ = 75 mL/min/1.73 sq.m. Chronic Kidney Disease: Less than 60 mL/min/1.73 square meters End Stage Renal Disease: Less than 15 mL/min/1.73 square meters Performed By: #### C OVD19, FLURSV #### [address] [address] .NEUABSon 02-28-2022 Neutrophil, Absolute 8.2 10 3/mcL High 2.9-6.2 [facility] ([place]) Comment on above: Performed By: #### M YCO #### [place] [address] #### CRP, DIMER #### [address] [address] APTTon 02-28-2022 aPTT Coag (Bld) [Time] 26.6 s Normal 24.1-34.9 [facility] ([place]) Comment on above: Result Comment: For Heparin anticoagulation therapy, the recommended therapeutic range is: 46.2-75.9 seconds (1.5 - 2.5 the normal plasma mean). Patients on heparin therapy may have an extreme result. Performed By: #### C OVD19, FLURSV #### [address] [address] Heparin dose (APTT) None Normal [facility] ([place]) Comment on above: Performed By: #### C OVD19, FLURSV #### [address] [address] CBCon 02-28-2022 Erythrocyte distribution width (RBC) [Ratio] 15.9 % High 11.5-14.5 [facility] ([place] Comment on above: Performed By: #### M YCO #### [place] [address] #### CRP, DIMER #### [address] [address] Hematocrit (Bld) [Volume fraction] 34.7 % Low 37.0-47.0 [facility] ([place] Comment on above: Performed By: #### M YCO #### [address] [address] #### CRP, DIMER #### [place] [id number] Hgb 11.3 G/dL Low 12.0-16.0 [facility] ([place] Comment on above: Performed By: #### M YCO #### [place] [address] #### CRP, DIMER #### [address] [address] MCH (RBC) [Entitic mass] 24.4 pg Low 27.0-31.2 [facility] ([place] Comment on above: Performed By: #### M YCO #### [place] [address] #### CRP, DIMER #### [address] [address] MCHC 32.4 G/dL Low 33.0-37.0 [facility] ([place] Comment on above: Performed By: #### M YCO #### [place] [address] #### CRP, DIMER #### [address] [address] MCV (RBC) [Entitic vol] 75.3 fL Low 80.0-94.0 [facility] ([place] Comment on above: Performed By: #### M YCO #### [place] [address] #### CRP, DIMER #### [address] [address] Platelet 180 10 3/mcL Normal 130-400 [facility] ([place] Comment on above: Performed By: #### M YCO #### [place] [address] #### CRP, DIMER #### [address] [address] Platelet mean volume (Bld) [Entitic vol] 9.1 fL Normal 7.4-10.4 [facility] ([place] Comment on above: Performed By: #### M YCO #### [place] [address] #### CRP, DIMER #### [place] [id number] RBC 4.61 10 6/mcL Normal 4.20-5.40 [facility] ([place] Comment on above: Performed By: #### M YCO #### [address] [address] #### CRP, DIMER #### [address] [address] WBC 9.2 10 3/mcL Normal 4.6-10.8 [facility] ([place] Comment on above: Performed By: #### M YCO #### [address] [address] #### CRP, DIMER #### [address] [address] CKon 02-28-2022 CK [Catalytic activity/Vol] 72 U/L Normal 26-192 [facility] ([place] Comment on above: Performed By: #### C LISA, FLURSV #### [address] [address] CMPon 02-28-2022 Albumin Level 3.1 G/dL Low 3.5-5.0 [facility] ([place] Comment on above: Performed By: #### C OVRachel9, FLURSV #### [address] [address] Albumin/Globulin [Mass ratio] 1.0 {ratio} Low 1.1-2.5 [facility] ([place] Comment on above: Performed By: #### C OVRachel9, FLURSV #### [place] [address] [address] ALP [Catalytic activity/Vol] 93 U/L Normal 40-135 [facility] ([place] Comment on above: Performed By: #### C OVD19, FLURSV #### [address] [address] ALT [Catalytic activity/Vol] 21 U/L Normal 14-59 [facility] ([place] Comment on above: Performed By: #### C OVD19, FLURSV #### [address] [address] AST [Catalytic activity/Vol] 15 U/L Normal 10-40 [facility] ([place] Comment on above: Performed By: #### C OVD19, FLURSV #### [address] [address] Bili Total 0.3 mg/dL Normal 0.2-1.0 [facility] ([place] Comment on above: Result Comment: Use of this assay is not recommended for patients undergoing treatment with eltrombopag due to the potential for falsely elevated results. Performed By: #### C OVD19, FLURSV #### [address] [address] BUN/Creatinine Ratio 13 ratio Normal 7-27 [facility] ([place]) Comment on above: Performed By: #### C OVD19, FLURSV #### [address] [address] Calcium [Mass/Vol] 8.8 mg/dL Normal 8.4-10.2 [facility] ([place]) Comment on above: Performed By: #### C OVD19, FLURSV #### [address] [address] Chloride [Moles/Vol] 101 mmol/L Normal 98-107 [facility] ([place] Comment on above: Performed By: #### C OVD19, FLURSV #### [address] [address] CO2 [Moles/Vol] 27 mmol/L Normal 22-29 [facility] ([place] Comment on above: Performed By: #### C OVD19, FLURSV #### [address] [address] Creatinine [Mass/Vol] 0.91 mg/dL Normal 0.55-1.02 [facility] ([place]) Comment on above: Performed By: #### C OVD19, FLURSV #### [address] [address] Electrolyte Balance 8.0 mEq/L Normal 4.0-15.0 [facility] ([place] Comment on above: Performed By: #### C OVRachel9, FLURSV #### [address] [address] Globulin 3.1 G/dL Normal [facility] ([place] Comment on above: Performed By: #### C NEMESIO9, FLURSV #### [address] [address] Glucose [Mass/Vol] 126 mg/dL High 70-105 [facility] ([place]) Comment on above: Performed By: #### C NEMESIO9, FLURSV #### [address] [address] Potassium [Moles/Vol] 3.9 mmol/L Normal 3.5-5.1 [facility] ([place]) Comment on above: Performed By: #### [place] GONZALEZ, FLURSV #### [address] [address] Sodium [Moles/Vol] 136 mmol/L Normal 136-145 [facility] ([place]) Comment on above: Performed By: #### Madison GONZALEZ, FLURSV #### [address] [address] Total Protein 6.2 G/dL Low 6.4-8.2 [facility] ([place] Comment on above: Performed By: #### Madison GONZALEZ, FLURSV #### [address] [address] Urea nitrogen [Mass/Vol] 12 mg/dL Normal 7-18 [facility] ([place] Comment on above: Performed By: #### C LISA, FLURSV #### [address] [address] LJAQ20at 02-28-2022 SARS-CoV-2 (COVID-19) RNA RUSSEL+probe Ql (Unsp spec) Negative Normal Negative [facility] ([place] Comment on above: Performed By: #### R ESCVID #### [address] [address] SARS-CoV-2 (COVID-19) RNA RUSSEL+probe Ql (Unsp spec) Normal [facility] ([place] Comment on above: Result Comment: Nega tive results do not preclude SARS-CoV-2 infection and should not be used as the sole basis for patient management decisions. Negative results must be combined with clinical observations, patient history, and epidemiological information. There is a risk of false negative values resulting from improperly collected, transported, or handled specimens. There is a risk of false negative values due to the presence of sequence variants in the pathogen targets of the assay, procedural errors, amplification inhibitors in specimens, or inadequate numbers of organisms for amplification. [facility] SARS-CoV-2 Assay is a Real-Time reverse-transcriptase polymerase chain reaction (RT-PCR) based qualitative in vitro diagnostic test intended for the qualitative detection of nucleic acid from the SARS-CoV-2 in nasopharyngeal swab specimens collected from individuals suspected of COVID-19 by their healthcare provider. Testing is limited to laboratories certified under the Clinical Laboratory Improvement Amendments of 1988 (CLIA), 42 U.S.C. ?263a, to perform moderate and high complexity tests. COVID-19 Int Performed By: #### R ESCVID #### [place] [id number] CRPon 02-28-2022 C-Reactive Protein 13.8 mg/dL High 0.0-0.9 [facility] ([place]) Comment on above: Performed By: #### M YCO #### [place] [address] #### CRP, DIMER #### [address] [address] [address] ANGIOGRAPHY CHEST W/CONTR Rafa 02-28-2022 CT ANGIOGRAPHY CHEST W/CONTRAST ORIGINAL EXAMINATION: CTA OF THE CHEST 02/28/2022 5:03 am TECHNIQUE: CTA of the chest was performed after the administration of intravenous contrast. Multiplanar reformatted images are provided for review. MIP images are provided for review. Automated exposure control, iterative reconstruction, and/or weight based adjustment of the mA/kV was utilized to reduce the radiation dose to as low as reasonably achievable. COMPARISON: None. HISTORY: ORDERING SYSTEM PROVIDED HISTORY: Reason for Exam: hypoxia FINDINGS: Pulmonary Arteries: Pulmonary arteries are adequately opacified for evaluation. No evidence of intraluminal filling defect to suggest pulmonary embolism. Main pulmonary artery is normal in caliber. Mediastinum: No significant mediastinal lymphadenopathy. Nonenlarged however prominent hilar nodes are suspected bilaterally, which are likely reactive. The heart and pericardium demonstrate no acute abnormality. There is no acute abnormality of the thoracic aorta. Lungs/pleura: Patchy infiltrates throughout the lungs bilaterally greatest in the right upper lobe, posterior right middle lobe and at the left lung base. Upper Abdomen: Limited images of the upper abdomen are unremarkable. Soft Tissues/Bones: No acute bone or soft tissue abnormality. IMPRESSION: Patchy bilateral infiltrates consistent with a multifocal infectious or inflammatory process. RECOMMENDATIONS: Unavailable Interpreted by: Starr Alonzo MD Preliminary Report By: Starr Alonzo MD Electronically signed By Starr Aolnzo MD Dictated Date: 02/28/2022 5:12:42 AM Prelim Date: 02/28/2022 5:16:37 AM Sign Date: 02/28/2022 5:16:37 AM Ordering Provider: ALEM López [facility]) DIMERon 02-28-2022 D-Dimer 301 ng/mL D-DU High 0-230 [facility]) Comment on above: Result Comment: The result of the D-Dimer test should be evaluated in the context of all the clinical and laboratory data available. In those instances where the laboratory result does not agree with the clinical evaluation, additional tests should be performed accordingly. If the D-Dimer result is used to exclude DVT or PE, the recommended cutoff value is less than 230 ng/mL. The D-Dimer result should not be used alone to rule in DVT/PE, but should be used in conjunction with a clinical pretest probability (PTP)assessment model to exclude venous thromboembolism (VTE) in outpatients suspected of deep venous thrombosis (DVT) and pulmonary embolism (PE). Performed By: #### R JEF #### [place] [address] D-Dimer 298 ng/mL D-DU High 0-230 [facility]) Comment on above: Result Comment: The result of the D-Dimer test should be evaluated in the context of all the clinical and laboratory data available. In those instances where the laboratory result does not agree with the clinical evaluation, additional tests should be performed accordingly. If the D-Dimer result is used to exclude DVT or PE, the recommended cutoff value is less than 230 ng/mL. The D-Dimer result should not be used alone to rule in DVT/PE, but should be used in conjunction with a clinical pretest probability (PTP)assessment model to exclude venous thromboembolism (VTE) in outpatients suspected of deep venous thrombosis (DVT) and pulmonary embolism (PE). Performed By: #### M YCO #### [facility] [address] [place] [address] #### CRP, DIMER #### [address] [address] Evon 02-28-2022 Ferritin [Mass/Vol] 111.0 ng/mL Normal 8.0-252.0 [facility] ([place]) Comment on above: Performed By: #### C OVD19, FLURSV #### [address] [address] FLURSVon 02-28-2022 Flu A PCR (AO) Negative Normal Negative [facility] ([place]) Comment on above: Result Comment: Posi tive Results: Positive Flu A/B or RSV for by PCR. Positive test results do not rule out bacterial infection or co-infection with other pathogens. Test results should be interpreted in conjunction with other laboratory and clinical data. Negative Results: Negative for by PCR. Negative test results do not preclude influenza virus or RSV infection and should not be used as the sole basis for diagnosis, treatment, or other management decisions. There is a risk of false negative RSV results when at low concentration and in the presence of co-infection with high concentration of influenza A. Invalid Results: An Invalid result (INV) was obtained. The test was repeated with similar results. REPEAT COLLECTION AND TESTING IS RECOMMENDED. The [email or web address] Flu A/B & RSV Assay is a real-time polymerase chain reaction (PCR) based qualitative in vitro diagnostic test for the direct detection and differentiation of influenza A virus, influenza B virus, and respiratory syncytial virus (RSV) nucleic acid in nasopharyngeal swab (PHOTOGRAPH ENLARGER) specimens from patients with signs and symptoms of respiratory infection in conjunction with clinical and laboratory findings. The test is intended for use as an aid in the differential diagnosis of influenza A virus, influenza B virus, and RSV in humans and is not intended to detect influenza C. Performed By: #### R ESCVID #### [address] [address] Flu B PCR (AO) Negative Normal Negative [facility] ([place]) Comment on above: Result Comment: Posi tive Results: Positive Flu A/B or RSV for by PCR. Positive test results do not rule out bacterial infection or co-infection with other pathogens. Test results should be interpreted in conjunction with other laboratory and clinical data. Negative Results: Negative for by PCR. Negative test results do not preclude influenza virus or RSV infection and should not be used as the sole basis for diagnosis, treatment, or other management decisions. There is a risk of false negative RSV results when at low concentration and in the presence of co-infection with high concentration of influenza A. Invalid Results: An Invalid result (INV) was obtained. The test was repeated with similar results. REPEAT COLLECTION AND TESTING IS RECOMMENDED. The [email or web address] Flu A/B & RSV Assay is a real-time polymerase chain reaction (PCR) based qualitative in vitro diagnostic test for the direct detection and differentiation of influenza A virus, influenza B virus, and respiratory syncytial virus (RSV) nucleic acid in nasopharyngeal swab (PHOTOGRAPH ENLARGER) specimens from patients with signs and symptoms of respiratory infection in conjunction with clinical and laboratory findings. The test is intended for use as an aid in the differential diagnosis of influenza A virus, influenza B virus, and RSV in humans and is not intended to detect influenza C. Performed By: #### R ESCVID #### [address] [address] RSV PCR (AO) Negative Normal Negative [facility] ([place] Comment on above: Result Comment: Posi tive Results: Positive Flu A/B or RSV for by PCR. Positive test results do not rule out bacterial infection or co-infection with other pathogens. Test results should be interpreted in conjunction with other laboratory and clinical data. Negative Results: Negative for by PCR. Negative test results do not preclude influenza virus or RSV infection and should not be used as the sole basis for diagnosis, treatment, or other management decisions. There is a risk of false negative RSV results when at low concentration and in the presence of co-infection with high concentration of influenza A. Invalid Results: An Invalid result (INV) was obtained. The test was repeated with similar results. REPEAT COLLECTION AND TESTING IS RECOMMENDED. The [employer] Flu A/B & RSV Assay is a real-time polymerase chain reaction (PCR) based qualitative in vitro diagnostic test for the direct detection and differentiation of influenza A virus, influenza B virus, and respiratory syncytial virus (RSV) nucleic acid in nasopharyngeal swab (PHOTOGRAPH ENLARGER) specimens from patients with signs and symptoms of respiratory infection in conjunction with clinical and laboratory findings. The test is intended for use as an aid in the differential diagnosis of influenza A virus, influenza B virus, and RSV in humans and is not intended to detect influenza C. Performed By: #### R [facility] #### [place] [address] LABORATORYOrdered By: Leela foster on 02-28-2022 Adenovirus DNA RUSSEL+non-probe Ql (Nph) Not Detected *NA* (02/28/22 11:36 AM) Invalid Interpretation Code Not Detected AH Auto Viro/Sero SS B. parapertussis [id number] DNA RUSSEL+non-probe Ql (Nph) Not Detected *NA* (02/28/22 11:36 AM) Invalid Interpretation Code Not Detected AH Auto Viro/Sero SS B. pertussis toxin promoter region RUSSEL+non-probe Ql (Nph) Not Detected *NA* (02/28/22 11:36 AM) Invalid Interpretation Code Not Detected AH Auto Viro/Sero SS C. pneumoniae DNA RUSSEL+non-probe Ql (Nph) Not Detected *NA* (02/28/22 11:36 AM) Invalid Interpretation Code Not Detected AH Auto Viro/Sero SS FLUAV RNA RUSSEL+non-probe Ql (Nph) Not Detected *NA* (02/28/22 11:36 AM) Invalid Interpretation Code Not Detected AH Auto Viro/Sero SS FLUBV RNA RUSSEL+non-probe Ql (Nph) Not Detected *NA* (02/28/22 11:36 AM) Invalid Interpretation Code Not Detected AH Auto Viro/Sero SS hMPV RNA RUSSEL+non-probe Ql (Nph) Not Detected *NA* (02/28/22 11:36 AM) Invalid Interpretation Code Not Detected AH Auto Viro/Sero SS M. pneumoniae DNA RUSSEL+non-probe Ql (Nph) Not Detected *NA* (02/28/22 11:36 AM) Invalid Interpretation Code Not Detected AH Auto Viro/Sero SS Parainfluenza virus 1 RNA RUSSEL+non-probe Ql (Nph) Not Detected *NA* (02/28/22 11:36 AM) Invalid Interpretation Code Not Detected AH Auto Viro/Sero SS Parainfluenza virus 2 RNA RUSSEL+non-probe Ql (Nph) Not Detected *NA* (02/28/22 11:36 AM) Invalid Interpretation Code Not Detected AH Auto Viro/Sero SS Parainfluenza virus 3 RNA RUSSEL+non-probe Ql (Nph) Detected *ABN* (02/28/22 11:36 AM) Invalid Interpretation Code Not Detected AH Auto Viro/Sero SS Parainfluenza virus 4 RNA RUSSEL+non-probe Ql (Nph) Not Detected *NA* (02/28/22 11:36 AM) Invalid Interpretation Code Not Detected AH Auto Viro/Sero SS Rhinovirus+Enterovirus RNA RUSSEL+non-probe Ql (Nph) Not Detected *NA* (02/28/22 11:36 AM) Invalid Interpretation Code Not Detected AH Auto Viro/Sero SS RSV RNA RUSSEL+non-probe Ql (Nph) Not Detected *NA* (02/28/22 11:36 AM) Invalid Interpretation Code Not Detected AH Auto Viro/Sero SS SARS-CoV-2 (COVID-19) RNA RUSSEL+probe Ql (Resp) Not Detected *NA* (02/28/22 11:36 AM) Invalid Interpretation Code Not Detected AH Auto Viro/Sero SS LABORATORYOrdered By: Landon Lombardo on 02-28-2022 FLUAV RNA RUSSEL+probe Ql (Upper resp) Negative (02/28/22 4:33 AM) Invalid Interpretation Code Negative AO Auto Urine SS FLUBV RNA RUSSEL+probe Ql (Upper resp) Negative (02/28/22 4:33 AM) Invalid Interpretation Code Negative AO Auto Urine SS RSV RNA RUSSEL+probe Ql (Upper resp) Negative (02/28/22 4:33 AM) Invalid Interpretation Code Negative AO Auto Urine SS SARS-CoV-2 (COVID-19) RNA RUSSEL+probe Ql (Resp) Negative results do not preclude SARS-CoV-2 infection and should not be used as the sole basis for patient management decisions. Negative results must be combined with clinical observations, patient history, and epidemiological information.There is a risk of false negative values resulting from improperly collected, transported, or handled specimens.There is a risk of false negative values due to the presence of sequence variants in the pathogen targets of the assay, procedural errors, amplification inhibitors in specimens, or inadequate numbers of organisms for amplification.VINNY SARS-CoV-2 Assay is a Real-Time reverse-transcriptase polymerase chain reaction (RT-PCR) based qualitative in vitro diagnostic test intended for the qualitative detection of nucleic acid from the SARS-CoV-2 in nasopharyngeal swab specimens collected from individuals suspected of COVID-19 by their healthcare provider. Testing is limited to laboratories certified under the Clinical Laboratory Improvement Amendments of 1988 (CLIA), 42 U.S.C. 263a, to perform moderate and high complexity tests. Invalid Interpretation Code AO Auto Urine SS aPTT Coag (Bld) [Time] 26.6 s Invalid Interpretation Code 24.1 - 34.9 seconds AO Coag SS CPK 72 1 Invalid Interpretation Code 26 - 192 U/L AO ADM SS Ferritin [Mass/Vol] 111.0 ng/mL Invalid Interpretation Code 8.0 - 252.0 ng/mL AO ADM SS Fibrin D-dimer DDU (PPP) [Mass/Vol] 301 ng/mL D-DU Invalid Interpretation Code 0 - 230 ng/mL D-DU AO Coag SS Heparin dose (APTT) None Invalid Interpretation Code AO Coag SS Lactate [Moles/Vol] 0.6 mmol/L Invalid Interpretation Code 0.4 - 2.0 mmol/L AO ADM SS LDH [Catalytic activity/Vol] 90 U/L Invalid Interpretation Code 81 - 234 U/L AO ADM SS CRP [Mass/Vol] 13.8 mg/dL Invalid Interpretation Code 0.0 - 0.9 mg/dL AO ADM SS Fibrin D-dimer DDU (PPP) [Mass/Vol] 298 ng/mL D-DU Invalid Interpretation Code 0 - 230 ng/mL D-DU AO Coag SS LABORATORYOrdered By: Jennifer Faye on 02-28-2022 M. pneumoniae IgM IA Ql (S) Negative (02/28/22 1:46 AM) Invalid Interpretation Code AH Man Viro/Sero SS LACon 02-28-2022 Lactic Acid Lvl 0.6 mmol/L Normal 0.4-2.0 [facility] ([place]) Comment on above: Performed By: #### G FR, BMP #### [facility] [address], [place] [address] LDHon 02-28-2022 LDH 90 U/L Normal 81-234 [facility] ([place] Comment on above: Performed By: #### C OVD19, FLURSV #### [facility] [address], [place] [address] No Panel InformationOrdered By: Demetra Brizuela on 02-28-2022 Culture Respiratory with Gram Stain Normal respiratory kota present. Sensitivity testing not indicated. [facility] Comment on above: Requests for Mycopla sma, Legionella, Fungi, Mycobacteria, Chlamydia, and Viruses require ordering of those individual tests. GS Predominance of poly s 2+ Gram Positive Cocci [facility] Comment on above: Requests for Mycopla sma, Legionella, Fungi, Mycobacteria, Chlamydia, and Viruses require ordering of those individual tests. No Panel Informationon 02-28 Legionella Urine Ag Presumptive negative for L. pneumophila serogroup 1 antigen in urine, suggesting no recent or current infection. Legionnaire's disease cannot be ruled out since other serogroups and species may also cause disease. [facility] Streptococcus Pneumoniae Urine Antig Presumptive negative for pneumococcal pneumonia, suggesting no current or recent pneumococcal infection. Infection due to Strep pneumoniae cannot be ruled out since the antigen present in the sample may be below the detection limit of the test. [facility] Comment on above: This test has not be en evaluated on patients taking antibiotics for greater than 24 hours or on patients who have recently completed an antibiotic regimen. The accuracy of this test has not been proven in young children. Microscopic examination of blood, culture Culture has been received in lab and is no growth to date. Routine cultures are held for 5 days. [facility] .Auto Diffon 02-27-2022 Basophil, Absolute 0.0 10 3/mcL Normal 0.0-0.2 [facility] ([place]) Comment on above: Performed By: #### M YCO #### [place] [address] #### CRP, DIMER #### [address] [address] Basophils/100 WBC (Bld) 0.3 % Normal 0.0-2.5 [facility] ([place] Comment on above: Performed By: #### M YCO #### [place] [address] #### CRP, DIMER #### [address] [address] Eosinophil, Absolute 0.0 10 3/mcL Normal 0.0-0.4 [facility] ([place]) Comment on above: Performed By: #### M YCO #### [place] [address] #### CRP, DIMER #### [address] [address] Eosinophils/100 WBC (Bld) 0.1 % Normal 0.0-7.0 [facility] ([place]) Comment on above: Performed By: #### M YCO #### [place] [address] #### CRP, DIMER #### [address] [address] Lymphocyte, Absolute 1.0 10 3/mcL Normal 0.8-3.9 [facility] ([place] Comment on above: Performed By: #### M YCO #### [place] [address] #### CRP, DIMER #### [address] [address] Lymphocytes/100 WBC (Bld) 7.0 % Low 10.0-50.0 [facility] ([place]) Comment on above: Performed By: #### M YCO #### [place] [address] #### CRP, DIMER #### [address] [address] Monocyte, Absolute 1.4 10 3/mcL High 0.2-1.0 [facility] ([place] Comment on above: Performed By: #### M YCO #### [address] [address] #### CRP, DIMER #### [address] [address] Monocytes/100 WBC (Bld) 9.7 % Normal 1.7-13.0 [facility] ([place] Comment on above: Performed By: #### M YCO #### [address] [address] #### CRP, DIMER #### [address] [address] Neutrophils/100 WBC (Bld) 82.9 % High 37.0-80.0 [facility] ([place] Comment on above: Performed By: #### M YCO #### [place] [address] #### CRP, DIMER #### [address] [address] .GFRon 02-27-2022 GFR 49 ml/min/1.73sqm Normal [facility] ([place] Comment on above: Result Comment: GFR Population mean for , Non- Americans Ages 20-29 = 116 mL/min/1.73 sq.m. Ages 30-39 = 107 mL/min/1.73 sq.m. Ages 40-49 = 99 mL/min/1.73 sq.m. Ages 50-59 = 93 mL/min/1.73 sq.m. Ages 60-69 = 85 mL/min/1.73 sq.m. Ages 70+ = 75 mL/min/1.73 sq.m. Chronic Kidney Disease: Less than 60 mL/min/1.73 square meters End Stage Renal Disease: Less than 15 mL/min/1.73 square meters Performed By: #### M YCO #### [address] [address] #### CRP, DIMER #### [address] [address] GFR Non- 40 ml/min/1.73sqm Normal [facility] ([place] Comment on above: Result Comment: GFR Population mean for , Non- Americans Ages 20-29 = 116 mL/min/1.73 sq.m. Ages 30-39 = 107 mL/min/1.73 sq.m. Ages 40-49 = 99 mL/min/1.73 sq.m. Ages 50-59 = 93 mL/min/1.73 sq.m. Ages 60-69 = 85 mL/min/1.73 sq.m. Ages 70+ = 75 mL/min/1.73 sq.m. Chronic Kidney Disease: Less than 60 mL/min/1.73 square meters End Stage Renal Disease: Less than 15 mL/min/1.73 square meters Performed By: #### M YCO #### [place] [address] #### CRP, DIMER #### [address] [address] .MDWon 02-27-2022 Monocyte Distribution Width 22.01 High 0.00-20.00 [facility] ([place] Comment on above: Result Comment: For adults in ED, MDW>20.0 may be associated with a higher risk of sepsis during the first 12hrs of hospital admission Performed By: #### M YCO #### [place] [address] #### CRP, DIMER #### [address] [address] .NEUABSon 02-27-2022 Neutrophil, Absolute 11.9 10 3/mcL High 2.9-6.2 A [facility] ([place]) Comment on above: Performed By: #### M YCO #### [place] [address] #### CRP, DIMER #### [address] [address] BMPon 02-27-2022 BUN/Creatinine Ratio 11 ratio Normal 7-27 [facility] ([place] Comment on above: Performed By: #### M YCO #### [place] [address] #### CRP, DIMER #### [address] [address] Calcium [Mass/Vol] 9.6 mg/dL Normal 8.4-10.2 [facility] ([place] Comment on above: Performed By: #### M YCO #### [place] [address] #### CRP, DIMER #### [address] [address] Chloride [Moles/Vol] 99 mmol/L Normal 98-107 [facility] ([place] Comment on above: Performed By: #### M YCO #### [place] [address] #### CRP, DIMER #### [address] [address] CO2 [Moles/Vol] 29 mmol/L Normal 22-29 [facility] ([place] Comment on above: Performed By: #### M YCO #### [place] [address] #### CRP, DIMER #### [address] [address] Creatinine [Mass/Vol] 1.60 mg/dL High 0.55-1.02 [facility] ([place] Comment on above: Performed By: #### M YCO #### [place] [address] #### CRP, DIMER #### [address] [address] Electrolyte Balance 10.0 mEq/L Normal 4.0-15.0 [facility] ([place] Comment on above: Performed By: #### M YCO #### [place] [address] #### CRP, DIMER #### [address] [address] Glucose [Mass/Vol] 107 mg/dL High 70-105 [facility] ([place] Comment on above: Performed By: #### M YCO #### [address] [address] #### CRP, DIMER #### [address] [address] Potassium [Moles/Vol] 3.3 mmol/L Low 3.5-5.1 [facility] ([place] Comment on above: Performed By: #### M YCO #### [place] [address] #### CRP, DIMER #### [address] [address] Sodium [Moles/Vol] 138 mmol/L Normal 136-145 [facility] ([place] Comment on above: Performed By: #### M YCO #### [place] [address] #### CRP, DIMER #### [address] [address] Urea nitrogen [Mass/Vol] 17 mg/dL Normal 7-18 [facility] ([place] Comment on above: Performed By: #### M YCO #### [place] [address] #### CRP, DIMER #### [address] [address] CBCon 02-27-2022 Erythrocyte distribution width (RBC) [Ratio] 15.8 % High 11.5-14.5 [facility] ([place] Comment on above: Performed By: #### M YCO #### [place] [address] #### CRP, DIMER #### [address] [address] Hematocrit (Bld) [Volume fraction] 40.5 % Normal 37.0-47.0 [facility] ([place] Comment on above: Performed By: #### M YCO #### [place] [address] #### CRP, DIMER #### [address] [address] Hgb 13.1 G/dL Normal 12.0-16.0 [facility] ([place] Comment on above: Performed By: #### M YCO #### [place] [address] #### CRP, DIMER #### [address] [address] MCH (RBC) [Entitic mass] 24.5 pg Low 27.0-31.2 [facility] [place] Comment on above: Performed By: #### M YCO #### [place] [address] #### CRP, DIMER #### [address] [address] MCHC 32.3 G/dL Low 33.0-37.0 [facility] [place] Comment on above: Performed By: #### M YCO #### [place] [address] #### CRP, DIMER #### [address] [address] MCV (RBC) [Entitic vol] 75.7 fL Low 80.0-94.0 [facility] [place] Comment on above: Performed By: #### M YCO #### [place] [address] #### CRP, DIMER #### [address] [address] Platelet 256 10 3/mcL Normal 130-400 [facility] [place] Comment on above: Performed By: #### M YCO #### [place] [address] #### CRP, DIMER #### [address] [address] Platelet mean volume (Bld) [Entitic vol] 9.2 fL Normal 7.4-10.4 [facility] ([place] Comment on above: Performed By: #### M YCO #### [place] [address] #### CRP, DIMER #### [place] [address] [place], [place] [address] RBC 5.35 10 6/mcL Normal 4.20-5.40 [facility] ([place] Comment on above: Performed By: #### M YCO #### [facility] [address] [place] [address] #### CRP, DIMER #### [place] [address] [place], [place] [address] WBC 14.3 10 3/mcL High 4.6-10.8 [facility] ([place] Comment on above: Performed By: #### M YCO #### [facility] [address] [place] [address] #### CRP, DIMER #### [place] [address] [place], [place] [address] LABORATORYOrdered By: Cathi Patel on 02-27-2022 Monocyte distribution width Auto (Bld) [Entitic vol] 22.01 Invalid Interpretation Code 0.00 - 20.00 AO Workflow SS Comment on above: Result Comment: For adults in ED, MDW>20.0 may be associated with a higher risk of sepsis during the first 12hrs of hospital admission XR CHEST 2 VIEWSon 2 XR CHEST 2 VIEWS ORIGINAL EXAMINATION: TWO XRAY VIEWS OF THE CHEST 02/27/2022 6:17 pm COMPARISON: 02/18/2022 HISTORY: ORDERING SYSTEM PROVIDED HISTORY: Reason for Exam: SOB/Cough/Fever FINDINGS: The cardiomediastinal silhouette is normal. The hilar regions are prominent bilaterally but not significantly changed. No focal consolidation, pleural effusion, vascular congestion, or pneumothorax. Mild degenerative changes are visible in the spine. IMPRESSION: 1. No acute radiographic cardiopulmonary findings. 2. Prominent hilar regions bilaterally are not significantly changed and may be related to prominent vasculature. Interpreted by: Michel Velarde MD Preliminary Report By: Michel Velarde MD Electronically signed By Mihcel Velarde MD Dictated Date: 02/27/2022 6:24:04 PM Prelim Date: 02/27/2022 6:25:24 PM Sign Date: 02/27/2022 6:25:24 PM Ordering Provider: ROSSY López [facility] ([place] MYCOon 02-22-2022 Mycoplasma IgG Positive Normal [facility] ([place] Comment on above: Result Comment: INTE RPRETATION OF MYCOPLASMA IgG BY EIA: Negative: No detectable M. pneumoniae IgG antibody. Positive: Mycoplasma pneumoniae IgG antibody Detected. Equivocal: Equivocal for IgG antibodies to Mycoplasma pneumoniae. Suggest repeat testing in 10-14 days. Performed By: #### R ESCVID #### [place] [id number] [facility] 02-21-2022 Mycoplasma IgM Negative Normal [facility] ([place] Comment on above: Result Comment: INTE RPRETATION OF MYCOPLASMA IgM: Negative: IgM to M. pneumoniae Absent, or at levels below the assay limit of detection. Positive: IgM to M. pneumoniae Present. Invalid: Test results are invalid due to invalid internal control. Assay was performed in duplicate. Repeat testing is suggested if clinically indicated. Performed By: #### R ESCVID #### [address] [address] .Auto Diffon 02-20-2022 Basophil, Absolute 0.0 10 3/mcL Normal 0.0-0.2 [facility] ([place] Comment on above: Performed By: #### G FR, BMP #### [address] [address] Basophils/100 WBC (Bld) 0.1 % Normal 0.0-2.5 [facility] [place] Comment on above: Performed By: #### G FR, BMP #### [address] [address] Eosinophil, Absolute 0.0 10 3/mcL Normal 0.0-0.4 [facility] ([place] Comment on above: Performed By: #### G FR, BMP #### [address] [address] Eosinophils/100 WBC (Bld) 0.2 % Normal 0.0-7.0 [facility] [place] Comment on above: Performed By: #### G FR, BMP #### [address] [address] Lymphocyte, Absolute 0.6 10 3/mcL Low 0.8-3.9 [facility] ([place] Comment on above: Performed By: #### G FR, BMP #### [address] [address] Lymphocytes/100 WBC (Bld) 5.2 % Low 10.0-50.0 [facility] [place] Comment on above: Performed By: #### G FR, BMP #### [address] [address] Monocyte, Absolute 0.5 10 3/mcL Normal 0.2-1.0 [facility] ([place] Comment on above: Performed By: #### G FR, BMP #### [address] [address] Monocytes/100 WBC (Bld) 4.6 % Normal 1.7-13.0 [facility] [place] Comment on above: Performed By: #### G FR, BMP #### [address] [address] Neutrophils/100 WBC (Bld) 89.9 % High 37.0-80.0 [facility] [place] Comment on above: Performed By: #### G FR, BMP #### [address] [address] .GFRon 02-20-2022 GFR Non- 77 ml/min/1.73sqm Normal [facility] ([place] Comment on above: Result Comment: GFR Population mean for , Non- Americans Ages 20-29 = 116 mL/min/1.73 sq.m. Ages 30-39 = 107 mL/min/1.73 sq.m. Ages 40-49 = 99 mL/min/1.73 sq.m. Ages 50-59 = 93 mL/min/1.73 sq.m. Ages 60-69 = 85 mL/min/1.73 sq.m. Ages 70+ = 75 mL/min/1.73 sq.m. Chronic Kidney Disease: Less than 60 mL/min/1.73 square meters End Stage Renal Disease: Less than 15 mL/min/1.73 square meters Performed By: #### M YCO #### [place] [address] #### CRP, DIMER #### [address] [address] GFR 94 ml/min/1.73sqm Normal [facility] [place] Comment on above: Result Comment: GFR Population mean for , Non- Americans Ages 20-29 = 116 mL/min/1.73 sq.m. Ages 30-39 = 107 mL/min/1.73 sq.m. Ages 40-49 = 99 mL/min/1.73 sq.m. Ages 50-59 = 93 mL/min/1.73 sq.m. Ages 60-69 = 85 mL/min/1.73 sq.m. Ages 70+ = 75 mL/min/1.73 sq.m. Chronic Kidney Disease: Less than 60 mL/min/1.73 square meters End Stage Renal Disease: Less than 15 mL/min/1.73 square meters Performed By: #### M YCO #### [place] [address] #### CRP, DIMER #### [address] [address] .NEUABSon 02-20-2022 Neutrophil, Absolute 10.3 10 3/mcL High 2.9-6.2 A [facility] ([place]) Comment on above: Performed By: #### G FR, BMP #### [address] [address] BMPon 02-20-2022 BUN/Creatinine Ratio 18 ratio Normal 7-27 [facility] ([place] Comment on above: Performed By: #### M YCO #### [place] [address] #### CRP, DIMER #### [address] [address] Calcium [Mass/Vol] 9.1 mg/dL Normal 8.4-10.2 [facility] ([place] Comment on above: Performed By: #### M YCO #### [place] [address] #### CRP, DIMER #### [address] [address] Chloride [Moles/Vol] 105 mmol/L Normal 98-107 [facility] ([place] Comment on above: Performed By: #### M YCO #### [address] [address] #### CRP, DIMER #### [address] [address] CO2 [Moles/Vol] 23 mmol/L Normal 22-29 [facility] ([place] Comment on above: Performed By: #### M YCO #### [place] [address] #### CRP, DIMER #### [address] [address] Creatinine [Mass/Vol] 0.91 mg/dL Normal 0.55-1.02 [facility] ([place] Comment on above: Performed By: #### M YCO #### [place] [address] #### CRP, DIMER #### [address] [address] Electrolyte Balance 12.0 mEq/L Normal 4.0-15.0 [facility] ([place] Comment on above: Performed By: #### M YCO #### [place] [address] #### CRP, DIMER #### [address] [address] Glucose [Mass/Vol] 126 mg/dL High 70-105 [facility] ([place] Comment on above: Performed By: #### M YCO #### [place] [address] #### CRP, DIMER #### [address] [address] Potassium [Moles/Vol] 4.5 mmol/L Normal 3.5-5.1 [facility] ([place] Comment on above: Performed By: #### M YCO #### [address] [address] #### CRP, DIMER #### [address] [address] Sodium [Moles/Vol] 140 mmol/L Normal 136-145 [facility] ([place] Comment on above: Performed By: #### M YCO #### [place] [address] #### CRP, DIMER #### [address] [address] Urea nitrogen [Mass/Vol] 16 mg/dL Normal 7-18 [facility] ([place] Comment on above: Performed By: #### M YCO #### [place] [address] #### CRP, DIMER #### [address] [address] CBCon 02-20-2022 Erythrocyte distribution width (RBC) [Ratio] 16.3 % High 11.5-14.5 [facility] [place] Comment on above: Performed By: #### G FR, BMP #### [address] [address] Hematocrit (Bld) [Volume fraction] 37.4 % Normal 37.0-47.0 [facility] [place] Comment on above: Performed By: #### G FR, BMP #### [address] [address] Hgb 12.1 G/dL Normal 12.0-16.0 [facility] [place] Comment on above: Performed By: #### G FR, BMP #### [address] [address] MCH (RBC) [Entitic mass] 24.6 pg Low 27.0-31.2 [facility] [place] Comment on above: Performed By: #### G FR, BMP #### [address] [address] MCHC 32.5 G/dL Low 33.0-37.0 [facility] ([place] Comment on above: Performed By: #### G FR, BMP #### [address] [address] MCV (RBC) [Entitic vol] 75.8 fL Low 80.0-94.0 [facility] ([place] Comment on above: Performed By: #### G FR, BMP #### [address] [address] Platelet 204 10 3/mcL Normal 130-400 [facility] [place] Comment on above: Performed By: #### G FR, BMP #### [address] [address] Platelet mean volume (Bld) [Entitic vol] 10.0 fL Normal 7.4-10.4 [facility] [place] Comment on above: Performed By: #### G FR, BMP #### [address] [address] RBC 4.93 10 6/mcL Normal 4.20-5.40 [facility] [place] Comment on above: Performed By: #### G FR, BMP #### [address] [address] WBC 11.5 10 3/mcL High 4.6-10.8 [facility] [place] Comment on above: Performed By: #### G FR, BMP #### [address] [address] LABORATORYOrdered By: Landon Lombardo on 02-20-2022 Basophil, Absolute 0.0 103/mcL Invalid Interpretation Code 0.0 - 0.2 10^3/mcL AO Workflow SS Basophils/100 WBC (Bld) 0.1 % Invalid Interpretation Code 0.0 - 2.5 % AO Workflow SS Calcium [Mass/Vol] 9.1 mg/dL Invalid Interpretation Code 8.4 - 10.2 mg/dL AO ADM SS Chloride [Moles/Vol] 105 mmol/L Invalid Interpretation Code 98 - 107 mmol/L AO ADM SS CO2 [Moles/Vol] 23 mmol/L Invalid Interpretation Code 22 - 29 mmol/L AO ADM SS Creatinine [Mass/Vol] 0.91 mg/dL Invalid Interpretation Code 0.55 - 1.02 mg/dL AO ADM SS Electrolyte Balance 12.0 mEq/L Invalid Interpretation Code 4.0 - 15.0 mEq/L AO ADM SS Eosinophil, Absolute 0.0 103/mcL Invalid Interpretation Code 0.0 - 0.4 10^3/mcL AO Workflow SS Eosinophils/100 WBC (Bld) 0.2 % Invalid Interpretation Code 0.0 - 7.0 % AO Workflow SS Erythrocyte distribution width (RBC) [Ratio] 16.3 % Invalid Interpretation Code 11.5 - 14.5 % AO Workflow SS Glucose [Mass/Vol] 126 mg/dL Invalid Interpretation Code 70 - 105 mg/dL AO ADM SS Hematocrit (Bld) [Volume fraction] 37.4 % Invalid Interpretation Code 37.0 - 47.0 % AO Workflow SS Hemoglobin (Bld) [Mass/Vol] 12.1 G/dL Invalid Interpretation Code 12.0 - 16.0 G/dL AO Workflow SS Lymphocyte, Absolute 0.6 103/mcL Invalid Interpretation Code 0.8 - 3.9 10^3/mcL AO Workflow SS Lymphocytes/100 WBC (Bld) 5.2 % Invalid Interpretation Code 10.0 - 50.0 % AO Workflow SS MCH (RBC) [Entitic mass] 24.6 pg Invalid Interpretation Code 27.0 - 31.2 pg AO Workflow SS MCHC 32.5 G/dL Invalid Interpretation Code 33.0 - 37.0 G/dL AO Workflow SS MCV (RBC) [Entitic vol] 75.8 fL Invalid Interpretation Code 80.0 - 94.0 fL AO Workflow SS Monocyte, Absolute 0.5 103/mcL Invalid Interpretation Code 0.2 - 1.0 10^3/mcL AO Workflow SS Monocytes/100 WBC (Bld) 4.6 % Invalid Interpretation Code 1.7 - 13.0 % AO Workflow SS Neutrophil, Absolute 10.3 103/mcL Invalid Interpretation Code 2.9 - 6.2 10^3/mcL AO Workflow SS Neutrophils/100 WBC (Bld) 89.9 % Invalid Interpretation Code 37.0 - 80.0 % AO Workflow SS Platelet mean volume (Bld) [Entitic vol] 10.0 fL Invalid Interpretation Code 7.4 - 10.4 fL AO Workflow SS Platelets (Bld) [#/Vol] 204 103/mcL Invalid Interpretation Code 130 - 400 10^3/mcL AO Workflow SS Potassium [Moles/Vol] 4.5 mmol/L Invalid Interpretation Code 3.5 - 5.1 mmol/L AO ADM SS RBC (Bld) [#/Vol] 4.93 106/mcL Invalid Interpretation Code 4.20 - 5.40 10^6/mcL AO Workflow SS Sodium [Moles/Vol] 140 mmol/L Invalid Interpretation Code 136 - 145 mmol/L AO ADM SS Urea nitrogen [Mass/Vol] 16 mg/dL Invalid Interpretation Code 7 - 18 mg/dL AO ADM SS Urea nitrogen/Creatinine [Mass ratio] 18 ratio Invalid Interpretation Code 7 - 27 ratio AO ADM SS WBC (Bld) [#/Vol] 11.5 103/mcL Invalid Interpretation Code 4.6 - 10.8 10^3/mcL AO Workflow SS LABORATORYOrdered By: SYSTEM SYSTEM on 02-20-2022 GFR 94 ml/min/1.73sqm Invalid Interpretation Code AO Chemistry S GFR Non- 77 ml/min/1.73sqm Invalid Interpretation Code AO Chemistry S .Auto Diffon 02-19-2022 Basophil, Absolute 0.0 10 3/mcL Normal 0.0-0.2 [facility] ([place] Comment on above: Performed By: #### M G #### [address] [address] Basophils/100 WBC (Bld) 0.2 % Normal 0.0-2.5 [facility] ([place]) Comment on above: Performed By: #### M G #### [address] [address] Eosinophil, Absolute 0.0 10 3/mcL Normal 0.0-0.4 [facility] ([place]) Comment on above: Performed By: #### M G #### [address] [address] Eosinophils/100 WBC (Bld) 0.3 % Normal 0.0-7.0 [facility] ([place] Comment on above: Performed By: #### M G #### [address] [address] Lymphocyte, Absolute 0.4 10 3/mcL Low 0.8-3.9 [facility] ([place] Comment on above: Performed By: #### M G #### [address] [place], [place] [address] Lymphocytes/100 WBC (Bld) 9.5 % Low 10.0-50.0 [facility] ([place] Comment on above: Performed By: #### M G #### [address] [place], [place] [address] Monocyte, Absolute 0.1 10 3/mcL Low 0.2-1.0 [facility] ([place] Comment on above: Performed By: #### M G #### [place] [address] [address] Monocytes/100 WBC (Bld) 1.3 % Low 1.7-13.0 [facility] ([place] Comment on above: Performed By: #### M G #### [address] [address] Neutrophils/100 WBC (Bld) 88.7 % High 37.0-80.0 [facility] ([place] Comment on above: Performed By: #### M G #### [address] [address] .GFRon 02-19-2022 GFR 104 ml/min/1.73sqm Normal [facility] ([place] Comment on above: Result Comment: GFR Population mean for , Non- Americans Ages 20-29 = 116 mL/min/1.73 sq.m. Ages 30-39 = 107 mL/min/1.73 sq.m. Ages 40-49 = 99 mL/min/1.73 sq.m. Ages 50-59 = 93 mL/min/1.73 sq.m. Ages 60-69 = 85 mL/min/1.73 sq.m. Ages 70+ = 75 mL/min/1.73 sq.m. Chronic Kidney Disease: Less than 60 mL/min/1.73 square meters End Stage Renal Disease: Less than 15 mL/min/1.73 square meters Performed By: #### M G #### [address] [address] GFR Non- 86 ml/min/1.73sqm Normal [facility] ([place] Comment on above: Result Comment: GFR Population mean for , Non- Americans Ages 20-29 = 116 mL/min/1.73 sq.m. Ages 30-39 = 107 mL/min/1.73 sq.m. Ages 40-49 = 99 mL/min/1.73 sq.m. Ages 50-59 = 93 mL/min/1.73 sq.m. Ages 60-69 = 85 mL/min/1.73 sq.m. Ages 70+ = 75 mL/min/1.73 sq.m. Chronic Kidney Disease: Less than 60 mL/min/1.73 square meters End Stage Renal Disease: Less than 15 mL/min/1.73 square meters Performed By: #### M G #### [address] [address] GFR Non- 74 ml/min/1.73sqm Normal [facility] ([place] Comment on above: Result Comment: GFR Population mean for , Non- Americans Ages 20-29 = 116 mL/min/1.73 sq.m. Ages 30-39 = 107 mL/min/1.73 sq.m. Ages 40-49 = 99 mL/min/1.73 sq.m. Ages 50-59 = 93 mL/min/1.73 sq.m. Ages 60-69 = 85 mL/min/1.73 sq.m. Ages 70+ = 75 mL/min/1.73 sq.m. Chronic Kidney Disease: Less than 60 mL/min/1.73 square meters End Stage Renal Disease: Less than 15 mL/min/1.73 square meters Performed By: #### C OVD19, FLURSV #### [address] [address] GFR 89 ml/min/1.73sqm Normal [facility] ([place] Comment on above: Result Comment: GFR Population mean for , Non- Americans Ages 20-29 = 116 mL/min/1.73 sq.m. Ages 30-39 = 107 mL/min/1.73 sq.m. Ages 40-49 = 99 mL/min/1.73 sq.m. Ages 50-59 = 93 mL/min/1.73 sq.m. Ages 60-69 = 85 mL/min/1.73 sq.m. Ages 70+ = 75 mL/min/1.73 sq.m. Chronic Kidney Disease: Less than 60 mL/min/1.73 square meters End Stage Renal Disease: Less than 15 mL/min/1.73 square meters Performed By: #### C OVD19, FLURSV #### [address] [address] .NEUABSon 02-19-2022 Neutrophil, Absolute 3.8 10 3/mcL Normal 2.9-6.2 [facility] ([place] Comment on above: Performed By: #### M G #### [address] [address] BMPon 02-19-2022 BUN/Creatinine Ratio 11 ratio Normal 7-27 [facility] ([place] Comment on above: Performed By: #### M G #### [address] [address] Calcium [Mass/Vol] 9.0 mg/dL Normal 8.4-10.2 [facility] ([place] Comment on above: Performed By: #### M G #### [address] [address] Chloride [Moles/Vol] 105 mmol/L Normal 98-107 [facility] ([place] Comment on above: Performed By: #### M G #### [address] [address] CO2 [Moles/Vol] 26 mmol/L Normal 22-29 [facility] ([place] Comment on above: Performed By: #### M G #### [address] [address] Creatinine [Mass/Vol] 0.83 mg/dL Normal 0.55-1.02 [facility] ([place]) Comment on above: Performed By: #### M G #### [address] [address] Electrolyte Balance 9.0 mEq/L Normal 4.0-15.0 [facility] ([place]) Comment on above: Performed By: #### M G #### [address] [address] Glucose [Mass/Vol] 149 mg/dL High 70-105 [facility] ([place] Comment on above: Performed By: #### M G #### [address] [address] Potassium [Moles/Vol] 4.8 mmol/L Normal 3.5-5.1 [facility] ([place] Comment on above: Performed By: #### M G #### [address] [address] Sodium [Moles/Vol] 140 mmol/L Normal 136-145 [facility] ([place] Comment on above: Performed By: #### M G #### [address] [address] Urea nitrogen [Mass/Vol] 9 mg/dL Normal 7-18 [facility] [place] Comment on above: Performed By: #### M G #### [address] [address] BUN/Creatinine Ratio 13 ratio Normal 7-27 [facility] ([place] Comment on above: Performed By: #### C OVD19, FLURSV #### [address] [address] Calcium [Mass/Vol] 9.1 mg/dL Normal 8.4-10.2 [facility] ([place] Comment on above: Performed By: #### C OVD19, FLURSV #### [address] [address] Chloride [Moles/Vol] 102 mmol/L Normal 98-107 [facility] ([place] Comment on above: Performed By: #### C OVD19, FLURSV #### [address] [address] CO2 [Moles/Vol] 25 mmol/L Normal 22-29 [facility] ([place] Comment on above: Performed By: #### C OVD19, FLURSV #### [address] [address] Creatinine [Mass/Vol] 0.95 mg/dL Normal 0.55-1.02 [facility] ([place] Comment on above: Performed By: #### C OVD19, FLURSV #### [address] [address] Electrolyte Balance 11.0 mEq/L Normal 4.0-15.0 [facility] ([place] Comment on above: Performed By: #### C OVD19, FLURSV #### [address] [address] Glucose [Mass/Vol] 92 mg/dL Normal 70-105 [facility] ([place] Comment on above: Performed By: #### C OVD19, FLURSV #### [address] [address] Potassium [Moles/Vol] 3.7 mmol/L Normal 3.5-5.1 [facility] ([place] Comment on above: Performed By: #### C OVD19, FLURSV #### [address] [address] Sodium [Moles/Vol] 138 mmol/L Normal 136-145 [facility] ([place] Comment on above: Performed By: #### C OVD19, FLURSV #### [address] [address] Urea nitrogen [Mass/Vol] 12 mg/dL Normal 7-18 [facility] [place] Comment on above: Performed By: #### C OVD19, FLURSV #### [address] [address] CBCon 02-19-2022 Erythrocyte distribution width (RBC) [Ratio] 15.8 % High 11.5-14.5 [facility] ([place] Comment on above: Performed By: #### M G #### [address] [address] Hematocrit (Bld) [Volume fraction] 40.1 % Normal 37.0-47.0 [facility] [place] Comment on above: Performed By: #### M G #### [address] [address] Hgb 13.0 G/dL Normal 12.0-16.0 [facility] [place] Comment on above: Performed By: #### M G #### [address] [address] MCH (RBC) [Entitic mass] 24.6 pg Low 27.0-31.2 [facility] [place] Comment on above: Performed By: #### M G #### [address] [address] MCHC 32.4 G/dL Low 33.0-37.0 [facility] [place] Comment on above: Performed By: #### M G #### [address] [address] MCV (RBC) [Entitic vol] 75.9 fL Low 80.0-94.0 [facility] [place] Comment on above: Performed By: #### M G #### [address] [address] Platelet 181 10 3/mcL Normal 130-400 [facility] [place] Comment on above: Performed By: #### M G #### [address] [address] Platelet mean volume (Bld) [Entitic vol] 10.5 fL High 7.4-10.4 [facility] [place] Comment on above: Performed By: #### M G #### [address] [address] RBC 5.28 10 6/mcL Normal 4.20-5.40 [facility] [place] Comment on above: Performed By: #### M G #### [address] [address] WBC 4.3 10 3/mcL Low 4.6-10.8 [facility] [place] Comment on above: Performed By: #### M G #### [address] [address] [id number] 02-19-2022 SARS-CoV-2 (COVID-19) RNA RUSSEL+probe Ql (Unsp spec) Negative Normal Negative [facility] [place] Comment on above: Performed By: #### C OVD19, FLURSV #### [address] [address] SARS-CoV-2 (COVID-19) RNA RUSSEL+probe Ql (Unsp spec) Normal [facility] ([place] Comment on above: Result Comment: Nega tive results do not preclude SARS-CoV-2 infection and should not be used as the sole basis for patient management decisions. Negative results must be combined with clinical observations, patient history, and epidemiological information. There is a risk of false negative values resulting from improperly collected, transported, or handled specimens. There is a risk of false negative values due to the presence of sequence variants in the pathogen targets of the assay, procedural errors, amplification inhibitors in specimens, or inadequate numbers of organisms for amplification. [employer] SARS-CoV-2 Assay is a Real-Time reverse-transcriptase polymerase chain reaction (RT-PCR) based qualitative in vitro diagnostic test intended for the qualitative detection of nucleic acid from the SARS-CoV-2 in nasopharyngeal swab specimens collected from individuals suspected of COVID-19 by their healthcare provider. Testing is limited to laboratories certified under the Clinical Laboratory Improvement Amendments of 1988 (CLIA), 42 U.S.C. ?263a, to perform moderate and high complexity tests. COVID-19 Int Performed By: #### C OVD19, FLURSV #### [place] [address] [address] FLURSVon 02-19-2022 Flu A PCR (AO) Negative Normal Negative [facility] ([place] Comment on above: Result Comment: Posi tive Results: Positive Flu A/B or RSV for by PCR. Positive test results do not rule out bacterial infection or co-infection with other pathogens. Test results should be interpreted in conjunction with other laboratory and clinical data. Negative Results: Negative for by PCR. Negative test results do not preclude influenza virus or RSV infection and should not be used as the sole basis for diagnosis, treatment, or other management decisions. There is a risk of false negative RSV results when at low concentration and in the presence of co-infection with high concentration of influenza A. Invalid Results: An Invalid result (INV) was obtained. The test was repeated with similar results. REPEAT COLLECTION AND TESTING IS RECOMMENDED. The [employer] Flu A/B & RSV Assay is a real-time polymerase chain reaction (PCR) based qualitative in vitro diagnostic test for the direct detection and differentiation of influenza A virus, influenza B virus, and respiratory syncytial virus (RSV) nucleic acid in nasopharyngeal swab (PHOTOGRAPH ENLARGER) specimens from patients with signs and symptoms of respiratory infection in conjunction with clinical and laboratory findings. The test is intended for use as an aid in the differential diagnosis of influenza A virus, influenza B virus, and RSV in humans and is not intended to detect influenza C. Performed By: #### C OVD19, FLURSV #### [address] [address] Flu B PCR (AO) Negative Normal Negative [facility] [place] Comment on above: Result Comment: Posi tive Results: Positive Flu A/B or RSV for by PCR. Positive test results do not rule out bacterial infection or co-infection with other pathogens. Test results should be interpreted in conjunction with other laboratory and clinical data. Negative Results: Negative for by PCR. Negative test results do not preclude influenza virus or RSV infection and should not be used as the sole basis for diagnosis, treatment, or other management decisions. There is a risk of false negative RSV results when at low concentration and in the presence of co-infection with high concentration of influenza A. Invalid Results: An Invalid result (INV) was obtained. The test was repeated with similar results. REPEAT COLLECTION AND TESTING IS RECOMMENDED. The [employer] Flu A/B & RSV Assay is a real-time polymerase chain reaction (PCR) based qualitative in vitro diagnostic test for the direct detection and differentiation of influenza A virus, influenza B virus, and respiratory syncytial virus (RSV) nucleic acid in nasopharyngeal swab (PHOTOGRAPH ENLARGER) specimens from patients with signs and symptoms of respiratory infection in conjunction with clinical and laboratory findings. The test is intended for use as an aid in the differential diagnosis of influenza A virus, influenza B virus, and RSV in humans and is not intended to detect influenza C. Performed By: #### C OVD19, FLURSV #### [address] [address] RSV PCR (AO) Negative Normal Negative [facility] [place] Comment on above: Result Comment: Posi tive Results: Positive Flu A/B or RSV for by PCR. Positive test results do not rule out bacterial infection or co-infection with other pathogens. Test results should be interpreted in conjunction with other laboratory and clinical data. Negative Results: Negative for by PCR. Negative test results do not preclude influenza virus or RSV infection and should not be used as the sole basis for diagnosis, treatment, or other management decisions. There is a risk of false negative RSV results when at low concentration and in the presence of co-infection with high concentration of influenza A. Invalid Results: An Invalid result (INV) was obtained. The test was repeated with similar results. REPEAT COLLECTION AND TESTING IS RECOMMENDED. The [email or web address] Flu A/B & RSV Assay is a real-time polymerase chain reaction (PCR) based qualitative in vitro diagnostic test for the direct detection and differentiation of influenza A virus, influenza B virus, and respiratory syncytial virus (RSV) nucleic acid in nasopharyngeal swab (PHOTOGRAPH ENLARGER) specimens from patients with signs and symptoms of respiratory infection in conjunction with clinical and laboratory findings. The test is intended for use as an aid in the differential diagnosis of influenza A virus, influenza B virus, and RSV in humans and is not intended to detect influenza C. Performed By: #### C OVD19, FLURSV #### [address] [place], [place] [address] LABORATORYOrdered By: Cathi Patel on 02-19-2022 Basophil, Absolute 0.0 103/mcL Invalid Interpretation Code 0.0 - 0.2 10^3/mcL AO Workflow SS Basophils/100 WBC (Bld) 0.2 % Invalid Interpretation Code 0.0 - 2.5 % AO Workflow SS Calcium [Mass/Vol] 9.0 mg/dL Invalid Interpretation Code 8.4 - 10.2 mg/dL AO ADM SS Chloride [Moles/Vol] 105 mmol/L Invalid Interpretation Code 98 - 107 mmol/L AO ADM SS CO2 [Moles/Vol] 26 mmol/L Invalid Interpretation Code 22 - 29 mmol/L AO ADM SS Creatinine [Mass/Vol] 0.83 mg/dL Invalid Interpretation Code 0.55 - 1.02 mg/dL AO ADM SS Electrolyte Balance 9.0 mEq/L Invalid Interpretation Code 4.0 - 15.0 mEq/L AO ADM SS Eosinophil, Absolute 0.0 103/mcL Invalid Interpretation Code 0.0 - 0.4 10^3/mcL AO Workflow SS Eosinophils/100 WBC (Bld) 0.3 % Invalid Interpretation Code 0.0 - 7.0 % AO Workflow SS Erythrocyte distribution width (RBC) [Ratio] 15.8 % Invalid Interpretation Code 11.5 - 14.5 % AO Workflow SS Glucose [Mass/Vol] 149 mg/dL Invalid Interpretation Code 70 - 105 mg/dL AO ADM SS Hematocrit (Bld) [Volume fraction] 40.1 % Invalid Interpretation Code 37.0 - 47.0 % AO Workflow SS Hemoglobin (Bld) [Mass/Vol] 13.0 G/dL Invalid Interpretation Code 12.0 - 16.0 G/dL AO Workflow SS Lymphocyte, Absolute 0.4 103/mcL Invalid Interpretation Code 0.8 - 3.9 10^3/mcL AO Workflow SS Lymphocytes/100 WBC (Bld) 9.5 % Invalid Interpretation Code 10.0 - 50.0 % AO Workflow SS Magnesium [Mass/Vol] 2.2 mg/dL Invalid Interpretation Code 1.8 - 2.4 mg/dL AO ADM SS MCH (RBC) [Entitic mass] 24.6 pg Invalid Interpretation Code 27.0 - 31.2 pg AO Workflow SS MCHC 32.4 G/dL Invalid Interpretation Code 33.0 - 37.0 G/dL AO Workflow SS MCV (RBC) [Entitic vol] 75.9 fL Invalid Interpretation Code 80.0 - 94.0 fL AO Workflow SS Monocyte, Absolute 0.1 103/mcL Invalid Interpretation Code 0.2 - 1.0 10^3/mcL AO Workflow SS Monocytes/100 WBC (Bld) 1.3 % Invalid Interpretation Code 1.7 - 13.0 % AO Workflow SS Neutrophil, Absolute 3.8 103/mcL Invalid Interpretation Code 2.9 - 6.2 10^3/mcL AO Workflow SS Neutrophils/100 WBC (Bld) 88.7 % Invalid Interpretation Code 37.0 - 80.0 % AO Workflow SS Platelet mean volume (Bld) [Entitic vol] 10.5 fL Invalid Interpretation Code 7.4 - 10.4 fL AO Workflow SS Platelets (Bld) [#/Vol] 181 103/mcL Invalid Interpretation Code 130 - 400 10^3/mcL AO Workflow SS Potassium [Moles/Vol] 4.8 mmol/L Invalid Interpretation Code 3.5 - 5.1 mmol/L AO ADM SS RBC (Bld) [#/Vol] 5.28 106/mcL Invalid Interpretation Code 4.20 - 5.40 10^6/mcL AO Workflow SS Sodium [Moles/Vol] 140 mmol/L Invalid Interpretation Code 136 - 145 mmol/L AO ADM SS Urea nitrogen [Mass/Vol] 9 mg/dL Invalid Interpretation Code 7 - 18 mg/dL AO ADM SS Urea nitrogen/Creatinine [Mass ratio] 11 ratio Invalid Interpretation Code 7 - 27 ratio AO ADM SS WBC (Bld) [#/Vol] 4.3 103/mcL Invalid Interpretation Code 4.6 - 10.8 10^3/mcL AO Workflow SS LABORATORYOrdered By: SYSTEM SYSTEM on 02-19-2022 GFR 104 ml/min/1.73sqm Invalid Interpretation Code AO Chemistry S GFR Non- 86 ml/min/1.73sqm Invalid Interpretation Code AO Chemistry S MGon 02-19-2022 Magnesium [Mass/Vol] 2.2 mg/dL Normal 1.8-2.4 [facility] [place] Comment on above: Performed By: #### C OVD19, FLURSV #### [address] [address] No Panel Informationon 02-19 Legionella Urine Ag Presumptive negative for L. pneumophila serogroup 1 antigen in urine, suggesting no recent or current infection. Legionnaire's disease cannot be ruled out since other serogroups and species may also cause disease. [facility] Streptococcus Pneumoniae Urine Antig Presumptive negative for pneumococcal pneumonia, suggesting no current or recent pneumococcal infection. Infection due to Strep pneumoniae cannot be ruled out since the antigen present in the sample may be below the detection limit of the test. [facility] Comment on above: This test has not be en evaluated on patients taking antibiotics for greater than 24 hours or on patients who have recently completed an antibiotic regimen. The accuracy of this test has not been proven in young children. .Auto Diffon 02-18-2022 Basophil, Absolute 0.1 10 3/mcL Normal 0.0-0.2 [facility] ([place] Comment on above: Performed By: #### C OVD19, FLURSV #### [address] [address] Basophils/100 WBC (Bld) 0.7 % Normal 0.0-2.5 [facility] ([place]) Comment on above: Performed By: #### C OVD19, FLURSV #### [address] [address] Eosinophil, Absolute 0.9 10 3/mcL High 0.0-0.4 [facility] ([place]) Comment on above: Performed By: #### C OVD19, FLURSV #### [address] [address] Eosinophils/100 WBC (Bld) 9.7 % High 0.0-7.0 [facility] ([place]) Comment on above: Performed By: #### C OVD19, FLURSV #### [address] [address] Lymphocyte, Absolute 1.3 10 3/mcL Normal 0.8-3.9 [facility] ([place]) Comment on above: Performed By: #### C OVD19, FLURSV #### [address] [address] Lymphocytes/100 WBC (Bld) 14.8 % Normal 10.0-50.0 [facility] ([place]) Comment on above: Performed By: #### C OVD19, FLURSV #### [address] [address] Monocyte, Absolute 0.5 10 3/mcL Normal 0.2-1.0 [facility] [place] Comment on above: Performed By: #### C OVD19, FLURSV #### [address] [address] Monocytes/100 WBC (Bld) 5.4 % Normal 1.7-13.0 [facility] [place] Comment on above: Performed By: #### C OVD19, FLURSV #### [place] [id number] Neutrophils/100 WBC (Bld) 69.4 % Normal 37.0-80.0 [facility] [place] Comment on above: Performed By: #### C OVD19, FLURSV #### [place] [address] .MDWon 02-18-2022 Monocyte Distribution Width 18.38 Normal 0.00-20.00 [facility] [place] Comment on above: Result Comment: For ED adult patients suspected of sepsis, MDW<=20.0 does not rule out sepsis or risk of sepsis Performed By: #### [place] OVD19, FLURSV #### [place] [address] .NEUABSon 02-18-2022 Neutrophil, Absolute 6.3 10 3/mcL High 2.9-6.2 [facility] ([place] Comment on above: Performed By: #### C OVD19, FLURSV #### [place] [address] CBCon 02-18-2022 Erythrocyte distribution width (RBC) [Ratio] 15.6 % High 11.5-14.5 [facility] [place] Comment on above: Performed By: #### C OVD19, FLURSV #### [place] [address] [address] Hematocrit (Bld) [Volume fraction] 39.7 % Normal 37.0-47.0 [facility] [place] Comment on above: Performed By: #### C OVD19, FLURSV #### [place] [address] Hgb 13.0 G/dL Normal 12.0-16.0 [facility] [place] Comment on above: Performed By: #### C OVD19, FLURSV #### [place] [address] MCH (RBC) [Entitic mass] 24.9 pg Low 27.0-31.2 [facility] [place] Comment on above: Performed By: #### C OVD19, FLURSV #### [address] [address] MCHC 32.7 G/dL Low 33.0-37.0 [facility] [place] Comment on above: Performed By: #### C OVRachel9, FLURSV #### [address] [address] MCV (RBC) [Entitic vol] 76.2 fL Low 80.0-94.0 [facility] [place] Comment on above: Performed By: #### C OVRachel9, FLURSV #### [address] [address] Platelet 149 10 3/mcL Normal 130-400 [facility] [place] Comment on above: Performed By: #### C OVRachel9, FLURSV #### [address] [address] Platelet mean volume (Bld) [Entitic vol] 10.5 fL High 7.4-10.4 [facility] [place] Comment on above: Performed By: #### C OVRachel9, FLURSV #### [address] [address] RBC 5.22 10 6/mcL Normal 4.20-5.40 [facility] [place] Comment on above: Performed By: #### C OVD19, FLURSV #### [address] [address] WBC 9.1 10 3/mcL Normal 4.6-10.8 [facility] ([place] Comment on above: Performed By: #### C OVRachel9, FLURSV #### [address] [address] LABORATORYOrdered By: Symone Goodwin on 02-18-2022 Basophil, Absolute 0.1 103/mcL Invalid Interpretation Code 0.0 - 0.2 10^3/mcL AO Workflow SS Basophils/100 WBC (Bld) 0.7 % Invalid Interpretation Code 0.0 - 2.5 % AO Workflow SS Calcium [Mass/Vol] 9.1 mg/dL Invalid Interpretation Code 8.4 - 10.2 mg/dL AO ADM SS Chloride [Moles/Vol] 102 mmol/L Invalid Interpretation Code 98 - 107 mmol/L AO ADM SS CO2 [Moles/Vol] 25 mmol/L Invalid Interpretation Code 22 - 29 mmol/L AO ADM SS Creatinine [Mass/Vol] 0.95 mg/dL Invalid Interpretation Code 0.55 - 1.02 mg/dL AO ADM SS Electrolyte Balance 11.0 mEq/L Invalid Interpretation Code 4.0 - 15.0 mEq/L AO ADM SS Eosinophil, Absolute 0.9 103/mcL Invalid Interpretation Code 0.0 - 0.4 10^3/mcL AO Workflow SS Eosinophils/100 WBC (Bld) 9.7 % Invalid Interpretation Code 0.0 - 7.0 % AO Workflow SS Erythrocyte distribution width (RBC) [Ratio] 15.6 % Invalid Interpretation Code 11.5 - 14.5 % AO Workflow SS Glucose [Mass/Vol] 92 mg/dL Invalid Interpretation Code 70 - 105 mg/dL AO ADM SS Hematocrit (Bld) [Volume fraction] 39.7 % Invalid Interpretation Code 37.0 - 47.0 % AO Workflow SS Hemoglobin (Bld) [Mass/Vol] 13.0 G/dL Invalid Interpretation Code 12.0 - 16.0 G/dL AO Workflow SS Lymphocyte, Absolute 1.3 103/mcL Invalid Interpretation Code 0.8 - 3.9 10^3/mcL AO Workflow SS Lymphocytes/100 WBC (Bld) 14.8 % Invalid Interpretation Code 10.0 - 50.0 % AO Workflow SS MCH (RBC) [Entitic mass] 24.9 pg Invalid Interpretation Code 27.0 - 31.2 pg AO Workflow SS MCHC 32.7 G/dL Invalid Interpretation Code 33.0 - 37.0 G/dL AO Workflow SS MCV (RBC) [Entitic vol] 76.2 fL Invalid Interpretation Code 80.0 - 94.0 fL AO Workflow SS Monocyte distribution width Auto (Bld) [Entitic vol] 18.38 Invalid Interpretation Code 0.00 - 20.00 AO Workflow SS Comment on above: Result Comment: For ED adult patients suspected of sepsis, MDW<=20.0 does not rule out sepsis or risk of sepsis Monocyte, Absolute 0.5 103/mcL Invalid Interpretation Code 0.2 - 1.0 10^3/mcL AO Workflow SS Monocytes/100 WBC (Bld) 5.4 % Invalid Interpretation Code 1.7 - 13.0 % AO Workflow SS Neutrophil, Absolute 6.3 103/mcL Invalid Interpretation Code 2.9 - 6.2 10^3/mcL AO Workflow SS Neutrophils/100 WBC (Bld) 69.4 % Invalid Interpretation Code 37.0 - 80.0 % AO Workflow SS Platelet mean volume (Bld) [Entitic vol] 10.5 fL Invalid Interpretation Code 7.4 - 10.4 fL AO Workflow SS Platelets (Bld) [#/Vol] 149 103/mcL Invalid Interpretation Code 130 - 400 10^3/mcL AO Workflow SS Potassium [Moles/Vol] 3.7 mmol/L Invalid Interpretation Code 3.5 - 5.1 mmol/L AO ADM SS RBC (Bld) [#/Vol] 5.22 106/mcL Invalid Interpretation Code 4.20 - 5.40 10^6/mcL AO Workflow SS Sodium [Moles/Vol] 138 mmol/L Invalid Interpretation Code 136 - 145 mmol/L AO ADM SS Urea nitrogen [Mass/Vol] 12 mg/dL Invalid Interpretation Code 7 - 18 mg/dL AO ADM SS Urea nitrogen/Creatinine [Mass ratio] 13 ratio Invalid Interpretation Code 7 - 27 ratio AO ADM SS WBC (Bld) [#/Vol] 9.1 103/mcL Invalid Interpretation Code 4.6 - 10.8 10^3/mcL AO Workflow SS SARS-CoV-2 (COVID-19) RNA RUSSEL+probe Ql (Resp) Negative results do not preclude SARS-CoV-2 infection and should not be used as the sole basis for patient management decisions. Negative results must be combined with clinical observations, patient history, and epidemiological information.There is a risk of false negative values resulting from improperly collected, transported, or handled specimens.There is a risk of false negative values due to the presence of sequence variants in the pathogen targets of the assay, procedural errors, amplification inhibitors in specimens, or inadequate numbers of organisms for amplification.VINNY SARS-CoV-2 Assay is a Real-Time reverse-transcriptase polymerase chain reaction (RT-PCR) based qualitative in vitro diagnostic test intended for the qualitative detection of nucleic acid from the SARS-CoV-2 in nasopharyngeal swab specimens collected from individuals suspected of COVID-19 by their healthcare provider. Testing is limited to laboratories certified under the Clinical Laboratory Improvement Amendments of 1988 (CLIA), 42 U.S.C. 263a, to perform moderate and high complexity tests. Invalid Interpretation Code AO Auto Urine SS LABORATORYOrdered By: SYSTEM SYSTEM on 02-18-2022 GFR 89 ml/min/1.73sqm Invalid Interpretation Code AO Chemistry S GFR Non- 74 ml/min/1.73sqm Invalid Interpretation Code AO Chemistry S LABORATORYOrdered By: Landon Lombardo on 02-18-2022 FLUAV RNA RUSSEL+probe Ql (Upper resp) Negative (02/18/22 7:37 PM) Invalid Interpretation Code Negative AO Auto Urine SS FLUBV RNA RUSSEL+probe Ql (Upper resp) Negative (02/18/22 7:37 PM) Invalid Interpretation Code Negative AO Auto Urine SS RSV RNA RUSSEL+probe Ql (Upper resp) Negative (02/18/22 7:37 PM) Invalid Interpretation Code Negative AO Auto Urine SS XR CHEST 1 VIEWon 02-18-2022 XR CHEST 1 VIEW ORIGINAL EXAMINATION: ONE XRAY VIEW OF THE CHEST02/18/2022 8:53 pm COMPARISON: None HISTORY: ORDERING SYSTEM PROVIDED HISTORY: Reason for Exam: cough Shortness of breath FINDINGS: The cardiomediastinal silhouette is within normal limits. Question hyperinflation bilaterally. No pulmonary vascular congestion. No focal consolidation, pneumothorax or large volume pleural effusion. No acute osseous abnormality. IMPRESSION: Question hyperinflation bilaterally, which can be seen in reactive airway disease although correlate clinically. Otherwise no focal consolidation or edema. I have personally reviewed the images of this examination and agree with the resident's findings and interpretation. Interpreted by: José Miguel Rollins Preliminary Report By: Fina Corea Electronically signed By José Miguel Rollins Dictated Date: 02/18/2022 9:12:43 PM Prelim Date: 02/18/2022 9:14:22 PM Sign Date: 02/18/2022 9:29:14 PM Ordering Provider: JESSIKA WORTHINGTON [facility] ([place]) Absolute lymphocyte counton 12-31-2021 Lymphocytes Auto (Unsp spec) [#/Vol] 1.09 10*3/uL 0.83-4.51 [facility] Work Phone: Basophil percentageon 2021 Basophils/100 WBC (Bld) 1.3 % 0-1 [facility] Work Phone: [phone] Chloride [Moles/Vol] 105 mmol/L 98-107 [facility] Work Phone: [phone] Eosinophils/100 WBC (Bld) 17.6 % 0-5 [facility] Work Phone: [phone] Glucose [Mass/Vol] 98 mg/dL 74-106 [facility] Work Phone: [phone] Neutrophils (Bld) [#/Vol] 4.5 10*3/uL 2.0-7.7 [facility] Work Phone: [phone] Neutrophils/100 WBC (Bld) 57.8 % 47-70 [facility] Work Phone: Potassium [Moles/Vol] 4.1 mmol/L 3.5-5.1 [facility] Work Phone: [phone] Comment on above: Slight Hemolysis, Re sult may be falsely increased. Sodium [Moles/Vol] 140 mmol/L 136-145 [facility] Work Phone: WBC (Bld) [#/Vol] 7.8 10*3/uL 4.4-11.0 [facility] Work Phone: Blood erythrocytes count (nu mber/volume)on 12-31-2021 RBC (Bld) [#/Vol] 5.15 10*6/uL 4.2-5.4 [facility] Work Phone: [phone] Blood hemoglobin measurement (mass/volume)on 12-31-2021 Hemoglobin (Bld) [Mass/Vol] 13.4 g/dL 12.0-15.0 [facility] Work Phone: [phone] Blood lymphocytes/100 leukoc yteson 12-31-2021 Lymphocytes/100 WBC (Bld) 13.9 % 19-41 [facility] Work Phone: Blood monocytes/100 leukocyt eson 12-31-2021 Monocytes/100 WBC (Bld) 9.3 % 0-10 [facility] Work Phone: Blood platelet mean volumeon 12-31-2021 Platelet mean volume (Bld) [Entitic vol] 11.9 fL 6.2-12.0 [facility] Work Phone: Determination of erythrocyte mean corpuscular volume (MCV)on 12-31-2021 MCV (RBC) [Entitic vol] 79.6 fL 81-99 [facility] Work Phone: Hematocrit Auto (Bld) [Volum e fraction]on 12-31-2021 Hematocrit (Bld) [Volume fraction] 41.0 % 37-47 [facility] Work Phone: Laboratory - Chemistry and C hemistry - challengeon 12-31-2021 CO2 [Moles/Vol] 24.0 mmol/L 21.0-32.0 [facility] Work Phone: Urea nitrogen/Creatinine [Mass ratio] 11.9 mg/mg 10-20 [facility] Work Phone: Laboratory - Hematology and Cell countson 12-31-2021 Erythrocyte distribution width (RBC) [Entitic vol] 39.6 fL 35.1-43.9 [facility] Work Phone: Erythrocyte distribution width (RBC) [Ratio] 13.7 % 11.6-14.6 [facility] Work Phone: Immature granulocytes/100 WBC (Bld) 0.100 % 0.0-0.9 [facility] Work Phone: Comment on above: IG% - Immature Granu locytes (promyelocytes, myelocytes and metamyelocytes) > 1% indicates that a LEFT SHIFT is Present. MCH (RBC) [Entitic mass] 26.0 pg 27.0-32.0 [facility] Work Phone: Nucleated RBC/100 WBC (Bld) [Ratio] 0 % 0-5 [facility] Work Phone: MCHC Auto (RBC) [Mass/Vol]on 12-31-2021 MCHC (RBC) [Mass/Vol] 32.7 g/dL 32-36 [facility] Work Phone: No Panel Informationon 12-31 Estimated Creatinine Clearance Calc 96.76 ml/min [facility] Work Phone: Estimated GFR (MDRD) Amer 98 mL/min >60 [facility] Work Phone: Comment on above: GFR Calc Estimated GFR (MDRD) Non-Af Amer 81 mL/min >60 [facility] Work Phone: Comment on above: Non- GFR Calc Platelets bldon 12-31-2021 Platelets (Bld) [#/Vol] 214 10*3/uL 150-450 [facility] Work Phone: Serum or plasma calcium ariel urement (mass/volume)on 12-31-2021 Calcium [Mass/Vol] 9.3 mg/dL 8.5-10.1 [facility] Work Phone: Serum or plasma creatinine m easurement (mass/volume)on 12-31-2021 Creatinine [Mass/Vol] 0.92 mg/dL 0.55-1.02 [facility] Work Phone: Comment on above: The validity of the calculated GFR & GFRAA in patients over 70 years has not been determined. Clinical correlation is essential. Serum or plasma urea nitroge n measurement (mass/volume)on 12-31-2021 Urea nitrogen [Mass/Vol] 11 mg/dL 7-18 [facility] Work Phone: Thin prep Papanicolaou smear with manual screeningon 12-31-2021 Thin prep Papanicolaou smear with manual screening 11 5-15 [facility] Work Phone: CNOVon 10-30-2018 CNOV Office Visit (CARRILLO ) TACOS BLANC ([id number]) 89 F Date Time Provider Department 10/30/18 10:30 AM SHON SARMIENTO During your visit today, we recorded the following information about you: Pulse Blood pressure Weight Height 88/minute 125/67 111.1 kg 1.727 m Shon Sarmiento MD 10/30/2018 10:47 AM Signed HISTORY AND PHYSICAL EXAMINATION - GENERAL NEUROLOGY SERVICE DATE: 10/30/2018 SERVICE TIME: 10:40 AM PRIMARY CARE PHYSICIAN: No primary care provider on file. CURRENT ATTENDING PROVIDER: No att. providers found Subjective REASON FOR EVALUATION: Chiari I, HPI/CHIEF COMPLAINT: This is Ms. Tacos Blanc a 17 year old right handed female with a known dx of Chiari I malformation, who presents for evaluation of Chair I in . Pt says she was dx with it as a child after developing severe headaches. It never required intervention and the headaches went away. The pt in fact denies any symptoms associated with it and she rarely gets WALLIS these days. However she recently became and her PCP referred her to neurology for evaluation. No focal weakness/numbness/par esthesias, no falls, no language difficulty, no N/V, no diplopia or visual loss, hearing loss, tinnitus or other c/o. FUNCTIONAL STATUS: Independent PAST MEDICAL HISTORY Diagnosis Date - allergies - Anemia - anxiety - Asthma - Chiari I malformation (HCC) Dr. 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 - PMH - PAST MEDICAL HISTORY OF bilateral broken elbows, did have pins in one elbow per mom PAST SURGICAL HISTORY Procedure Laterality Date - INCISION EARDRUM,ASPIR,GEN ANESTH Myringotomy/tubes - PAST SURGICAL HISTORY OF age 10 BROKEN LEFT ELBOW WITH PINS - REMOVAL ADENOIDS,PRIMARY,<12 Y/O Adenoidectomy - REMOVAL OF TONSILS,<12 Y/O Tonsillectomy FAMILY HISTORY Problem Relation Age of Onset - Colon Cancer Maternal Grandmother - Cancer Maternal Grandfather Bladder - Skin Cancer Maternal Grandfather - Heart Mother cardiomyopathy - No Known Problems Father - other (MS) Paternal Grandmother - Heart Paternal Grandfather - other (Benign chest tumor) Sister - No Known Problems Brother - No Known Problems Brother - No Known Problems Brother Social History Tobacco Use - Smoking status: Former Smoker Years: 1.00 Last attempt to quit: 07/15/2018 Years since quittin.2 - Smokeless tobacco: Never Used Substance Use Topics - Alcohol use: No Comment: Not while - Drug use: No (Not in a hospital admission) ALLERGIES Allergen Reactions - Enviromental [Other] COMPLETE REVIEW OF SYSTEMS: GENERAL: No fevers or irritability. Normal sleep, appetite and activity HEENT: Negative for headaches, No problems with hearing or vision, no nose bleeds or other nasal problems. NECK: Negative for stiffness, lumps or significant neck swelling RESPIRATORY: Negative for cough, wheezing or respiratory distress. CARDIOVASCULAR: Negative for chest pain, syncope, lightheadness or heart racing. GI: Negative for abdominal discomfort, blood in stools or black stools or change in bowel habits : No history of dysuria, frequency or incontinence MUSCULOSKELETAL: Negative for joint pain or swelling, back pain or muscle pain. SKIN: Negative for lesions, rash, and itching. NEURO: See HPI Objective PHYSICAL EXAM: Vital Signs: BP 125/67 Pulse 88 Ht 5' 8 (1.73m) Wt 245 lb (111.1kg) SpO2 98% LMP 05/14/2018 BMI 37.26 kg/(m2). General appearance: Well appearing, alert and in no acute distress Skin: skin color, texture, turgor normal, no rashes or lesions Head: Normocephalic, no masses, lesions, tenderness or abnormalities Nose/Sinuses: Nares normal, septum midline, mucosa normal, no drainage or sinus tenderness Oropharynx: Lips, mucosa, and tongue normal, teeth and gums normal, oropharynx normal Neck: Supple, no adenopathy; thyroid symmetric, normal size, no bruits Lungs: lungs clear to auscultation no wheezing or rhonchi Heart: Negative. RRR without murmur, gallop, or rubs. No ectopy Carotid Auscultation: Without bruits Abdomen: Normal abdominal exam, Abdomen soft, non-tender. Bowel sounds normal. No masses, organomegaly, Positive findings: normal abdomen Extremities: Extremities normal. No deformities, edema, or skin discoloration. Good capillary refill. Peripheral pulses: Normal Neurological Examination: ? Mental Status: Alert and Oriented to Place, Person, Time and Situation and Patient follows commands.. ? Language: Is intact to Comprehension, Fluency and Repetition Cranial Nerves: CNII: Visual acuity normal, Visual blas full to confrontation CNIII, IV, : Pupils equal, round and reactive to light, full extraoccular movements, without nystagmus CN V: Facial sensation intact bilaterally to fine touch and pinprick, masseter 5/5 CN VII: Facial muscles symmetric and strong CN VIII: Hears finger rub well bilaterally CN IX: Gag Reflex Not examined CN X: Palate elevates symmetrically CN XI: Full strength shoulder shrug bilaterally CN XII: Tongue protrusion full and midline ? Non-Dilated Fundiscopic Examination: Deferred Examination ? Motor Exam: Tone: Normal Tone noted in all extremities Bulk: Normal bulk noted in all muscles tested. Inspection: Normal, no fasciculations or tremors noted. Power: MUSCLES - Upper Extremity RIGHT LEFT Deltoid 5/5 5/5 Biceps 5/5 5/5 Triceps 5/5 5/5 Wrist Extension 5/5 5/5 Wrist Flexion 5/5 5/5 Finger Flexion 5/5 5/5 Finger Extension 5/5 5/5 Finger Abd 5/5 5/5 Finger Add 5/5 5/5 MUSCLES - Lower Extremity RIGHT LEFT Hip Flexion 5/5 5/5 Hip Extension 5/5 5/5 BiFem (Knee Flex) 5/5 5/5 Quads (Knee Ext) 5/5 5/5 Gastroc (Plantflx) 5/5 5/5 TibAnt (Dorsiflx) 5/5 5/5 TibPost (Ank Add) 5/5 5/5 Ankle Eversion 5/5 5/5 Ankle Inversion 5/5 5/5 FlxHLong (Toe Flex) 5/5 5/5 ExtHLong (Toe Ext) 5/5 5/5 ? Sensory Examination Sensation is intact throughout to proprioception, pin-prick [pain], light touch and vibratory sense. REFLEXES RIGHT LEFT Bicep 2/4 2/4 Tricep 2/4 2/4 BrRad 2/4 2/4 Knee 2/4 2/4 Ankle 2/4 2/4 Plantar Response Downward response Downward response Vela Response Negative Negative ? Coordination: Finger-to- nose-finger intact bilaterally and [id number] intact bilaterally. ? Gait: Patient's gait is normal, can heel and toe walk and can tandem walk ? Romberg: Negative DATA: Diagnostic tests reviewed for today's visit: Most recent labs and imaging results. BLOODWORK: WBC (k/uL) Date Value 08/16/2018 8.16 05/05/2017 7.18 08/13/2014 5.07 08/28/2013 10.19 RBC (m/uL) Date Value 08/16/2018 5.20 05/05/2017 4.97 08/13/2014 4.84 08/28/2013 4.90 Platelet Count (k/uL) Date Value 08/16/2018 200 05/05/2017 247 08/13/2014 179 08/28/2013 247 BUN (mg/dL) Date Value 12/10/2014 11 08/28/2013 10 Creatinine (mg/dL) Date Value 12/10/2014 0.81 08/28/2013 0.80 Lab Results Component Value Date NEUTP 69.8 05/05/2017 ABSNEUT 5.00 05/05/2017 LYMPHP 19.1 05/05/2017 ABSLYMPH 1.37 05/05/2017 ABSMONO 0.53 05/05/2017 EODINP 3.1 05/05/2017 ABSEOSIN 0.22 05/05/2017 BASOP 0.6 05/05/2017 ABSBASO 0.04 05/05/2017 Lab Results Component Value Date PLT 200 08/16/2018 HB 13.2 08/16/2018 HCT 41.4 08/16/2018 ALB 4.5 08/28/2013 CA 9.3 12/10/2014 TBILI 0.2 08/28/2013 ALKPHOS 130 08/28/2013 AST 20 08/28/2013 GLUC 88 12/10/2014 BUN 11 12/10/2014 NA 140 12/10/2014 K 3.9 12/10/2014 CHLOR 107 12/10/2014 CO2 18 12/10/2014 ANION 15 12/10/2014 ALT 34 08/28/2013 WSR (mm/hr) Date Value 08/28/2013 8 IMAGING: MRI-brain wwo 2013 Chiari I malformation, otherwise normal brain CT head 2014 Chiari I, otherwise normal brain EEG DATA: None Formulation: This is Tacos Blanc, a 17 year old female with a history of Chiari I who presents for evaluation due to . She is neurologically intact. Current Hospital Diagnosis List: * No active hospital problems. * Assessment/Plan 1. No new symptoms to suggest worsening of the Chiari 2. Neurologically intact, no sign of myelopathy 3. No further workup at this time 4. No need to f/u unless new issue arises SIGNATURE: Shon Sarmiento MD PATIENT NAME: Tacos Blanc DATE: October 30, 2018 TIME: 10:40 AM PAGER/CONTACT #: [phone] Referring Provider: KRISTEN PUGH [[id number]] Allergies As of Date: 10/30/2018 Noted Allergy Reaction enviromental [Other] 11/29/2007 Date Reviewed: 10/30/2018 Reviewed by: Jamir (Charlie) Rizwana - Fully Assessed Reason for Visit: New Patient [172] Cmt: Chiari Malformation Type 1 (22 weeks ) Visit Diagnosis:Chiari malformation type I (HCC) [G93.5] Prescriptions as of 10/30/2018 Sig: VITAMIN,CALCIUM,MINE* Take 1 tablet by mouth once d* ALBUTEROL SULFATE HFA 90 MCG/* Inhale 2 Puffs as instructed * ACETAMINOPHEN 325 MG TABLET Take 650 mg by mouth every 6 * PYRIDOXINE (VITAMIN B6) 100 M* Take 0.5 tablets by mouth twi* Patient not taking: Reported on 08/16/2018 CETIRIZINE 10 MG TABLET prn for allergies Patient not taking: Reported on 07/25/2018 Problem List As Of Date 10/30/2018 Noted Resolved [place] Schlatter's disease INVALID FOR* Migraine [G43.909] INVALID FOR* Headache [R51] INVALID FOR* Chiari I malformation [G93.5] INVALID FOR* allergies [V999.96] Pain in limb [M79.609] INVALID FOR*11/13/2013 Asthma [J45.909] INVALID FOR* Chronic daily headache [R51] INVALID FOR* Obesity [E66.9] INVALID FOR* Sore throat [J02.9] INVALID FOR* Well adolescent visit [Z00.129] INVALID FOR* Uninodular goiter [E04.1] INVALID FOR* More... History of depression [Z86.59] INVALID FOR* More... Drug use affecting in first trimester*INVALID FOR* More... Intrauterine in teenager [Z34.80] INVALID FOR* Obesity complicating in first trimest*INVALID FOR* More... Tobacco use in [O99.330] INVALID FOR* More... Supervision of high risk in first tri*INVALID FOR* Asthma during [O99.519, J45.909] INVALID FOR* More... Encounter Status:Closed by SHON SARMIENTO MD on 10/30/18 [facility] HISTORY PHYSICALon HISTORY PHYSICAL HNO ID: [id number] Author: Shon Sarmiento Service: ? Author Type: Physician Type: HANDP Filed: 10/30/2018 10:47 AM Note Text: HISTORY AND PHYSICAL EXAMINATION - GENERAL NEUROLOGY SERVICE DATE: 10/30/2018 SERVICE TIME: 10:40 AM PRIMARY CARE PHYSICIAN: No primary care provider on file. CURRENT ATTENDING PROVIDER: No att. providers found Subjective REASON FOR EVALUATION: Chiari I, HPI/CHIEF COMPLAINT: This is Ms. Tacos Blanc a 17 year old right handed female with a known dx of Chiari I malformation, who presents for evaluation of Chair I in . Pt says she was dx with it as a child after developing severe headaches. It never required intervention and the headaches went away. The pt in fact denies any symptoms associated with it and she rarely gets WALLIS these days. However she recently became and her PCP referred her to neurology for evaluation. No focal weakness/numbness/par esthesias, no falls, no language difficulty, no N/V, no diplopia or visual loss, hearing loss, tinnitus or other c/o. FUNCTIONAL STATUS: Independent PAST MEDICAL HISTORY Diagnosis Date - allergies - Anemia - anxiety - Asthma - Chiari I malformation (HCC) Dr. Villalpando follows every 6-12 months - Fracture, finger right/ pinky finger - goiter - Migraine 09/23/2010 - [place] Schlatter's disease 09/02/2010 resolved - PMH - PAST MEDICAL HISTORY OF bilateral broken elbows, did have pins in one elbow per mom PAST SURGICAL HISTORY Procedure Laterality Date - INCISION EARDRUM,ASPIR,GEN ANESTH Myringotomy/tubes - PAST SURGICAL HISTORY OF age 10 BROKEN LEFT ELBOW WITH PINS - REMOVAL ADENOIDS,PRIMARY,<12 Y/O Adenoidectomy - REMOVAL OF TONSILS,<12 Y/O Tonsillectomy FAMILY HISTORY Problem Relation Age of Onset - Colon Cancer Maternal Grandmother - Cancer Maternal Grandfather Bladder - Skin Cancer Maternal Grandfather - Heart Mother cardiomyopathy - No Known Problems Father - other (MS) Paternal Grandmother - Heart Paternal Grandfather - other (Benign chest tumor) Sister - No Known Problems Brother - No Known Problems Brother - No Known Problems Brother Social History Tobacco Use - Smoking status: Former Smoker Years: 1.00 Last attempt to quit: 07/15/2018 Years since quittin.2 - Smokeless tobacco: Never Used Substance Use Topics - Alcohol use: No Comment: Not while - Drug use: No (Not in a hospital admission) ALLERGIES Allergen Reactions - Enviromental [Other] COMPLETE REVIEW OF SYSTEMS: GENERAL: No fevers or irritability. Normal sleep, appetite and activity HEENT: Negative for headaches, No problems with hearing or vision, no nose bleeds or other nasal problems. NECK: Negative for stiffness, lumps or significant neck swelling RESPIRATORY: Negative for cough, wheezing or respiratory distress. CARDIOVASCULAR: Negative for chest pain, syncope, lightheadness or heart racing. GI: Negative for abdominal discomfort, blood in stools or black stools or change in bowel habits : No history of dysuria, frequency or incontinence MUSCULOSKELETAL: Negative for joint pain or swelling, back pain or muscle pain. SKIN: Negative for lesions, rash, and itching. NEURO: See HPI Objective PHYSICAL EXAM: Vital Signs: BP 125/67 Pulse 88 Ht 5' 8 (1.73m) Wt 245 lb (111.1kg) SpO2 98% LMP 05/14/2018 BMI 37.26 kg/(m2). General appearance: Well appearing, alert and in no acute distress Skin: skin color, texture, turgor normal, no rashes or lesions Head: Normocephalic, no masses, lesions, tenderness or abnormalities Nose/Sinuses: Nares normal, septum midline, mucosa normal, no drainage or sinus tenderness Oropharynx: Lips, mucosa, and tongue normal, teeth and gums normal, oropharynx normal Neck: Supple, no adenopathy; thyroid symmetric, normal size, no bruits Lungs: lungs clear to auscultation no wheezing or rhonchi Heart: Negative. RRR without murmur, gallop, or rubs. No ectopy Carotid Auscultation: Without bruits Abdomen: Normal abdominal exam, Abdomen soft, non-tender. Bowel sounds normal. No masses, organomegaly, Positive findings: normal abdomen Extremities: Extremities normal. No deformities, edema, or skin discoloration. Good capillary refill. Peripheral pulses: Normal Neurological Examination: ? Mental Status: Alert and Oriented to Place, Person, Time and Situation and Patient follows commands.. ? Language: Is intact to Comprehension, Fluency and Repetition Cranial Nerves: CNII: Visual acuity normal, Visual blas full to confrontation CNIII, IV, : Pupils equal, round and reactive to light, full extraoccular movements, without nystagmus CN V: Facial sensation intact bilaterally to fine touch and pinprick, masseter 5/5 CN VII: Facial muscles symmetric and strong CN VIII: Hears finger rub well bilaterally CN IX: Gag Reflex Not examined CN X: Palate elevates symmetrically CN XI: Full strength shoulder shrug bilaterally CN XII: Tongue protrusion full and midline ? Non-Dilated Fundiscopic Examination: Deferred Examination ? Motor Exam: Tone: Normal Tone noted in all extremities Bulk: Normal bulk noted in all muscles tested. Inspection: Normal, no fasciculations or tremors noted. Power: MUSCLES - Upper Extremity RIGHT LEFT Deltoid 5/5 5/5 Biceps 5/5 5/5 Triceps 5/5 5/5 Wrist Extension 5/5 5/5 Wrist Flexion 5/5 5/5 Finger Flexion 5/5 5/5 Finger Extension 5/5 5/5 Finger Abd 5/5 5/5 Finger Add 5/5 5/5 MUSCLES - Lower Extremity RIGHT LEFT Hip Flexion 5/5 5/5 Hip Extension 5/5 5/5 BiFem (Knee Flex) 5/5 5/5 Quads (Knee Ext) 5/5 5/5 Gastroc (Plantflx) 5/5 5/5 TibAnt (Dorsiflx) 5/5 5/5 TibPost (Ank Add) 5/5 5/5 Ankle Eversion 5/5 5/5 Ankle Inversion 5/5 5/5 FlxHLong (Toe Flex) 5/5 5/5 ExtHLong (Toe Ext) 5/5 5/5 ? Sensory Examination Sensation is intact throughout to proprioception, pin-prick [pain], light touch and vibratory sense. REFLEXES RIGHT LEFT Bicep 2/4 2/4 Tricep 2/4 2/4 BrRad 2/4 2/4 Knee 2/4 2/4 Ankle 2/4 2/4 Plantar Response Downward response Downward response Vela Response Negative Negative ? Coordination: Finger-to- nose-finger intact bilaterally and Asug-ti-fwmr intact bilaterally. ? Gait: Patient's gait is normal, can heel and toe walk and can tandem walk ? Romberg: Negative DATA: Diagnostic tests reviewed for today's visit: Most recent labs and imaging results. BLOODWORK: WBC (k/uL) Date Value 08/16/2018 8.16 05/05/2017 7.18 08/13/2014 5.07 08/28/2013 10.19 RBC (m/uL) Date Value 08/16/2018 5.20 05/05/2017 4.97 08/13/2014 4.84 08/28/2013 4.90 Platelet Count (k/uL) Date Value 08/16/2018 200 05/05/2017 247 08/13/2014 179 08/28/2013 247 BUN (mg/dL) Date Value 12/10/2014 11 08/28/2013 10 Creatinine (mg/dL) Date Value 12/10/2014 0.81 08/28/2013 0.80 Lab Results Component Value Date NEUTP 69.8 05/05/2017 ABSNEUT 5.00 05/05/2017 LYMPHP 19.1 05/05/2017 ABSLYMPH 1.37 05/05/2017 ABSMONO 0.53 05/05/2017 EODINP 3.1 05/05/2017 ABSEOSIN 0.22 05/05/2017 BASOP 0.6 05/05/2017 ABSBASO 0.04 05/05/2017 Lab Results Component Value Date PLT 200 08/16/2018 HB 13.2 08/16/2018 HCT 41.4 08/16/2018 ALB 4.5 08/28/2013 CA 9.3 12/10/2014 TBILI 0.2 08/28/2013 ALKPHOS 130 08/28/2013 AST 20 08/28/2013 GLUC 88 12/10/2014 BUN 11 12/10/2014 NA 140 12/10/2014 K 3.9 12/10/2014 CHLOR 107 12/10/2014 CO2 18 12/10/2014 ANION 15 12/10/2014 ALT 34 08/28/2013 WSR (mm/hr) Date Value 08/28/2013 8 IMAGING: MRI-brain wwo 2013 Chiari I malformation, otherwise normal brain CT head 2014 Chiari I, otherwise normal brain EEG DATA: None Formulation: This is Tacos Blanc, a 17 year old female with a history of Chiari I who presents for evaluation due to . She is neurologically intact. Current Hospital Diagnosis List: * No active hospital problems. * Assessment/Plan 1. No new symptoms to suggest worsening of the Chiari 2. Neurologically intact, no sign of myelopathy 3. No further workup at this time 4. No need to f/u unless new issue arises SIGNATURE: Shon Sarmiento MD PATIENT NAME: Tacos Blanc DATE: October 30, 2018 TIME: 10:40 AM PAGER/CONTACT #: [id number] Normal [facility] No Panel Information Influenza Types A,B Direct FA ([facility]) [facility] Work Phone: Vital Signs Date Time Vital Sign Value Performing Clinician Facility 01-07-2025 14:28-0400 Body temperature 97.8 [degF] Dr. Kris Amaro MD Work Phone: [facility] 01-07-2025 14:28-0400 Diastolic blood pressure 62 mm[Hg] Dr. Kris Amaro MD Work Phone: [facility] 01-07-2025 14:28-0400 Heart rate 54 /min Dr. Kris Amaro MD Work Phone: [facility] 01-07-2025 14:28-0400 Respiratory rate 14 /min Dr. Kris Amaro MD Work Phone: [facility] 01-07-2025 14:28-0400 SaO2% (BldA) [Mass fraction] 100 % Dr. Kris Amaro MD Work Phone: [facility] 01-07-2025 14:28-0400 Systolic blood pressure 101 mm[Hg] Dr. Kris Amaro MD Work Phone: 4(112)631-917675 [place] [address] 01-07-2025 12:20-0400 Body height 172.[address] Kris Amaro MD Work Phone: 1(327)717-846575 [place] [address] 01-07-2025 12:20-0400 Body mass index (BMI) [Ratio] 27.7 kg/m2 Dr. Kris Amaro MD Work Phone: 4(266)994-101675 [place] [address] 01-07-2025 12:20-0400 Body weight 82.[address] Kris Amaro MD Work Phone: 4(705)231-294275 [place] [address] 01-02-2025 19:44-0400 Body temperature 98.2 [degF] Dr. Kris Amaro MD Work Phone: 7(232)727-378275 [place] [address] 01-02-2025 19:44-0400 Diastolic blood pressure 63 mm[Hg] Dr. Kris Amaro MD Work Phone: 7(339)173-188275 [place] [address] 01-02-2025 19:44-0400 Heart rate 104 /min Dr. Kris Amaro MD Work Phone: 4(265)117-577075 [place] [address] 01-02-2025 19:44-0400 Respiratory rate 26 /min Dr. Kris Amaro MD Work Phone: 1(123)919-103475 [place] [address] 01-02-2025 19:44-0400 SaO2% (BldA) [Mass fraction] 100 % Dr. Kris Amaro MD Work Phone: 2(947)606-392475 [place] [address] 01-02-2025 19:44-0400 Systolic blood pressure 121 mm[Hg] Dr. Kris Amaro MD Work Phone: 2(942)876-785975 [place] [address] 01-02-2025 17:31-0400 Body height 172.[address] Kris Amaro MD Work Phone: 9(330)329-229575 [place] [address] 01-02-2025 17:31-0400 Body mass index (BMI) [Ratio] 27.2 kg/m2 Dr. Kris Amaro MD Work Phone: [facility] 01-02-2025 17:31-0400 Body weight 81.[address] Kris Amaro MD Work Phone: [facility] 06-11-2022 00:42-0500 Diastolic Blood Pressure Non-Invasive [address] ARIEL CHOE MD [facility] 06-11-2022 00:42-0500 Heart rate 122 /min DR ARIEL CHOE MD [facility] 06-11-2022 00:42-0500 Respiratory rate 20 /min DR ARIEL CHOE MD [facility] 06-11-2022 00:42-0500 Systolic Blood Pressure Non-Invasive [address] ARIEL CHOE MD [facility] 06-11-2022 00:08-0500 Diastolic Blood Pressure Non-Invasive [address] ARIEL CHOE MD [facility] 06-11-2022 00:08-0500 Heart rate 122 /min DR ARIEL CHOE MD [facility] 06-11-2022 00:08-0500 Respiratory rate 20 /min DR ARIEL CHOE MD [facility] 06-11-2022 00:08-0500 Systolic Blood Pressure Non-Invasive [address] ARIEL CHOE MD [facility] 06-10-2022 22:44-0500 Diastolic Blood Pressure Non-Invasive [address] ARIEL CHOE MD [facility] 06-10-2022 22:44-0500 Heart rate 132 /min DR ARIEL CHOE MD [facility] 06-10-2022 22:44-0500 Respiratory rate 20 /min DR ARIEL CHOE MD [facility] 06-10-2022 22:44-0500 Systolic Blood Pressure Non-Invasive [address] ARIEL CHOE MD [facility] 06-10-2022 22:00-0500 Body temperature 98.42 [degF] DR ARIEL CHOE MD [facility] 06-10-2022 15:51-0500 Diastolic Blood Pressure Non-Invasive 64 1 JESSIKA REICHFIELD DO [facility] 06-10-2022 15:51-0500 Heart rate 102 /min JESSIKA REICHFIELD DO [facility] 06-10-2022 15:51-0500 Respiratory rate 18 /min JESSIKA REICHFIELD DO [facility] 06-10-2022 15:51-0500 Systolic Blood Pressure Non-Invasive 110 1 JESSIKA REICHFIELD DO [facility] 06-10-2022 14:59-0500 Heart rate 102 /min JESSIKA REICHFIELD DO [facility] 06-10-2022 14:59-0500 Respiratory rate 24 /min JESSIKA REICHFIELD DO [facility] 06-10-2022 14:47-0500 Body temperature 98.06 [degF] JESSIKA REICHFIELD DO [facility] 06-10-2022 14:47-0500 Diastolic Blood Pressure Non-Invasive 62 1 JESSIKA REICHFIELD DO [facility] 06-10-2022 14:47-0500 Heart rate 127 /min JESSIKA REICHFIELD DO [facility] 06-10-2022 14:47-0500 Respiratory rate 24 /min [facility] 06-10-2022 14:47-0500 Systolic Blood Pressure Non-Invasive 114 1 [facility] 03-03-2022 10:12-0500 Heart rate 67 /min ALEM MILLER T[employer] MAK[employer]-DAIRY LAB TECHNICIAN [facility] 03-03-2022 10:12-0500 Respiratory rate 16 /min ALEM MILLER TACK MAKER-DAIRY LAB TECHNICIAN [facility] 03-03-2022 07:40-0500 Body temperature 97.34 [degF] ALEM MILLER TACK MAKER-DAIRY LAB TECHNICIAN [facility] 03-03-2022 07:40-0500 Diastolic blood pressure 66 mm[Hg] ALEM MILLER TACK MAKER-DAIRY LAB TECHNICIAN [facility] 03-03-2022 07:40-0500 Heart rate 73 /min ALEM MILLER TACK MAKER[employer]DAIRY LAB TECHNICIAN [facility] 03-03-2022 07:40-0500 Reason For Taking VItal Signs ALEM MILLER TACK MAKER-DAIRY LAB TECHNICIAN [facility] 03-03-2022 07:40-0500 Respiratory rate 18 /min ALEM MESAITH TACK MAKER-DAIRY LAB TECHNICIAN [facility] 03-03-2022 07:40-0500 Systolic blood pressure 118 mm[Hg] ALEM MESAITH TACK MAKER-DAIRY LAB TECHNICIAN [facility] 03-03-2022 06:03-0500 Heart rate 72 /min ALEM MESAITH T[employer] MAKER-DAIRY LAB TECHNICIAN [facility] 03-03-2022 06:03-0500 Respiratory rate 18 /min ALEM MILLER TACK MAKER[employer]DAIRY LAB TECHNICIAN [facility] 03-03-2022 03:35-0500 Body temperature 98.06 [degF] ALEM MILLER TACK MAKER[employer]DAIRY LAB TECHNICIAN [facility] 03-03-2022 03:35-0500 Diastolic blood pressure 69 mm[Hg] ALEM MILLER T[employer] MAKER[employer]DAIRY LAB TECHNICIAN [facility] 03-03-2022 03:35-0500 Heart rate 75 /min ALEM MILLER T[employer] MAK[employer]DAIRY LAB TECHNICIAN [facility] 03-03-2022 03:35-0500 Mean blood pressure 83 mm[Hg] ALEM MILLER TACK MAKER-DAIRY LAB TECHNICIAN [facility] 03-03-2022 03:35-0500 Reason For Taking VItal Signs ALEM MILLER TACK MAKER-DAIRY LAB TECHNICIAN [facility] 03-03-2022 03:35-0500 Systolic blood pressure 110 mm[Hg] ALEM MILLER TACK MAKER-DAIRY LAB TECHNICIAN [facility] 03-02-2022 23:10-0500 Body temperature 97.52 [degF] ALEM MILLER TACK MAKER[employer]DAIRY LAB TECHNICIAN [facility] 03-02-2022 23:10-0500 Diastolic blood pressure 73 mm[Hg] ALEM MILLER TACK MAKER[employer]DAIRY LAB TECHNICIAN [facility] 03-02-2022 23:10-0500 Heart rate 75 /min ALEM MILLER TACK MAKER[employer]DAIRY LAB TECHNICIAN [facility] 03-02-2022 23:10-0500 Mean blood pressure 87 mm[Hg] ALEM MILLER TACK MAKER[employer]DAIRY LAB TECHNICIAN [facility] 03-02-2022 23:10-0500 Reason For Taking VItal Signs ALEM MILLER TACK MAKER-DAIRY LAB TECHNICIAN [facility] 03-02-2022 23:10-0500 Systolic blood pressure 114 mm[Hg] ALEM MILLER TACK MAKER-DAIRY LAB TECHNICIAN [facility] 03-02-2022 19:45-0500 Mean blood pressure 92 mm[Hg] ALEM MILLER TACK MAKER-DAIRY LAB TECHNICIAN [facility] 03-02-2022 17:48-0500 Heart rate 75 /min ALEM MILLER TACK MAKER-DAIRY LAB TECHNICIAN [facility] 03-02-2022 14:25-0500 Heart rate 77 /min ALEM MILLER TACK MAKER[employer]DAIRY LAB TECHNICIAN [facility] 03-02-2022 10:35-0500 Heart rate 81 /min ALEM MILLER T[employer] MAKER[employer]DAIRY LAB TECHNICIAN [facility] 03-01-2022 14:05-0500 Heart rate 80 /min ALEM MESAITH TACK MAKER-DAIRY LAB TECHNICIAN [facility] 03-01-2022 11:29-0500 Diastolic Blood Pressure Non-Invasive 59 1 ALEM IMLLER TACK MAKER-DAIRY LAB TECHNICIAN [facility] 03-01-2022 11:29-0500 Systolic Blood Pressure Non-Invasive 113 1 ALEM MILLER T[employer] MAK[employer]DAIRY LAB TECHNICIAN [facility] 02-27-2022 23:46-0400 Body height 172.7 cm ALEM MILLER T[employer] MAK[employer]DAIRY LAB TECHNICIAN [facility] 02-27-2022 23:46-0400 Body weight 83 kg ALEM MILLER TACK MAK[employer]DAIRY LAB TECHNICIAN [facility] 02-27-2022 23:46-0400 Body weight 27.83 kg/m2 ALEM MILLER T[employer] MAKER[employer]DAIRY LAB TECHNICIAN [facility] 02-20-2022 11:45-0400 Body temperature 97.7 [degF] MEGGAN ESQUEDA TACK MAKER-DAIRY LAB TECHNICIAN [facility] 02-20-2022 11:45-0400 Diastolic blood pressure 79 mm[Hg] MEGGAN CARPENTERELY TACK MAKER-DAIRY LAB TECHNICIAN [facility] 02-20-2022 11:45-0400 Heart rate 112 /min MEGGAN CARPENTERELY TACK MAKER[employer]DAIRY LAB TECHNICIAN [facility] 02-20-2022 11:45-0400 Reason For Taking VItal Signs MEGGAN CARPENTERELY TACK MAKER-DAIRY LAB TECHNICIAN [facility] 02-20-2022 11:45-0400 Respiratory rate 18 /min MEGGAN CARPENTERELY TACK MAKER-DAIRY LAB TECHNICIAN [facility] 02-20-2022 11:45-0400 Systolic blood pressure 158 mm[Hg] MEGGAN CARPENTERELY TACK MAKER-DAIRY LAB TECHNICIAN [facility] 02-20-2022 11:15-0400 Heart rate 114 /min MEGGAN CARPENTERELY TACK MAKER[employer]DAIRY LAB TECHNICIAN [facility] 02-20-2022 11:15-0400 Respiratory rate 20 /min MEGGAN CARPENTERELY TACK MAKER[employer]DAIRY LAB TECHNICIAN [facility] 02-20-2022 09:34-0400 Heart rate 84 /min MEGGAN CARPENTERELY TACK MAKER[employer]DAIRY LAB TECHNICIAN [facility] 02-20-2022 09:34-0400 Respiratory rate 20 /min MEGGAN DHEERAJ TACK MAKER-DAIRY LAB TECHNICIAN [facility] 02-20-2022 07:15-0400 Body temperature 98.06 [degF] MEGGAN ESQUEDA TACK MAKER-DAIRY LAB TECHNICIAN [facility] 02-20-2022 07:15-0400 Diastolic blood pressure 66 mm[Hg] MEGGAN ESQUEDA TACK MAKER-DAIRY LAB TECHNICIAN [facility] 02-20-2022 07:15-0400 Heart rate 77 /min MEGGAN ESQUEDA TACK MAKER[employer]DAIRY LAB TECHNICIAN [facility] 02-20-2022 07:15-0400 Mean blood pressure 83 mm[Hg]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 Haemophilus influenzae b (HbOC) vaccine, 4-dose series (HIBTITER) 02/08/2000 04/05/2000 06/10/2000 06/28/2001 diphtheria tetanus pertussis (DTaP) vaccine, pediatric (INFANRIX) 02/08/2000 04/05/2000 06/10/2000 06/28/2001 12/20/2003 hepatitis B (HepB) vaccine, 3-dose series, age 0 yr - 19 yr (ENGERIX B-PEDS, RECOMBIVAX HB-PEDS) 1999 06/10/2000 08/26/2000 human papillomavirus (HPV4) vaccine, quadrivalent (GARDASIL) 12/09/2010 02/16/2011 06/30/2011 influenza (IIV3) vaccine, age 6 mo - 64 yr, trivalent (AFLURIA, FLULAVAL, FLUVIRIN, FLUZONE) 02/07/2014 influenza (IIV4) vaccine, age 6 mo - 64 yr, quadrivalent (AFLURIA, FLULAVAL, FLUZONE) 02/01/2015 02/14/2016 02/26/2017 01/04/2019 01/09/2020 01/12/2021 01/05/2022 influenza (LAIV3) vaccine, trivalent, live, intranasal (FLUMIST) 02/23/2008 02/06/2009 influenza vaccine, unspecified formulation 03/09/2007 04/08/2007 02/07/2010 02/16/2011 01/15/2012 02/02/2013 measles mumps rubella (MMR) vaccine (M-M-R II, PRIORIX) 06/28/2001 12/20/2003 meningococcal (MenACWY-D) vaccine, quadrivalent (MENACTRA) 01/17/2016 meningococcal (MenACYW) vaccine, quadrivalent, unspecified formulation 12/09/2010 pneumococcal conjugate (PCV20) vaccine, 20 valent (PREVNAR 20) 01/05/2022 pneumococcal polysaccharide (PPV23) vaccine, 23 valent (PNEUMOVAX 23) 01/09/2020 poliovirus (IPV) vaccine, inactivated (IPOL) 02/08/2000 04/05/2000 06/28/2001 12/20/2003 tetanus diphtheria pertussis (Tdap) vaccine, age (more content not included)... [facility]02-05-2025 NoteHNO ID: [id number] Author: JASON SWEENEY APRN.DAIRY LAB TECHNICIAN Service: ? Author Type: Nurse Practitioner Type: Progress Notes Filed: 05/30/2024 10:01 Note Text: CC: Patient presents with: Nasal Congestion: chills, diarrhea, sore throat and headache x 2 days HPI: Tacos Blanc is a 23 year old female who presents to the office with complaint of head congestion, cough, nonproductive, sore throat, and sinus symptoms for 2 days. Symptoms are staying the same. Associated symptoms includes headache. Denies wheezing, dyspnea, nausea, and vomiting . Treatments tried include nothing so far. with no relief of symptoms. Sick contacts: unknown. History of asthma, frequent episodes of bronchitis, chronic bronchitis, bronchiectasis or COPD: No Smoker: No Seasonal/environmental allergies: No The ROS is otherwise negative. The patient's pmh, medications, allergies, and past visits are reviewed. PHYSICAL EXAM: BP 118/70 Pulse 106 Temp (!) 38.1 ?C (100.6 ?F) Resp 18 Wt 78.8 kg (173 lb 11.6 oz) LMP 02/19/2022 (Exact Date) SpO2 99% BMI 26.52 kg/m? General appearance: alert, cooperative, pleasant, in no acute distress Head: Normocephalic Eyes: EOM's intact, conjunctiva pink and moist, no icterus, sclera white, non-injected Ears: Right ear: External ear/canal- Normal, TM - clear with good landmarks. Left ear: External ear/canal- Normal, TM - clear with good landmarks Oropharynx:moist without lesions, No erythema, exudates or tonsillar hypertrophy. Heart: Negative. RRR without obvious murmur, gallop, or rubs. No ectopy. Lungs: clear to auscultation, without rales or wheeze, good air exchange PAST MEDICAL HISTORY Diagnosis Date allergies 2010 Enviromental allergies previous IT anxiety Asthma mild obstruction PFT 03/2022 Chiari I malformation (HCC) Dr. 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 MEDICATIONS mometasone-formoterol (DULERA) 200-5 mcg/actuation inhaler Inhale 1 Puff as instructed two times a day. albuterol HFA (PROVENTIL HFA, VENTOLIN HFA) 90 mcg/actuation inhaler Inhale 2 Puffs as instructed every 4 hours as needed for wheezing/shortness of breath. fluticasone (FLONASE ALLERGY RELIEF) 50 mcg/actuation nasal spray Use 1 Hammond in each nostril once daily. FLUoxetine (PROZAC) 40 mg capsule Take 1 capsule by mouth once daily. FAMILY HISTORY Problem Relation Age of Onset Heart Mother cardiomyopathy No Known Problems Father other (Benign chest tumor) Sister Asthma Brother Asthma Brother No Known Problems Brother Colon Cancer Maternal Grandmother Cancer Maternal Grandfather Bladder Skin Cancer Maternal Grandfather other (MS) Paternal Grandmother Heart Paternal Grandfather Social History Tobacco Use Smoking status: Former Current packs/day: 0.00 Average packs/day: 0.1 packs/day for 1 year (0.1 ttl pk-yrs) Types: Cigarettes Start date: 07/15/2017 Quit date: 07/15/2018 Years since quittin.8 Smokeless tobacco: Never Vaping Use Vaping status: Some Days Substances: Nicotine, THC, CBD, Flavoring Substance Use Topics Alcohol use: No Comment: Not while Drug use: Not Currently Frequency: 4.0 times per week Types: Marijuana ASSESSMENT/PLAN: 1. Sore throat - ICD9: 462, ICD10: J02.9 (primary diagnosis) - STREP A MOLECULAR (POC) - pos 2. URI, acute - ICD9: 465.9, ICD10: J06.9 3. Strep throat - ICD9: 034.0, ICD10: J02.0 - AMOXICILLIN 500 MG CAPSULE Prescription instructions reviewed with patient as applicable. Potential red flag symptoms discussed with the patient. Reviewed appropriate action plan to take if red flag symptoms occur. Patient agreeable to treatment plan. Jason Sweeney APRN.[facility]02-17-2023 Hospital Discharge instructions Patient Education 06/11/2022 00:34:25 Anxiety Reaction Anxiety Reaction Anxiety is the feeling we all get when we think something bad might happen. It is a normal responseto stress and usually causes only a mild reaction. When anxiety becomes more severe, it can interfere with daily life. In some cases, you may not even be aware of what it is you re anxious about. There may also be a genetic link or it may be a learned behavior in the home. Both psychological and physical triggers cause stress reaction. It's often a response to fear or emotional stress, real or imagined. This stress may come from home, family, work, or social relationships. During an anxiety reaction, you may feel: Helpless Nervous Depressed Irritable Your body may show signs of anxiety in many ways. You may experience: Dry mouth Shakiness Dizziness Weakness Trouble breathing Breathing fast (hyperventilating) Chest pressure Sweating Headache Nausea Diarrhea Tiredness Inability to sleep Sexual problems Home care Try to locate the sources of stress in your life. They may not be obvious. These may include: oDaily hassles of life (such as traffic jams, missed appointments, or car troubles) oMajor life changes, both good (new baby or job promotion) and bad (loss of job or loss of loved one) oOverload: feeling that you have too many responsibilities and can't take care of all of them at once oFeeling helpless or feeling that your problems are beyond what you re able to solve Notice how your body reacts to stress. Learn to listen to your body signals. This will help you take action before the stress becomes severe. When you can, do something about the source of your stress. (Avoid hassles, limit the amount of change that happens in your life at one time and take a break when you feel overloaded). Unfortunately, many stressful situations can't be avoided. It is necessary to learn how to better manage stress. There are many proven methods that will reduce your anxiety. These include simple things like exercise, good nutrition, and adequate rest. Also, there are certain techniques that are helpful: oRelaxation oBreathing exercises oVisualization oBiofeedback oMeditation For more information about this, consult your healthcare provider or go to a local bookstore and review the many books and tapes available on this subject. Follow-up care If you feel that your anxiety is not responding to self-help measures, contact your healthcare provider or make an appointment with a counselor. You may need short-term psychological counseling and temporary medicine to help you manage stress. Call 911 Call 911 if any of these happen: Trouble breathing Confusion Drowsiness or trouble wakening Fainting or loss of consciousness Rapid heart rate Seizure New chest pain that becomes more severe, lasts longer, or spreads into your shoulder, arm, neck, jaw, or back When to seek medical advice Call your healthcare provider right away if any of these happen: Your symptoms get worse Severe headache not relieved by rest and mild pain reliever [id number] [employer]. [address] [place] [address]. All rights reserved. This information is not intended as a substitute for professional medical care. Always follow yourhealthcare professional's instructions. 06/11/2022 00:34:21 Asthma, Acute (Adult) Asthma (Adult) Asthma is a disease where the medium and small air passages within the lung go into spasm and restrict the flow of air. Inflammation and swelling of the airways cause further blockage. During an acute asthma attack, these factors cause trouble breathing, wheezing, cough and chest tightness. An asthma attack can be triggered by many things. Common triggers include infections such as the common cold, bronchitis, and pneumonia. Irritants such as smoke or pollutants in the air, very cold air, emotional upset, and exercise can also trigger an attack. In many adults with asthma, allergies to dust, mold, pollen and animal dander can cause an asthma attack. Skipping doses of daily asthma medicine can also bring on an asthma attack. Asthma can be controlled using the proper medicines prescribed by your healthcare provider and avoiding exposure to known triggers including allergens and irritants. Home care Take prescribed medicine exactly at the times advised. If you need medicine such as from a hand held inhaler or aerosol breathing machine more than every 4 hours, contact your healthcare provider or seek immediate medical attention. If prescribed an antibiotic or prednisone, take all of the medicine as prescribed, even if you are feeling better after a few days. Don't smoke. Avoid being exposed to the smoke of others. Some people with asthma have worsening of their symptoms when they take aspirin and non-steroidal or fever-reducing medicines like ibuprofen and naproxen. Talk to your healthcare provider if you think this may apply to you. Follow-up care Follow up with your healthcare provider, or as advised. Always bring all of your current medicines to any appointments with your healthcare provider. Also bring a complete list of medicines even those not taken for asthma. If you don't already have one, talk to your healthcare provider about developing your own Asthma Action Plan. A pneumococcal (pneumonia) vaccine and yearly flu shot (every fall) are recommended. Ask your doctor about this. When to seek medical advice Call your healthcare provider right away if any of these occur: Increased wheezing or shortness of breath Need to use your inhalers more often than usual without relief Fever of 100.4 F (38 C) or higher, or as directed by your healthcare provider Coughing up lots of dark-colored or bloody sputum (mucus) Chest pain with each breath If you use a peak flow meter as part of an Asthma Action Plan, and you are still in the yellow zone(50% to 80%) 15 minutes after using inhaler medicine. Call 911 Call 911 if any of the following occur Trouble walking or talking because of shortness of breath If you use a peak flow meter as part of an Asthma Action Plan and you are still in the red zone (less than 50%) 15 minutes after using inhaler medicine Lips or fingernails turning jimenez or blue [id number] [employer]. [address] [place] [address], [place] [address]. All rights reserved. This information is not intended as a substitute for professional medical care. Always follow yourhealthcare professional's instructions. Follow Up Care 06/10/2022 21:51:23 With:DEANA AMARO MD Address: [address] [place] [phone] When:2-4 days [facility] 02-17-2023 Note Discharge Instructions Thank you for allowing [facility] to assist you with your healthcare needs. The following is importantdischarge information regarding your hospital visit. Diagnosis from Today's Visit Anxiety SOB - Shortness of breath What to Do Next Instructions from Your Care Team Discharge Return to Work, School, or Sports (Return to Work, School, or Sports) - Ordered -- 06/12/22, May return to: work, 06/11/22 0:33:00 EST Post Acute Orders No qualifying data available. You Need to Schedule the Following Appointments Follow Up with DEANA AMARO MD When Within 2-4 days Where: [address] [place] [phone] Allergies NKA Medications Please ask your primary doctor or pharmacist before taking any other medication not listed, including over the counter drugs, herbal medications, vitamins and or supplements as they may interact withyour home medications. What How Much When Why Instructions Last Dose New LORazepam (Ativan 1 mg oral tablet) 1 tab(s) by mouth Two (2) times a day Anxiety Duration: 3 Days Printed Prescription Unchanged albuterol (albuterol MDI (90 mcg/ inh) CFC free inhalation aerosol) 2 puff(s) by inhalation Every 4 hours as needed for as needed for wheezing Unchanged albuterol (albuterol MDI (90 mcg/ inh) CFC free inhalation aerosol) 1 puff(s) by inhalation Four (4) times a day as needed for as needed for wheezing Asthma exacerbation Unchanged albuterol (albuterol 2.5 mg/ 3 mL (0.083%) inhalation solution) 3 Milliliter by inhalation Every 6 hours Asthma attack Unchanged FLUoxetine (FLUoxetine 40 mg oral capsule) 1 cap by mouth Once a day (in the evening) Unchanged fluticasone-salmeterol (Advair Diskus 250 mcg-50 mcg inhalation powder) 1 puff(s) by inhalation Two (2) times a day Unchanged predniSONE (predniSONE 10 mg oral tablet) 4 tab(s) by mouth Once a day with a meal Duration: 4 Days Unchanged predniSONE (predniSONE 50 mg oral tablet) 1 tab(s) by mouth Once a day Duration: 5 Days Unchanged tiotropium (Spiriva Respimat 60 ACT 2.5 mcg/ inh inhalation aerosol) 2 puff(s) by inhalation Once a day Please take this list to your next doctor s visit. Bring all medications you take, including over the counter medications, herbals and other supplements with you to your doctor s visit. Patients and families are reminded to discard old lists and to update any records with all medication providers or retail pharmacies. Education Materials Anxiety Reaction Anxiety is the feeling we all get when we think something bad might happen. It is a normal responseto stress and usually causes only a mild reaction. When anxiety becomes more severe, it can interfere with daily life. In some cases, you may not even be aware of what it is you re anxious about. There may also be a genetic link or it may be a learned behavior in the home. Both psychological and physical triggers cause stress reaction. It's often a response to fear or emotional stress, real or imagined. This stress may come from home, family, work, or social relationships. During an anxiety reaction, you may feel: Helpless Nervous Depressed Irritable Your body may show signs of anxiety in many ways. You may experience: Dry mouth Shakiness Dizziness Weakness Trouble breathing Breathing fast (hyperventilating) Chest pressure Sweating Headache Nausea Diarrhea Tiredness Inability to sleep Sexual problems Home care Try to locate the sources of stress in your life. They may not be obvious. These may include: oDaily hassles of life (such as traffic jams, missed appointments, or car troubles) oMajor life changes, both good (new baby or job promotion) and bad (loss of job or loss of loved one) oOverload: feeling that you have too many responsibilities and can't take care of all of them at once oFeeling helpless or feeling that your problems are beyond what you re able to solve Notice how your body reacts to stress. Learn to listen to your body signals. This will help you take action before the stress becomes severe. When you can, do something about the source of your stress. (Avoid hassles, limit the amount of change that happens in your life at one time and take a break when you feel overloaded). Unfortunately, many stressful situations can't be avoided. It is necessary to learn how to better manage stress. There are many proven methods that will reduce your anxiety. These include simple things like exercise, good nutrition, and adequate rest. Also, there are certain techniques that are helpful: oRelaxation oBreathing exercises oVisualization oBiofeedback oMeditation For more information about this, consult your healthcare provider or go to a local bookstore and review the many books and tapes available on this subject. Follow-up care If you feel that your anxiety is not responding to self-help measures, contact your healthcare provider or make an appointment with a counselor. You may need short-term psychological counseling and temporary medicine to help you manage stress. Call 911 Call 911 if any of these happen: Trouble breathing Confusion Drowsiness or trouble wakening Fainting or loss of consciousness Rapid heart rate Seizure New chest pain that becomes more severe, lasts longer, or spreads into your shoulder, arm, neck, jaw, or back When to seek medical advice Call your healthcare provider right away if any of these happen: Your symptoms get worse Severe headache not relieved by rest and mild pain reliever [id number] [employer]. [address] [place] [address]. All rights reserved. This information is not intended as a substitute for professional medical care. Always follow yourhealthcare professional's instructions. Asthma (Adult) Asthma is a disease where the medium and small air passages within the lung go into spasm and restrict the flow of air. Inflammation and swelling of the airways cause further blockage. During an acute asthma attack, these factors cause trouble breathing, wheezing, cough and chest tightness. An asthma attack can be triggered by many things. Common triggers include infections such as the common cold, bronchitis, and pneumonia. Irritants such as smoke or pollutants in the air, very cold air, emotional upset, and exercise can also trigger an attack. In many adults with asthma, allergies to dust, mold, pollen and animal dander can cause an asthma attack. Skipping doses of daily asthma medicine can also bring on an asthma attack. Asthma can be controlled using the proper medicines prescribed by your healthcare provider and avoiding exposure to known triggers including allergens and irritants. Home care Take prescribed medicine exactly at the times advised. If you need medicine such as from a hand held inhaler or aerosol breathing machine more than every 4 hours, contact your healthcare provider or seek immediate medical attention. If prescribed an antibiotic or prednisone, take all of the medicine as prescribed, even if you are feeling better after a few days. Don't smoke. Avoid being exposed to the smoke of others. Some people with asthma have worsening of their symptoms when they take aspirin and non-steroidal or fever-reducing medicines like ibuprofen and naproxen. Talk to your healthcare provider if you think this may apply to you. Follow-up care Follow up with your healthcare provider, or as advised. Always bring all of your current medicines to any appointments with your healthcare provider. Also bring a complete list of medicines even those not taken for asthma. If you don't already have one, talk to your healthcare provider about developing your own Asthma Action Plan. A pneumococcal (pneumonia) vaccine and yearly flu shot (every fall) are recommended. Ask your doctor about this. When to seek medical advice Call your healthcare provider right away if any of these occur: Increased wheezing or shortness of breath Need to use your inhalers more often than usual without relief Fever of 100.4 F (38 C) or higher, or as directed by your healthcare provider Coughing up lots of dark-colored or bloody sputum (mucus) Chest pain with each breath If you use a peak flow meter as part of an Asthma Action Plan, and you are still in the yellow zone(50% to 80%) 15 minutes after using inhaler medicine. Call 911 Call 911 if any of the following occur Trouble walking or talking because of shortness of breath If you use a peak flow meter as part of an Asthma Action Plan and you are still in the red zone (less than 50%) 15 minutes after using inhaler medicine Lips or fingernails turning jimenez or blue [id number] [employer]. [address] [place] [address]. All rights reserved. This information is not intended as a substitute for professional medical care. Always follow yourhealthcare professional's instructions. Additional Information VACCINATE! IT SAVES LIVES! Members of the community who have not yet received the COVID-19 vaccine and would like to receive it can visit one of [facility] vaccine clinics. There are many vaccine clinic locations within the [facility]. For locations and available times, please visit www.gettheshot.coronavirus.[place].gov/. It is important to note that some COVID mobile vaccine clinics are held outdoors and may be canceled in rainy or stormy conditions. To learn more about pediatric vaccinations (ages 5-11), we invite you to visit the [facility] webpage. [email or web address]/[email or web address] stions.htmlTo learn more about the COVID-19 vaccine, we invite you to visit the CDC website for a list of frequently asked questions. https://www.cdc.gov/coronavirus/2019-ncov/vaccines/faq.html [facility] Patient Portal Access Instructions: Stay connected with your healthcare team and access your personal medical information anytime with the [facility] Patient Portal. If you would like a full copy of your medical records please contact the [facility] Medical Records Department Tuesday through Tuesday between 8a.m. and 4:30p.m. Please follow the directions below to access the portal: 1.Access the email account you provided upon registration to the [facility].2.Look for an invitation email from [facility].3.Open the email and access the invitation link: Accept Invitation to [facility].Fill in the required blas to create your account. Sign into [email or web address] with your username and password that you created in the above steps to stay up to date. You can then view a summary of results, a summary of your visits, and the ability to download your summaries to your computer or send the information securely to a physician. Remember that your healthcare information is confidential, so carefully consider who you will allow to register on the [facility] Patient Portal for access to your information. You can also access the [facility] Patient Portal on the [facility] neela. Simply click on Health Records under [employer] and then click on the [facility] logo. HOW TO SAFELY DISPOSE OF PRESCRIPTION MEDICATIONS Please use one of the following methods to safely dispose of your unused medications. 1.Use a drug disposal kit: the drug disposal pouch allows you to safely discard your old and unuseddrugs. Ask your nurse to give you one when you are discharged.2.Visit a local take-back location: Many local pharmacies and police departments have programs that collect old and unwanted prescriptiondrugs. Call your local pharmacy or go to http://bit.[employer]/2I6Yk1d to find one close to you.3.Make use of household items: Use cat litter or old coffee grounds to dispose medications if other options arenot available. Mix your drugs with these household products, seal them in an airtight container andthrow it into the garbage. Call [facility]: [phone] to be sure your drugs can be disposed of in this way. Some medicines may require a different approach.4.Never flush your medications down the toilet. IF YOU HAVE BEEN PRESCRIBED AN OPIOIDS FOR PAIN If you have been prescribed an opioid (such as hydrocodone, oxycodone or morphine), it is critical to understand the possible side effects and risks of opioid pain medications. Even when taken as directed, opioids can have several side effects including: Tolerance, meaning you might need to take more of a medication for the same pain relief. Nausea, vomiting and/or constipation. Sleepiness, dizziness, dry mouth, confusion, depression or itching. Physical dependence, meaning you have withdrawal symptoms when a medication is stopped ? this can develop within a few days. KNOW YOUR RESPONSIBILITIES It is important to know exactly how much and how often to take the opioid pain medications you are prescribed. Never take opioids in higher amounts or more often than prescribed. Do not combine opioids with alcohol or other drugs that cause drowsiness, such as benzodiazepines, also known as benzos,including diazepam and alprazolam, muscle relaxants or sleep aids. Never sell or share prescriptionopioids. This is illegal. Store opioids in a secure place and out of reach of others (including children, family, friends and visitors). The last page(s) of this document has been signed and retained as a CHART COPY Signatures Patient Education Materials Anxiety Reaction Asthma, Acute (Adult) Medication Leaflets My discharge plan and instructions have been reviewed and explained to me and I,BLOUGH, TACOS M understand my current condition and have read and understand these discharge instructions. I have received a written copy of the plan/instructions. If I have questions, I am aware that I should contact my doctor. 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 Inflammation and swelling of the airways cause further blockage. During an acute asthma attack, these factors cause trouble breathing, wheezing, cough and chest tightness. An asthma attack can be triggered by many things. Common triggers include infections such as the common cold, bronchitis, and pneumonia. Irritants such as smoke or pollutants in the air, very cold air, emotional upset, and exercise can also trigger an attack. In many adults with asthma, allergies to dust, mold, pollen and animal dander can cause an asthma attack. Skipping doses of daily asthma medicine can also bring on an asthma attack. Asthma can be controlled using the proper medicines prescribed by your healthcare provider and avoiding exposure to known triggers including allergens and irritants. Home care Take prescribed medicine exactly at the times advised. If you need medicine such as from a hand held inhaler or aerosol breathing machine more than every 4 hours, contact your healthcare provider or seek immediate medical attention. If prescribed an antibiotic or prednisone, take all of the medicine as prescribed, even if you are feeling better after a few days. Don't smoke. Avoid being exposed to the smoke of others. Some people with asthma have worsening of their symptoms when they take aspirin and non-steroidal or fever-reducing medicines like ibuprofen and naproxen. Talk to your healthcare provider if you think this may apply to you. Follow-up care Follow up with your healthcare provider, or as advised. Always bring all of your current medicines to any appointments with your healthcare provider. Also bring a complete list of medicines even those not taken for asthma. If you don't already have one, talk to your healthcare provider about developing your own Asthma Action Plan. A pneumococcal (pneumonia) vaccine and yearly flu shot (every fall) are recommended. Ask your doctor about this. When to seek medical advice Call your healthcare provider right away if any of these occur: Increased wheezing or shortness of breath Need to use your inhalers more often than usual without relief Fever of 100.4 F (38 C) or higher, or as directed by your healthcare provider Coughing up lots of dark-colored or bloody sputum (mucus) Chest pain with each breath If you use a peak flow meter as part of an Asthma Action Plan, and you are still in the yellow zone(50% to 80%) 15 minutes after using inhaler medicine. Call 911 Call 911 if any of the following occur Trouble walking or talking because of shortness of breath If you use a peak flow meter as part of an Asthma Action Plan and you are still in the red zone (less than 50%) 15 minutes after using inhaler medicine Lips or fingernails turning jimenez or blue [id number] [employer]. [address] [place] [address], [place] [address]. All rights reserved. This information is not intended as a substitute for professional medical care. Always follow yourhealthcare professional's instructions. Follow Up Care 06/10/2022 14:42:49 With:Go to emergency room if symptoms worsen Address:Unknown When:2-4 days With:DEANA AMARO MD Address: [address] [place] [address] [phone] When:2-4 days [facility] 02-16-2023 Note Discharge Instructions Thank you for allowing [facility] to assist you with your healthcare needs. The following is importantdischarge information regarding your hospital visit. Diagnosis from Today's Visit Asthma exacerbation Shortness of breath What to Do Next Instructions from Your Care Team Take prednisone as prescribed. Use your inhaler as previously prescribed. Follow-up with your primary care provider. Return emergency department if you experience worsening symptoms, difficulty breathing, or any other care concern. No qualifying data available. Post Acute Orders No qualifying data available. You Need to Schedule the Following Appointments Follow Up with Go to emergency room if symptoms worsen When Within 2-4 days Follow Up with DEANA AMARO MD When Within 2-4 days Where: [address] [place] [address] [phone] Allergies NKA Medications Please ask your primary doctor or pharmacist before taking any other medication not listed, including over the counter drugs, herbal medications, vitamins and or supplements as they may interact withyour home medications. What How Much When Why Instructions Last Dose Changed albuterol (albuterol MDI (90 mcg/ inh) CFC free inhalation aerosol) 2 puff(s) by inhalation Every 4 hours as needed for as needed for wheezing Changed albuterol (albuterol MDI (90 mcg/ inh) CFC free inhalation aerosol) 1 puff(s) by inhalation Four (4) times a day as needed for as needed for wheezing Asthma exacerbation Printed Prescription Changed albuterol (albuterol 2.5 mg/ 3 mL (0.083%) inhalation solution) 3 Milliliter by inhalation Every 6 hours Asthma attack Changed predniSONE (predniSONE 10 mg oral tablet) 4 tab(s) by mouth Once a day with a meal Duration: 4 Days Changed predniSONE (predniSONE 50 mg oral tablet) 1 tab(s) by mouth Once a day Duration: 5 Days Printed Prescription Unchanged FLUoxetine (FLUoxetine 40 mg oral capsule) 1 cap by mouth Once a day (in the evening) Unchanged fluticasone-salmeterol (Advair Diskus 250 mcg-50 mcg inhalation powder) 1 puff(s) by inhalation Two (2) times a day Unchanged tiotropium (Spiriva Respimat 60 ACT 2.5 mcg/ inh inhalation aerosol) 2 puff(s) by inhalation Once a day Please take this list to your next doctor s visit. Bring all medications you take, including over the counter medications, herbals and other supplements with you to your doctor s visit. Patients and families are reminded to discard old lists and to update any records with all medication providers or retail pharmacies. Education Materials Asthma (Adult) Asthma is a disease where the medium and small air passages within the lung go into spasm and restrict the flow of air. Inflammation and swelling of the airways cause further blockage. During an acute asthma attack, these factors cause trouble breathing, wheezing, cough and chest tightness. An asthma attack can be triggered by many things. Common triggers include infections such as the common cold, bronchitis, and pneumonia. Irritants such as smoke or pollutants in the air, very cold air, emotional upset, and exercise can also trigger an attack. In many adults with asthma, allergies to dust, mold, pollen and animal dander can cause an asthma attack. Skipping doses of daily asthma medicine can also bring on an asthma attack. Asthma can be controlled using the proper medicines prescribed by your healthcare provider and avoiding exposure to known triggers including allergens and irritants. Home care Take prescribed medicine exactly at the times advised. If you need medicine such as from a hand held inhaler or aerosol breathing machine more than every 4 hours, contact your healthcare provider or seek immediate medical attention. If prescribed an antibiotic or prednisone, take all of the medicine as prescribed, even if you are feeling better after a few days. Don't smoke. Avoid being exposed to the smoke of others. Some people with asthma have worsening of their symptoms when they take aspirin and non-steroidal or fever-reducing medicines like ibuprofen and naproxen. Talk to your healthcare provider if you think this may apply to you. Follow-up care Follow up with your healthcare provider, or as advised. Always bring all of your current medicines to any appointments with your healthcare provider. Also bring a complete list of medicines even those not taken for asthma. If you don't already have one, talk to your healthcare provider about developing your own Asthma Action Plan. A pneumococcal (pneumonia) vaccine and yearly flu shot (every fall) are recommended. Ask your doctor about this. When to seek medical advice Call your healthcare provider right away if any of these occur: Increased wheezing or shortness of breath Need to use your inhalers more often than usual without relief Fever of 100.4 F (38 C) or higher, or as directed by your healthcare provider Coughing up lots of dark-colored or bloody sputum (mucus) Chest pain with each breath If you use a peak flow meter as part of an Asthma Action Plan, and you are still in the yellow zone(50% to 80%) 15 minutes after using inhaler medicine. Call 911 Call 911 if any of the following occur Trouble walking or talking because of shortness of breath If you use a peak flow meter as part of an Asthma Action Plan and you are still in the red zone (less than 50%) 15 minutes after using inhaler medicine Lips or fingernails turning jimenez or blue [phone] [employer]. [address] [place] [address], [place] [address]. All rights reserved. This information is not intended as a substitute for professional medical care. Always follow yourhealthcare professional's instructions. Additional Information VACCINATE! IT SAVES LIVES! Members of the community who have not yet received the COVID-19 vaccine and would like to receive it can visit one of [facility] vaccine clinics. There are many vaccine clinic locations within the [facility]. For locations and available times, please visit www.gettheshot.coronavirus.[place].gov/. It is important to note that some COVID mobile vaccine clinics are held outdoors and may be canceled in rainy or stormy conditions. To learn more about pediatric vaccinations (ages 5-11), we invite you to visit the [facility] webpage. https://www.[email or web address].org/pages/0667-Tkadb-Ybkotuyyepe-Vetmywzazd-Adtex-Mxy stions.htmlTo learn more about the COVID-19 vaccine, we invite you to visit the CDC website for a list of frequently asked questions. https://www.cdc.gov/coronavirus/2019-ncov/vaccines/faq.html [facility] Patient Portal Access Instructions: Stay connected with your healthcare team and access your personal medical information anytime with the [facility] Patient Portal. If you would like a full copy of your medical records please contact the [facility] Medical Records Department Tuesday through Tuesday between 8a.m. and 4:30p.m. Please follow the directions below to access the portal: 1.Access the email account you provided upon registration to the hospital.2.Look for an invitation email from [facility].3.Open the email and access the invitation link: Accept Invitation to [facility]4.Fill in the required blas to create your account. Sign into [email or web address] with your username and password that you created in the above steps to stay up to date. You can then view a summary of results, a summary of your visits, and the ability to download your summaries to your computer or send the information securely to a physician. Remember that your healthcare information is confidential, so carefully consider who you will allow to register on the [facility] Patient Portal for access to your information. You can also access the [facility] Patient Portal on the [facility] neela. Simply click on Health Records under [employer] and then click on the [facility] logo. HOW TO SAFELY DISPOSE OF PRESCRIPTION MEDICATIONS Please use one of the following methods to safely dispose of your unused medications. 1.Use a drug disposal kit: the drug disposal pouch allows you to safely discard your old and unuseddrugs. Ask your nurse to give you one when you are discharged.2.Visit a local take-back location: Many local pharmacies and police departments have programs that collect old and unwanted prescriptiondrugs. Call your local pharmacy or go to http://[employer]/7U0Om0c to find one close to you.3.Make use of household items: Use cat litter or old coffee grounds to dispose medications if other options arenot available. Mix your drugs with these household products, seal them in an airtight container andthrow it into the garbage. Call [facility]: [phone] to be sure your drugs can be disposed of in this way. Some medicines may require a different approach.4.Never flush your medications down the toilet. IF YOU HAVE BEEN PRESCRIBED AN OPIOIDS FOR PAIN If you have been prescribed an opioid (such as hydrocodone, oxycodone or morphine), it is critical to understand the possible side effects and risks of opioid pain medications. Even when taken as directed, opioids can have several side effects including: Tolerance, meaning you might need to take more of a medication for the same pain relief. Nausea, vomiting and/or constipation. Sleepiness, dizziness, dry mouth, confusion, depression or itching. Physical dependence, meaning you have withdrawal symptoms when a medication is stopped ? this can develop within a few days. KNOW YOUR RESPONSIBILITIES It is important to know exactly how much and how often to take the opioid pain medications you are prescribed. Never take opioids in higher amounts or more often than prescribed. Do not combine opioids with alcohol or other drugs that cause drowsiness, such as benzodiazepines, also known as benzos,including diazepam and alprazolam, muscle relaxants or sleep aids. Never sell or share prescriptionopioids. This is illegal. Store opioids in a secure place and out of reach of others (including children, family, friends and visitors). The last page(s) of this document has been signed and retained as a CHART COPY Signatures Patient Education Materials Asthma, Acute (Adult) Medication Leaflets My discharge plan and instructions have been reviewed and explained to me and I,BLOUGH, TACOS M understand my current condition and have read and understand these discharge instructions. I have received a written copy of the plan/instructions. If I have questions, I am aware that I should contact my doctor. 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 Heart size and mediastinal contours are within normal limits for age and projection. No acute skeletal abnormality. IMPRESSION: No acute cardiopulmonary process. Interpreted by: Isaac Rogers MD Preliminary Report By: Isaac Rogers MD Electronically signed By Isaac Rogers MD Dictated Date: 06/10/2022 3:24:01 PM Prelim Date: 06/10/2022 3:25:54 PM Sign Date: 06/10/2022 3:25:54 PM Ordering Provider: JESSIKA WORTHINGTON [facility]02-16-2023 Note ORIGINAL EXAMINATION: ONE XRAY VIEW OF THE CHEST06/10/2022 3:20 pm XR Chest portable upright COMPARISON: 02/27/2022 HISTORY: ORDERING SYSTEM PROVIDED HISTORY: Reason for Exam: sob, FINDINGS: No acute infiltrate, consolidation,mass, pneumothorax, pleural fluid, or vascular congestion is seen. Heart size and mediastinal contours are within normal limits for age and projection. No acute skeletal abnormality. IMPRESSION: No acute cardiopulmonary process. Interpreted by: Isaac Rogers MD Preliminary Report By: Isaac Rogers MD Electronically signed By Isaac Rogers MD Dictated Date: 06/10/2022 3:24:01 PM Prelim Date: 06/10/2022 3:25:54 PM Sign Date: 06/10/2022 3:25:54 PM Ordering Provider: JESSIKA [facility]02-16-2023 SARS-CoV-2 (COVID-19) RNA RUSSEL+probe Ql (Nph)Negative *NA* (06/10/22 3:01 PM)AO Auto Urine [id number] Note. MICRO - Microbiology PROCEDURE: Blood Culture (bacterial) [*1] SOURCE: Blood BODY SITE: COLLECTED DATE/TIME: 02/28/2022 04:16 EST RECEIVED DATE/TIME: 02/28/2022 21:26 EST START DATE/TIME: 02/28/2022 21:27 EST FREE TEXT SOURCE: FINAL REPORTS Final Report [] Verified Date/Time/Personnel: 03/05/2022 21:59 EST Blood Culture: No Growth at 5 days. PRELIMINARY REPORTS Preliminary Report [] Verified Date/Time/Personnel: 02/28/2022 21:59 EST Culture has been received in lab and is no growth to date. Routine cultures are held for 5 days. Performing Locations *1: This test was performed at: [address], [address] [place] [address] ([facility]03-05-2022 Note. MICRO - Microbiology PROCEDURE: Blood Culture (bacterial) [*1] SOURCE: Blood BODY SITE: COLLECTED DATE/TIME: 02/28/2022 04:16 EST RECEIVED DATE/TIME: 02/28/2022 21:26 EST START DATE/TIME: 02/28/2022 21:27 EST FREE TEXT SOURCE: FINAL REPORTS Final Report [] Verified Date/Time/Personnel: 03/05/2022 21:59 EST Blood Culture: No Growth at 5 days. PRELIMINARY REPORTS Preliminary Report [] Verified Date/Time/Personnel: 02/28/2022 21:59 EST Culture has been received in lab and is no growth to date. Routine cultures are held for 5 days. Performing Locations *1: This test was performed at: [address], [address] [place] [address] ([facility]03-03-2022 Nurse Discharge summary Discharged to home. Escorted to the exit by EILEEN Desai. Left at 1040. [facility]11-09-2022 Hospital Discharge instructions Patient Education 03/03/2022 08:47:43 Asthma Attack Prevention, Adult Asthma Attack Prevention, Adult Although you may not be able to control the fact that you have asthma, you can take actions to prevent episodes of asthma (asthma attacks). These actions include: Creating a written plan for managing and treating your asthma attacks (asthma action plan). Monitoring your asthma. Avoiding things that can irritate your airways or make your asthma symptoms worse (asthma triggers). Taking your medicines as directed. Acting quickly if you have signs or symptoms of an asthma attack. What are some ways to prevent an asthma attack? Create a plan Work with your health care provider to create an asthma action plan. This plan should include: A list of your asthma triggers and how to avoid them. A list of symptoms that you experience during an asthma attack. Information about when to take medicine and how much medicine to take. Information to help you understand your peak flow measurements. Contact information for your health care providers. Daily actions that you can take to control asthma. Monitor your asthma To monitor your asthma: Use your peak flow meter every morning and every evening for 2 3 weeks. Record the results in a journal. A drop in your peak flow numbers on one or more days may mean that you are starting to have anasthma attack, even if you are not having symptoms. When you have asthma symptoms, write them down in a journal. Avoid asthma triggers Work with your health care provider to find out what your asthma triggers are. This can be done by: Being tested for allergies. Keeping a journal that notes when asthma attacks occur and what may have contributed to them. Asking your health care provider whether other medical conditions make your asthma worse. Common asthma triggers include: Dust. Smoke. This includes campfire smoke and secondhand smoke from tobacco products. Pet dander. Trees, grasses or pollens. Very cold, dry, or humid air. Mold. Foods that contain high amounts of sulfites. Strong smells. Engine exhaust and air pollution. Aerosol sprays and fumes from household pipe fitter maintenance. Household pests and their droppings, including dust mites and cockroaches. Certain medicines, including NSAIDs. Once you have determined your asthma triggers, take steps to avoid them. Depending on your triggers, you may be able to reduce the chance of an asthma attack by: Keeping your home clean. Have someone dust and vacuum your home for you 1 or 2 times a week. If possible, have them use a high-efficiency particulate arrestance (HEPA) vacuum. Washing your sheets weekly in hot water. Using allergy-proof mattress covers and casings on your bed. Keeping pets out of your home. Taking care of mold and water problems in your home. Avoiding areas where people smoke. Avoiding using strong perfumes or odor sprays. Avoid spending a lot of time outdoors when pollen counts are high and on very windy days. Talking with your health care provider before stopping or starting any new medicines. Medicines Take uhfr-apm-rnglknb and prescription medicines only as told by your health care provider. Many asthma attacks can be prevented by carefully following your medicine schedule. Taking your medicines correctly is especially important when you cannot avoid certain asthma triggers. Even if you are doing well, do not stop taking your medicine and do not take less medicine. Act quickly If an asthma attack happens, acting quickly can decrease how severe it is and how long it lasts. Take these actions: Pay attention to your symptoms. If you are coughing, wheezing, or having difficulty breathing, do not wait to see if your symptoms go away on their own. Follow your asthma action plan. If you have followed your asthma action plan and your symptoms are not improving, call your health care provider or seek immediate medical care at the nearest hospital. It is important to write down how often you need to use your fast-acting rescue inhaler. You can track how often you use an inhaler in your journal. If you are using your rescue inhaler more often, it may mean that your asthma is not under control. Adjusting your asthma treatment plan may help you to prevent future asthma attacks and help you to gain better control of your condition. How can I prevent an asthma attack when I exercise? Exercise is a common asthma trigger. To prevent asthma attacks during exercise: Follow advice from your health care provider about whether you should use your fast-acting inhaler before exercising. Many people with asthma experience exercise-induced bronchoconstriction (EIB). This condition often worsens during vigorous exercise in cold, humid, or dry environments. Usually, people with EIB can stay very active by using a fast-acting inhaler before exercising. Avoid exercising outdoors in very cold or humid weather. Avoid exercising outdoors when pollen counts are high. Warm up and cool down when exercising. Stop exercising right away if asthma symptoms start. Consider taking part in exercises that are less likely to cause asthma symptoms such as: Indoor swimming. Biking. Walking. Hiking. Playing football. This information is not intended to replace advice given to you by your health care provider. Make sure you discuss any questions you have with your health care provider. Document Released: 03/30/2010 Document Revised: 03/24/2018 Document Reviewed: 09/25/2016 [employer] Patient Education 2020 [email or web address]. 02/27/2022 18:56:13 URI, Viral, No Abx (Adult) Viral Upper Respiratory Illness (Adult) You have a viral upper respiratory illness (URI), which is another term for the common cold. This illness is contagious during the first few days. It is spread through the air by coughing and sneezing. It may also be spread by direct contact (touching the sick person and then touching your own eyes, nose, or mouth). Frequent handwashing will decrease risk of spread. Most viral illnesses go away within 7 to 10 days with rest and simple home remedies. Sometimes the illness may last for several weeks. Antibiotics will not kill a virus, and they are generally not prescribed for this condition. Home care If symptoms are severe, rest at home for the first 2 to 3 days. When you resume activity, don't letyourself get too tired. Don't smoke. If you need help stopping, talk with your healthcare provider. Avoid being exposed to cigarette smoke (yours or others ). You may use acetaminophen or ibuprofen to control pain and fever, unless another medicine was prescribed. If you have chronic liver or kidney disease, have ever had a stomach ulcer or gastrointestinal bleeding, or are taking blood-thinning medicines, talk with your healthcare provider before using these medicines. Aspirin should never be given to anyone under 18 years of age who is ill with a viral infection or fever. It may cause severe liver or brain damage. Your appetite may be poor, so a light diet is fine. Stay well hydrated by drinking 6 to 8 glasses of fluids per day (water, soft drinks, juices, tea, or soup). Extra fluids will help loosen secretions in the nose and lungs. Trgd-qdr-njeccop cold medicines will not shorten the length of time you re sick, but they may be helpful for the following symptoms: cough, sore throat, and nasal and sinus congestion. If you take prescription medicines, ask your healthcare provider or pharmacist which xvvz-vbf-yuifozr medicines are safe to use. (Note: Don't use decongestants if you have high blood pressure.) Follow-up care Follow up with your healthcare provider, or as advised. When to seek medical advice Call your healthcare provider right away if any of these occur: Cough with lots of colored sputum (mucus) Severe headache; face, neck, or ear pain Difficulty swallowing due to throat pain Fever of 100.4 F (38 C) or higher, or as directed by your healthcare provider Call 911 Call 911 if any of these occur: Chest pain, shortness of breath, wheezing, or difficulty breathing Coughing up blood Very severe pain with swallowing, especially if it goes along with a muffled voice [phone] [employer]. [address] [place] [address]. All rights reserved. This information is not intended as a substitute for professional medical care. Always follow yourhealthcare professional's instructions. 02/27/2022 18:56:10 Asthma, Acute (Adult) Asthma (Adult) Asthma is a disease where the medium and small air passages within the lung go into spasm and restrict the flow of air. Inflammation and swelling of the airways cause further blockage. During an acute asthma attack, these factors cause trouble breathing, wheezing, cough and chest tightness. An asthma attack can be triggered by many things. Common triggers include infections such as the common cold, bronchitis, and pneumonia. Irritants such as smoke or pollutants in the air, very cold air, emotional upset, and exercise can also trigger an attack. In many adults with asthma, allergies to dust, mold, pollen and animal dander can cause an asthma attack. Skipping doses of daily asthma medicine can also bring on an asthma attack. Asthma can be controlled using the proper medicines prescribed by your healthcare provider and avoiding exposure to known triggers including allergens and irritants. Home care Take prescribed medicine exactly at the times advised. If you need medicine such as from a hand held inhaler or aerosol breathing machine more than every 4 hours, contact your healthcare provider or seek immediate medical attention. If prescribed an antibiotic or prednisone, take all of the medicine as prescribed, even if you are feeling better after a few days. Don't smoke. Avoid being exposed to the smoke of others. Some people with asthma have worsening of their symptoms when they take aspirin and non-steroidal or fever-reducing medicines like ibuprofen and naproxen. Talk to your healthcare provider if you think this may apply to you. Follow-up care Follow up with your healthcare provider, or as advised. Always bring all of your current medicines to any appointments with your healthcare provider. Also bring a complete list of medicines even those not taken for asthma. If you don't already have one, talk to your healthcare provider about developing your own Asthma Action Plan. A pneumococcal (pneumonia) vaccine and yearly flu shot (every fall) are recommended. Ask your doctor about this. When to seek medical advice Call your healthcare provider right away if any of these occur: Increased wheezing or shortness of breath Need to use your inhalers more often than usual without relief Fever of 100.4 F (38 C) or higher, or as directed by your healthcare provider Coughing up lots of dark-colored or bloody sputum (mucus) Chest pain with each breath If you use a peak flow meter as part of an Asthma Action Plan, and you are still in the yellow zone(50% to 80%) 15 minutes after using inhaler medicine. Call 911 Call 911 if any of the following occur Trouble walking or talking because of shortness of breath If you use a peak flow meter as part of an Asthma Action Plan and you are still in the red zone (less than 50%) 15 minutes after using inhaler medicine Lips or fingernails turning jimenez or blue [phone] [employer]. [address] [place] [address]. All rights reserved. This information is not intended as a substitute for professional medical care. Always follow [facility] instructions. 02/27/2022 18:56:07 Anxiety Reaction Anxiety Reaction Anxiety is the feeling we all get when we think something bad might happen. It is a normal responseto stress and usually causes only a mild reaction. When anxiety becomes more severe, it can interfere with daily life. In some cases, you may not even be aware of what it is you re anxious about. There may also be a genetic link or it may be a learned behavior in the home. Both psychological and physical triggers cause stress reaction. It's often a response to fear or emotional stress, real or imagined. This stress may come from home, family, work, or social relationships. During an anxiety reaction, you may feel: Helpless Nervous Depressed Irritable Your body may show signs of anxiety in many ways. You may experience: Dry mouth Shakiness Dizziness Weakness Trouble breathing Breathing fast (hyperventilating) Chest pressure Sweating Headache Nausea Diarrhea Tiredness Inability to sleep Sexual problems Home care Try to locate the sources of stress in your life. They may not be obvious. These may include: oDaily hassles of life (such as traffic jams, missed appointments, or car troubles) oMajor life changes, both good (new baby or job promotion) and bad (loss of job or loss of loved one) oOverload: feeling that you have too many responsibilities and can't take care of all of them at once oFeeling helpless or feeling that your problems are beyond what you re able to solve Notice how your body reacts to stress. Learn to listen to your body signals. This will help you take action before the stress becomes severe. When you can, do something about the source of your stress. (Avoid hassles, limit the amount of change that happens in your life at one time and take a break when you feel overloaded). Unfortunately, many stressful situations can't be avoided. It is necessary to learn how to better manage stress. There are many proven methods that will reduce your anxiety. These include simple things like exercise, good nutrition, and adequate rest. Also, there are certain techniques that are helpful: oRelaxation oBreathing exercises oVisualization oBiofeedback oMeditation For more information about this, consult your healthcare provider or go to a local bookstore and review the many books and tapes available on this subject. Follow-up care If you feel that your anxiety is not responding to self-help measures, contact your healthcare provider or make an appointment with a counselor. You may need short-term psychological counseling and temporary medicine to help you manage stress. Call 911 Call 911 if any of these happen: Trouble breathing Confusion Drowsiness or trouble wakening Fainting or loss of consciousness Rapid heart rate Seizure New chest pain that becomes more severe, lasts longer, or spreads into your shoulder, arm, neck, jaw, or back When to seek medical advice Call your healthcare provider right away if any of these happen: Your symptoms get worse Severe headache not relieved by rest and mild pain reliever [id number] [employer]. [address] [facility], [place] [address]. All rights reserved. This information is not intended as a substitute for professional medical care. Always follow yourhealthcare professional's instructions. Follow Up Care 02/27/2022 17:20:45 With:DEANA AMARO MD Address: [address] [place] [address] [address] [place] [address]- When:03/09/2022 10:00:00 Comments:This is your post-hospital appointment. [facility] 11-09-2022 Note Discharge Instructions Thank you for allowing [facility] to assist you with your healthcare needs. The following is importantdischarge information regarding your hospital visit. Your Care Team DEANA AMARO MD, LISA APRN-[facility] Your Diagnosis SOB - Shortness of breath Asthma exacerbation Anxiety What to do next Instructions From Your Doctor You were admitted with shortness of breath, fever, and cough. Through all testing we determined that you are positive for parainfluenza 3 which is a respiratory virus. There has been no sign of bacterial infection and your sputum culture was negative. You have improved with steroids and breathing treatments. You have prednisone on hand so recommending that you take 40 mg Prednisone daily for the next 4 days. Please also continue using your inhalers as prescribed. You have a follow-up scheduled with Dr. Amaro - please keep this appointment to seek any further recommendations from him. Continue to use your incentive spirometer at home, 10x/hour while awake. Return to ED with any new or concerning symptoms. PLEASE NOTE: You have 2 bottles of prednisone on hand. One bottle has 20 mg tablets in it (6 tablets). Take 2 tablets until finished - 40 mg per day x 3 days. You also have a bottle with 10 mg tablets. Take 4 tablets one day. That will complete your course of steroids. Follow Up Appointments Follow Up with DEANA AMARO MD When 03/09/2022 10:00 AM EST Why: This is your post-hospital appointment. Where: [address] [facility] [address] [place] [address]- The Following Activity and Diet Have Been Ordered for You Discharge Activity - Ordered -- NO activity restrictions, 03/03/22 8:52:00 EST Discharge Diet - Ordered -- Type of Diet: Regular Diet, 03/03/22 8:52:00 EST Allergies NKA Medications Please ask your primary doctor or pharmacist before taking any other medication not listed, including over the counter drugs, herbal medications, vitamins and or supplements as they may interact withyour home medications. What How Much When Why Instructions Last Dose Changed FLUoxetine (FLUoxetine 40 mg oral capsule) 1 cap by mouth Once a day (in the evening) 03/03 8AM Changed fluticasone-salmeterol (Advair Diskus 250 mcg-50 mcg inhalation powder) 1 puff(s) by inhalation Two (2) times a day None Changed predniSONE (predniSONE 10 mg oral tablet) 4 tab(s) by mouth Once a day with a meal Duration: 4 Days Start tomorrow Changed tiotropium (Spiriva Respimat 60 ACT 2.5 mcg/ inh inhalation aerosol) 2 puff(s) by inhalation Once a day 03/02 Unchanged albuterol (albuterol MDI (90 mcg/ inh) CFC free inhalation aerosol) 2 puff(s) by inhalation Every 4 hours as needed for as needed for wheezing 03/03 6AM Unchanged albuterol (albuterol 2.5 mg/ 3 mL (0.083%) inhalation solution) 3 Milliliter by inhalation Every 6 hours Asthma attack 03/03 6AM Please take this list to your next doctor s visit. Bring all medications you take, including over the counter medications, herbals and other supplements with you to your doctor s visit. Patients and families are reminded to discard old lists and to update any records with all medication providers or retail pharmacies. Education Materials Asthma Attack Prevention, Adult Although you may not be able to control the fact that you have asthma, you can take actions to prevent episodes of asthma (asthma attacks). These actions include: Creating a written plan for managing and treating your asthma attacks (asthma action plan). Monitoring your asthma. Avoiding things that can irritate your airways or make your asthma symptoms worse (asthma triggers). Taking your medicines as directed. Acting quickly if you have signs or symptoms of an asthma attack. What are some ways to prevent an asthma attack? Create a plan Work with your health care provider to create an asthma action plan. This plan should include: A list of your asthma triggers and how to avoid them. A list of symptoms that you experience during an asthma attack. Information about when to take medicine and how much medicine to take. Information to help you understand your peak flow measurements. Contact information for your health care providers. Daily actions that you can take to control asthma. Monitor your asthma To monitor your asthma: Use your peak flow meter every morning and every evening for 2 3 weeks. Record the results in a journal. A drop in your peak flow numbers on one or more days may mean that you are starting to have anasthma attack, even if you are not having symptoms. When you have asthma symptoms, write them down in a journal. Avoid asthma triggers Work with your health care provider to find out what your asthma triggers are. This can be done by: Being tested for allergies. Keeping a journal that notes when asthma attacks occur and what may have contributed to them. Asking your health care provider whether other medical conditions make your asthma worse. Common asthma triggers include: Dust. Smoke. This includes campfire smoke and secondhand smoke from tobacco products. Pet dander. Trees, grasses or pollens. Very cold, dry, or humid air. Mold. Foods that contain high amounts of sulfites. Strong smells. Engine exhaust and air pollution. Aerosol sprays and fumes from household pipe fitter maintenance. Household pests and their droppings, including dust mites and cockroaches. Certain medicines, including NSAIDs. Once you have determined your asthma triggers, take steps to avoid them. Depending on your triggers, you may be able to reduce the chance of an asthma attack by: Keeping your home clean. Have someone dust and vacuum your home for you 1 or 2 times a week. If possible, have them use a high-efficiency particulate arrestance (HEPA) vacuum. Washing your sheets weekly in hot water. Using allergy-proof mattress covers and casings on your bed. Keeping pets out of your home. Taking care of mold and water problems in your home. Avoiding areas where people smoke. Avoiding using strong perfumes or odor sprays. Avoid spending a lot of time outdoors when pollen counts are high and on very windy days. Talking with your health care provider before stopping or starting any new medicines. Medicines Take hzle-ncv-rikbnil and prescription medicines only as told by your health care provider. Many asthma attacks can be prevented by carefully following your medicine schedule. Taking your medicines correctly is especially important when you cannot avoid certain asthma triggers. Even if you are doing well, do not stop taking your medicine and do not take less medicine. Act quickly If an asthma attack happens, acting quickly can decrease how severe it is and how long it lasts. Take these actions: Pay attention to your symptoms. If you are coughing, wheezing, or having difficulty breathing, do not wait to see if your symptoms go away on their own. Follow your asthma action plan. If you have followed your asthma action plan and your symptoms are not improving, call your health care provider or seek immediate medical care at the nearest hospital. It is important to write down how often you need to use your fast-acting rescue inhaler. You can track how often you use an inhaler in your journal. If you are using your rescue inhaler more often, it may mean that your asthma is not under control. Adjusting your asthma treatment plan may help you to prevent future asthma attacks and help you to gain better control of your condition. How can I prevent an asthma attack when I exercise? Exercise is a common asthma trigger. To prevent asthma attacks during exercise: Follow advice from your health care provider about whether you should use your fast-acting inhaler before exercising. Many people with asthma experience exercise-induced bronchoconstriction (EIB). This condition often worsens during vigorous exercise in cold, humid, or dry environments. Usually, people with EIB can stay very active by using a fast-acting inhaler before exercising. Avoid exercising outdoors in very cold or humid weather. Avoid exercising outdoors when pollen counts are high. Warm up and cool down when exercising. Stop exercising right away if asthma symptoms start. Consider taking part in exercises that are less likely to cause asthma symptoms such as: Indoor swimming. Biking. Walking. Hiking. Playing football. This information is not intended to replace advice given to you by your health care provider. Make sure you discuss any questions you have with your health care provider. Document Released: 03/30/2010 Document Revised: 03/24/2018 Document Reviewed: 09/25/2016 [employer] Patient Education 2020 [employer] Viral Upper Respiratory Illness (Adult) You have a viral upper respiratory illness (URI), which is another term for the common cold. This illness is contagious during the first few days. It is spread through the air by coughing and sneezing. It may also be spread by direct contact (touching the sick person and then touching your own eyes, nose, or mouth). Frequent handwashing will decrease risk of spread. Most viral illnesses go away within 7 to 10 days with rest and simple home remedies. Sometimes the illness may last for several weeks. Antibiotics will not kill a virus, and they are generally not prescribed for this condition. Home care If symptoms are severe, rest at home for the first 2 to 3 days. When you resume activity, don't letyourself get too tired. Don't smoke. If you need help stopping, talk with your healthcare provider. Avoid being exposed to cigarette smoke (yours or others ). You may use acetaminophen or ibuprofen to control pain and fever, unless another medicine was prescribed. If you have chronic liver or kidney disease, have ever had a stomach ulcer or gastrointestinal bleeding, or are taking blood-thinning medicines, talk with your healthcare provider before using these medicines. Aspirin should never be given to anyone under 18 years of age who is ill with a viral infection or fever. It may cause severe liver or brain damage. Your appetite may be poor, so a light diet is fine. Stay well hydrated by drinking 6 to 8 glasses of fluids per day (water, soft drinks, juices, tea, or soup). Extra fluids will help loosen secretions in the nose and lungs. Fwox-ehy-vqfbqyr cold medicines will not shorten the length of time you re sick, but they may be helpful for the following symptoms: cough, sore throat, and nasal and sinus congestion. If you take prescription medicines, ask your healthcare provider or pharmacist which ysde-qbt-edklzhp medicines are safe to use. (Note: Don't use decongestants if you have high blood pressure.) Follow-up care Follow up with your healthcare provider, or as advised. When to seek medical advice Call your healthcare provider right away if any of these occur: Cough with lots of colored sputum (mucus) Severe headache; face, neck, or ear pain Difficulty swallowing due to throat pain Fever of 100.4 F (38 C) or higher, or as directed by your healthcare provider Call 911 Call 911 if any of these occur: Chest pain, shortness of breath, wheezing, or difficulty breathing Coughing up blood Very severe pain with swallowing, especially if it goes along with a muffled voice [id number] [employer]. [address] [place] [address], [place] [address]. All rights reserved. This information is not intended as a substitute for professional medical care. Always follow yourhealthcare professional's instructions. Asthma (Adult) Asthma is a disease where the medium and small air passages within the lung go into spasm and restrict the flow of air. Inflammation and swelling of the airways cause further blockage. During an acute asthma attack, these factors cause trouble breathing, wheezing, cough and chest tightness. An asthma attack can be triggered by many things. Common triggers include infections such as the common cold, bronchitis, and pneumonia. Irritants such as smoke or pollutants in the air, very cold air, emotional upset, and exercise can also trigger an attack. In many adults with asthma, allergies to dust, mold, pollen and animal dander can cause an asthma attack. Skipping doses of daily asthma medicine can also bring on an asthma attack. Asthma can be controlled using the proper medicines prescribed by your healthcare provider and avoiding exposure to known triggers including allergens and irritants. Home care Take prescribed medicine exactly at the times advised. If you need medicine such as from a hand held inhaler or aerosol breathing machine more than every 4 hours, contact your healthcare provider or seek immediate medical attention. If prescribed an antibiotic or prednisone, take all of the medicine as prescribed, even if you are feeling better after a few days. Don't smoke. Avoid being exposed to the smoke of others. Some people with asthma have worsening of their symptoms when they take aspirin and non-steroidal or fever-reducing medicines like ibuprofen and naproxen. Talk to your healthcare provider if you think this may apply to you. Follow-up care Follow up with your healthcare provider, or as advised. Always bring all of your current medicines to any appointments with your healthcare provider. Also bring a complete list of medicines even those not taken for asthma. If you don't already have one, talk to your healthcare provider about developing your own Asthma Action Plan. A pneumococcal (pneumonia) vaccine and yearly flu shot (every fall) are recommended. Ask your doctor about this. When to seek medical advice Call your healthcare provider right away if any of these occur: Increased wheezing or shortness of breath Need to use your inhalers more often than usual without relief Fever of 100.4 F (38 C) or higher, or as directed by your healthcare provider Coughing up lots of dark-colored or bloody sputum (mucus) Chest pain with each breath If you use a peak flow meter as part of an Asthma Action Plan, and you are still in the yellow zone(50% to 80%) 15 minutes after using inhaler medicine. Call 911 Call 911 if any of the following occur Trouble walking or talking because of shortness of breath If you use a peak flow meter as part of an Asthma Action Plan and you are still in the red zone (less than 50%) 15 minutes after using inhaler medicine Lips or fingernails turning jimenez or blue [phone] [employer]. [address] [place] [address], [place] [address]. All rights reserved. This information is not intended as a substitute for professional medical care. Always follow yourhealthcare professional's instructions. Anxiety Reaction Anxiety is the feeling we all get when we think something bad might happen. It is a normal responseto stress and usually causes only a mild reaction. When anxiety becomes more severe, it can interfere with daily life. In some cases, you may not even be aware of what it is you re anxious about. There may also be a genetic link or it may be a learned behavior in the home. Both psychological and physical triggers cause stress reaction. It's often a response to fear or emotional stress, real or imagined. This stress may come from home, family, work, or social relationships. During an anxiety reaction, you may feel: Helpless Nervous Depressed Irritable Your body may show signs of anxiety in many ways. You may experience: Dry mouth Shakiness Dizziness Weakness Trouble breathing Breathing fast (hyperventilating) Chest pressure Sweating Headache Nausea Diarrhea Tiredness Inability to sleep Sexual problems Home care Try to locate the sources of stress in your life. They may not be obvious. These may include: oDaily hassles of life (such as traffic jams, missed appointments, or car troubles) oMajor life changes, both good (new baby or job promotion) and bad (loss of job or loss of loved one) oOverload: feeling that you have too many responsibilities and can't take care of all of them at once oFeeling helpless or feeling that your problems are beyond what you re able to solve Notice how your body reacts to stress. Learn to listen to your body signals. This will help you take action before the stress becomes severe. When you can, do something about the source of your stress. (Avoid hassles, limit the amount of change that happens in your life at one time and take a break when you feel overloaded). Unfortunately, many stressful situations can't be avoided. It is necessary to learn how to better manage stress. There are many proven methods that will reduce your anxiety. These include simple things like exercise, good nutrition, and adequate rest. Also, there are certain techniques that are helpful: oRelaxation oBreathing exercises oVisualization oBiofeedback oMeditation For more information about this, consult your healthcare provider or go to a local bookstore and review the many books and tapes available on this subject. Follow-up care If you feel that your anxiety is not responding to self-help measures, contact your healthcare provider or make an appointment with a counselor. You may need short-term psychological counseling and temporary medicine to help you manage stress. Call 911 Call 911 if any of these happen: Trouble breathing Confusion Drowsiness or trouble wakening Fainting or loss of consciousness Rapid heart rate Seizure New chest pain that becomes more severe, lasts longer, or spreads into your shoulder, arm, neck, jaw, or back When to seek medical advice Call your healthcare provider right away if any of these happen: Your symptoms get worse Severe headache not relieved by rest and mild pain reliever [phone] The [employer]. [address] [place] [address]. All rights reserved. This information is not intended as a substitute for professional medical care. Always follow yourhealthcare professional's instructions. Additional Information VACCINATE! IT SAVES LIVES! Members of the community who have not yet received the COVID-19 vaccine and would like to receive it can visit one of [facility] vaccine clinics. There are many vaccine clinic locations within the [facility]. For locations and available times, please visit [email or web address] It is important to note that some COVID mobile vaccine clinics are held outdoors and may be canceled in rainy or stormy conditions. To learn more about pediatric vaccinations (ages 5-11), we invite you to visit the [facility] webpage. [email or web address] learn more about the COVID-19 vaccine, we invite you to visit the [facility] website for a list of frequently asked questions. [email or web address] [facility] Patient Portal Access Instructions: Stay connected with your healthcare team and access your personal medical information anytime with the [facility] Patient Portal.If you would like a full copy of your medical records, please contact the [facility] Medical Records Department, Tuesday through Tuesday between 8a.m. and 4:30p.m. Please follow the directions below to access the portal: 1.Access the email account you provided upon registration to the [facility].2.Look for an invitation email from [facility].3.Open the email and access the invitation link: Accept Invitation to [facility]4.Fill in the required blas to create your account. Sign into [email or web address] with your username and password that you created in the above steps to stay up to date. You can then view a summary of results, a summary of your visits, and the ability to download your summaries to your computer or send the information securely to a physician. Remember that your healthcare information is confidential, so carefully consider who you will allow to register on the [facility] Patient Portal for access to your information. You can also access the [facility] Patient Portal on the [facility] neela. Simply click on Health Records under HealthData and then click on the [facility] logo. HOW TO SAFELY DISPOSE OF PRESCRIPTION MEDICATIONS Please use one of the following methods to safely dispose of your unused medications. 1.Use a drug disposal kit: the drug disposal pouch allows you to safely discard your old and unuseddrugs. Ask your nurse to give you one when you are discharged.2.Visit a local take-back location: Many local pharmacies and police departments have programs that collect old and unwanted prescriptiondrugs. Call your local pharmacy or go to http://bit.[employer]/0V8Hp0v to find one close to you.3.Make use of household items: Use cat litter or old coffee grounds to dispose medications if other options arenot available. Mix your drugs with these household products, seal them in an airtight container andthrow it into the garbage. Call [facility]: [phone] to be sure your drugs can be disposed of in this way. Some medicines may require a different approach.4.Never flush your medications down the toilet. IF YOU HAVE BEEN PRESCRIBED AN OPIOID FOR PAIN If you have been prescribed an opioid (such as hydrocodone, oxycodone or morphine), it is critical to understand the possible side effects and risks of opioid pain medications. Even when taken as directed, opioids can have several side effects including: Tolerance, meaning you might need to take more of a medication for the same pain relief. Nausea, vomiting and/or constipation. Sleepiness, dizziness, dry mouth, confusion, depression or itching. Physical dependence, meaning you have withdrawal symptoms when a medication is stopped, can develop within a few days. KNOW YOUR RESPONSIBILITIES It is important to know exactly how much and how often to take the opioid pain medications you are prescribed. Never take opioids in higher amounts or more often than prescribed. Do not combine opioids with alcohol or other drugs that cause drowsiness, such as benzodiazepines, also known as benzos, including diazepam and alprazolam, muscle relaxants or sleep aids. Never sell or share prescription opioids. This is illegal. Store opioids in a secure place and out of reach of others (including children, family, friends and visitors). The last page of this document has been signed and retained as a CHART COPY. Signatures Patient Education Materials Asthma Attack Prevention, Adult URI, Viral, No Abx (Adult) Asthma, Acute (Adult) Anxiety Reaction Medication Leaflets My discharge plan and instructions have been reviewed and explained to me and I,BLOUGH, TACOS M understand my current condition and have read and understand these discharge instructions. I have received a written copy of the plan/instructions. If I have questions, I am aware that I should contact my doctor. 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 She states that she is tired today but denies any shortness of breath. Patient asked why she was placed back on oxygen overnight and states that she is not sure. She reports that she is feeling better and would like to go home today if possible. Patient advised that we need to check her oxygen when she is up walking to make sure it does not drop too much. Patient encouraged to get up to the chair again today. Patient advised that hersputum culture was only growing respiratory kota so we will discontinue her antibiotic. She deniesany fever, chills, cough, shortness of breath, chest pain, abdominal pain or nausea. All questions answered. Objective Vitals and Measurements T: 36.6 C (Oral) TMIN: 36.3 C (Oral) TMAX: 36.6 C (Oral) HR: 79 RR: 20 BP: 116/72 SpO2: 92% WT: 95 kg Intake and Output 7AM Yesterday to 7AM Today Intake and Output (Last 24 hours) Intake Oral Intake 480.00 Output Stool Count 0.00 Urine Count 2.00 Total Summary Total Intake 480.00 Total Output 0.00 Fluid Balance 480.00 Physical Exam General: No acute distress. Patient is alert and appropriate. Skin: No rash. Skin is warm, dry and intact. HEENT: Head is normocephalic, atraumatic. Pupils are equal, round and reactive. Neck: Supple. No lymphadenopathy, thyromegaly. Lungs: Bilaterally clear but diminished without crepitation or wheeze. Unlabored. Heart: Heart is regular rhythm, S1, S2. No murmurs, gallops or rubs. Abdomen: Abdomen is soft, nontender. Bowels sounds present in all quadrants. Extremities: No clubbing, cyanosis, or edema. Peripheral pulses palpable. No calf tenderness. Neurological: Patient is awake and alert to person, place and time. Following simple commands, moving all extremities. Weight Current Weight Dosing Weight: 83 kg (02/27/22) Current Weight: 95 kg (03/02/22) Current Weight: 93.9 kg (03/01/22) Medications Medications (11) Active Scheduled: (5) albuterol - ipratropium 2.5 mg-0.5 mg/3 mL Inhal Donna UD 3 mL, Inhalation, QIDRT budesonide 0.5 mg/2 mL Susp UD 0.5 mg 2 mL, Inhalation, BIDRT fluoxetine 20 mg Capsule 40 mg 2 cap(s), Oral, qDay methylPREDNISolone succ 40mg (40 mg/1mL) after dilution 40 mg 1 mL, IV Push, q12h pantoprazole 20 mg EC tablet 40 mg 2 tab(s), Oral, BIDAC Continuous: (0) PRN: (6) acetaminophen 325 mg Tablet 650 mg 2 tab(s), Oral, q4h acetaminophen 325 mg Tablet 650 mg 2 tab(s), Oral, q4h albuterol - ipratropium 2.5 mg-0.5 mg/3 mL Inhal Donna UD 3 mL, Inhalation, q4hRT ketorolac 30 mg/mL (1 mL) vial 15 mg 0.5 mL, IV Push, Once melatonin 3 mg tablet 6 mg 2 tab(s), Oral, qHS ondansetron 2 mg/ 1 mL 2 mL INJ 4 mg 2 mL, IV Push, q4h Lab Results 03/02 05:14 WBC: 8.9 Hgb: 10.7 L Hct: 33.3 L Platelet: 193 Neutrophil %: 84.8 H Glucose Level: 132 H Sodium Level: 140 Potassium Level: 3.8 BUN: 15 Creatinine Lvl (s): 0.96 03/01 05:19 WBC: 9.4 Hgb: 11.7 L Hct: 35.6 L Platelet: 213 Neutrophil %: 88.3 H Glucose Level: 137 H Sodium Level: 144 Potassium Level: 5.0 BUN: 11 Creatinine Lvl (s): 0.83 Imaging Results and Diagnostics CT Angiography Chest w/ Contrast Result Date: February 28, 2022 Verified By: STARR ALONZO MD CLINICAL STATEMENT: IMPRESSION: Patchy bilateral infiltrates consistent with a multifocal infectious or inflammatory process. RECOMMENDATIONS:Unavailable XR Chest 2 Views Result Date: February 27, 2022 Verified By: MICHEL VELARDE MD CLINICAL STATEMENT: IMPRESSION: 1. No acute radiographic cardiopulmonary findings.2. Prominent hilar regions bilaterally are not significantly changed and maybe related to prominent vasculature. EKG No qualifying data available. Assessment/Plan 1. SOB - Shortness of breath Acute, improving *Discontinue Ceftriaxone as sputum culture growing normal kota. *Continue solumedrol to 40 mg IV every 12 hours. *Continue duoneb aerosols as needed and scheduled. *Continue Budesonide 0.5 mg IH BID. *Legionella and strep pneumoniae - presumptive negative. *Mycoplasma antibody - negative. *Respiratory panel positive for parainfluenza 3. *Continue supplemental oxygen as needed to maintain oxygen above 92%. *Wean oxygen as able. *Repeat CBC and BMP in am. *Anticipate discharge home tomorrow. 2. Asthma exacerbation Acute, on chronic *Plan as above. 3. Anxiety Chronic, stable *Continue current home medications. DVT prophylaxis with SCDs, ambulation. Code status: Full Code. Labs, diagnostic test and progress notes reviewed as noted in HPI. Plan of care discussed with patient. All questions answered. Patient verbalizes understanding and is agreeable with plan of care. This case was discussed with collaborating physician, Dr. Rossana Viera. Time Spent 35 minutes Digitally Signed by JORGE CRUZ on 03/02/2022 02:34 PM [facility]11-08-2022 Note. MICRO - Microbiology PROCEDURE: Culture Respiratory with Gram Stain [^1 *1] SOURCE: Sputum BODY SITE: COLLECTED DATE/TIME: 02/28/2022 10:24 EST RECEIVED DATE/TIME: 02/28/2022 21:29 EST START DATE/TIME: 02/28/2022 21:29 EST FREE TEXT SOURCE: FINAL REPORTS Final Report [] Verified Date/Time/Personnel: 03/02/2022 07:14 EST Normal respiratory kota present. Sensitivity testing not indicated. PRELIMINARY REPORTS Preliminary Report [] Verified Date/Time/Personnel: 03/01/2022 11:23 EST Negative for respiratory pathogens at 24 hours. STAINS GS [] Verified Date/Time/Personnel: 02/28/2022 23:16 EST Predominance of polys 2+ Gram Positive Cocci Interpretive Data ^1: Culture Respiratory with Gram Stain Requests for Mycoplasma, Legionella, Fungi, Mycobacteria, Chlamydia, and Viruses require ordering of those individual tests. Performing Locations *1: This test was performed at: [facility], [address] [place] [address], [id number] , [facility] ([place])03-01-2022 Nurse Progress note ANISA Bernal was present and verifies the documentation completed by KIET Adams on 03/01/22 [id number] Digitally Signed by Nani Raymond RN on 03/01/2022 06:11 PM [facility]11-07-2022 Note Date of Service 03/01/2022 Chief Complaint Cough Subjective Patient seen and evaluated while sitting in recliner. She states that she is feeling much better today. She looks much better and her oxygen has been weaned down to 3L today. Patient updated that herrespiratory panel showed she is positive for parainfluenza 3 which is a virus. Patient advised thather sputum culture was positive for a bacteria so we will continue one antibiotic until we have more information on that. Her atypical testing was negative so we can stop the other antibiotic today. She denies any fever, chills, chest pain, abdominal pain, diarrhea or dysuria. She reports some mildnausea. Objective Vitals and Measurements T: 36.7 C (Oral) TMIN: 36.5 C (Oral) TMAX: 37.3 C (Oral) HR: 72(Monitored) RR: 18 BP: 123/61 SpO2: 93% WT: 93.9 kg Intake and Output 7AM Yesterday to 7AM Today Intake and Output (Last 24 hours) Intake Oral Intake 240.00 Output Stool Count 0.00 Urine Count 3.00 Total Summary Total Intake 240.00 Total Output 0.00 Fluid Balance 240.00 Physical Exam General: No acute distress. Patient is alert and appropriate. Skin: No rash. Skin is warm, dry and intact. HEENT: Head is normocephalic, atraumatic. Pupils are equal, round and reactive. Neck: Supple. No lymphadenopathy, thyromegaly. Lungs: Faint scattered rhonchi noted in posterior blas. Unlabored. Heart: Heart is regular rhythm, S1, S2. No murmurs, gallops or rubs. Abdomen: Abdomen is soft, nontender. Bowels sounds present in all quadrants. Extremities: No clubbing, cyanosis, or edema. Peripheral pulses palpable. No calf tenderness. Neurological: Patient is awake and alert to person, place and time. Following simple commands, moving all extremities. Weight Current Weight Dosing Weight: 83 kg (02/27/22) Current Weight: 93.9 kg (03/01/22) Medications Medications (12) Active Scheduled: (6) albuterol - ipratropium 2.5 mg-0.5 mg/3 mL Inhal Donna UD 3 mL, Inhalation, QIDRT budesonide 0.5 mg/2 mL Susp UD 0.5 mg 2 mL, Inhalation, BIDRT cefTRIAXone 1 gram(s), IV Piggyback, qDay fluoxetine 20 mg Capsule 40 mg 2 cap(s), Oral, qDay methylPREDNISolone succ 40mg (40 mg/1mL) after dilution 60 mg 1.5 mL, IV Push, q8h pantoprazole 20 mg EC tablet 40 mg 2 tab(s), Oral, BIDAC Continuous: (0) PRN: (6) acetaminophen 325 mg Tablet 650 mg 2 tab(s), Oral, q4h acetaminophen 325 mg Tablet 650 mg 2 tab(s), Oral, q4h albuterol - ipratropium 2.5 mg-0.5 mg/3 mL Inhal Donna UD 3 mL, Inhalation, q4hRT ketorolac 30 mg/mL (1 mL) vial 15 mg 0.5 mL, IV Push, Once melatonin 3 mg tablet 6 mg 2 tab(s), Oral, qHS ondansetron 2 mg/ 1 mL 2 mL INJ 4 mg 2 mL, IV Push, q4h Lab Results 03/01 05:19 WBC: 9.4 Hgb: 11.7 L Hct: 35.6 L Platelet: 213 Neutrophil %: 88.3 H Glucose Level: 137 H Sodium Level: 144 Potassium Level: 5.0 BUN: 11 Creatinine Lvl (s): 0.83 02/28 04:16 WBC: 9.2 Hgb: 11.3 L Hct: 34.7 L Platelet: 180 Neutrophil %: 89.4 H Glucose Level: 126 H Sodium Level: 136 Potassium Level: 3.9 BUN: 12 Creatinine Lvl (s): 0.91 Imaging Results and Diagnostics CT Angiography Chest w/ Contrast Result Date: February 28, 2022 Verified By: STARR ALONZO MD CLINICAL STATEMENT: IMPRESSION: Patchy bilateral infiltrates consistent with a multifocal infectious orinflammatory process. RECOMMENDATIONS:Unavailable XR Chest 2 Views Result Date: February 27, 2022 Verified By: MICHEL VELARDE MD CLINICAL STATEMENT: IMPRESSION: 1. No acute radiographic cardiopulmonary findings.2. Prominent hilar regions bilaterally are not significantly changed and maybe related to prominent vasculature. EKG No qualifying data available. Assessment/Plan 1. SOB - Shortness of breath Acute, improving *Questionable pneumonia on CTA, will treat due to fever, productive cough, elevated white blood cell count. *Continue Ceftriaxone 1 gram IV daily, will stop Azithromycin today. *Decrease solumedrol to 40 mg IV every 12 hours. *Continue duoneb aerosols as needed and scheduled. *Continue Budesonide 0.5 mg IH BID. *Legionella and strep pneumoniae - presumptive negative. *Mycoplasma antibody - negative. *Sputum culture growing gram positive cocci. *Respiratory panel positive for parainfluenza 3. *Continue supplemental oxygen as needed to maintain oxygen above 92%. *Wean oxygen as able. *Repeat CBC and BMP in am. 2. Asthma exacerbation Acute, on chronic *Plan as above. 3. Anxiety Chronic, stable *Continue current home medications. DVT prophylaxis with SCDs, ambulation. Code status: Full Code. Labs, diagnostic test and progress notes reviewed as noted in HPI. Plan of care discussed with patient. All questions answered. Patient verbalizes understanding and is agreeable with plan of care. This case was discussed with collaborating physician, Dr. Bebeto Nelson. Time Spent 35 minutes Digitally Signed by JORGE CRUZ on 03/01/2022 11:42 AM [facility]11-07-2022 Note. MICRO - Microbiology PROCEDURE: Streptococcus Pneumoniae Urine Antig [^1 *1] SOURCE: Urine, Clean Catch BODY SITE: COLLECTED DATE/TIME: 02/28/2022 04:33 EST RECEIVED DATE/TIME: 02/28/2022 21:29 EST START DATE/TIME: 02/28/2022 21:29 EST FREE TEXT SOURCE: FINAL REPORTS Final Report [] Verified Date/Time/Personnel: 02/28/2022 23:43 EST Presumptive negative for pneumococcal pneumonia, suggesting no current or recent pneumococcal infection. Infection due to Strep pneumoniae cannot be ruled out since the antigen present in the sample may be below the detection limit of the test. Interpretive Data ^1: Streptococcus Pneumoniae Urine Antig This test has not been evaluated on patients taking antibiotics for greater than 24 hours or on patients who have recently completed an antibiotic regimen. The accuracy of this test has not been proven in young children. Performing Locations *1: This test was performed at: [address], [facility]- , [facility])03-01-2022 Note. MICRO - Microbiology PROCEDURE: Legionella Urine Ag [*1] SOURCE: Urine BODY SITE: COLLECTED DATE/TIME: 02/28/2022 04:33 EST RECEIVED DATE/TIME: 02/28/2022 21:29 EST START DATE/TIME: 02/28/2022 21:29 EST FREE TEXT SOURCE: FINAL REPORTS Final Report [] Verified Date/Time/Personnel: 02/28/2022 23:43 EST Presumptive negative for L. pneumophila serogroup 1 antigen in urine, suggesting no recent or current infection. Legionnaire's disease cannot be ruled out since other serogroups and species may also cause disease. Performing Locations *1: This test was performed at: [address], [address] [place] [address])02-28-2022 Evaluation + Plan noteExtracted from: Title:History and Physical Author:JORGE CRUZ APRN-[facility] Date:02/28/22 1. SOB - Shortness of breath Acute, ongoing *Questionable pneumonia on CTA, will treat due to fever, productive cough, elevated white blood cell count. *Start Ceftriaxone 1 gram IV daily and Azithromycin 500 mg IV daily - will deescalate antibiotics pending results of atypicals. *Continue solumedrol 60 mg IV every 8 hours. *Continue duoneb aerosols as needed and scheduled. *Continue Budesonide 0.5 mg IH BID. *Obtain urine and check for legionella and strep pneumoniae. *Check mycoplasma antibody. *Obtain sputum and send for culture. *Obtain full respiratory panel today. *Continue supplemental oxygen as needed to maintain oxygen above 92%. *Wean oxygen as able. *Repeat CBC and BMP in am. 2. Asthma exacerbation Acute, on chronic *Plan as above. 3. Anxiety Chronic *Continue current home medications. DVT prophylaxis with SCDs. Code status: Full Code. Labs, diagnostic test and progress notes reviewed as noted in HPI. Plan of care discussed with patient. All questions answered. Patient verbalizes understanding and is agreeable with plan of care. This case was discussed with collaborating physician, Dr. Bebteo Nelson. [facility] 11-06-2022 HCoV 229E RNA RUSSEL+non-probe Ql (Nph)Not Detected *NA* (02/28/22 11:36 AM)[facility] [employer]Sero [id number] Note Date of Service 02/28/2022 Chief Complaint c/o sob today with hx of asthma and recent ed visit. History of Present Illness Patient is a 21-year-old female, who follows with Dr. Deana Amaro with a past medical history significant for asthma, anxiety and depression, presents to [facility] emergency department with the chief complaint of fever and shortness of breath. Patient was just admitted to [facility] on 02/19 due to asthma exacerbation. She was discharged home on 02/20 with a script for prednisone but states she was unable to fill the prescription because the pharmacy was out of stock. She returned yesterday with the above complaints and was treated with the plan to discharge her home. However, her pulse ox dropped to 89% and she was requiring supplemental oxygen. The decision was made to admit patient. She was seen this morning while resting in bed. She states that she has had fevers, productive cough of greenish/yellow sputum, and shortness of breath. She denies chills, chest pain, abdominal pain, nausea or dysuria. In the emergency department, chest x-ray revealed no acute radiographic cardiopulmonary findings. CTA of the chest revealed patchy bilateral infiltrates consistent with a multifocal infectious or inflammatory process. White blood cell count 14.3. CBC otherwise unremarkable. BMP significant for glucose 107, potassium 3.3, and creatinine 1.60. Patient was administered multiple aerosols and 40 meq potassium chloride. She was transferred to medical surgical unit for further evaluation and treatment. We will continue solumedrol 60 mg IV every 8 hours and duoneb aerosols scheduled and as needed. Wewill start Budesonide BID. We will add Ceftraixone 1 gram IV daily and Azithromycin 500 mg IV dailydue to fever, elevated white blood cell count and productive cough. Obtain urine and check for legionella and strep pneumoniae. Check mycoplasma antibody. Obtain sputum and send for cultures. Continue supplemental oxygen as needed and wean as able. Repeat CBC and BMP in the am. Review of Systems Review of Systems: Reviewed in detail, including general health, HEENT, cardiovascular, respiratory, gastrointestinal, genitourinary, endocrine, musculoskeletal, neurologic, vascular, skin, and psychiatric. All are negative except for those listed in the History of Present Illness. Physical Exam Vitals and Measurements T: 36.5 C (Oral) TMIN: 36.5 C (Oral) TMAX: 37.4 C (Oral) HR: 90(Monitored) RR: 20 BP: 118/65 SpO2: 97% HT: 172.7 cm WT: 83 kg BMI: 27.83 Weight Dosing Weight: 83 kg (02/27/22) General: No acute distress. Patient is alert and appropriate. Skin: No rash. Skin is warm, dry and intact. HEENT: Head is normocephalic, atraumatic. Pupils are equal, round and reactive. Neck: Supple. No lymphadenopathy, thyromegaly. Lungs: Rhonchi noted throughout posterior blas. Unlabored. Heart: Heart is regular rhythm, S1, S2. No murmurs, gallops or rubs. Abdomen: Abdomen is soft, nontender. Bowels sounds present in all quadrants. Extremities: No clubbing, cyanosis, or edema. Peripheral pulses palpable. No calf tenderness. Neurological: Patient is awake and alert to person, place and time. Following simple commands, moving all extremities. Lab Results 02/28 04:16 WBC: 9.2 Hgb: 11.3 L Hct: 34.7 L Platelet: 180 Neutrophil %: 89.4 H Glucose Level: 126 H Sodium Level: 136 Potassium Level: 3.9 BUN: 12 Creatinine Lvl (s): 0.91 02/27 17:34 WBC: 14.3 H Hgb: 13.1 Hct: 40.5 Platelet: 256 Neutrophil %: 82.9 H Glucose Level: 107 H Sodium Level: 138 Potassium Level: 3.3 L BUN: 17 Creatinine Lvl (s): 1.60 H Imaging Results and Diagnostics CT Angiography Chest w/ Contrast Result Date: February 28, 2022 Verified By: STARR ALONZO MD CLINICAL STATEMENT: IMPRESSION: Patchy bilateral infiltrates consistent with a multifocal infectious or inflammatory process. RECOMMENDATIONS:Unavailable XR Chest 2 Views Result Date: February 27, 2022 Verified By: MICHEL VELARDE MD CLINICAL STATEMENT: IMPRESSION: 1. No acute radiographic cardiopulmonary findings. 2. Prominent hilar regions bilaterally are not significantly changed and maybe related to prominent vasculature. Assessment/Plan 1. SOB - Shortness of breath Acute, ongoing *Questionable pneumonia on CTA, will treat due to fever, productive cough, elevated white blood cell count. *Start Ceftriaxone 1 gram IV daily and Azithromycin 500 mg IV daily - will deescalate antibiotics pending results of atypicals. *Continue solumedrol 60 mg IV every 8 hours. *Continue duoneb aerosols as needed and scheduled. *Continue Budesonide 0.5 mg IH BID. *Obtain urine and check for legionella and strep pneumoniae. *Check mycoplasma antibody. *Obtain sputum and send for culture. *Obtain full respiratory panel today. *Continue supplemental oxygen as needed to maintain oxygen above 92%. *Wean oxygen as able. *Repeat CBC and BMP in am. 2. Asthma exacerbation Acute, on chronic *Plan as above. 3. Anxiety Chronic *Continue current home medications. DVT prophylaxis with SCDs. Code status: Full Code. Labs, diagnostic test and progress notes reviewed as noted in HPI. Plan of care discussed with patient. All questions answered. Patient verbalizes understanding and is agreeable with plan of care. This case was discussed with collaborating physician, Dr. Bebeto Nelson. Problem List/Past Medical History Ongoing Asthma exacerbation Historical No qualifying data Procedure/Surgical History delivery Tubal ligation Tonsillectomy Pins in elbow Tympanostomy tube Medications Home Medications (6) Active Advair Diskus 250 mcg-50 mcg inhalation powder , Inhalation, BID albuterol 2.5 mg/3 mL (0.083%) inhalation solution 2.5 mg = 3 mL, Inhalation, q6h Ativan 1 mg oral tablet 1 mg = 1 tab(s), Oral, BID FLUoxetine 40 mg oral capsule 40 mg = 1 cap(s), Oral, qDay prednisone 10mg tab (TAPER) Taper 40-30-20-10 x 3 days each dose, Oral, qDay Spiriva Respimat 60 ACT 2.5 mcg/inh inhalation aerosol Allergies NKA Social History Alcohol - No Risk, 02/27/2022 Use: Never., 02/18/2022 Home/Environment Domestic Concerns: None. Living situation: Home/Independent., 02/18/2022 Nutrition/Health Type of diet: Regular. Appetite Good. Eating Difficulties None., 02/18/2022 Substance Abuse - No Risk, 02/27/2022 Tobacco - No Risk, 02/27/2022 Nicotine Use: Never (less than 100 in lifetime)., 02/18/2022 Nicotine Use: Never (less than 100 in lifetime)., 02/18/2022 Family History Family history is unknown Immunizations No qualifying data available. Code Status Code Status - Ordered -- 02/27/22 21:51:00 EDT, Full Code, Constant Order Digitally Signed by JORGE CRUZ on 02/28/2022 11:32 AM [facility]11-06-2022 Respiratory therapy Hospital Progress note Pt mouth breathing while asleep, unable to achieve spO2 > 90% via 4L NC Placed on 6L simple mask, pt resting comfortably HFNC on stby Digitally Signed by Shante Davey on 02/28/2022 08:36 AM [facility]11-06-2022 Note ORIGINAL EXAMINATION: CTA OF THE CHEST 02/28/2022 5:03 am TECHNIQUE: CTA of the chest was performed after the administration of intravenous contrast. Multiplanar reformatted images are provided for review. MIP images are provided for review. Automated exposure control, iterative reconstruction, and/or weight based adjustment of the mA/kV was utilized to reduce the radiation dose to as low as reasonably achievable. COMPARISON: None. HISTORY: ORDERING SYSTEM PROVIDED HISTORY: Reason for Exam: hypoxia FINDINGS: Pulmonary Arteries: Pulmonary arteries are adequately opacified for evaluation. No evidence of intraluminal filling defect to suggest pulmonary embolism. Main pulmonary artery is normal in caliber. Mediastinum: No significant mediastinal lymphadenopathy. Nonenlarged however prominent hilar nodes are suspected bilaterally, which are likely reactive. The heart and pericardium demonstrate no acute abnormality. There is no acute abnormality of the thoracic aorta. Lungs/pleura: Patchy infiltrates throughout the lungs bilaterally greatest in the right upper lobe, posterior right middle lobe and at the left lung base. Upper Abdomen: Limited images of the upper abdomen are unremarkable. Soft Tissues/Bones: No acute bone or soft tissue abnormality. IMPRESSION: Patchy bilateral infiltrates consistent with a multifocal infectious or inflammatory process. RECOMMENDATIONS: Unavailable Interpreted by: Starr Alonzo MD Preliminary Report By: Starr Alonzo MD Electronically signed By Starr Alonzo MD Dictated Date: 02/28/2022 5:12:42 AM Prelim Date: 02/28/2022 5:16:37 AM Sign Date: 02/28/2022 5:16:37 AM Ordering Provider: [facility]11-06-2022 Note ORIGINAL EXAMINATION: CTA OF THE CHEST 02/28/2022 5:03 am TECHNIQUE: CTA of the chest was performed after the administration of intravenous contrast. Multiplanar reformatted images are provided for review. MIP images are provided for review. Automated exposure control, iterative reconstruction, and/or weight based adjustment of the mA/kV was utilized to reduce the radiation dose to as low as reasonably achievable. COMPARISON: None. HISTORY: ORDERING SYSTEM PROVIDED HISTORY: Reason for Exam: hypoxia FINDINGS: Pulmonary Arteries: Pulmonary arteries are adequately opacified for evaluation. No evidence of intraluminal filling defect to suggest pulmonary embolism. Main pulmonary artery is normal in caliber. Mediastinum: No significant mediastinal lymphadenopathy. Nonenlarged however prominent hilar nodes are suspected bilaterally, which are likely reactive. The heart and pericardium demonstrate no acute abnormality. There is no acute abnormality of the thoracic aorta. Lungs/pleura: Patchy infiltrates throughout the lungs bilaterally greatest in the right upper lobe, posterior right middle lobe and at the left lung base. Upper Abdomen: Limited images of the upper abdomen are unremarkable. Soft Tissues/Bones: No acute bone or soft tissue abnormality. IMPRESSION: Patchy bilateral infiltrates consistent with a multifocal infectious or inflammatory process. RECOMMENDATIONS: Unavailable Interpreted by: Starr Alonzo MD Preliminary Report By: Starr Alonzo MD Electronically signed By Starr Alonzo MD Dictated Date: 02/28/2022 5:12:42 AM Prelim Date: 02/28/2022 5:16:37 AM Sign Date: 02/28/2022 5:16:37 AM Ordering Provider: [facility]11-06-2022 SARS-CoV-2 (COVID-19) RNA RUSSEL+probe Ql (Nph)Negative *NA* (02/28/22 4:33 AM)AO Auto Urine [id number] Note Discharge Instructions Thank you for allowing [facility] to assist you with your healthcare needs. The following is importantdischarge information regarding your hospital visit. Diagnosis from Today's Visit URTI - Viral upper respiratory tract infection Asthma attack Anxiety SOB - Shortness of breath What to Do Next Instructions from Your Care Team No qualifying data available. Post Acute Orders No qualifying data available. You Need to Schedule the Following Appointments Follow Up with DEANA AMARO MD When Within 2-4 days Where: [address] [place] [id number]- Allergies NKA Medications Please ask your primary doctor or pharmacist before taking any other medication not listed, including over the counter drugs, herbal medications, vitamins and or supplements as they may interact withyour home medications. What How Much When Why Instructions Last Dose New LORazepam (Ativan 1 mg oral tablet) 1 tab(s) by mouth Two (2) times a day URTI - Viral upper respiratory tract infection Asthma attack Duration: 3 Days Printed Prescription Changed predniSONE (predniSONE 10 mg oral tablet) Changed predniSONE (prednisone 10mg tab (TAPER)) Taper 40-30-20-10 x 3 days each dose by mouth Once a day URTI - Viral upper respiratory tract infection Asthma attack Duration: 12 Days Take with food/ meal Printed Prescription Please take this list to your next doctor s visit. Bring all medications you take, including over the counter medications, herbals and other supplements with you to your doctor s visit. Patients and families are reminded to discard old lists and to update any records with all medication providers or retail pharmacies. Education Materials Viral Upper Respiratory Illness (Adult) You have a viral upper respiratory illness (URI), which is another term for the common cold. This illness is contagious during the first few days. It is spread through the air by coughing and sneezing. It may also be spread by direct contact (touching the sick person and then touching your own eyes, nose, or mouth). Frequent handwashing will decrease risk of spread. Most viral illnesses go away within 7 to 10 days with rest and simple home remedies. Sometimes the illness may last for several weeks. Antibiotics will not kill a virus, and they are generally not prescribed for this condition. Home care If symptoms are severe, rest at home for the first 2 to 3 days. When you resume activity, don't letyourself get too tired. Don't smoke. If you need help stopping, talk with your healthcare provider. Avoid being exposed to cigarette smoke (yours or others ). You may use acetaminophen or ibuprofen to control pain and fever, unless another medicine was prescribed. If you have chronic liver or kidney disease, have ever had a stomach ulcer or gastrointestinal bleeding, or are taking blood-thinning medicines, talk with your healthcare provider before using these medicines. Aspirin should never be given to anyone under 18 years of age who is ill with a viral infection or fever. It may cause severe liver or brain damage. Your appetite may be poor, so a light diet is fine. Stay well hydrated by drinking 6 to 8 glasses of fluids per day (water, soft drinks, juices, tea, or soup). Extra fluids will help loosen secretions in the nose and lungs. Usoq-crl-eikbauy cold medicines will not shorten the length of time you re sick, but they may be helpful for the following symptoms: cough, sore throat, and nasal and sinus congestion. If you take prescription medicines, ask your healthcare provider or pharmacist which crgo-fkc-qqnzwjv medicines are safe to use. (Note: Don't use decongestants if you have high blood pressure.) Follow-up care Follow up with your healthcare provider, or as advised. When to seek medical advice Call your healthcare provider right away if any of these occur: Cough with lots of colored sputum (mucus) Severe headache; face, neck, or ear pain Difficulty swallowing due to throat pain Fever of 100.4 F (38 C) or higher, or as directed by your healthcare provider Call 911 Call 911 if any of these occur: Chest pain, shortness of breath, wheezing, or difficulty breathing Coughing up blood Very severe pain with swallowing, especially if it goes along with a muffled voice [phone] [employer]. [address] [place] [address]. All rights reserved. This information is not intended as a substitute for professional medical care. Always follow yourhealthcare professional's instructions. Asthma (Adult) Asthma is a disease where the medium and small air passages within the lung go into spasm and restrict the flow of air. Inflammation and swelling of the airways cause further blockage. During an acute asthma attack, these factors cause trouble breathing, wheezing, cough and chest tightness. An asthma attack can be triggered by many things. Common triggers include infections such as the common cold, bronchitis, and pneumonia. Irritants such as smoke or pollutants in the air, very cold air, emotional upset, and exercise can also trigger an attack. In many adults with asthma, allergies to dust, mold, pollen and animal dander can cause an asthma attack. Skipping doses of daily asthma medicine can also bring on an asthma attack. Asthma can be controlled using the proper medicines prescribed by your healthcare provider and avoiding exposure to known triggers including allergens and irritants. Home care Take prescribed medicine exactly at the times advised. If you need medicine such as from a hand held inhaler or aerosol breathing machine more than every 4 hours, contact your healthcare provider or seek immediate medical attention. If prescribed an antibiotic or prednisone, take all of the medicine as prescribed, even if you are feeling better after a few days. Don't smoke. Avoid being exposed to the smoke of others. Some people with asthma have worsening of their symptoms when they take aspirin and non-steroidal or fever-reducing medicines like ibuprofen and naproxen. Talk to your healthcare provider if you think this may apply to you. Follow-up care Follow up with your healthcare provider, or as advised. Always bring all of your current medicines to any appointments with your healthcare provider. Also bring a complete list of medicines even those not taken for asthma. If you don't already have one, talk to your healthcare provider about developing your own Asthma Action Plan. A pneumococcal (pneumonia) vaccine and yearly flu shot (every fall) are recommended. Ask your doctor about this. When to seek medical advice Call your healthcare provider right away if any of these occur: Increased wheezing or shortness of breath Need to use your inhalers more often than usual without relief Fever of 100.4 F (38 C) or higher, or as directed by your healthcare provider Coughing up lots of dark-colored or bloody sputum (mucus) Chest pain with each breath If you use a peak flow meter as part of an Asthma Action Plan, and you are still in the yellow zone(50% to 80%) 15 minutes after using inhaler medicine. Call 911 Call 911 if any of the following occur Trouble walking or talking because of shortness of breath If you use a peak flow meter as part of an Asthma Action Plan and you are still in the red zone (less than 50%) 15 minutes after using inhaler medicine Lips or fingernails turning jimenez or blue [phone] [employer]. [address] [place] [address]. All rights reserved. This information is not intended as a substitute for professional medical care. Always follow yourhealthcare professional's instructions. Anxiety Reaction Anxiety is the feeling we all get when we think something bad might happen. It is a normal responseto stress and usually causes only a mild reaction. When anxiety becomes more severe, it can interfere with daily life. In some cases, you may not even be aware of what it is you re anxious about. There may also be a genetic link or it may be a learned behavior in the home. Both psychological and physical triggers cause stress reaction. It's often a response to fear or emotional stress, real or imagined. This stress may come from home, family, work, or social relationships. During an anxiety reaction, you may feel: Helpless Nervous Depressed Irritable Your body may show signs of anxiety in many ways. You may experience: Dry mouth Shakiness Dizziness Weakness Trouble breathing Breathing fast (hyperventilating) Chest pressure Sweating Headache Nausea Diarrhea Tiredness Inability to sleep Sexual problems Home care Try to locate the sources of stress in your life. They may not be obvious. These may include: oDaily hassles of life (such as traffic jams, missed appointments, or car troubles) oMajor life changes, both good (new baby or job promotion) and bad (loss of job or loss of loved one) oOverload: feeling that you have too many responsibilities and can't take care of all of them at once oFeeling helpless or feeling that your problems are beyond what you re able to solve Notice how your body reacts to stress. Learn to listen to your body signals. This will help you take action before the stress becomes severe. When you can, do something about the source of your stress. (Avoid hassles, limit the amount of change that happens in your life at one time and take a break when you feel overloaded). Unfortunately, many stressful situations can't be avoided. It is necessary to learn how to better manage stress. There are many proven methods that will reduce your anxiety. These include simple things like exercise, good nutrition, and adequate rest. Also, there are certain techniques that are helpful: oRelaxation oBreathing exercises oVisualization oBiofeedback oMeditation For more information about this, consult your healthcare provider or go to a local bookstore and review the many books and tapes available on this subject. Follow-up care If you feel that your anxiety is not responding to self-help measures, contact your healthcare provider or make an appointment with a counselor. You may need short-term psychological counseling and temporary medicine to help you manage stress. Call 911 Call 911 if any of these happen: Trouble breathing Confusion Drowsiness or trouble wakening Fainting or loss of consciousness Rapid heart rate Seizure New chest pain that becomes more severe, lasts longer, or spreads into your shoulder, arm, neck, jaw, or back When to seek medical advice Call your healthcare provider right away if any of these happen: Your symptoms get worse Severe headache not relieved by rest and mild pain reliever [phone] [employer]. [address] [place] [address]. All rights reserved. This information is not intended as a substitute for professional medical care. Always follow yourhealthcare professional's instructions. Additional Information VACCINATE! IT SAVES LIVES! Members of the community who have not yet received the COVID-19 vaccine and would like to receive it can visit one of [facility] vaccine clinics. There are many vaccine clinic locations within the [facility]. For locations and available times, please visit [email or web address]. It is important to note that some COVID mobile vaccine clinics are held outdoors and may be canceled in rainy orstormy conditions. To learn more about pediatric vaccinations (ages 5-11), we invite you to visit the [facility] webpage. [email or web address] learn more about the COVID-19 vaccine, we invite you to visit the [facility] website for a list of frequently asked questions. [email or web address] [facility] Portal Access Instructions: Stay connected with your healthcare team and access your personal medical information anytime with the [facility] Patient Portal. If you would like a full copy of your medical records please contact the [facility] Medical Records Department Tuesday through Tuesday between 8a.m. and 4:30p.m. Please follow the directions below to access the portal: 1.Access the email account you provided upon registration to the [facility].2.Look for an invitation email from [facility].3.Open the email and access the invitation link: Accept Invitation to [facility]4.Fill in the required blas to create your account. Sign into [email or web address] with your username and password that you created in the above steps to stay up to date. You can then view a summary of results, a summary of your visits, and the ability to download your summaries to your computer or send the information securely to a physician. Remember that your healthcare information is confidential, so carefully consider who you will allow to register on the [facility] Patient Portal for access to your information. You can also access the [facility] Patient Portal on the [facility]ela. Simply click on Health Records under [facility] and then click on the [facility] logo. HOW TO SAFELY DISPOSE OF PRESCRIPTION MEDICATIONS Please use one of the following methods to safely dispose of your unused medications. 1.Use a drug disposal kit: the drug disposal pouch allows you to safely discard your old and unuseddrugs. Ask your nurse to give you one when you are discharged.2.Visit a local take-back location: Many local pharmacies and police departments have programs that collect old and unwanted prescriptiondrugs. Call your local pharmacy or go to http://bit.[employer]/9Q0Mh3o to find one close to you.3.Make use of household items: Use cat litter or old coffee grounds to dispose medications if other options arenot available. Mix your drugs with these household products, seal them in an airtight container andthrow it into the garbage. Call [facility]: [phone] to be sure your drugs can be disposed of in this way. Some medicines may require a different approach.4.Never flush your medications down the toilet. IF YOU HAVE BEEN PRESCRIBED AN OPIOIDS FOR PAIN If you have been prescribed an opioid (such as hydrocodone, oxycodone or morphine), it is critical to understand the possible side effects and risks of opioid pain medications. Even when taken as directed, opioids can have several side effects including: Tolerance, meaning you might need to take more of a medication for the same pain relief. Nausea, vomiting and/or constipation. Sleepiness, dizziness, dry mouth, confusion, depression or itching. Physical dependence, meaning you have withdrawal symptoms when a medication is stopped ? this can develop within a few days. KNOW YOUR RESPONSIBILITIES It is important to know exactly how much and how often to take the opioid pain medications you are prescribed. Never take opioids in higher amounts or more often than prescribed. Do not combine opioids with alcohol or other drugs that cause drowsiness, such as benzodiazepines, also known as benzos,including diazepam and alprazolam, muscle relaxants or sleep aids. Never sell or share prescriptionopioids. This is illegal. Store opioids in a secure place and out of reach of others (including children, family, friends and visitors). The last page(s) of this document has been signed and retained as a CHART COPY Signatures Patient Education Materials URI, Viral, No Abx (Adult) Asthma, Acute (Adult) Anxiety Reaction Medication Leaflets My discharge plan and instructions have been reviewed and explained to me and I,BLOUGH, TACOS M understand my current condition and have read and understand these discharge instructions. I have received a written copy of the plan/instructions. If I have questions, I am aware that I should contact my doctor. 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 The following is importantdischarge information regarding your hospital visit. Diagnosis from Today's Visit URTI - Viral upper respiratory tract infection Asthma attack Anxiety SOB - Shortness of breath What to Do Next Instructions from Your Care Team No qualifying data available. Post Acute Orders No qualifying data available. You Need to Schedule the Following Appointments Follow Up with DEANA AMARO MD When Within 2-4 days Where: [address] [address] Allergies NKA Medications Please ask your primary doctor or pharmacist before taking any other medication not listed, including over the counter drugs, herbal medications, vitamins and or supplements as they may interact withyour home medications. What How Much When Why Instructions Last Dose New LORazepam (Ativan 1 mg oral tablet) 1 tab(s) by mouth Two (2) times a day URTI - Viral upper respiratory tract infection Asthma attack Duration: 3 Days Printed Prescription Changed predniSONE (predniSONE 10 mg oral tablet) Changed predniSONE (prednisone 10mg tab (TAPER)) Taper 40-30-20-10 x 3 days each dose by mouth Once a day URTI - Viral upper respiratory tract infection Asthma attack Duration: 12 Days Take with food/ meal Printed Prescription Unchanged albuterol (albuterol 2.5 mg/ 3 mL (0.083%) inhalation solution) 3 Milliliter by inhalation Every 6 hours Asthma attack Unchanged FLUoxetine (FLUoxetine 40 mg oral capsule) 1 cap by mouth Once a day Unchanged fluticasone-salmeterol (Advair Diskus 250 mcg-50 mcg inhalation powder) Unchanged tiotropium (Spiriva Respimat 60 ACT 2.5 mcg/ inh inhalation aerosol) Please take this list to your next doctor s visit. Bring all medications you take, including over the counter medications, herbals and other supplements with you to your doctor s visit. Patients and families are reminded to discard old lists and to update any records with all medication providers or retail pharmacies. Education Materials Viral Upper Respiratory Illness (Adult) You have a viral upper respiratory illness (URI), which is another term for the common cold. This illness is contagious during the first few days. It is spread through the air by coughing and sneezing. It may also be spread by direct contact (touching the sick person and then touching your own eyes, nose, or mouth). Frequent handwashing will decrease risk of spread. Most viral illnesses go away within 7 to 10 days with rest and simple home remedies. Sometimes the illness may last for several weeks. Antibiotics will not kill a virus, and they are generally not prescribed for this condition. Home care If symptoms are severe, rest at home for the first 2 to 3 days. When you resume activity, don't letyourself get too tired. Don't smoke. If you need help stopping, talk with your healthcare provider. Avoid being exposed to cigarette smoke (yours or others ). You may use acetaminophen or ibuprofen to control pain and fever, unless another medicine was prescribed. If you have chronic liver or kidney disease, have ever had a stomach ulcer or gastrointestinal bleeding, or are taking blood-thinning medicines, talk with your healthcare provider before using these medicines. Aspirin should never be given to anyone under 18 years of age who is ill with a viral infection or fever. It may cause severe liver or brain damage. Your appetite may be poor, so a light diet is fine. Stay well hydrated by drinking 6 to 8 glasses of fluids per day (water, soft drinks, juices, tea, or soup). Extra fluids will help loosen secretions in the nose and lungs. Ntpe-dyx-xbmgiiq cold medicines will not shorten the length of time you re sick, but they may be helpful for the following symptoms: cough, sore throat, and nasal and sinus congestion. If you take prescription medicines, ask your healthcare provider or pharmacist which phcp-ouj-luutfzs medicines are safe to use. (Note: Don't use decongestants if you have high blood pressure.) Follow-up care Follow up with your healthcare provider, or as advised. When to seek medical advice Call your healthcare provider right away if any of these occur: Cough with lots of colored sputum (mucus) Severe headache; face, neck, or ear pain Difficulty swallowing due to throat pain Fever of 100.4 F (38 C) or higher, or as directed by your healthcare provider Call 911 Call 911 if any of these occur: Chest pain, shortness of breath, wheezing, or difficulty breathing Coughing up blood Very severe pain with swallowing, especially if it goes along with a muffled voice [phone] [employer]. [address] [place] [address]. All rights reserved. This information is not intended as a substitute for professional medical care. Always follow yourhealthcare professional's instructions. Asthma (Adult) Asthma is a disease where the medium and small air passages within the lung go into spasm and restrict the flow of air. Inflammation and swelling of the airways cause further blockage. During an acute asthma attack, these factors cause trouble breathing, wheezing, cough and chest tightness. An asthma attack can be triggered by many things. Common triggers include infections such as the common cold, bronchitis, and pneumonia. Irritants such as smoke or pollutants in the air, very cold air, emotional upset, and exercise can also trigger an attack. In many adults with asthma, allergies to dust, mold, pollen and animal dander can cause an asthma attack. Skipping doses of daily asthma medicine can also bring on an asthma attack. Asthma can be controlled using the proper medicines prescribed by your healthcare provider and avoiding exposure to known triggers including allergens and irritants. Home care Take prescribed medicine exactly at the times advised. If you need medicine such as from a hand held inhaler or aerosol breathing machine more than every 4 hours, contact your healthcare provider or seek immediate medical attention. If prescribed an antibiotic or prednisone, take all of the medicine as prescribed, even if you are feeling better after a few days. Don't smoke. Avoid being exposed to the smoke of others. Some people with asthma have worsening of their symptoms when they take aspirin and non-steroidal or fever-reducing medicines like ibuprofen and naproxen. Talk to your healthcare provider if you think this may apply to you. Follow-up care Follow up with your healthcare provider, or as advised. Always bring all of your current medicines to any appointments with your healthcare provider. Also bring a complete list of medicines even those not taken for asthma. If you don't already have one, talk to your healthcare provider about developing your own Asthma Action Plan. A pneumococcal (pneumonia) vaccine and yearly flu shot (every fall) are recommended. Ask your doctor about this. When to seek medical advice Call your healthcare provider right away if any of these occur: Increased wheezing or shortness of breath Need to use your inhalers more often than usual without relief Fever of 100.4 F (38 C) or higher, or as directed by your healthcare provider Coughing up lots of dark-colored or bloody sputum (mucus) Chest pain with each breath If you use a peak flow meter as part of an Asthma Action Plan, and you are still in the yellow zone(50% to 80%) 15 minutes after using inhaler medicine. Call 911 Call 911 if any of the following occur Trouble walking or talking because of shortness of breath If you use a peak flow meter as part of an Asthma Action Plan and you are still in the red zone (less than 50%) 15 minutes after using inhaler medicine Lips or fingernails turning jimenez or blue [phone] [employer]. [address] [place] [address]. All rights reserved. This information is not intended as a substitute for professional medical care. Always follow yourhealthcare professional's instructions. Anxiety Reaction Anxiety is the feeling we all get when we think something bad might happen. It is a normal responseto stress and usually causes only a mild reaction. When anxiety becomes more severe, it can interfere with daily life. In some cases, you may not even be aware of what it is you re anxious about. There may also be a genetic link or it may be a learned behavior in the home. Both psychological and physical triggers cause stress reaction. It's often a response to fear or emotional stress, real or imagined. This stress may come from home, family, work, or social relationships. During an anxiety reaction, you may feel: Helpless Nervous Depressed Irritable Your body may show signs of anxiety in many ways. You may experience: Dry mouth Shakiness Dizziness Weakness Trouble breathing Breathing fast (hyperventilating) Chest pressure Sweating Headache Nausea Diarrhea Tiredness Inability to sleep Sexual problems Home care Try to locate the sources of stress in your life. They may not be obvious. These may include: oDaily hassles of life (such as traffic jams, missed appointments, or car troubles) oMajor life changes, both good (new baby or job promotion) and bad (loss of job or loss of loved one) oOverload: feeling that you have too many responsibilities and can't take care of all of them at once oFeeling helpless or feeling that your problems are beyond what you re able to solve Notice how your body reacts to stress. Learn to listen to your body signals. This will help you take action before the stress becomes severe. When you can, do something about the source of your stress. (Avoid hassles, limit the amount of change that happens in your life at one time and take a break when you feel overloaded). Unfortunately, many stressful situations can't be avoided. It is necessary to learn how to better manage stress. There are many proven methods that will reduce your anxiety. These include simple things like exercise, good nutrition, and adequate rest. Also, there are certain techniques that are helpful: oRelaxation oBreathing exercises oVisualization oBiofeedback oMeditation For more information about this, consult your healthcare provider or go to a local bookstore and review the many books and tapes available on this subject. Follow-up care If you feel that your anxiety is not responding to self-help measures, contact your healthcare provider or make an appointment with a counselor. You may need short-term psychological counseling and temporary medicine to help you manage stress. Call 911 Call 911 if any of these happen: Trouble breathing Confusion Drowsiness or trouble wakening Fainting or loss of consciousness Rapid heart rate Seizure New chest pain that becomes more severe, lasts longer, or spreads into your shoulder, arm, neck, jaw, or back When to seek medical advice Call your healthcare provider right away if any of these happen: Your symptoms get worse Severe headache not relieved by rest and mild pain reliever [phone] [employer]. [address] [place] [address]. All rights reserved. This information is not intended as a substitute for professional medical care. Always follow yourhealthcare professional's instructions. Additional Information VACCINATE! IT SAVES LIVES! Members of the community who have not yet received the COVID-19 vaccine and would like to receive it can visit one of [facility] vaccine clinics. There are many vaccine clinic locations within the [facility]. For locations and available times, please visit [email or web address]. It is important to note that some COVID mobile vaccine clinics are held outdoors and may be canceled in rainy orstormy conditions. To learn more about pediatric vaccinations (ages 5-11), we invite you to visit the [facility] webpage. https://[email or web address]/pages/[email or web address]-Rsstu-Pyzedvrqacn-Otsfkswssj-Wawsf-Avo stions.htmlTo learn more about the COVID-19 vaccine, we invite you to visit the [facility] website for a list of frequently asked questions. [email or web address]-[email or web address]/[email or web address]-Anerhgi-[email or web address] _Asked-Questions.pdf [facility] Patient Portal Access Instructions: Stay connected with your healthcare team and access your personal medical information anytime with the [facility] Patient Portal. If you would like a full copy of your medical records please contact the [facility] Medical Records Department Tuesday through Tuesday between 8a.m. and 4:30p.m. Please follow the directions below to access the portal: 1.Access the email account you provided upon registration to the [facility].2.Look for an invitation email from [facility].3.Open the email and access the invitation link: Accept Invitation to [facility]4.Fill in the required blas to create your account. Sign into [email or web address] with your username and password that you created in the above steps to stay up to date. You can then view a summary of results, a summary of your visits, and the ability to download your summaries to your computer or send the information securely to a physician. Remember that your healthcare information is confidential, so carefully consider who you will allow to register on the [facility] Patient Portal for access to your information. You can also access the [facility] Patient Portal on the [employer]. Simply click on Health Records under [employer] and then click on the [employer] logo. HOW TO SAFELY DISPOSE OF PRESCRIPTION MEDICATIONS Please use one of the following methods to safely dispose of your unused medications. 1.Use a drug disposal kit: the drug disposal pouch allows you to safely discard your old and unuseddrugs. Ask your nurse to give you one when you are discharged.2.Visit a local take-back location: Many local pharmacies and police departments have programs that collect old and unwanted prescriptiondrugs. Call your local pharmacy or go to http://bit.ly/4V6In8m to find one close to you.3.Make use of household items: Use cat litter or old coffee grounds to dispose medications if other options arenot available. Mix your drugs with these household products, seal them in an airtight container andthrow it into the garbage. Call [facility]: [phone] to be sure your drugs can be disposed of in this way. Some medicines may require a different approach.4.Never flush your medications down the toilet. IF YOU HAVE BEEN PRESCRIBED AN OPIOIDS FOR PAIN If you have been prescribed an opioid (such as hydrocodone, oxycodone or morphine), it is critical to understand the possible side effects and risks of opioid pain medications. Even when taken as directed, opioids can have several side effects including: Tolerance, meaning you might need to take more of a medication for the same pain relief. Nausea, vomiting and/or constipation. Sleepiness, dizziness, dry mouth, confusion, depression or itching. Physical dependence, meaning you have withdrawal symptoms when a medication is stopped ? this can develop within a few days. KNOW YOUR RESPONSIBILITIES It is important to know exactly how much and how often to take the opioid pain medications you are prescribed. Never take opioids in higher amounts or more often than prescribed. Do not combine opioids with alcohol or other drugs that cause drowsiness, such as benzodiazepines, also known as benzos,including diazepam and alprazolam, muscle relaxants or sleep aids. Never sell or share prescriptionopioids. This is illegal. Store opioids in a secure place and out of reach of others (including children, family, friends and visitors). The last page(s) of this document has been signed and retained as a CHART COPY Signatures Patient Education Materials URI, Viral, No Abx (Adult) Asthma, Acute (Adult) Anxiety Reaction Medication Leaflets My discharge plan and instructions have been reviewed and explained to me and I,BLOUGH, TACOS M understand my current condition and have read and understand these discharge instructions. I have received a written copy of the plan/instructions. If I have questions, I am aware that I should contact my doctor. 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 The hilar regions are prominent bilaterally but not significantly changed. No focal consolidation, pleural effusion, vascular congestion, or pneumothorax. Mild degenerative changes are visible in the spine. IMPRESSION: 1. No acute radiographic cardiopulmonary findings. 2. Prominent hilar regions bilaterally are not significantly changed and may be related to prominent vasculature. Interpreted by: Michel Velarde MD Preliminary Report By: Michel Velarde MD Electronically signed By Michel Velarde MD Dictated Date: 02/27/2022 6:24:04 PM Prelim Date: 02/27/2022 6:25:24 PM Sign Date: 02/27/2022 6:25:24 PM Ordering Provider: ROSSY PERKINS [facility]11-05-2022 Note ORIGINAL EXAMINATION: TWO XRAY VIEWS OF THE CHEST 02/27/2022 6:17 pm COMPARISON: 02/18/2022 HISTORY: ORDERING SYSTEM PROVIDED HISTORY: Reason for Exam: SOB/Cough/Fever FINDINGS: The cardiomediastinal silhouette is normal. The hilar regions are prominent bilaterally but not significantly changed. No focal consolidation, pleural effusion, vascular congestion, or pneumothorax. Mild degenerative changes are visible in the spine. IMPRESSION: 1. No acute radiographic cardiopulmonary findings. 2. Prominent hilar regions bilaterally are not significantly changed and may be related to prominent vasculature. Interpreted by: Michel Velarde MD Preliminary Report By: Michel Velarde MD Electronically signed By Michel Velarde MD Dictated Date: 02/27/2022 6:24:04 PM Prelim Date: 02/27/2022 6:25:24 PM Sign Date: 02/27/2022 6:25:24 PM [facility] Discharge Instructions Thank you for allowing [facility] to assist you with your healthcare needs. The following is importantdischarge information regarding your hospital visit. Your Care Team DEANA AMARO MD Your Diagnosis Asthma exacerbation Shortness of breath What to do next Follow Up Appointments Follow Up with DEANA AMARO MD When 02/26/2022 11:40 AM EDT Why: Follow-up as scheduled Where: [address] [address]- Follow Up with Go to emergency room if symptoms worsen When Within 2-4 days The Following Activity and Diet Have Been Ordered for You Discharge Activity - Ordered -- Resume your pre-hospitalization activity, 02/20/22 12:03:00 EDT Discharge Diet - Ordered -- No changes were made to your diet during your hospital stay. Please resume your pre hospitalization diet on discharge., 02/20/22 12:03:00 EDT The Following Equipment Has Been Ordered for You No qualifying data available. The Following Treatments Have Been Ordered for You Discharge Labs No qualifying data available. Discharge Radiology No qualifying data available. Other Therapies No qualifying data available. Post Acute Orders No qualifying data available. Someone Will Contact You Regarding These Home Health Referrals No home referrals have been ordered for you. No one will call you. Allergies NKA Medications Please ask your primary doctor or pharmacist before taking any other medication not listed, including over the counter drugs, herbal medications, vitamins and or supplements as they may interact withyour home medications. What How Much When Why Instructions Last Dose New predniSONE (prednisone 20mg tab (TAPER)) Taper 60-40-20 mg x 2 days each dose by mouth Every day Duration: 6 Days Pickup at [facility]030[facility] Unchanged albuterol (albuterol 2.5 mg/ 3 mL (0.083%) inhalation solution) 3 Milliliter by inhalation Every 6 hours Asthma attack Unchanged FLUoxetine (FLUoxetine 40 mg oral capsule) 1 cap by mouth Once a day Unchanged fluticasone-salmeterol (Advair Diskus 250 mcg-50 mcg inhalation powder) Pharmacy Information [facility][id number]: [address], [place] [id number] [phone] What How Much When Comments Stop Taking promethazine (promethazine 25 mg oral tablet) 1 tab(s) by mouth Every 4 hours Please take this list to your next doctor s visit. Bring all medications you take, including over the counter medications, herbals and other supplements with you to your doctor s visit. Patients and families are reminded to discard old lists and to update any records with all medication providers or retail pharmacies. Education Materials Asthma (Adult) Asthma is a disease where the medium and small air passages within the lung go into spasm and restrict the flow of air. Inflammation and swelling of the airways cause further blockage. During an acute asthma attack, these factors cause trouble breathing, wheezing, cough and chest tightness. An asthma attack can be triggered by many things. Common triggers include infections such as the common cold, bronchitis, and pneumonia. Irritants such as smoke or pollutants in the air, very cold air, emotional upset, and exercise can also trigger an attack. In many adults with asthma, allergies to dust, mold, pollen and animal dander can cause an asthma attack. Skipping doses of daily asthma medicine can also bring on an asthma attack. Asthma can be controlled using the proper medicines prescribed by your healthcare provider and avoiding exposure to known triggers including allergens and irritants. Home care Take prescribed medicine exactly at the times advised. If you need medicine such as from a hand held inhaler or aerosol breathing machine more than every 4 hours, contact your healthcare provider or seek immediate medical attention. If prescribed an antibiotic or prednisone, take all of the medicine as prescribed, even if you are feeling better after a few days. Don't smoke. Avoid being exposed to the smoke of others. Some people with asthma have worsening of their symptoms when they take aspirin and non-steroidal or fever-reducing medicines like ibuprofen and naproxen. Talk to your healthcare provider if you think this may apply to you. Follow-up care Follow up with your healthcare provider, or as advised. Always bring all of your current medicines to any appointments with your healthcare provider. Also bring a complete list of medicines even those not taken for asthma. If you don't already have one, talk to your healthcare provider about developing your own Asthma Action Plan. A pneumococcal (pneumonia) vaccine and yearly flu shot (every fall) are recommended. Ask your doctor about this. When to seek medical advice Call your healthcare provider right away if any of these occur: Increased wheezing or shortness of breath Need to use your inhalers more often than usual without relief Fever of 100.4 F (38 C) or higher, or as directed by your healthcare provider Coughing up lots of dark-colored or bloody sputum (mucus) Chest pain with each breath If you use a peak flow meter as part of an Asthma Action Plan, and you are still in the yellow zone(50% to 80%) 15 minutes after using inhaler medicine. Call 911 Call 911 if any of the following occur Trouble walking or talking because of shortness of breath If you use a peak flow meter as part of an Asthma Action Plan and you are still in the red zone (less than 50%) 15 minutes after using inhaler medicine Lips or fingernails turning jimenez or blue [phone] [employer]. [address] [place] [address]. All rights reserved. This information is not intended as a substitute for professional medical care. Always follow yourhealthcare professional's instructions. Additional Information VACCINATE! IT SAVES LIVES! Members of the community who have not yet received the COVID-19 vaccine and would like to receive it can visit one of [facility] vaccine clinics. There are many vaccine clinic locations within the [facility]. For locations and available times, please visit [email or web address]/. It is important to note that some COVID mobile vaccine clinics are held outdoors and may be canceled in rainy or stormy conditions. To learn more about pediatric vaccinations (ages 5-11), we invite you to visit the [facility] webpage. https://www.[email or web address].org/pages/3652-Osjhy-Adgftlphjij-Odifniairr-Whgbe-Dhp stions.htmlTo learn more about the COVID-19 vaccine, we invite you to visit the [facility] website for a list of frequently asked questions. [email or web address]-Vevhxkqgdi _Asked-[email or web address].pdf [facility] Patient Portal Access Instructions: Stay connected with your healthcare team and access your personal medical information anytime with the [facility] Patient Portal.If you would like a full copy of your medical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
== END 2025-01-07 15:11 | disposition home or self-care (01) ==
PROVIDERS: Emergency Provider Surgery; PCP Family Medicine; Visit Provider Surgery
DX: M54.2 Cervicalgia (principal); R29.898 Other symptoms and signs involving the musculoskeletal system; F17.290 Nicotine dependence, other tobacco product, uncomplicated; V43.63XA Car passenger injured in collision with pick-up truck in traffic accident, initial encounter
CPT/HCPCS: 70498; 72125; 99282; Q9967

== ENCOUNTER 2025-01-27 00:23 | Emergency (ER) | payer BC, MEDICAID, SELFPAY ==
[2025-01-27 00:25] VITALS: BP 140/81; PULSE 106; RESP 18; TEMP 36.7; O2SAT 100; BMI 26.9
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
--- OUTSIDE RECORDS SUMMARY | 2025-01-27 01:04 | XMS RPT_ITS | CCD ---
Author Organization [facility] Informat ion Partnership [facility] Care Team Providers Care Foundry Supervisor Name Role Phone AVTAR FARAH, DEANA Primary Care Physician ДМИТРИЙ FARAH, DR ARIEL Bloom Attending Unavailable AVTAR FARAH, [facility] Care Unavailsameera AMARO MD, [facility] Unavaila virgilio CANNONNATIONAL ACCOUNTS RECRUITERALEM Admitting Unavailab gabino NELSON DO, DR ODONNELL Attending Unavailable GRACIELA BARBOSA, DR ODONNELL Referring Unavailable AVTAR FARAH, [facility] Unavaila virgilio ESQUEDA APRN-ARTEMIO, MEGGAN Calvo Admitting Unavail able DHEERAJ PLANNING AND ANALYSIS MANAGER-NATIONAL ACCOUNTS RECRUITER, MEGGAN Calvo Attending Unavail able DHEERAJ ESPARZA, MEGGAN Calvo Referring Unavail able JESSIKA WORTHINGTON DO Attending Enrique AMARO MD, [facility] Care Unavailsameera Amaro MD, Dr. Ponce Primary Care Provider Dr. Je Nails DO Emergency Provider Jaqui BARBOSA, Dr. Wooten Attending Provider Kris Amaro Primary Care Unavailable Je Nails Attending Kris Camarena Primary Care Unavailable Je Nails Attending UnavailDEANA Wagoner Primary Care Unavailab DEANA Solomon Attending Unavailab ROSSANA Velazco Attending Unavailable DEANA AMARO Primary Care Unavailab DEANA Solomon Primary Care Unavailab DEANA Solomon Primary Care Unavailab DEANA Solomon Attending DEANA Poe Referring DEANA oPe Primary Care UnavailDEANA Ramírez Primary Care Unavail LEO Avery Attending DEANA Macias Referring [facility] Medications Current Medications Medication Drug Class(es) Dates [...] tablet (2 sources) Benzodiazepine Start: 06-11-2022 End: 02-20-2023 Ativan 1 mg oral tablet Dose : [...] 0 Refill(s), 02/26/22 12:04:00 EDT, Pharmacy: [id number], 172.7, cm, 02/18/22 23:34:00 EDT, Height Start [...] Episodic Anxiety disorders (2 sources) Anxiety disorder; ([place]) Comment on above: Performed By: #### ENDER CARSON #### [place] [address] [address] [facility] Albumin Level 2.8 G/dL Low 3.5-5.0 [facility] ([place]) Comment on above: Performed By: #### ENDER CARSON #### [place] [address] [address] Albumin/Globulin [Mass ratio] 1.0 {ratio} Low 1.1-2.5 [facility] ([place]) Comment on above: Performed By: #### Ilia FUENTES, BMP #### [address] [address] ALP [Catalytic activity/Vol] 72 U/L Normal 40-135 [facility] ([place]) Comment on above: Performed By: #### Ilia FUENTES, BMP #### [address] [address] ALT [Catalytic activity/Vol] 20 U/L Normal 14-59 [facility] ([place]) Comment on above: Performed By: #### Ilia FUENTES, BMP #### [address] [address] AST [Catalytic activity/Vol] 9 U/L Low 10-40 [facility] ([place]) Comment on above: Performed By: #### Ilia FUENTES, BMP #### [address] [address] Bili Total 0.2 mg/dL Normal 0.2-1.0 [facility] ([place]) Comment on above: Result Comment: Use of this assay is not recommended for patients undergoing treatment with eltrombopag due to the potential for falsely elevated results. Performed By: #### Ilia FUENTES, BMP #### [address] [address] BUN/Creatinine Ratio 16 ratio Normal 7-27 [facility] ([place]) Comment on above: Performed By: #### Ilia FUENTES, BMP #### [address] [address] Calcium [Mass/Vol] 8.6 mg/dL Normal 8.4-10.2 [facility] ([place]) Comment on above: Performed By: #### Ilia FUENTES, BMP #### [address] [address] Chloride [Moles/Vol] 102 mmol/L Normal 98-107 [facility] ([place]) Comment on above: Performed By: #### Ilia FUENTES, BMP #### [address] [address] CO2 [Moles/Vol] 31 mmol/L High 22-29 [facility] ([place]) Comment on above: Performed By: #### G , BMP #### [address] [address] Creatinine [Mass/Vol] 0.96 mg/dL Normal 0.55-1.02 [facility] ([place]) Comment on above: Performed By: #### G , BMP #### [address] [address] Electrolyte Balance 7.0 mEq/L Normal 4.0-15.0 [facility] ([place]) Comment on above: Performed By: #### Ilia FUENTES, BMP #### [address] [address] Globulin 2.9 G/dL Normal [facility] ([place]) Comment on above: Performed By: #### Ilia FUENTES, BMP #### [address] [address] Glucose [Mass/Vol] 132 mg/dL High 70-105 [facility] ([place]) Comment on above: Performed By: #### Ilia FUENTES, BMP #### [address] [address] Potassium [Moles/Vol] 3.8 mmol/L Normal 3.5-5.1 [facility] ([place]) Comment on above: Performed By: #### Ilia FUENTES, BMP #### [address] [address] Sodium [Moles/Vol] 140 mmol/L Normal 136-145 [facility] ([place]) Comment on above: Performed By: #### Ilia FUENTES, BMP #### [address] [address] Total Protein 5.7 G/dL Low 6.4-8.2 [facility] ([place]) Comment on above: Performed By: #### Ilia FUENTES, BMP #### [address] [address] Urea nitrogen [Mass/Vol] 15 mg/dL Normal 7-18 [facility] ([place] Comment on above: Performed By: #### G , ENDER #### [address] [place], [place] [address] LABORATORYOrdered By: Cathi Patel on 03-02-2022 Albumin [...] 03-02-2022 Magnesium [Mass/Vol] 2.1 mg/dL Normal 1.8-2.4 [facility] ([place]) Comment on above: Performed By: #### C NEMESIO9, FLURSV #### [address] [address] .Auto Diffon 03-01-2022 Basophil, Absolute 0.0 10 3/mcL Normal 0.0-0.2 [facility] ([place]) Comment on above: Performed By: #### Madison LOCKETTD19, FLURSV #### [address] [address] Basophils/100 WBC (Bld) 0.1 % Normal 0.0-2.5 [facility] ([place]) Comment on above: Performed By: #### Madison OVD19, FLURSV #### [address] [address] Eosinophil, Absolute 0.0 10 3/mcL Normal 0.0-0.4 [facility] ([place]) Comment on above: Performed By: #### Madison OVD19, FLURSV #### [address] [address] Eosinophils/100 WBC (Bld) 0.0 % Normal 0.0-7.0 [facility] ([place] Comment on above: Performed By: #### C OVD19, FLURSV #### [address] [address] Lymphocyte, Absolute 0.8 10 3/mcL Normal 0.8-3.9 [facility] ([place]) Comment on above: Performed By: #### C OVD19, FLURSV #### [address] [address] Lymphocytes/100 WBC (Bld) 8.1 % Low 10.0-50.0 [facility] ([place]) Comment on above: Performed By: #### C OVD19, FLURSV #### [address] [address] Monocyte, Absolute 0.3 10 3/mcL Normal 0.2-1.0 [facility] ([place]) Comment on above: Performed By: #### C OVD19, FLURSV #### [address] [address] Monocytes/100 WBC (Bld) 3.5 % Normal 1.7-13.0 [facility] ([place]) Comment on above: Performed By: #### C OVD19, FLURSV #### [address] [address] Neutrophils/100 WBC (Bld) 88.3 % High 37.0-80.0 [facility] ([place]) Comment on above: Performed By: #### C OVD19, FLURSV #### [address] [address] .GFRon 03-01-2022 GFR Non- 86 ml/min/1.73sqm Normal [facility] ([place]) Comment on above: Result Comment: GFR Population [...] 15 mL/min/1.73 square meters Performed By: #### Madison OVD19, FLURSV #### [address] [address] GFR 104 ml/min/1.73sqm Normal [facility] ([place]) Comment on above: Result Comment: GFR Population [...] Performed By: #### C OVD19, FLURSV #### [address] [address] .NEUABSon 03-01-2022 Neutrophil, Absolute 8.3 10 3/mcL High 2.9-6.2 [facility] ([place]) Comment on above: Performed By: #### [place] HERR9, FLURSV #### [address] [address] CBCon 03-01-2022 Erythrocyte distribution width (RBC) [Ratio] 16.0 % High 11.5-14.5 [facility] ([place]) Comment on above: Performed By: #### Madison OVRachel9, FLURSV #### [address] [address] Hematocrit (Bld) [Volume fraction] 35.6 % Low 37.0-47.0 [facility] ([place]) Comment on above: Performed By: #### Madison OVD19, FLURSV #### [address] [address] Hgb 11.7 G/dL Low 12.0-16.0 [facility] ([place] Comment on above: Performed By: #### C OVD19, FLURSV #### [address] [address] MCH (RBC) [Entitic mass] 24.8 pg Low 27.0-31.2 [facility] ([place]) Comment on above: Performed By: #### C OVD19, FLURSV #### [address] [address] MCHC 32.9 G/dL Low 33.0-37.0 [facility] ([place]) Comment on above: Performed By: #### C OVD19, FLURSV #### [address] [address] MCV (RBC) [Entitic vol] 75.3 fL Low 80.0-94.0 [facility] ([place] Comment on above: Performed By: #### C OVD19, FLURSV #### [address] [address] Platelet 213 10 3/mcL Normal 130-400 [facility] ([place]) Comment on above: Performed By: #### C OVD19, FLURSV #### [address] [address] Platelet mean volume (Bld) [Entitic vol] 9.2 fL Normal 7.4-10.4 [facility] ([place]) Comment on above: Performed By: #### C OVD19, FLURSV #### [address] [address] RBC 4.72 10 6/mcL Normal 4.20-5.40 [facility] ([place]) Comment on above: Performed By: #### C OVD19, FLURSV #### [address] [address] WBC 9.4 10 3/mcL Normal 4.6-10.8 [facility] ([place]) Comment on above: Performed By: #### C OVD19, FLURSV #### [address] [address] CMPon 03-01-2022 Albumin Level 3.0 G/dL Low 3.5-5.0 [facility] ([place]) Comment on above: Performed By: #### C OVD19, FLURSV #### [address] [address] Albumin/Globulin [Mass ratio] 0.9 {ratio} Low 1.1-2.5 [facility] ([place]) Comment on above: Performed By: #### C OVRachel9, FLURSV #### [address] [address] ALP [Catalytic activity/Vol] 88 U/L Normal 40-135 [facility] ([place]) Comment on above: Performed By: #### C OVRachel9, FLURSV #### [address] [address] ALT [Catalytic activity/Vol] 25 U/L Normal 14-59 [facility] ([place]) Comment on above: Performed By: #### C OVRachel9, FLURSV #### [address] [address] AST [Catalytic activity/Vol] 11 U/L Normal 10-40 [facility] ([place] Comment on above: Performed By: #### C OVD19, FLURSV #### [address] [address] Bili Total 0.2 mg/dL Normal 0.2-1.0 [facility] ([place]) Comment on above: Result Comment: Use of this assay is not recommended for patients undergoing treatment with eltrombopag due to the potential for falsely elevated results. Performed By: #### C OVD19, FLURSV #### [address] [address] BUN/Creatinine Ratio 13 ratio Normal 7-27 [facility] ([place]) Comment on above: Performed By: #### C OVD19, FLURSV #### [address] [address] Calcium [Mass/Vol] 9.0 mg/dL Normal 8.4-10.2 [facility] ([place]) Comment on above: Performed By: #### C OVD19, FLURSV #### [address] [address] Chloride [Moles/Vol] 104 mmol/L Normal 98-107 [facility] ([place]) Comment on above: Performed By: #### C OVD19, FLURSV #### [address] [address] CO2 [Moles/Vol] 31 mmol/L High 22-29 [facility] ([place]) Comment on above: Performed By: #### C OVD19, FLURSV #### [address] [address] Creatinine [Mass/Vol] 0.83 mg/dL Normal 0.55-1.02 [facility] ([place]) Comment on above: Performed By: #### C OVD19, FLURSV #### [address] [address] Electrolyte Balance 9.0 mEq/L Normal 4.0-15.0 [facility] ([place]) Comment on above: Performed By: #### C OVD19, FLURSV #### [address] [address] Globulin 3.4 G/dL Normal [facility] ([place]) Comment on above: Performed By: #### C OVD19, FLURSV #### [address] [address] Glucose [Mass/Vol] 137 mg/dL High 70-105 [facility] ([place]) Comment on above: Performed By: #### C OVD19, FLURSV #### [address] [address] Potassium [Moles/Vol] 5.0 mmol/L Normal 3.5-5.1 [facility] ([place]) Comment on above: Performed By: #### C OVD19, FLURSV #### [facility] [address] [place], [place] [address] Sodium [Moles/Vol] 144 mmol/L Normal 136-145 [facility] ([place]) Comment on above: Performed By: #### C OVD19, FLURSV #### [address] [place], [place] [address] Total Protein 6.4 G/dL Normal 6.4-8.2 [facility] ([place]) Comment on above: Performed By: #### C OVD19, FLURSV #### [address] [place], [place] [address] Urea nitrogen [Mass/Vol] 11 mg/dL Normal 7-18 [facility] ([place]) Comment on above: Performed By: #### C OVD19, FLURSV #### [address] [address] LABORATORYOrdered By: Lalita Guerrero on 03-01-2022 Albumin [...] 03-01-2022 Magnesium [Mass/Vol] 2.1 mg/dL Normal 1.8-2.4 [facility] ([place]) Comment on above: Performed By: #### M G #### [address] [address] MYCOon 03-01-2022 Mycoplasma IgM Negative Normal [facility] ([place]) Comment on above: Result Comment: INTE RPRETATION OF MYCOPLASMA IgM: Negative: IgM to M. pneumoniae Absent, or at levels below the assay limit of detection. Positive: IgM to M. pneumoniae Present. Invalid: Test results are invalid due to invalid internal control. Assay was performed in duplicate. Repeat testing is suggested if clinically indicated. Performed By: #### M YCO #### [address] [address] #### CRP, DIMER #### [place] [address] [place], [place] [address] RESCVIDon 03-01-2022 Adenovirus Not detected Normal Not Detected [facility] ([place]) Comment on above: Result Comment: Call kaila De Paz at [facility] 02/28/2022 22:45:58 EST TLM Performed By: #### R ESCVID #### [place] [address] Bordetella Parapertussis Not detected Normal Not Detected [facility] ([place]) Comment on above: Performed By: #### R ESCVID #### [place] [id number] Bordetella Pertussis Not detected Normal Not Detected [facility] ([place]) Comment on above: Performed By: #### R ESCVID #### [address] [address] Chlamydophila pneumoniae Not detected Normal Not Detected [facility] ([place]) Comment on above: Performed By: #### R ESCVID #### [address] [address] Coronavirus 229E (Not COVID-19) Not detected Normal Not Detected [facility] ([place]) Comment on above: Performed By: #### R ESCVID #### [place] [id number] Coronavirus HKU1 (Not COVID-19) Not detected Normal Not Detected [facility] ([place]) Comment on above: Performed By: #### R ESCVID #### [address] [address] Coronavirus NL63 (Not COVID-19) Not detected Normal Not Detected [facility] ([place]) Comment on above: Performed By: #### R ESCVID #### [address] [address] Coronavirus OC43 (Not COVID-19) Not detected Normal Not Detected [facility] ([place]) Comment on above: Performed By: #### R ESCVID #### [facility] [address] [place] [address] Human Metapneumovirus Not detected Normal Not Detected [facility] ([place]) Comment on above: Performed By: #### R ESCVID #### [facility] [address] [place] [address] Influenza A Not detected Normal Not Detected [facility] ([place]) Comment on above: Performed By: #### R ESCVID #### [facility] [address] [place] [address] Influenza B Not detected Normal Not Detected [facility] ([place]) Comment on above: Performed By: #### R ESCVID #### [facility] [address] [place] [address] Mycoplasma pneumoniae Not detected Normal Not Detected [facility] ([place]) Comment on above: Performed By: #### R ESCVID #### [facility] [address] [place] [address] Parainfluenza 1 Not detected Normal Not Detected [facility] ([place]) Comment on above: Performed By: #### R ESCVID #### [facility] [address] [place] [address] Parainfluenza 2 Not detected Normal Not Detected [facility] ([place]) Comment on above: Performed By: #### R ESCVID #### [facility] [address] [place] [address] Parainfluenza 3 Detected Abnormal Not Detected [facility] ([place]) Comment on above: Performed By: #### R ESCVID #### [facility] [address] [place] [address] Parainfluenza 4 Not detected Normal Not Detected [facility] ([place]) Comment on above: Performed By: #### R ESCVID #### [facility] [address] [place] [address] Respiratory Syncytial Virus Not detected Normal Not Detected [facility] ([place]) Comment on above: Performed By: #### R ESCVID #### [facility] [address] [place] [address] Rhinovirus/Enterovirus Not detected Normal Not Detecte d [facility] ([place]) Comment on above: Performed By: #### R ESCVID #### [address] [address] SARS-CoV-2 (COVID-19) RNA RUSSEL+probe Ql (Unsp spec) Not detected Normal Not Detected [facility] ([place] Comment on above: Result Comment: This test is being used under the FDA EUA procedure. This assay has been validated in the [facility] for use with nasopharyngeal specimens in [facility]. If a non-validated specimen or test [...] authorities. Performed By: #### R ESCVID #### [address] [address] .Auto Diffon 02-28-2022 Basophil, Absolute 0.0 10 3/mcL Normal 0.0-0.2 [facility] ([place]) Comment on above: Performed By: #### M YCO #### [address] [address] #### CRP, DIMER #### [address] [address] Basophils/100 WBC (Bld) 0.3 % Normal 0.0-2.5 [facility] ([place]) Comment on above: Performed By: #### M YCO #### [address] [address] #### CRP, DIMER #### [address] [address] Eosinophil, Absolute 0.1 10 3/mcL Normal 0.0-0.4 [facility] ([place]) Comment on above: Performed By: #### M YCO #### [address] [address] #### CRP, DIMER #### [address] [address] Eosinophils/100 WBC (Bld) 0.6 % Normal 0.0-7.0 [facility] ([place]) Comment on above: Performed By: #### M YCO #### [address] [address] #### CRP, DIMER #### [address] [address] Lymphocyte, Absolute 0.5 10 3/mcL Low 0.8-3.9 [facility] ([place]) Comment on above: Performed By: #### M YCO #### [address] [address] #### CRP, DIMER #### [address] [address] Lymphocytes/100 WBC (Bld) 5.8 % Low 10.0-50.0 [facility] ([place]) Comment on above: Performed By: #### M YCO #### [address] [address] #### CRP, DIMER #### [address] [address] Monocyte, Absolute 0.4 10 3/mcL Normal 0.2-1.0 [facility] ([place]) Comment on above: Performed By: #### M YCO #### [address] [address] #### CRP, DIMER #### [address] [address] Monocytes/100 WBC (Bld) 3.9 % Normal 1.7-13.0 [facility] ([place]) Comment on above: Performed By: #### M YCO #### [address] [address] #### CRP, DIMER #### [address] [address] Neutrophils/100 WBC (Bld) 89.4 % High 37.0-80.0 [facility] ([place]) Comment on above: Performed By: #### M YCO #### [address] [address] #### CRP, DIMER #### [address] [address] .GFRon 02-28-2022 GFR 94 ml/min/1.73sqm Normal [facility] ([place]) Comment on above: Result Comment: GFR Population [...] Performed By: #### C OVD19, FLURSV #### [address] [address] GFR Non- 77 ml/min/1.73sqm Normal [facility] ([place]) Comment on above: Result Comment: GFR Population [...] Performed By: #### C OVD19, FLURSV #### [address] [address] .NEUABSon 02-28-2022 Neutrophil, Absolute 8.2 10 3/mcL High 2.9-6.2 [facility] ([place]) Comment on above: Performed By: #### M YCO #### [place] [address] #### CRP, DIMER #### [address] [address] APTTon 02-28-2022 aPTT Coag (Bld) [Time] 26.6 s Normal 24.1-34.9 [facility] ([place]) Comment on above: Result Comment: For Heparin anticoagulation therapy, the recommended therapeutic range is: 46.2-75.9 seconds (1.5 - 2.5 the normal plasma mean). Patients on heparin therapy may have an extreme result. Performed By: #### C OVD19, FLURSV #### [address] [address] Heparin dose (APTT) None Normal [facility] ([place] Comment on above: Performed By: #### C OVD19, FLURSV #### [address] [address] CBCon 02-28-2022 Erythrocyte distribution width (RBC) [Ratio] 15.9 % High 11.5-14.5 [facility] ([place]) Comment on above: Performed By: #### M YCO #### [place] [address] #### CRP, DIMER #### [address] [address] Hematocrit (Bld) [Volume fraction] 34.7 % Low 37.0-47.0 [facility] ([place]) Comment on above: Performed By: #### M YCO #### [address] [address] #### CRP, DIMER #### [address] [address] Hgb 11.3 G/dL Low 12.0-16.0 [facility] ([place] Comment on above: Performed By: #### M YCO #### [address] [address] #### CRP, DIMER #### [address] [address] MCH (RBC) [Entitic mass] 24.4 pg Low 27.0-31.2 [facility] ([place]) Comment on above: Performed By: #### M YCO #### [address] [address] [address] #### CRP, DIMER #### [place] [id number] MCHC 32.4 G/dL Low 33.0-37.0 [facility] ([place] Comment on above: Performed By: #### M YCO #### [address] [address] #### CRP, DIMER #### [address] [address] MCV (RBC) [Entitic vol] 75.3 fL Low 80.0-94.0 [facility] ([place]) Comment on above: Performed By: #### M YCO #### [address] [address] #### CRP, DIMER #### [address] [address] Platelet 180 10 3/mcL Normal 130-400 [facility] ([place] Comment on above: Performed By: #### M YCO #### [address] [address] #### CRP, DIMER #### [address] [address] Platelet mean volume (Bld) [Entitic vol] 9.1 fL Normal 7.4-10.4 [facility] ([place]) Comment on above: Performed By: #### M YCO #### [address] [address] #### CRP, DIMER #### [address] [address] RBC 4.61 10 6/mcL Normal 4.20-5.40 [facility] ([place]) Comment on above: Performed By: #### M YCO #### [place] [address] #### CRP, DIMER #### [address] [address] WBC 9.2 10 3/mcL Normal 4.6-10.8 [facility] ([place]) Comment on above: Performed By: #### M YCO #### [place] [address] #### CRP, DIMER #### [address] [address] CKon 02-28-2022 CK [Catalytic activity/Vol] 72 U/L Normal 26-192 [facility] ([place]) Comment on above: Performed By: #### C OVD19, FLURSV #### [address] [address] CMPon 02-28-2022 Albumin Level 3.1 G/dL Low 3.5-5.0 [facility] ([place]) Comment on above: Performed By: #### C OVD19, FLURSV #### [address] [address] Albumin/Globulin [Mass ratio] 1.0 {ratio} Low 1.1-2.5 [facility] ([place] Comment on above: Performed By: #### C OVD19, FLURSV #### [address] [address] ALP [Catalytic activity/Vol] 93 U/L Normal 40-135 [facility] ([place] Comment on above: Performed By: #### C OVD19, FLURSV #### [address] [address] ALT [Catalytic activity/Vol] 21 U/L Normal 14-59 [facility] ([place]) Comment on above: Performed By: #### C OVD19, FLURSV #### [address] [address] AST [Catalytic activity/Vol] 15 U/L Normal 10-40 [facility] ([place] Comment on above: Performed By: #### C OVD19, FLURSV #### [address] [address] Bili Total 0.3 mg/dL Normal 0.2-1.0 [facility] ([place]) Comment on above: Result Comment: Use of this assay is not recommended for patients undergoing treatment with eltrombopag due to the potential for falsely elevated results. Performed By: #### C OVD19, FLURSV #### [address] [address] BUN/Creatinine Ratio 13 ratio Normal 7-27 [facility] ([place]) Comment on above: Performed By: #### C OVD19, FLURSV #### [address] [address] Calcium [Mass/Vol] 8.8 mg/dL Normal 8.4-10.2 [facility] ([place]) Comment on above: Performed By: #### C OVD19, FLURSV #### [address] [address] Chloride [Moles/Vol] 101 mmol/L Normal 98-107 [facility] ([place]) Comment on above: Performed By: #### C OVD19, FLURSV #### [address] [address] CO2 [Moles/Vol] 27 mmol/L Normal 22-29 [facility] ([place]) Comment on above: Performed By: #### C OVD19, FLURSV #### [address] [address] Creatinine [Mass/Vol] 0.91 mg/dL Normal 0.55-1.02 [facility] ([place] Comment on above: Performed By: #### C OVD19, FLURSV #### [address] [address] Electrolyte Balance 8.0 mEq/L Normal 4.0-15.0 [facility] ([place] Comment on above: Performed By: #### C OVD19, FLURSV #### [address] [address] [address] Globulin 3.1 G/dL Normal [facility] ([place]) Comment on above: Performed By: #### C OVD19, FLURSV #### [address] [address] Glucose [Mass/Vol] 126 mg/dL High 70-105 [facility] ([place]) Comment on above: Performed By: #### C OVD19, FLURSV #### [address] [address] Potassium [Moles/Vol] 3.9 mmol/L Normal 3.5-5.1 [facility] ([place]) Comment on above: Performed By: #### C OVD19, FLURSV #### [address] [address] Sodium [Moles/Vol] 136 mmol/L Normal 136-145 [facility] ([place]) Comment on above: Performed By: #### C OVD19, FLURSV #### [address] [address] Total Protein 6.2 G/dL Low 6.4-8.2 [facility] ([place]) Comment on above: Performed By: #### C OVD19, FLURSV #### [facility] [address] [place], [place] [address] Urea nitrogen [Mass/Vol] 12 mg/dL Normal 7-18 [facility] ([place]) Comment on above: Performed By: #### C OVD19, FLURSV #### [facility] [address] [place], [place] [address] [id number] 02-28-2022 SARS-CoV-2 (COVID-19) RNA RUSSEL+probe Ql (Unsp spec) Negative Normal Negative [facility] ([place]) Comment on above: Performed By: #### R ESCVIBárbara #### [address] [address] SARS-CoV-2 (COVID-19) RNA RUSSEL+probe Ql (Unsp spec) Normal [facility] ([place]) Comment on above: Result Comment: Nega tive [...] tests. COVID-19 Int Performed By: #### R ESCLEONIDAS #### [address] [address] CRPon 02-28-2022 C-Reactive Protein 13.8 mg/dL High 0.0-0.9 [facility] ([place]) Comment on above: Performed By: #### M YCO #### [facility] [address] [place] [id number] #### CRP, DIMER #### [place] [id number] [place], [place] [address] CT ANGIOGRAPHY CHEST W/CONTR Rafa 02-28-2022 CT [...] 02/28/2022 5:16:37 AM Ordering Provider: ALEM López [facility] ([place]) DIMERon 02-28-2022 D-Dimer 301 ng/mL D-DU High 0-230 [facility] ([place]) Comment on above: Result Comment: The result [...] pulmonary embolism (PE). Performed By: #### R ESCVID #### [place] [address] D-Dimer 298 ng/mL D-DU High 0-230 [facility] ([place]) Comment on above: Result Comment: The result [...] (PE). Performed By: #### M YCO #### [place] [address] #### CRP, DIMER #### [address] [address] Evon 02-28-2022 Ferritin [Mass/Vol] 111.0 ng/mL Normal 8.0-252.0 [facility] ([place]) Comment on above: Performed By: #### C OVD19, FLURSV #### [address] [address] FLURSVon 02-28-2022 Flu A PCR (AO) Negative Normal Negative [facility] ([place]) Comment on above: Result Comment: Posi tive [...] virus (RSV) nucleic acid in nasopharyngeal swab (BOX PRINTING MACHINE OPERATOR) specimens from patients with signs and symptoms of respiratory infection in conjunction with clinical and laboratory findings. The test is intended for use as an aid in the differential diagnosis of influenza A virus, influenza B virus, and RSV in humans and is not intended to detect influenza C. Performed By: #### R JEF #### [place] [address] Flu B PCR (AO) Negative Normal Negative [facility] ([place]) Comment on above: Result Comment: Posi tive [...] virus (RSV) nucleic acid in nasopharyngeal swab (BOX PRINTING MACHINE OPERATOR) specimens from patients with signs and symptoms of respiratory infection in conjunction with clinical and laboratory findings. The test is intended for use as an aid in the differential diagnosis of influenza A virus, influenza B virus, and RSV in humans and is not intended to detect influenza C. Performed By: #### R ESCVID #### [address] [address] RSV PCR (AO) Negative Normal Negative [facility] ([place]) Comment on above: Result Comment: Posi [...] virus (RSV) nucleic acid in nasopharyngeal swab (BOX PRINTING MACHINE OPERATOR) specimens from patients with signs and symptoms of respiratory infection in conjunction with clinical and laboratory findings. The test is intended for use as an aid in the differential diagnosis of influenza A virus, influenza B virus, and RSV in humans and is not intended to detect influenza C. Performed By: #### R JEF #### [address] [address] LABORATORYOrdered By: Leela foster on 02-28-2022 Adenovirus DNA RUSSEL+non-probe Ql (Nph) Not Detected *NA* (02/28/22 11:36 AM) Invalid Interpretation Code Not Detected AH Auto Viro/Sero SS B. parapertussis [id number] DNA RUSSEL+non-probe Ql (Nph) Not Detected *NA* [...] Lactic Acid Lvl 0.6 mmol/L Normal 0.4-2.0 [facility] ([place]) Comment on above: Performed By: #### G FR, BMP #### [address] [place] [id number] [place], [place] [address] LDHon 02-28-2022 LDH 90 U/L Normal 81-234 [facility] ([place]) Comment on above: Performed By: #### C OVD19, FLURSV #### [place] [id number] [place], [place] [address] No Panel InformationOrdered By: Demetra Brizuela on 02-28-2022 Culture Respiratory with Gram Stain Normal respiratory kota present. Sensitivity testing not indicated. [facility] Comment on above: Requests for Mycopla sma, Legionella, Fungi, Mycobacteria, Chlamydia, and Viruses require ordering of those individual tests. GS Predominance of poly s 2+ Gram Positive Cocci [facility] Comment on above: Requests for Mycopla sma, Legionella, Fungi, Mycobacteria, Chlamydia, and Viruses require ordering of those individual tests. No Panel Informationon 02-28 Legionella Urine Ag Presumptive negative for L. pneumophila serogroup 1 antigen in urine, suggesting no recent or current infection. Legionnaire's disease cannot be ruled out since other serogroups and species may also cause disease. [facility] Streptococcus Pneumoniae Urine Antig Presumptive negative for pneumococcal pneumonia, suggesting no current or recent pneumococcal infection. Infection due to Strep pneumoniae cannot be ruled out since the antigen present in the sample may be below the detection limit of the test. [facility] Comment on above: This test has not [...] Routine cultures are held for 5 days. [facility] .Auto Diffon 02-27-2022 Basophil, Absolute 0.0 10 3/mcL Normal 0.0-0.2 [facility] ([place]) Comment on above: Performed By: #### M YCO #### [place] [address] #### CRP, DIMER #### [address] [address] Basophils/100 WBC (Bld) 0.3 % Normal 0.0-2.5 [facility] ([place]) Comment on above: Performed By: #### M YCO #### [place] [address] #### CRP, DIMER #### [address] [address] Eosinophil, Absolute 0.0 10 3/mcL Normal 0.0-0.4 [facility] ([place]) Comment on above: Performed By: #### M YCO #### [place] [address] #### CRP, DIMER #### [address] [address] Eosinophils/100 WBC (Bld) 0.1 % Normal 0.0-7.0 [facility] ([place]) Comment on above: Performed By: #### M YCO #### [place] [id number] #### CRP, DIMER #### [address] [address] Lymphocyte, Absolute 1.0 10 3/mcL Normal 0.8-3.9 [facility] ([place]) Comment on above: Performed By: #### M YCO #### [address] [address] #### CRP, DIMER #### [address] [address] Lymphocytes/100 WBC (Bld) 7.0 % Low 10.0-50.0 [facility] ([place]) Comment on above: Performed By: #### M YCO #### [place] [address] #### CRP, DIMER #### [address] [address] Monocyte, Absolute 1.4 10 3/mcL High 0.2-1.0 [facility] ([place]) Comment on above: Performed By: #### M YCO #### [place] [address] #### CRP, DIMER #### [address] [address] Monocytes/100 WBC (Bld) 9.7 % Normal 1.7-13.0 [facility] ([place]) Comment on above: Performed By: #### M YCO #### [place] [address] #### CRP, DIMER #### [address] [address] Neutrophils/100 WBC (Bld) 82.9 % High 37.0-80.0 [facility] ([place]) Comment on above: Performed By: #### M YCO #### [place] [address] #### CRP, DIMER #### [address] [address] .GFRon 02-27-2022 GFR 49 ml/min/1.73sqm Normal [facility] ([place]) Comment on above: Result Comment: GFR [...] meters Performed By: #### M YCO #### [place] [address] #### CRP, DIMER #### [address] [address] GFR Non- 40 ml/min/1.73sqm Normal [facility] ([place]) Comment on above: Result Comment: GFR Population [...] meters Performed By: #### M YCO #### [place] [address] #### CRP, DIMER #### [address] [address] .MDWon 02-27-2022 Monocyte Distribution Width 22.01 High 0.00-20.00 [facility] ([place]) Comment on above: Result Comment: For adults in ED, MDW>20.0 may be associated with a higher risk of sepsis during the first 12hrs of hospital admission Performed By: #### M YCO #### [place] [address] #### CRP, DIMER #### [address] [address] .NEUABSon 02-27-2022 Neutrophil, Absolute 11.9 10 3/mcL High 2.9-6.2 [facility] ([place]) Comment on above: Performed By: #### M YCO #### [place] [address] #### CRP, DIMER #### [address] [address] BMPon 02-27-2022 BUN/Creatinine Ratio 11 ratio Normal 7-27 [facility] ([place]) Comment on above: Performed By: #### M YCO #### [place] [address] #### CRP, DIMER #### [address] [address] Calcium [Mass/Vol] 9.6 mg/dL Normal 8.4-10.2 [facility] ([place]) Comment on above: Performed By: #### M YCO #### [place] [address] #### CRP, DIMER #### [address] [address] Chloride [Moles/Vol] 99 mmol/L Normal 98-107 [facility] ([place] Comment on above: Performed By: #### M YCO #### [place] [address] #### CRP, DIMER #### [address] [address] CO2 [Moles/Vol] 29 mmol/L Normal 22-29 [facility] ([place]) Comment on above: Performed By: #### M YCO #### [place] [address] #### CRP, DIMER #### [address] [address] Creatinine [Mass/Vol] 1.60 mg/dL High 0.55-1.02 [facility] ([place]) Comment on above: Performed By: #### M YCO #### [address] [address] #### CRP, DIMER #### [address] [address] Electrolyte Balance 10.0 mEq/L Normal 4.0-15.0 [facility] ([place]) Comment on above: Performed By: #### M YCO #### [place] [address] #### CRP, DIMER #### [address] [address] Glucose [Mass/Vol] 107 mg/dL High 70-105 [facility] ([place]) Comment on above: Performed By: #### M YCO #### [place] [address] #### CRP, DIMER #### [address] [address] Potassium [Moles/Vol] 3.3 mmol/L Low 3.5-5.1 [facility] ([place]) Comment on above: Performed By: #### M YCO #### [place] [address] #### CRP, DIMER #### [address] [address] Sodium [Moles/Vol] 138 mmol/L Normal 136-145 [facility] ([place] Comment on above: Performed By: #### M YCO #### [place] [address] #### CRP, DIMER #### [address] [address] Urea nitrogen [Mass/Vol] 17 mg/dL Normal 7-18 [facility] ([place]) Comment on above: Performed By: #### M YCO #### [place] [id number] #### CRP, DIMER #### [address] [address] CBCon 02-27-2022 Erythrocyte distribution width (RBC) [Ratio] 15.8 % High 11.5-14.5 [facility] ([place] Comment on above: Performed By: #### M YCO #### [place] [address] #### CRP, DIMER #### [address] [address] Hematocrit (Bld) [Volume fraction] 40.5 % Normal 37.0-47.0 [facility] ([place] Comment on above: Performed By: #### M YCO #### [place] [address] #### CRP, DIMER #### [place] [id number] Hgb 13.1 G/dL Normal 12.0-16.0 [facility] ([place] Comment on above: Performed By: #### M YCO #### [place] [address] #### CRP, DIMER #### [place] [phone] MCH (RBC) [Entitic mass] 24.5 pg Low 27.0-31.2 [facility] ([place] Comment on above: Performed By: #### M YCO #### [place] [address] #### CRP, DIMER #### [place] [phone] MCHC 32.3 G/dL Low 33.0-37.0 [facility] ([place] Comment on above: Performed By: #### M YCO #### [place] [address] #### CRP, DIMER #### [place] [phone] MCV (RBC) [Entitic vol] 75.7 fL Low 80.0-94.0 [facility] ([place]) Comment on above: Performed By: #### M YCO #### [place] [address] #### CRP, DIMER #### [address] [address] Platelet 256 10 3/mcL Normal 130-400 [facility] ([place]) Comment on above: Performed By: #### M YCO #### [address] [address] #### CRP, DIMER #### [address] [address] Platelet mean volume (Bld) [Entitic vol] 9.2 fL Normal 7.4-10.4 [facility] ([place]) Comment on above: Performed By: #### M YCO #### [place] [address] #### CRP, DIMER #### [place] [address] RBC 5.35 10 6/mcL Normal 4.20-5.40 [facility] ([place]) Comment on above: Performed By: #### M YCO #### [place] [address] #### CRP, DIMER #### [address] [address] WBC 14.3 10 3/mcL High 4.6-10.8 [facility] ([place]) Comment on above: Performed By: #### M YCO #### [place] [address] #### CRP, DIMER #### [address] [address] LABORATORYOrdered By: Cathi Patel on 02-27-2022 Monocyte distribution width Auto (Bld) [Entitic vol] 22.01 Invalid Interpretation Code 0.00 - 20.00 AO Workflow SS Comment on above: Result Comment: For adults in ED, MDW>20.0 may be associated with a higher risk of sepsis during the first 12hrs of hospital admission XR CHEST 2 VIEWSon XR CHEST 2 VIEWS ORIGINAL EXAMINATION: TWO [...] 02/27/2022 6:25:24 PM Ordering Provider: ROSSY PERKINS Normal [facility]) [facility] 02-22-2022 Mycoplasma IgG Positive Normal [facility]) Comment on above: Result Comment: INTE RPRETATION OF MYCOPLASMA IgG BY EIA: Negative: No detectable M. pneumoniae IgG antibody. Positive: Mycoplasma pneumoniae IgG antibody Detected. Equivocal: Equivocal for IgG antibodies to Mycoplasma pneumoniae. Suggest repeat testing in 10-14 days. Performed By: #### R ESCVID #### [address] 02-21-2022 Mycoplasma IgM Negative Normal [facility]) Comment on above: Result Comment: INTE RPRETATION OF MYCOPLASMA IgM: Negative: IgM to M. pneumoniae Absent, or at levels below the assay limit of detection. Positive: IgM to M. pneumoniae Present. Invalid: Test results are invalid due to invalid internal control. Assay was performed in duplicate. Repeat testing is suggested if clinically indicated. Performed By: #### R ESCVID #### [place] [address] .Auto Diffon 02-20-2022 Basophil, Absolute 0.0 10 3/mcL Normal 0.0-0.2 [facility]) Comment on above: Performed By: #### Ilia FUENTES, BMP #### [facility] [address] [address] Basophils/100 WBC (Bld) 0.1 % Normal 0.0-2.5 [facility]) Comment on above: Performed By: #### Ilia FUENTES, BMP #### [address] [address] Eosinophil, Absolute 0.0 10 3/mcL Normal 0.0-0.4 [facility] ([place] Comment on above: Performed By: #### G FR, BMP #### [address] [address] Eosinophils/100 WBC (Bld) 0.2 % Normal 0.0-7.0 [facility] ([place] Comment on above: Performed By: #### Ilia FUENTES, BMP #### [address] [address] Lymphocyte, Absolute 0.6 10 3/mcL Low 0.8-3.9 [facility] ([place] Comment on above: Performed By: #### Ilia FUENTES, BMP #### [address] [address] Lymphocytes/100 WBC (Bld) 5.2 % Low 10.0-50.0 [facility] ([place] Comment on above: Performed By: #### Ilia FUENTES, BMP #### [address] [address] Monocyte, Absolute 0.5 10 3/mcL Normal 0.2-1.0 [facility] ([place] Comment on above: Performed By: #### Ilia FUENTES, BMP #### [address] [address] Monocytes/100 WBC (Bld) 4.6 % Normal 1.7-13.0 [facility] ([place] Comment on above: Performed By: #### Ilia FUENTES, BMP #### [address] [address] Neutrophils/100 WBC (Bld) 89.9 % High 37.0-80.0 [facility] ([place] Comment on above: Performed By: #### Ilia FUENTES, BMP #### [address] [address] .GFRon 02-20-2022 GFR Non- 77 ml/min/1.73sqm Normal [facility] ([place] Comment on above: Result Comment: GFR Population [...] meters Performed By: #### M YCO #### [place] [address] #### CRP, DIMER #### [address] [address] GFR 94 ml/min/1.73sqm Normal [facility] ([place] Comment on above: Result Comment: GFR Population [...] meters Performed By: #### M YCO #### [place] [address] #### CRP, DIMER #### [address] [address] .NEUABSon 02-20-2022 Neutrophil, Absolute 10.3 10 3/mcL High 2.9-6.2 [facility] ([place] Comment on above: Performed By: #### G FR, BMP #### [address] [address] BMPon 02-20-2022 BUN/Creatinine Ratio 18 ratio Normal 7-27 [facility] ([place]) Comment on above: Performed By: #### M YCO #### [place] [id number] #### CRP, DIMER #### [address] [address] Calcium [Mass/Vol] 9.1 mg/dL Normal 8.4-10.2 [facility] ([place]) Comment on above: Performed By: #### M YCO #### [place] [address] #### CRP, DIMER #### [address] [address] Chloride [Moles/Vol] 105 mmol/L Normal 98-107 [facility] ([place] Comment on above: Performed By: #### M YCO #### [place] [address] #### CRP, DIMER #### [address] [address] CO2 [Moles/Vol] 23 mmol/L Normal 22-29 [facility] ([place] Comment on above: Performed By: #### M YCO #### [place] [address] #### CRP, DIMER #### [address] [address] Creatinine [Mass/Vol] 0.91 mg/dL Normal 0.55-1.02 [facility] ([place] Comment on above: Performed By: #### M YCO #### [place] [address] #### CRP, DIMER #### [address] [address] Electrolyte Balance 12.0 mEq/L Normal 4.0-15.0 [facility] ([place]) Comment on above: Performed By: #### M YCO #### [place] [address] #### CRP, DIMER #### [address] [address] Glucose [Mass/Vol] 126 mg/dL High 70-105 [facility] ([place] Comment on above: Performed By: #### M YCO #### [address] [address] #### CRP, DIMER #### [address] [address] Potassium [Moles/Vol] 4.5 mmol/L Normal 3.5-5.1 [facility] ([place] Comment on above: Performed By: #### M YCO #### [address] [address] #### CRP, DIMER #### [place] [phone] Sodium [Moles/Vol] 140 mmol/L Normal 136-145 [facility] ([place] Comment on above: Performed By: #### M YCO #### [address] [address] #### CRP, DIMER #### [place] [phone] Urea nitrogen [Mass/Vol] 16 mg/dL Normal 7-18 [facility] ([place] Comment on above: Performed By: #### M YCO #### [address] [address] #### CRP, DIMER #### [address] [address] CBCon 02-20-2022 Erythrocyte distribution width (RBC) [Ratio] 16.3 % High 11.5-14.5 [facility] ([place] Comment on above: Performed By: #### G FR, BMP #### [address] [address] Hematocrit (Bld) [Volume fraction] 37.4 % Normal 37.0-47.0 [facility] ([place] Comment on above: Performed By: #### G FR, BMP #### [place] [id number] Hgb 12.1 G/dL Normal 12.0-16.0 [facility] ([place] Comment on above: Performed By: #### Ilia FUENTES, BMP #### [address] [address] MCH (RBC) [Entitic mass] 24.6 pg Low 27.0-31.2 [facility] ([place] Comment on above: Performed By: #### Ilia FUENTES, BMP #### [facility] [address] [address] MCHC 32.5 G/dL Low 33.0-37.0 [facility] ([place] Comment on above: Performed By: #### Ilia FUENTES, BMP #### [address] [address] MCV (RBC) [Entitic vol] 75.8 fL Low 80.0-94.0 [facility] ([place] Comment on above: Performed By: #### Ilia FUENTES, BMP #### [address] [address] Platelet 204 10 3/mcL Normal 130-400 [facility] ([place] Comment on above: Performed By: #### Ilia FUENTES, BMP #### [address] [address] Platelet mean volume (Bld) [Entitic vol] 10.0 fL Normal 7.4-10.4 [facility] ([place] Comment on above: Performed By: #### Ilia FUENTES, BMP #### [address] [address] RBC 4.93 10 6/mcL Normal 4.20-5.40 [facility] ([place] Comment on above: Performed By: #### Ilia FUENTES, BMP #### [facility] [address] [address] WBC 11.5 10 3/mcL High 4.6-10.8 [facility] ([place] Comment on above: Performed By: #### Ilia FUENTES, BMP #### [address] [address] LABORATORYOrdered By: Landon Lombardo on 02-20-2022 Basophil, [...] Basophil, Absolute 0.0 10 3/mcL Normal 0.0-0.2 [facility] ([place]) Comment on above: Performed By: #### M G #### [address] [address] Basophils/100 WBC (Bld) 0.2 % Normal 0.0-2.5 [facility] ([place] Comment on above: Performed By: #### M G #### [address] [address] Eosinophil, Absolute 0.0 10 3/mcL Normal 0.0-0.4 [facility] ([place] Comment on above: Performed By: #### M G #### [address] [address] Eosinophils/100 WBC (Bld) 0.3 % Normal 0.0-7.0 [facility] ([place] Comment on above: Performed By: #### M G #### [address] [address] Lymphocyte, Absolute 0.4 10 3/mcL Low 0.8-3.9 [facility] ([place] Comment on above: Performed By: #### M G #### [address] [address] Lymphocytes/100 WBC (Bld) 9.5 % Low 10.0-50.0 [facility] ([place] Comment on above: Performed By: #### M G #### [address] [address] Monocyte, Absolute 0.1 10 3/mcL Low 0.2-1.0 [facility] ([place] Comment on above: Performed By: #### M G #### [address] [address] Monocytes/100 WBC (Bld) 1.3 % Low 1.7-13.0 [facility] ([place] Comment on above: Performed By: #### M G #### [address] [address] Neutrophils/100 WBC (Bld) 88.7 % High 37.0-80.0 [facility] ([place] Comment on above: Performed By: #### M G #### [address] [address] .GFRon 02-19-2022 GFR 104 ml/min/1.73sqm Normal [facility] ([place] Comment on above: Result Comment: GFR Population [...] meters Performed By: #### M G #### [address] [address] GFR Non- 86 ml/min/1.73sqm Normal [facility] ([place] Comment on above: Result Comment: GFR Population [...] meters Performed By: #### M G #### [address] [address] GFR Non- 74 ml/min/1.73sqm Normal [facility] ([place] Comment on above: Result Comment: GFR Population [...] 15 mL/min/1.73 square meters Performed By: #### [place] OVD19, FLURSV #### [address] [address] GFR 89 ml/min/1.73sqm Normal [facility] ([place] Comment on above: Result Comment: GFR Population [...] 15 mL/min/1.73 square meters Performed By: #### [place] OVD19, FLURSV #### [address] [address] .NEUABSon 02-19-2022 Neutrophil, Absolute 3.8 10 3/mcL Normal 2.9-6.2 [facility] ([place] Comment on above: Performed By: #### Socrates Morillo #### [address] [address] BMPon 02-19-2022 BUN/Creatinine Ratio 11 ratio Normal 7-27 [facility] ([place] Comment on above: Performed By: #### Socrates G #### [address] [address] Calcium [Mass/Vol] 9.0 mg/dL Normal 8.4-10.2 [facility] ([place] Comment on above: Performed By: #### Socrates G #### [address] [address] Chloride [Moles/Vol] 105 mmol/L Normal 98-107 [facility] ([place] Comment on above: Performed By: #### Socrates G #### [address] [address] CO2 [Moles/Vol] 26 mmol/L Normal 22-29 [facility] ([place] Comment on above: Performed By: #### M G #### [address] [address] Creatinine [Mass/Vol] 0.83 mg/dL Normal 0.55-1.02 [facility] ([place] Comment on above: Performed By: #### M G #### [address] [address] Electrolyte Balance 9.0 mEq/L Normal 4.0-15.0 [facility] ([place] Comment on above: Performed By: #### M G #### [address] [address] Glucose [Mass/Vol] 149 mg/dL High 70-105 [facility] ([place] Comment on above: Performed By: #### M G #### [address] [address] Potassium [Moles/Vol] 4.8 mmol/L Normal 3.5-5.1 [facility] ([place] Comment on above: Performed By: #### M G #### [address] [address] Sodium [Moles/Vol] 140 mmol/L Normal 136-145 [facility] ([place] Comment on above: Performed By: #### M G #### [address] [address] Urea nitrogen [Mass/Vol] 9 mg/dL Normal 7-18 [facility] ([place] Comment on above: Performed By: #### M G #### [address] [address] BUN/Creatinine Ratio 13 ratio Normal 7-27 [facility] ([place] Comment on above: Performed By: #### C OVD19, FLURSV #### [address] [address] Calcium [Mass/Vol] 9.1 mg/dL Normal 8.4-10.2 [facility] ([place] Comment on above: Performed By: #### [place] GONZALEZ, FLURSV #### [address] [address] Chloride [Moles/Vol] 102 mmol/L Normal 98-107 [facility] ([place] Comment on above: Performed By: #### [place] GONZALEZ, FLURSV #### [address] [address] CO2 [Moles/Vol] 25 mmol/L Normal 22-29 [facility] ([place]) Comment on above: Performed By: #### Madison GONZALEZ, FLURSV #### [address] [address] Creatinine [Mass/Vol] 0.95 mg/dL Normal 0.55-1.02 [facility] ([place]) Comment on above: Performed By: #### Madison GONZALEZ, FLURSV #### [address] [address] Electrolyte Balance 11.0 mEq/L Normal 4.0-15.0 [facility] ([place]) Comment on above: Performed By: #### Madison GONZALEZ, FLURSV #### [address] [address] Glucose [Mass/Vol] 92 mg/dL Normal 70-105 [facility] ([place]) Comment on above: Performed By: #### C NEMESIO9, FLURSV #### [address] [address] Potassium [Moles/Vol] 3.7 mmol/L Normal 3.5-5.1 [facility] ([place]) Comment on above: Performed By: #### C OVRachel9, FLURSV #### [address] [address] Sodium [Moles/Vol] 138 mmol/L Normal 136-145 [facility] ([place]) Comment on above: Performed By: #### C OVRachel9, FLURSV #### [address] [address] Urea nitrogen [Mass/Vol] 12 mg/dL Normal 7-18 [facility] ([place]) Comment on above: Performed By: #### C OVD19, FLURSV #### [address] [address] CBCon 02-19-2022 Erythrocyte distribution width (RBC) [Ratio] 15.8 % High 11.5-14.5 [facility] ([place]) Comment on above: Performed By: #### M G #### [address] [address] Hematocrit (Bld) [Volume fraction] 40.1 % Normal 37.0-47.0 [facility] ([place]) Comment on above: Performed By: #### M G #### [address] [address] Hgb 13.0 G/dL Normal 12.0-16.0 [facility] ([place]) Comment on above: Performed By: #### M G #### [address] [address] MCH (RBC) [Entitic mass] 24.6 pg Low 27.0-31.2 [facility] ([place]) Comment on above: Performed By: #### M G #### [address] [address] MCHC 32.4 G/dL Low 33.0-37.0 [facility] ([place] Comment on above: Performed By: #### M G #### [address] [address] MCV (RBC) [Entitic vol] 75.9 fL Low 80.0-94.0 [facility] ([place]) Comment on above: Performed By: #### M G #### [address] [address] Platelet 181 10 3/mcL Normal 130-400 [facility] ([place]) Comment on above: Performed By: #### M G #### [id number] [place], [place] [address] Platelet mean volume (Bld) [Entitic vol] 10.5 fL High 7.4-10.4 [facility] ([place]) Comment on above: Performed By: #### M G #### [address] [address] RBC 5.28 10 6/mcL Normal 4.20-5.40 [facility] ([place] Comment on above: Performed By: #### M G #### [address] [address] WBC 4.3 10 3/mcL Low 4.6-10.8 [facility] ([place] Comment on above: Performed By: #### M G #### [address] [address] [id number] 02-19-2022 SARS-CoV-2 (COVID-19) RNA RUSSEL+probe Ql (Unsp spec) Negative Normal Negative [facility] ([place]) Comment on above: Performed By: #### C OVD19, FLURSV #### [address] [address] SARS-CoV-2 (COVID-19) RNA RUSSEL+probe Ql (Unsp spec) Normal [facility] ([place]) Comment on above: Result Comment: Nega tive [...] Performed By: #### C OVD19, FLURSV #### [address] [place], [place] [address] FLURSVon 02-19-2022 Flu A PCR (AO) Negative Normal Negative [facility] ([place]) Comment on above: Result Comment: Posi [...] REPEAT COLLECTION AND TESTING IS RECOMMENDED. The Axela Flu A/B & RSV Assay is a real-time polymerase chain reaction (PCR) based qualitative in vitro diagnostic test for the direct detection and differentiation of influenza A virus, influenza B virus, and respiratory syncytial virus (RSV) nucleic acid in nasopharyngeal swab (BOX PRINTING MACHINE OPERATOR) specimens from patients with signs and symptoms of respiratory infection in conjunction with clinical and laboratory findings. The test is intended for use as an aid in the differential diagnosis of influenza A virus, influenza B virus, and RSV in humans and is not intended to detect influenza C. Performed By: #### C OVD19, FLURSV #### [address] [place], [place] [address] Flu B PCR (AO) Negative Normal Negative [facility] ([place]) Comment on above: Result Comment: Posi [...] virus (RSV) nucleic acid in nasopharyngeal swab (BOX PRINTING MACHINE OPERATOR) specimens from patients with signs and symptoms of respiratory infection in conjunction with clinical and laboratory findings. The test is intended for use as an aid in the differential diagnosis of influenza A virus, influenza B virus, and RSV in humans and is not intended to detect influenza C. Performed By: #### C OVD19, FLURSV #### [place] [address] RSV PCR (AO) Negative Normal Negative [facility] ([place]) Comment on above: Result Comment: Posi tive [...] virus (RSV) nucleic acid in nasopharyngeal swab (BOX PRINTING MACHINE OPERATOR) specimens from patients with signs and symptoms of respiratory infection in conjunction with clinical and laboratory findings. The test is intended for use as an aid in the differential diagnosis of influenza A virus, influenza B virus, and RSV in humans and is not intended to detect influenza C. Performed By: #### C OVD19, FLURSV #### [place] [address] LABORATORYOrdered By: Cathi Patel on 02-19-2022 Basophil, [...] 02-19-2022 Magnesium [Mass/Vol] 2.2 mg/dL Normal 1.8-2.4 [facility] ([place]) Comment on above: Performed By: #### C OVD19, FLURSV #### [address] [place] [address] No Panel Informationon 02-19 Legionella Urine Ag Presumptive negative for L. pneumophila serogroup 1 antigen in urine, suggesting no recent or current infection. Legionnaire's disease cannot be ruled out since other serogroups and species may also cause disease. [facility] Streptococcus Pneumoniae Urine Antig Presumptive negative for pneumococcal pneumonia, suggesting no current or recent pneumococcal infection. Infection due to Strep pneumoniae cannot be ruled out since the antigen present in the sample may be below the detection limit of the test. [facility] Comment on above: This test has not be en evaluated on patients taking antibiotics for greater than 24 hours or on patients who have recently completed an antibiotic regimen. The accuracy of this test has not been proven in young children. .Auto Diffon 02-18-2022 Basophil, Absolute 0.1 10 3/mcL Normal 0.0-0.2 [facility] ([place]) Comment on above: Performed By: #### C OVD19, FLURSV #### [address] [address] Basophils/100 WBC (Bld) 0.7 % Normal 0.0-2.5 [facility] ([place]) Comment on above: Performed By: #### C OVD19, FLURSV #### [address] [address] Eosinophil, Absolute 0.9 10 3/mcL High 0.0-0.4 [facility] ([place]) Comment on above: Performed By: #### C OVD19, FLURSV #### [address] [address] Eosinophils/100 WBC (Bld) 9.7 % High 0.0-7.0 [facility] ([place]) Comment on above: Performed By: #### C OVD19, FLURSV #### [address] [address] Lymphocyte, Absolute 1.3 10 3/mcL Normal 0.8-3.9 [facility] ([place]) Comment on above: Performed By: #### C OVD19, FLURSV #### [address] [address] Lymphocytes/100 WBC (Bld) 14.8 % Normal 10.0-50.0 [facility] ([place] Comment on above: Performed By: #### Madison OVRachel9, FLURSV #### [address] [address] Monocyte, Absolute 0.5 10 3/mcL Normal 0.2-1.0 [facility] ([place]) Comment on above: Performed By: #### Madison OVJaqueline, FLURSV #### [address] [address] Monocytes/100 WBC (Bld) 5.4 % Normal 1.7-13.0 [facility] ([place]) Comment on above: Performed By: #### Madison GONZALEZ, FLURSV #### [address] [address] Neutrophils/100 WBC (Bld) 69.4 % Normal 37.0-80.0 [facility] ([place] Comment on above: Performed By: #### Madison GONZALEZ, FLURSV #### [address] [address] .MDWon 02-18-2022 Monocyte Distribution Width 18.38 Normal 0.00-20.00 [facility] ([place]) Comment on above: Result Comment: For ED adult patients suspected of sepsis, MDW<=20.0 does not rule out sepsis or risk of sepsis Performed By: #### Madison GONZALEZ, FLURSV #### [address] [address] .NEUABSon 02-18-2022 Neutrophil, Absolute 6.3 10 3/mcL High 2.9-6.2 [facility] ([place]) Comment on above: Performed By: #### Madison OVRachel9, FLURSV #### [address] [address] CBCon 02-18-2022 Erythrocyte distribution width (RBC) [Ratio] 15.6 % High 11.5-14.5 [facility] ([place]) Comment on above: Performed By: #### Madison GONZALEZ, FLURSV #### [address] [address] Hematocrit (Bld) [Volume fraction] 39.7 % Normal 37.0-47.0 [facility] ([place] Comment on above: Performed By: #### C OVD19, FLURSV #### [address] [address] Hgb 13.0 G/dL Normal 12.0-16.0 [facility] ([place] Comment on above: Performed By: #### C OVD19, FLURSV #### [address] [address] MCH (RBC) [Entitic mass] 24.9 pg Low 27.0-31.2 [facility] ([place] Comment on above: Performed By: #### C OVD19, FLURSV #### [place] [address] MCHC 32.7 G/dL Low 33.0-37.0 [facility] ([place] Comment on above: Performed By: #### C OVD19, FLURSV #### [address] [address] MCV (RBC) [Entitic vol] 76.2 fL Low 80.0-94.0 [facility] ([place] Comment on above: Performed By: #### C OVD19, FLURSV #### [address] [address] Platelet 149 10 3/mcL Normal 130-400 [facility] ([place]) Comment on above: Performed By: #### C OVD19, FLURSV #### [address] [address] Platelet mean volume (Bld) [Entitic vol] 10.5 fL High 7.4-10.4 [facility] ([place]) Comment on above: Performed By: #### C OVD19, FLURSV #### [place] [id number] RBC 5.22 10 6/mcL Normal 4.20-5.40 [facility] ([place]) Comment on above: Performed By: #### C OVD19, FLURSV #### [id number] [place], [place] [address] WBC 9.1 10 3/mcL Normal 4.6-10.8 [facility] ([place]) Comment on above: Performed By: #### C OVD19, FLURSV #### [address] [place], [place] [address] LABORATORYOrdered By: Symone Goodwin on 02-18-2022 Basophil, [...] 02/18/2022 9:29:14 PM Ordering Provider: JESSIKA WORTHINGTON [facility] ([place]) Absolute lymphocyte counton 12-31-2021 Lymphocytes Auto (Unsp spec) [#/Vol] 1.09 10*3/uL 0.83-4.51 [facility] Work Phone: Basophil percentageon 2021 Basophils/100 WBC (Bld) 1.3 % 0-1 [facility] Work Phone: Chloride [Moles/Vol] 105 mmol/L 98-107 [facility] Work Phone: Eosinophils/100 WBC (Bld) 17.6 % 0-5 [facility] Work Phone: Glucose [Mass/Vol] 98 mg/dL 74-106 [facility] Work Phone: Neutrophils (Bld) [#/Vol] 4.5 10*3/uL 2.0-7.7 [facility] Work Phone: Neutrophils/100 WBC (Bld) 57.8 % 47-70 [facility] Work Phone: Potassium [Moles/Vol] 4.1 mmol/L 3.5-5.1 [facility] Work Phone: Comment on above: Slight Hemolysis, Re sult may be falsely increased. Sodium [Moles/Vol] 140 mmol/L 136-145 [facility] Work Phone: WBC (Bld) [#/Vol] 7.8 10*3/uL 4.4-11.0 [facility] Work Phone: Blood erythrocytes count (nu mber/volume)on 12-31-2021 RBC (Bld) [#/Vol] 5.15 10*6/uL 4.2-5.4 [facility] Work Phone: Blood hemoglobin measurement (mass/volume)on 12-31-2021 Hemoglobin (Bld) [Mass/Vol] 13.4 g/dL 12.0-15.0 [facility] Work Phone: Blood lymphocytes/100 leukoc yteson 12-31-2021 Lymphocytes/100 WBC (Bld) 13.9 % 19-41 [facility] Work Phone: Blood monocytes/100 leukocyt eson 12-31-2021 Monocytes/100 WBC (Bld) 9.3 % 0-10 [facility] Work Phone: Blood platelet mean volumeon 12-31-2021 Platelet mean volume (Bld) [Entitic vol] 11.9 fL 6.2-12.0 [facility] Work Phone: Determination of erythrocyte mean corpuscular volume (MCV)on 12-31-2021 MCV (RBC) [Entitic vol] 79.6 fL 81-99 [facility] Work Phone: Hematocrit Auto (Bld) [Volum e fraction]on 12-31-2021 Hematocrit (Bld) [Volume fraction] 41.0 % 37-47 [facility] Work Phone: Laboratory - Chemistry and C hemistry - challengeon 12-31-2021 CO2 [Moles/Vol] 24.0 mmol/L 21.0-32.0 [facility] Work Phone: Urea nitrogen/Creatinine [Mass ratio] 11.9 mg/mg 10-20 [facility] Work Phone: Laboratory - Hematology and Cell countson 12-31-2021 Erythrocyte distribution width (RBC) [Entitic vol] 39.6 fL 35.1-43.9 [facility] Work Phone: Erythrocyte distribution width (RBC) [Ratio] 13.7 % 11.6-14.6 [facility] Work Phone: Immature granulocytes/100 WBC (Bld) 0.100 % 0.0-0.9 [facility] Work Phone: Comment on above: IG% - Immature Granu locytes (promyelocytes, myelocytes and metamyelocytes) > 1% indicates that a LEFT SHIFT is Present. MCH (RBC) [Entitic mass] 26.0 pg 27.0-32.0 [facility] Work Phone: Nucleated RBC/100 WBC (Bld) [Ratio] 0 % 0-5 [facility] Work Phone: MCHC Auto (RBC) [Mass/Vol]on 12-31-2021 MCHC (RBC) [Mass/Vol] 32.7 g/dL 32-36 [facility] Work Phone: No Panel Informationon 12-31 Estimated Creatinine Clearance Calc 96.76 ml/min [facility] Work Phone: Estimated GFR (MDRD) Amer 98 mL/min >60 [facility] Work Phone: Comment on above: GFR Calc Estimated GFR (MDRD) Non-Af Amer 81 mL/min >60 [facility] Work Phone: Comment on above: Non- GFR Calc Platelets bldon 12-31-2021 Platelets (Bld) [#/Vol] 214 10*3/uL 150-450 [facility] Work Phone: Serum or plasma calcium ariel urement (mass/volume)on 12-31-2021 Calcium [Mass/Vol] 9.3 mg/dL 8.5-10.1 [facility] Work Phone: Serum or plasma creatinine m easurement (mass/volume)on 12-31-2021 Creatinine [Mass/Vol] 0.92 mg/dL 0.55-1.02 [facility] Work Phone: Comment on above: The validity of the calculated GFR & GFRAA in patients over 70 years has not been determined. Clinical correlation is essential. Serum or plasma urea nitroge n measurement (mass/volume)on 12-31-2021 Urea nitrogen [Mass/Vol] 11 mg/dL 11-09 [facility] Work Phone: Thin prep Papanicolaou smear with manual screeningon 12-31-2021 Thin prep Papanicolaou smear with manual screening 11 - [facility] Work Phone: CNOVon 10-30-2018 CNOV Office Visit ([facility]AGAK ) TACOS BLANC ([id number]) 89 F Date Time Provider Department 10/30/18 [...] - No Known Problems Father - other ([place]) Paternal Grandmother - Heart Paternal Grandfather - [...] Hip Extension 5/5 5/5 BiFem (Knee Flex) 08/27 08/27 Quads (Knee Ext) 08/27 08/27 Gastroc (Plantflx) 08/27 08/27 TibAnt (Dorsiflx) 08/27 08/27 TibPost (Ank Add) 08/27 08/27 Ankle Eversion 08/27 08/27 Ankle Inversion 08/27 08/27 FlxHLong (Toe Flex) 08/27 08/27 ExtHLong (Toe Ext) 08/27 08/27 ? Sensory Examination Sensation is intact throughout to proprioception, pin-prick [pain], light touch and vibratory sense. REFLEXES RIGHT LEFT Bicep 05/29 05/29 Tricep /05/29 BrRad /05/29 Knee /05/29 Ankle /05/29 Plantar Response Downward response Downward response Vela Response Negative Negative ? Coordination: Finger-to- nose-finger intact bilaterally and Szhm-ry-osrt intact bilaterally. ? Gait: Patient's gait is [...] 30, 2018 TIME: 10:40 AM PAGER/CONTACT #: [phone] Referring Provider: KRISTEN PUGH [[id number]] Allergies As of Date: 10/30/2018 Noted Allergy [...] List As Of Date 10/30/2018 Noted Resolved Renzo Schlatter's disease INVALID FOR* Migraine [G43.909] INVALID [...] Status:Closed by SHON SARMIENTO MD on 10/30/18 [facility] HISTORY PHYSICALon HISTORY PHYSICAL HNO ID: [id number] Author: Shon Sarmiento Service: ? 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 - PMH - [...] - No Known Problems Father - other ([place]) Paternal Grandmother - Heart Paternal Grandfather - [...] 5/5 5/5 Triceps 5/5 5/5 Wrist Extension 08/27 08/27 Wrist Flexion 08/27 08/27 Finger Flexion 08/27 08/27 Finger Extension 08/27 08/27 Finger Abd 08/27 08/27 Finger Add 08/27 08/27 MUSCLES - Lower Extremity RIGHT LEFT Hip Flexion 08/27 08/27 Hip Extension 08/27 08/27 BiFem (Knee Flex) 08/27 08/27 Quads (Knee Ext) 08/27 08/27 Gastroc (Plantflx) 08/27 08/27 TibAnt (Dorsiflx) 08/27 08/27 TibPost (Ank Add) 08/27 08/27 Ankle Eversion 08/27 08/27 Ankle Inversion 08/27 08/27 FlxHLong (Toe Flex) 08/27 08/27 ExtHLong (Toe Ext) 08/27 08/27 ? Sensory Examination Sensation is intact throughout to proprioception, pin-prick [pain], light touch and vibratory sense. REFLEXES RIGHT LEFT Bicep /07 25/4 Tricep / 2/4 BrRad /4 /4 Knee 2/07 25/ Ankle /05/29 Plantar Response Downward response Downward response Vela Response Negative Negative ? Coordination: Finger-to- nose-finger intact bilaterally and [id number] intact bilaterally. ? Gait: Patient's gait is [...] 30, 2018 TIME: 10:40 AM PAGER/CONTACT #: [phone] Normal [facility] No Panel Information Influenza Types A,B Direct FA ([facility]) [facility] Work Phone: Vital Signs Date Time Vital Sign Value Performing Clinician Facility 01-07-2025 14:28-0400 Body temperature 97.8 [degF] Dr. Kris Amaro MD Work Phone: [facility] 01-07-2025 14:28-0400 Diastolic blood pressure 62 mm[Hg] Dr. Kris Amaro MD Work Phone: 2(228)[phone] [place] [address] 01-07-2025 14:28-0400 Heart rate 54 /min Dr. Kris Amaro MD Work Phone: 0(047)240-036944 [place] [address] 01-07-2025 14:28-0400 Respiratory rate 14 /min Dr. Kris Amaro MD Work Phone: 4(321)966-593344 [place] [address] 01-07-2025 14:28-0400 SaO2% (BldA) [Mass fraction] 100 % Dr. Kris Amaro MD Work Phone: 5(834)037-917944 [place] [address] 01-07-2025 14:28-0400 Systolic blood pressure 101 mm[Hg] Dr. Kris Amaro MD Work Phone: 0(220)574-624444 [place] [address] 01-07-2025 12:20-0400 Body height 172.[address] Kris Amaro MD Work Phone: 5(828)822-757844 [place] [address] 01-07-2025 12:20-0400 Body mass index (BMI) [Ratio] 27.7 kg/m2 Dr. Kris Amaro MD Work Phone: 8(121)745-711644 [place] [address] 01-07-2025 12:20-0400 Body weight 82.[address] Kris Amaro MD Work Phone: 1(536)529-107044 [place] [address] 01-02-2025 19:44-0400 Body temperature 98.2 [degF] Dr. Kris Amaro MD Work Phone: 3(365)425-330444 [place] [address] 01-02-2025 19:44-0400 Diastolic blood pressure 63 mm[Hg] Dr. Kris Amaro MD Work Phone: 1(591)361-170744 [place] [address] 01-02-2025 19:44-0400 Heart rate 104 /min Dr. Kris Amaro MD Work Phone: 2(486)947-141144 [place] [address] 01-02-2025 19:44-0400 Respiratory rate 26 /min Dr. Kris Amaro MD Work Phone: 7(065)745-946044 [place] [address] 01-02-2025 19:44-0400 SaO2% (BldA) [Mass fraction] 100 % Dr. Kris Amaro MD Work Phone: [facility] 01-02-2025 19:44-0400 Systolic blood pressure 121 mm[Hg] Dr. Kris Amaro MD Work Phone: [facility] 01-02-2025 17:31-0400 Body height 172.[address] Kris Amaro MD Work Phone: [facility] 01-02-2025 17:31-0400 Body mass index (BMI) [Ratio] 27.2 kg/m2 Dr. Kris Amaro MD Work Phone: [facility] 01-02-2025 17:31-0400 Body weight 81.[address] Kris Amaro MD Work Phone: [facility] 06-11-2022 00:42-0500 Diastolic Blood Pressure Non-Invasive [address] ARIEL CHOE MD [facility] 06-11-2022 00:42-0500 Heart rate 122 /min DR ARIEL CHOE MD [facility] 06-11-2022 00:42-0500 Respiratory rate 20 /min DR ARIEL CHOE MD [facility] 06-11-2022 00:42-0500 Systolic Blood Pressure Non-Invasive [address] ARIEL CHOE MD [facility] 06-11-2022 00:08-0500 Diastolic Blood Pressure Non-Invasive [address] ARIEL CHOE MD [facility] 06-11-2022 00:08-0500 Heart rate 122 /min DR ARIEL CHOE MD [facility] 06-11-2022 00:08-0500 Respiratory rate 20 /min DR ARIEL CHOE MD [facility] 06-11-2022 00:08-0500 Systolic Blood Pressure Non-Invasive [address] ARIEL CHOE MD [facility] 06-10-2022 22:44-0500 Diastolic Blood Pressure Non-Invasive [address] ARIEL CHOE MD [facility] 06-10-2022 22:44-0500 Heart rate 132 /min DR ARIEL CHOE MD [facility] 06-10-2022 22:44-0500 Respiratory rate 20 /min DR ARIEL CHOE MD [facility] 06-10-2022 22:44-0500 Systolic Blood Pressure Non-Invasive [address] ARIEL CHOE MD [facility] 06-10-2022 22:00-0500 Body temperature 98.42 [degF] DR ARIEL CHOE MD [facility] 06-10-2022 15:51-0500 Diastolic Blood Pressure Non-Invasive 64 1 JESSIKA REICHFIELD DO [facility] 06-10-2022 15:51-0500 Heart rate 102 /min JESSIKA REICHFIELD DO [facility] 06-10-2022 15:51-0500 Respiratory rate 18 /min JESSIKA REICHFIELD DO [facility] 06-10-2022 15:51-0500 Systolic Blood Pressure Non-Invasive 110 1 JESSIKA REICHFIELD DO [facility] 06-10-2022 14:59-0500 Heart rate 102 /min JESSIKA REICHFIELD DO [facility] 06-10-2022 14:59-0500 Respiratory rate 24 /min JESSIKA REICHFIELD DO [facility] 06-10-2022 14:47-0500 Body temperature 98.06 [degF] JESSIKA REICHFIELD DO [facility] 06-10-2022 14:47-0500 Diastolic Blood Pressure Non-Invasive 62 1 JESSIKA REICHFIELD DO [facility] 06-10-2022 14:47-0500 Heart rate 127 /min JESSIKA REICHFIELD DO [facility] 06-10-2022 14:47-0500 Respiratory rate 24 /min JESSIKA REICHFIELD DO [facility] 06-10-2022 14:47-0500 Systolic Blood Pressure Non-Invasive 114 1 JESSIKA REICHFIELD DO [facility] 03-03-2022 10:12-0500 Heart rate 67 /min ALEM MILLER PLANNING AND ANALYSIS MANAGER-NATIONAL ACCOUNTS RECRUITER [facility] 03-03-2022 10:12-0500 Respiratory rate 16 /min ALEM MILLER PLANNING AND ANALYSIS MANAGER-NATIONAL ACCOUNTS RECRUITER [facility] 03-03-2022 07:40-0500 Body temperature 97.34 [degF] ALEM MILLER PLANNING AND ANALYSIS MANAGER-NATIONAL ACCOUNTS RECRUITER [facility] 03-03-2022 07:40-0500 Diastolic blood pressure 66 mm[Hg] ALEM MILLER PLANNING AND ANALYSIS MANAGER-NATIONAL ACCOUNTS RECRUITER [facility] 03-03-2022 07:40-0500 Heart rate 73 /min ALEM MILLER PLANNING AND ANALYSIS MANAGER-NATIONAL ACCOUNTS RECRUITER [facility] 03-03-2022 07:40-0500 Reason For Taking VItal Signs ALEM MILLER PLANNING AND ANALYSIS MANAGER-NATIONAL ACCOUNTS RECRUITER [facility] 03-03-2022 07:40-0500 Respiratory rate 18 /min ALEM MILLER PLANNING AND ANALYSIS MANAGER-NATIONAL ACCOUNTS RECRUITER [facility] 03-03-2022 07:40-0500 Systolic blood pressure 118 mm[Hg] ALEM MILLER PLANNING AND ANALYSIS MANAGER-NATIONAL ACCOUNTS RECRUITER [facility] 03-03-2022 06:03-0500 Heart rate 72 /min ALEM MILLER PLANNING AND ANALYSIS MANAGER-NATIONAL ACCOUNTS RECRUITER [facility] 03-03-2022 06:03-0500 Respiratory rate 18 /min ALEM MILLER PLANNING AND ANALYSIS MANAGER-NATIONAL ACCOUNTS RECRUITER [facility] 03-03-2022 03:35-0500 Body temperature 98.06 [degF] ALEM MILLER PLANNING AND ANALYSIS MANAGER-NATIONAL ACCOUNTS RECRUITER [facility] 03-03-2022 03:35-0500 Diastolic blood pressure 69 mm[Hg] ALEM MILLER PLANNING AND ANALYSIS MANAGER-NATIONAL ACCOUNTS RECRUITER [facility] 03-03-2022 03:35-0500 Heart rate 75 /min ALEM MILLER PLANNING AND ANALYSIS MANAGER-NATIONAL ACCOUNTS RECRUITER [facility] 03-03-2022 03:35-0500 Mean blood pressure 83 mm[Hg] ALEM MILLER PLANNING AND ANALYSIS MANAGER-NATIONAL ACCOUNTS RECRUITER [facility] 03-03-2022 03:35-0500 Reason For Taking VItal Signs ALEM MILLER PLANNING AND ANALYSIS MANAGER-NATIONAL ACCOUNTS RECRUITER [facility] 03-03-2022 03:35-0500 Systolic blood pressure 110 mm[Hg] ALEM MILLER PLANNING AND ANALYSIS MANAGER-NATIONAL ACCOUNTS RECRUITER [facility] 03-02-2022 23:10-0500 Body temperature 97.52 [degF] ALEM MILLER PLANNING AND ANALYSIS MANAGER-NATIONAL ACCOUNTS RECRUITER [facility] 03-02-2022 23:10-0500 Diastolic blood pressure 73 mm[Hg] ALEM MESAITH PLANNING AND ANALYSIS MANAGER-NATIONAL ACCOUNTS RECRUITER [facility] 03-02-2022 23:10-0500 Heart rate 75 /min ALEM MESAITH PLANNING AND ANALYSIS MANAGER-NATIONAL ACCOUNTS RECRUITER [facility] 03-02-2022 23:10-0500 Mean blood pressure 87 mm[Hg] ALEM MESAITH PLANNING AND ANALYSIS MANAGER-NATIONAL ACCOUNTS RECRUITER [facility] 03-02-2022 23:10-0500 Reason For Taking VItal Signs ALEM MILLER PLANNING AND ANALYSIS MANAGER-NATIONAL ACCOUNTS RECRUITER [facility] 03-02-2022 23:10-0500 Systolic blood pressure 114 mm[Hg] ALEM MESAITH PLANNING AND ANALYSIS MANAGER-NATIONAL ACCOUNTS RECRUITER [facility] 03-02-2022 19:45-0500 Mean blood pressure 92 mm[Hg] ALEM MESAITH PLANNING AND ANALYSIS MANAGER-NATIONAL ACCOUNTS RECRUITER [facility] 03-02-2022 17:48-0500 Heart rate 75 /min ALEM MESAITH PLANNING AND ANALYSIS MANAGER-NATIONAL ACCOUNTS RECRUITER [facility] 03-02-2022 14:25-0500 Heart rate 77 /min AELM MESAITH PLANNING AND ANALYSIS MANAGER-NATIONAL ACCOUNTS RECRUITER [facility] 03-02-2022 10:35-0500 Heart rate 81 /min LAEM MESAITH PLANNING AND ANALYSIS MANAGER-NATIONAL ACCOUNTS RECRUITER [facility] 03-01-2022 14:05-0500 Heart rate 80 /min ALEM MESAITH PLANNING AND ANALYSIS MANAGER-NATIONAL ACCOUNTS RECRUITER [facility] 03-01-2022 11:29-0500 Diastolic Blood Pressure Non-Invasive 59 1 ALEM ANGELA PLANNING AND ANALYSIS MANAGER-NATIONAL ACCOUNTS RECRUITER [facility] 03-01-2022 11:29-0500 Systolic Blood Pressure Non-Invasive 113 1 ALEM MILLER PLANNING AND ANALYSIS MANAGER-NATIONAL ACCOUNTS RECRUITER [facility] 02-27-2022 23:46-0400 Body height 172.7 cm ALEM MILLER PLANNING AND ANALYSIS MANAGER-NATIONAL ACCOUNTS RECRUITER [facility] 02-27-2022 23:46-0400 Body weight 83 kg ALEM MILLER PLANNING AND ANALYSIS MANAGER-NATIONAL ACCOUNTS RECRUITER [facility] 02-27-2022 23:46-0400 Body weight 27.83 kg/m2 ALEM MILLER PLANNING AND ANALYSIS MANAGER-NATIONAL ACCOUNTS RECRUITER [facility] 02-20-2022 11:45-0400 Body temperature 97.7 [degF] MEGGAN CARPENTERELY PLANNING AND ANALYSIS MANAGER-NATIONAL ACCOUNTS RECRUITER [facility] 02-20-2022 11:45-0400 Diastolic blood pressure 79 mm[Hg] MEGGAN CARPENTERELY PLANNING AND ANALYSIS MANAGER-NATIONAL ACCOUNTS RECRUITER [facility] 02-20-2022 11:45-0400 Heart rate 112 /min MEGGAN CARPENTERELY PLANNING AND ANALYSIS MANAGER-NATIONAL ACCOUNTS RECRUITER [facility] 02-20-2022 11:45-0400 Reason For Taking VItal Signs MEGGAN CARPENTERELY PLANNING AND ANALYSIS MANAGER-NATIONAL ACCOUNTS RECRUITER [facility] 02-20-2022 11:45-0400 Respiratory rate 18 /min MEGGAN CRAPENTERELY PLANNING AND ANALYSIS MANAGER-NATIONAL ACCOUNTS RECRUITER [facility] 02-20-2022 11:45-0400 Systolic blood pressure 158 mm[Hg] MEGGAN CARPENTERELY PLANNING AND ANALYSIS MANAGER-NATIONAL ACCOUNTS RECRUITER [facility] 02-20-2022 11:15-0400 Heart rate 114 /min MEGGAN CARPENTERELY PLANNING AND ANALYSIS MANAGER-NATIONAL ACCOUNTS RECRUITER [facility] 02-20-2022 11:15-0400 Respiratory rate 20 /min MEGGAN CARPENTERELY PLANNING AND ANALYSIS MANAGER-NATIONAL ACCOUNTS RECRUITER [facility] 02-20-2022 09:34-0400 Heart rate 84 /min MEGGAN CARPENTERELY PLANNING AND ANALYSIS MANAGER-NATIONAL ACCOUNTS RECRUITER [facility] 02-20-2022 09:34-0400 Respiratory rate 20 /min MEGGAN DHEERAJ PLANNING AND ANALYSIS MANAGER-NATIONAL ACCOUNTS RECRUITER [facility] 02-20-2022 07:15-0400 Body temperature 98.06 [degF] MEGGAN DHEERAJ PLANNING AND ANALYSIS MANAGER-NATIONAL ACCOUNTS RECRUITER [facility] 02-20-2022 07:15-0400 Diastolic blood pressure 66 mm[Hg] MEGGAN DHEERAJ PLANNING AND ANALYSIS MANAGER-NATIONAL ACCOUNTS RECRUITER [facility] 02-20-2022 07:15-0400 Heart rate 77 /min MEGGAN CARPENTERELY PLANNING AND ANALYSIS MANAGER-NATIONAL ACCOUNTS RECRUITER [facility] 02-20-2022 07:15-0400 Mean blood pressure 83 mm[Hg] MEGGAN CARPENTERELY PLANNING AND ANALYSIS MANAGER-NATIONAL ACCOUNTS RECRUITER [facility] 02-20-2022 07:15-0400 Reason For Taking VItal Signs MEGGAN DHEERAJ PLANNING AND ANALYSIS MANAGER-NATIONAL ACCOUNTS RECRUITER [facility] 02-20-2022 07:15-0400 Systolic blood pressure 116 mm[Hg] MEGGAN DHEERAJ PLANNING AND ANALYSIS MANAGER-NATIONAL ACCOUNTS RECRUITER [facility] 02-20-2022 04:37-0400 Body temperature 98.24 [degF] MEGGAN DHEERAJ PLANNING AND ANALYSIS MANAGER-NATIONAL ACCOUNTS RECRUITER [facility] 02-20-2022 04:37-0400 Diastolic blood pressure 71 mm[Hg] MEGGAN CARPENTERELY PLANNING AND ANALYSIS MANAGER-NATIONAL ACCOUNTS RECRUITER [facility] 02-20-2022 04:37-0400 Heart rate 89 /min MEGGAN CARPENTERELY PLANNING AND ANALYSIS MANAGER-NATIONAL ACCOUNTS RECRUITER [facility] 02-20-2022 04:37-0400 Mean blood pressure 93 mm[Hg] MEGGAN CARPENTERELY PLANNING AND ANALYSIS MANAGER-NATIONAL ACCOUNTS RECRUITER [facility] 02-20-2022 04:37-0400 Reason For Taking VItal Signs MEGGAN CARPENTERELY PLANNING AND ANALYSIS MANAGER-NATIONAL ACCOUNTS RECRUITER [facility] 02-20-2022 04:37-0400 Systolic blood pressure 137 mm[Hg] MEGGAN CARPENTERELY PLANNING AND ANALYSIS MANAGER-NATIONAL ACCOUNTS RECRUITER [facility] 02-20-2022 00:35-0400 Mean blood pressure 79 mm[Hg] MEGGAN CARPENTERELY PLANNING AND ANALYSIS MANAGER-NATIONAL ACCOUNTS RECRUITER [facility] 02-19-2022 19:33-0400 Heart rate 97 /min MEGGAN CARPENTERELY PLANNING AND ANALYSIS MANAGER-NATIONAL ACCOUNTS RECRUITER [facility] 02-19-2022 03:47-0400 Heart rate 98 /min MEGGAN CARPENTERELY PLANNING AND ANALYSIS MANAGER-NATIONAL ACCOUNTS RECRUITER [facility] 02-18-2022 23:34-0400 Body height 172.7 cm MEGGAN CARPENTERELY PLANNING AND ANALYSIS MANAGER-NATIONAL ACCOUNTS RECRUITER [facility] 02-18-2022 23:34-0400 Body weight 100 kg MEGGAN DHEERAJ PLANNING AND ANALYSIS MANAGER-NATIONAL ACCOUNTS RECRUITER [facility] 02-18-2022 23:34-0400 Body weight 33.53 kg/m2 MEGGAN CARPENTERELY PLANNING AND ANALYSIS MANAGER-NATIONAL ACCOUNTS RECRUITER [facility] 02-18-2022 23:30-0400 Heart rate 84 /min MEGGAN ESQUEDA PLANNING AND ANALYSIS MANAGER-NATIONAL ACCOUNTS RECRUITER [facility] 02-18-2022 19:17-0400 Body height 172.7 cm MEGGAN ESQUEDA PLANNING AND ANALYSIS MANAGER-NATIONAL ACCOUNTS RECRUITER [facility] 02-18-2022 19:17-0400 Body weight 100 kg MEGGAN ESQUEDA PLANNING AND ANALYSIS MANAGER-NATIONAL ACCOUNTS RECRUITER [facility] 12-31-2021 10:25-0400 Heart rate 107 /min [facility] Work Phone: 12-31-2021 10:25-0400 Respiratory rate 18 /min [facility] Work Phone: 12-31-2021 09:33-0400 Body height 172.72 cm [facility] Work Phone: 12-31-2021 09:33-0400 Body mass index (BMI) [Ratio] 33 kg/m2 [facility] Work Phone: 12-31-2021 09:33-0400 Body temperature 98.9 [degF] [facility]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 8a.m. and 4:30p.m. Please follow the directions below to access the portal: 1.Access the email account you provided upon registration to the [facility].2.Look for an invitation email from [facility].3.Open the email and access the invitation link: Accept Invitation to [facility]4.Fill in the required blas to create your account. Sign into [email or web address] with your username and password that you [...] you will allow to register on the [facility] Patient Portal for access to your information. You can also access the [facility] Patient Portal on the [employer]. Simply click on Health Records under Cloudike and then click on the [facility] logo. HOW TO SAFELY DISPOSE OF PRESCRIPTION [...] Call your local pharmacy or go to http://[employer].Microventures/0F9Bs1c to find one close to you.3.Make use of household items: Use cat litter or old coffee grounds to dispose medications if other options arenot available. Mix your drugs with these household products, seal them in an airtight container andthrow it into the garbage. Call [facility]: [phone] to be sure your drugs can be [...] aware that I should contact my doctor. Patient/Capacity Analyst Signature: Date/Time: Relationship to Patient: Witness Name/Signature: Date/Time: [facility]02-16-2023 Hospital Discharge instructions Patient Education 06/10/2022 14:55:06 [...] Lips or fingernails turning jimenez or blue [phone] [employer]. [address] [place] [address], [place] [address]. All rights reserved. This information is not intended as a substitute for professional medical care. Always follow yourhealthcare professional's instructions. Follow Up Care 06/10/2022 14:42:49 With:Go to emergency room if symptoms worsen Address:Unknown When:2-4 days With:DEANA AMARO MD Address: [address] [place] [address] [address] [place], [place] [phone]- When:2-4 days [facility] 02-16-2023 Note Discharge Instructions Thank you for allowing [facility] to assist you with your healthcare needs. [...] MD When Within 2-4 days Where: [address] [phone]- Allergies NKA Medications Please ask your primary [...] Lips or fingernails turning jimenez or blue [phone] [employer]. [address] [place] [address]. All rights reserved. This information is not intended as a substitute for professional medical care. Always follow yourhealthcare professional's instructions. Additional Information VACCINATE! IT SAVES LIVES! Members of the community who have not yet received the COVID-19 vaccine and would like to receive it can visit one of [facility] vaccine clinics. There are many vaccine clinic locations within the [facility]. For locations and available times, please visit www.gettheshot.coronavirus.[place].gov/. It is important to note that some COVID mobile vaccine clinics are held outdoors and may be canceled in rainy or stormy conditions. To learn more about pediatric vaccinations (ages 5-11), we invite you to visit the [facility] webpage. https://www.[facility].org/pages/8311-Gdxes-Qguvozavbrf-Wgyxkawmnl-Pxfcd-Mqb stions.htmlTo learn more about the COVID-19 vaccine, we invite you to visit the CDC website for a list of frequently asked questions. https://www.cdc.gov/coronavirus/2019-ncov/vaccines/faq.html [facility] Patient Portal Access Instructions: Stay connected with your healthcare team and access your personal medical information anytime with the [facility] Patient Portal. If you would like a full copy of your medical records please contact the [facility] Medical Records Department Tuesday through Tuesday between 8a.m. and 4:30p.m. Please follow the directions below to access the portal: 1.Access the email account you provided upon registration to the [facility].2.Look for an invitation email from [facility].3.Open the email and access the invitation link: Accept Invitation to [facility]4.Fill in the required blas to create your account. Sign into [email or web address] with your username and password that you [...] you will allow to register on the [facility] Patient Portal for access to your information. You can also access the [facility] Patient Portal on the [employer] neela. Simply click on Health Records under [employer] and then click on the [facility] logo. HOW TO SAFELY DISPOSE OF PRESCRIPTION [...] Call your local pharmacy or go to http://bit.Microventures/9N6Id0i to find one close to you.3.Make use of household items: Use cat litter or old coffee grounds to dispose medications if other options arenot available. Mix your drugs with these household products, seal them in an airtight container andthrow it into the garbage. Call [facility]: [phone] to be sure your drugs can be [...] aware that I should contact my doctor. Patient/Capacity Analyst Signature: Date/Time: Relationship to Patient: Witness Name/Signature: Date/Time: [facility]02-16-2023 Note ORIGINAL EXAMINATION: ONE XRAY VIEW OF [...] Sign Date: 06/10/2022 3:25:54 PM Ordering Provider: [facility]02-16-2023 Note ORIGINAL EXAMINATION: ONE XRAY VIEW OF [...] Sign Date: 06/10/2022 3:25:54 PM Ordering Provider: [facility]02-16-2023 SARS-CoV-2 (COVID-19) RNA RUSSEL+probe Ql (Nph)Negative *NA* (06/10/22 3:01 PM)AO Auto Urine [id number] Note. MICRO - Microbiology PROCEDURE: Blood Culture [...] Locations *1: This test was performed at: [address], [address] [place], [place] [address]3703-05-2022 Note. MICRO - Microbiology PROCEDURE: Blood Culture [...] Locations *1: This test was performed at: [address], [address] [place], [place] 1123703-03-2022 Nurse Discharge summary Discharged to home. Escorted to the exit by EILEEN Desai. Left at 1040. [facility]11-09-2022 Hospital Discharge instructions Patient Education 03/03/2022 08:47:43 [...] pollution. Aerosol sprays and fumes from household clinical education specialist. Household pests and their droppings, including dust [...] or starting any new medicines. Medicines Take tcvy-eaz-cbgmwhe and prescription medicines only as told by [...] 03/30/2010 Document Revised: 03/24/2018 Document Reviewed: 09/25/2016 [employer] and Android Patient Education 2020 [employer]. 02/27/2022 18:56:13 URI, Viral, No Abx (Adult) [...] loosen secretions in the nose and lungs. Poun-bfr-regdlfm cold medicines will not shorten the length of time you re sick, but they may be helpful for the following symptoms: cough, sore throat, and nasal and sinus congestion. If you take prescription medicines, ask your healthcare provider or pharmacist which amue-rib-tgptcpt medicines are safe to use. (Note: Don't [...] it goes along with a muffled voice [phone] [employer]. [address] [place] [address], [place] [address]. All rights reserved. This information is not [...] Lips or fingernails turning jimenez or blue [phone] [employer]. [address] [place] [address]. All rights reserved. This information is not intended as a substitute for professional medical care. Always follow yourhealthcare professional's instructions. 02/27/2022 18:56:07 Anxiety Reaction Anxiety [...] relieved by rest and mild pain reliever [phone] [employer]. [address] [place] [address]. All rights reserved. This information is not intended as a substitute for professional medical care. Always follow yourhealthcare professional's instructions. Follow Up Care 02/27/2022 17:20:45 With:DEANA AMARO MD Address: [address] [place] [address]- When:03/09/2022 10:00:00 Comments:This is your post-hospital appointment. [facility] 11-09-2022 Note Discharge Instructions Thank you for allowing [facility] to assist you with your healthcare needs. The following is importantdischarge information regarding your hospital visit. Your Care Team DEANA AMARO MD, LISA APRN-NATIONAL ACCOUNTS RECRUITER Your Diagnosis SOB - Shortness of breath [...] Why: This is your post-hospital appointment. Where: [address] [place] [phone]- The Following Activity and Diet Have Been [...] pollution. Aerosol sprays and fumes from household clinical education specialist. Household pests and their droppings, including dust [...] or starting any new medicines. Medicines Take ippc-kpp-cukdzuh and prescription medicines only as told by [...] 03/30/2010 Document Revised: 03/24/2018 Document Reviewed: 09/25/2016 [employer] Patient Education 2020 [employer] Viral Upper Respiratory Illness (Adult) You [...] loosen secretions in the nose and lungs. Opej-jbg-pjevehz cold medicines will not shorten the length of time you re sick, but they may be helpful for the following symptoms: cough, sore throat, and nasal and sinus congestion. If you take prescription medicines, ask your healthcare provider or pharmacist which knjj-qlt-avqpond medicines are safe to use. (Note: Don't [...] it goes along with a muffled voice [phone] [employer]. [address] [place] [address]. All rights reserved. This information is not [...] Lips or fingernails turning jimenez or blue [phone] [employer]. [address] [place] [address], [place] [address]. All rights reserved. This information is not [...] relieved by rest and mild pain reliever [phone] [employer]. [address] [place] [address], [place] [address]. All rights reserved. This information is not intended as a substitute for professional medical care. Always follow yourhealthcare professional's instructions. Additional Information VACCINATE! IT SAVES LIVES! Members of the community who have not yet received the COVID-19 vaccine and would like to receive it can visit one of [facility] vaccine clinics. There are many vaccine clinic locations within the [facility]. For locations and available times, please visit https://gettheshot.coronavirus.[place].gov/. It is important to note that some COVID mobile vaccine clinics are held outdoors and may be canceled in rainy or stormy conditions. To learn more about pediatric vaccinations (ages 5-11), we invite you to visit the [facility] webpage. https://www.[facility].org/pages/8262-Cqzus-Dogpjdtbcda-Mmbvujmxap-Udlhc-Uqe stions.htmlTo learn more about the COVID-19 vaccine, we invite you to visit the [facility] website for a list of frequently asked questions. https://[facility].[employer]/assets/Gavobvsy-ngt-Vlguagkq/ccejl-Gqvxmza-Hqyiskkodw _Asked-Questions.pdf [facility] Patient Portal Access Instructions: Stay connected with your healthcare team and access your personal medical information anytime with the [facility] Patient Portal.If you would like a full copy of your medical records, please contact the [facility] Medical Records Department, Tuesday through Tuesday between 8a.m. and 4:30p.m. Please follow the directions below to access the portal: 1.Access the email account you provided upon registration to the hospital.2.Look for an invitation email from [facility].3.Open the email and access the invitation link: Accept Invitation to [facility]4.Fill in the required blas to create your account. Sign into [email or web address] with your username and password that you [...] you will allow to register on the [facility] Patient Portal for access to your information. You can also access the [facility] Patient Portal on the [employer]. Simply click on Health Records under [employer] and then click on the [facility] logo. HOW TO SAFELY DISPOSE OF PRESCRIPTION [...] Call your local pharmacy or go to http://[employer].Microventures/6A6Nu0t to find one close to you.3.Make use of household items: Use cat litter or old coffee grounds to dispose medications if other options arenot available. Mix your drugs with these household products, seal them in an airtight container andthrow it into the garbage. Call [facility] Hospital: [phone] to be sure your drugs can be [...] aware that I should contact my doctor. Patient/Capacity Analyst Signature: Date/Time: Relationship to Patient: Witness Name/Signature: Date/Time: [facility]11-08-2022 Note Date of Service 03/02/2022 Chief Complaint [...] by JORGE CRUZ on 03/02/2022 02:34 PM [facility]11-08-2022 Note. MICRO - Microbiology PROCEDURE: Culture Respiratory [...] Locations *1: This test was performed at: [facility], [address] [place] [address], [address] , [facility] ([place])03-01-2022 Nurse Progress note ANISA Bernal was present and verifies the documentation completed by KIET Adams on 03/01/22 [id number] Digitally Signed by Nani Raymond RN on 03/01/2022 06:11 PM [facility]11-07-2022 Note Date of Service 03/01/2022 Chief Complaint [...] by JORGE CRUZ on 03/01/2022 11:42 AM [facility]11-07-2022 Note. MICRO - Microbiology PROCEDURE: Streptococcus Pneumoniae [...] Locations *1: This test was performed at: [facility], [address] [place] [address], [address] , [facility] ([place])03-01-2022 Note. MICRO - Microbiology PROCEDURE: Legionella Urine [...] Locations *1: This test was performed at: [facility], [address] [place] [address], [address]- , [facility] ([place])02-28-2022 Evaluation + Plan noteExtracted from: Title:History and Physical Author:JORGE CRUZ APRN-NATIONAL ACCOUNTS RECRUITER Date:02/28/22 1. SOB - Shortness of breath [...] discussed with collaborating physician, Dr. Bebeto Nelson. [facility] 11-06-2022 HCoV 229E RNA RUSSEL+non-probe Ql (Nph)Not Detected *NA* (02/28/22 11:36 AM)AH Auto Viro/Sero [id number] Note Date of Service 02/28/2022 Chief Complaint c/o sob today with hx of asthma and recent ed visit. History of Present Illness Patient is a 21-year-old female, who follows with Dr. Deana Amaro with a past medical history significant for asthma, anxiety and depression, presents to [facility] emergency department with the chief complaint of fever and shortness of breath. Patient was just admitted to [facility] on 02/19 due to asthma exacerbation. She [...] Result Date: February 27, 2022 Verified By: NAZIA FARAH, MICHEL Calvo CLINICAL STATEMENT: IMPRESSION: 1. No acute radiographic [...] by JORGE CRUZ on 02/28/2022 11:32 AM [facility]11-06-2022 Respiratory therapy Hospital Progress note Pt mouth breathing while asleep, unable to achieve spO2 > 90% via 4L NC Placed on 6L simple mask, pt resting comfortably HFNC on stby Digitally Signed by Shante Davey RT on 02/28/2022 08:36 AM [facility]11-06-2022 Note ORIGINAL EXAMINATION: CTA OF THE CHEST [...] Date: 02/28/2022 5:16:37 AM Ordering Provider: ALEM MILLER [facility]11-06-2022 Note ORIGINAL EXAMINATION: CTA OF THE CHEST [...] Date: 02/28/2022 5:16:37 AM Ordering Provider: [facility]11-06-2022 SARS-CoV-2 (COVID-19) RNA RUSSEL+probe Ql (Nph)Negative *NA* (02/28/22 4:33 AM)AO Auto Urine [id number] Note Discharge Instructions Thank you for allowing [facility] to assist you with your healthcare needs. [...] MD When Within 2-4 days Where: [address] [address]- Allergies NKA Medications Please ask your primary [...] loosen secretions in the nose and lungs. Dydk-qgv-huyocst cold medicines will not shorten the length of time you re sick, but they may be helpful for the following symptoms: cough, sore throat, and nasal and sinus congestion. If you take prescription medicines, ask your healthcare provider or pharmacist which nngk-ojx-xbcrxrl medicines are safe to use. (Note: Don't [...] it goes along with a muffled voice [phone] [employer]. [address] [place] [address]. All rights reserved. This information is not [...] Lips or fingernails turning jimenez or blue [phone] [employer]. [address] [place] [address], [place] [address]. All rights reserved. This information is not [...] relieved by rest and mild pain reliever [phone] [employer]. [address] [place] [address]. All rights reserved. This information is not intended as a substitute for professional medical care. Always follow yourhealthcare professional's instructions. Additional Information VACCINATE! IT SAVES LIVES! Members of the community who have not yet received the COVID-19 vaccine and would like to receive it can visit one of [facility] vaccine clinics. There are many vaccine clinic locations within the [facility]. For locations and available times, please visit www.[email or web address]. It is important to note that some COVID mobile vaccine clinics are held outdoors and may be canceled in rainy orstormy conditions. To learn more about pediatric vaccinations (ages 5-11), we invite you to visit the [facility] webpage. https://www.[facility].org/pages/8302-Krivo-Kallyserxlv-Otwqmkhwdw-Iabig-Jvf stions.htmlTo learn more about the COVID-19 vaccine, we invite you to visit the [facility] website for a list of frequently asked questions. https://[email or web address]/assets/Dwsjriqh-zej-Hvaklbqk/gxnkr-Uewiyjy-Evbipogxtx _Asked-Questions.pdf [facility] Patient Portal Access Instructions: Stay connected with your healthcare team and access your personal medical information anytime with the [facility] Patient Portal. If you would like a full copy of your medical records please contact the [facility] Medical Records Department Tuesday through Tuesday between 8a.m. and 4:30p.m. Please follow the directions below to access the portal: 1.Access the email account you provided upon registration to the hospital.2.Look for an invitation email from [facility].3.Open the email and access the invitation link: Accept Invitation to [facility]4.Fill in the required blas to create your account. Sign into www.Eventable with your username and password that you [...] you will allow to register on the [facility] Patient Portal for access to your information. You can also access the [facility] Patient Portal on the [facility]. Simply click on Health Records under [employer] and then click on the [employer] logo. HOW TO SAFELY DISPOSE OF PRESCRIPTION [...] Call your local pharmacy or go to http://[employer].Microventures/6Z3Sz3o to find one close to you.3.Make use of household items: Use cat litter or old coffee grounds to dispose medications if other options arenot available. Mix your drugs with these household products, seal them in an airtight container andthrow it into the garbage. Call [facility]: [phone] to be sure your drugs can be [...] aware that I should contact my doctor. Patient/Capacity Analyst Signature: Date/Time: Relationship to Patient: Witness Name/Signature: Date/Time: [facility]11-05-2022 Note Discharge Instructions Thank you for allowing [facility] to assist you with your healthcare needs. [...] MD When Within 2-4 days Where: [address] [address]- Allergies NKA Medications Please ask your primary [...] loosen secretions in the nose and lungs. Jgwd-fmo-bywfjdb cold medicines will not shorten the length of time you re sick, but they may be helpful for the following symptoms: cough, sore throat, and nasal and sinus congestion. If you take prescription medicines, ask your healthcare provider or pharmacist which udqs-eya-utlnlbv medicines are safe to use. (Note: Don't [...] it goes along with a muffled voice [phone] [employer]. [address] [place] [address]. All rights reserved. This information is not [...] Lips or fingernails turning jimenez or blue [phone] [employer]. [address] [place] [address], [place] [address]. All rights reserved. This information is not [...] relieved by rest and mild pain reliever [phone] [employer]. [address] [place] [address]. All rights reserved. This information is not intended as a substitute for professional medical care. Always follow yourhealthcare professional's instructions. Additional Information VACCINATE! IT SAVES LIVES! Members of the community who have not yet received the COVID-19 vaccine and would like to receive it can visit one of [facility] vaccine clinics. There are many vaccine clinic locations within the [facility]. For locations and available times, please visit www.[email or web address]. It is important to note that some COVID mobile vaccine clinics are held outdoors and may be canceled in rainy orstormy conditions. To learn more about pediatric vaccinations (ages 5-11), we invite you to visit the [facility] webpage. https://www.[facility].org/pages/8530-Akvgr-Qdovrkajwin-Hhddwsfazf-Kbxlk-Tvs stions.htmlTo learn more about the COVID-19 vaccine, we invite you to visit the [facility] website for a list of frequently asked questions. [email or web address].[email or web address]/assets/Yhlianyn-ghp-Jdecgdow/iqlvo-Qipxdyo-Domdaojkxt _Asked-Questions.pdf [facility] Patient Portal Access Instructions: Stay connected with your healthcare team and access your personal medical information anytime with the [facility] Patient Portal. If you would like a full copy of your medical records please contact the [facility] Medical Records Department Tuesday through Tuesday between 8a.m. and 4:30p.m. Please follow the directions below to access the portal: 1.Access the email account you provided upon registration to the [facility].2.Look for an invitation email from [facility].3.Open the email and access the invitation link: Accept Invitation to [facility]4.Fill in the required blas to create your account. Sign into www.Eventable with your username and password that you [...] you will allow to register on the [facility] Patient Portal for access to your information. You can also access the [facility] Patient Portal on the [employer]. Simply click on Health Records under [employer] and then click on the [employer] logo. HOW TO SAFELY DISPOSE OF PRESCRIPTION [...] Call your local pharmacy or go to http://[employer]/5J9Xy4g to find one close to you.3.Make use of household items: Use cat litter or old coffee grounds to dispose medications if other options arenot available. Mix your drugs with these household products, seal them in an airtight container andthrow it into the garbage. Call [facility]: [phone] to be sure your drugs can be [...] aware that I should contact my doctor. Patient/Capacity Analyst Signature: Date/Time: Relationship to Patient: Witness Name/Signature: Date/Time: [facility]11-05-2022 Note ORIGINAL EXAMINATION: TWO XRAY VIEWS OF [...] Date: 02/27/2022 6:25:24 PM [facility]22 Note ORIGINAL EXAMINATION: TWO XRAY VIEWS OF [...] Sign Date: 02/27/2022 6:25:24 PM Ordering Provider: [facility]10-29-2022 Note Discharge Instructions Thank you for allowing [facility] to assist you with your healthcare needs. The following is importantdischarge information regarding your hospital visit. Your Care Team DEANA AMARO MD Your Diagnosis Asthma exacerbation Shortness of breath What to do next Follow Up Appointments Follow Up with DEANA AMARO MD When 02/26/2022 11:40 AM EDT Why: Follow-up as scheduled Where: [address] [address]- Follow Up with Go to emergency room [...] Every day Duration: 6 Days Pickup at [id number] Unchanged albuterol (albuterol 2.5 mg/ 3 mL (0.083%) inhalation solution) 3 Milliliter by inhalation Every 6 hours Asthma attack Unchanged FLUoxetine (FLUoxetine 40 mg oral capsule) 1 cap by mouth Once a day Unchanged fluticasone-salmeterol (Advair Diskus 250 mcg-50 mcg inhalation powder) Pharmacy Information [facility] #[id number]: [address] [place], [place] [id number] [phone] What How Much When Comments Stop Taking [...] Lips or fingernails turning jimenez or blue [phone] [employer]. [address] [place] [address], [place] [address]. All rights reserved. This information is not intended as a substitute for professional medical care. Always follow yourhealthcare professional's instructions. Additional Information VACCINATE! IT SAVES LIVES! Members of the community who have not yet received the COVID-19 vaccine and would like to receive it can visit one of [facility] vaccine clinics. There are many vaccine clinic locations within the [facility]. For locations and available times, please visit [email or web address]/. It is important to note that some COVID mobile vaccine clinics are held outdoors and may be canceled in rainy or stormy conditions. To learn more about pediatric vaccinations (ages 5-11), we invite you to visit the [facility] webpage. https://www.[facility].org/pages/2098-Ynebu-Grzlelouqza-Rrgxgkmxit-Kmuna-Kxu stions.htmlTo learn more about the COVID-19 vaccine, we invite you to visit the [facility] website for a list of frequently asked questions. https://[email or web address]/assets/Ldbpvzaz-hja-Trmowmwa/pbobo-Nbetkwv-Eqhzzqoqck _Asked-Questions.pdf [facility] Patient Portal Access Instructions: Stay connected with your healthcare team and access your personal medical information anytime with the [facility] Patient Portal.If you would like a full copy of your medical records, please contact the [facility] Medical Records Department, Tuesday through Tuesday between 8a.m. and 4:30p.m. Please follow the directions below to access the portal: 1.Access the email account you provided upon registration to the hospital.2.Look for an invitation email from [facility].3.Open the email and access the invitation link: Accept Invitation to [facility]4.Fill in the required blas to create your account. Sign into www.Eventable with your username and password that you [...] you will allow to register on the [facility] Patient Portal for access to your information. You can also access the [facility] Patient Portal on the [employer]. Simply click on Health Records under [employer] and then click on the [employer] logo. HOW TO SAFELY DISPOSE OF PRESCRIPTION [...] Call your local pharmacy or go to http://[employer]ures/4E5Tk9y to find one close to you.3.Make use of household items: Use cat litter or old coffee grounds to dispose medications if other options arenot available. Mix your drugs with these household products, seal them in an airtight container andthrow it into the garbage. Call [facility]: [phone] to be sure your drugs can be [...] aware that I should contact my doctor. Patient/Capacity Analyst Signature: Date/Time: Relationship to Patient: Witness Name/Signature: Date/Time: [facility]10-29-2022 Respiratory therapy Hospital Progress note 6 Min Walk Pt walked the halls this morning on room air Starting SpO2 93% at rest while walking lowest SpO2 92% post walking SpO2 is 94% pt has passed the 6 minute walk Digitally Signed by Shante Davey on 02/20/2022 11:34 AM [facility]10-28-2022 Note. MICRO - Microbiology PROCEDURE: Streptococcus Pneumoniae [...] Locations *1: This test was performed at: [facility], [address] [place] [address], [address] , [facility] ([place])02-19-2022 Note. MICRO - Microbiology PROCEDURE: Legionella Urine [...] Locations *1: This test was performed at: [facility], [address] [place] [address], [address]- , Critical access hospital)02-19-2022 Evaluation + Plan noteExtracted from: Title:History and Physical Author:RAFA LUND APRN-NATIONAL ACCOUNTS RECRUITER Date:02/19/22 1. Asthma exacerbation Acute asthma exacerbation add budesonide. Continue duo nebs every 4 hours. Patient given jdvo-df-uzsb albuterol treatments with improvement in aeration. Patient [...] Diagnostic Tests Pending * Mycoplasma Antibody 02/19/22 [facility] 10-28-2022 Note Date of Service 02/19/2022 Chief Complaint Patient became short of breath 2 hours ago. Tried medication at home but continued to have shortness of breath. History of Present Illness 21-year-old female with past medical history significant for asthma and depression. Patient presented to [facility] emergency department with a 2-day history of [...] 4.8 BUN: 9 Creatinine Lvl (s): 0.83 10/27 21:38 WBC: 9.1 Hgb: 13.0 Hct: 39.7 [...] duo nebs every 4 hours. Patient given rjjr-ni-gpon albuterol treatments with improvement in aeration. Patient [...] Code, Constant Order Digitally Signed by RAFA LUND on 02/19/2022 01:23 PM [facility] [id number] Hospital Discharge instructions Patient Education 02/18/2022 19:36:04 [...] Lips or fingernails turning jimenez or blue [phone] [employer]. [address] [place] [address]. All rights reserved. This information is not intended as a substitute for professional medical care. Always follow yourhealthcare professional's instructions. Follow Up Care 02/18/2022 19:10:31 With:DEANA AMARO MD Address: [address] [place] [address]- When:02/26/2022 11:40:00 Comments:Follow-up as scheduled With:Go to emergency room if symptoms worsen Address:Unknown When:2-4 days [facility] 10-27-2022 Note ORIGINAL EXAMINATION: ONE XRAY VIEW [...] Sign Date: 02/18/2022 9:29:14 PM Ordering Provider: [facility]10-27-2022 Note ORIGINAL EXAMINATION: ONE XRAY VIEW [...] Sign Date: 02/18/2022 9:29:14 PM Ordering Provider: [facility]10-27-2022 SARS-CoV-2 (COVID-19) RNA RUSSEL+probe Ql (Nph)Negative *NA* (02/18/22 7:37 PM)AO Auto Urine SSEvaluation noteNo assessment information availableWMemorial Health System [facility] Work Phone: Hospital course Narrative No data available for this section [facility] Hospital Discharge instructionsAdditional Instructions Follow-up with your primary care physician. Return back to ED symptoms change or worsen. Tylenol and Motrin as needed for pain. Received Tylenol here in the emergency department. No Tylenol for 6 hours. Monitor for signs and symptoms of concussion which we spoke about.[facility] Work Phone: Hospital Discharge instructionsAdditional Instructions Follow-up with primary care physician and orthopedics. Will give muscle relaxer to help with muscle pain. Do not drive or operate heavy machinery while taking muscle relaxers. They can increase lightheadedness, falls, confusion, weakness. I spoke with your primary care physician over the phone. If symptoms do not improve likely will need MRI.[facility] Work Phone: Reason for referral (narrative)No reason for referral information availableWMemorial Health System [facility] Work Phone: Summary note* Milagros, ATA Fowler: PERFORM Event Display: Patient Summary Documents Authored Date: [id number] [facility] Summary Purpose Family History No Family History Records FoundNo Family History Records FoundNo Family History Records FoundNo Family History Records Found Advance Directives No Advanced Directives Records Found Advance Directive Response Recorded Date/ Time Living Will No December 31 9:56am Power of Commercial Green Retrofit Architect No December 31, 2021 9:56am Advance Directive Response Recorded Date/ Time Do you have a Healthcare Power of Commercial Green Retrofit Architect? No January 02, 2025 5:33pm Advance Directive Response Recorded Date/ Time Do you have a Healthcare Power of Commercial Green Retrofit Architect? No January 02, 2025 5:33pm Do you have a Healthcare Power of Commercial Green Retrofit Architect? No January 07, 2025 12:54pm Chief Complaint and Reason for Visit Chief Complaint SOB Chief Complaint Admit Date [facility] January 02, 2025 5:30pm Chief Complaint Admit Date [facility] January 02, 2025 5:30pm [facility] January 07, 2025 12:19pm Additional Source Comments INFORMATION SOURCE (unrecogn ized section and content) DATE CREATED AUTHOR 05/09/2019 [facility] DATE CREATED AUTHOR AUTHOR'S ORGANIZ ATION 06/17/2022 [facility] ([place]) DATE CREATED AUTHOR AUTHOR'S ORGANIZ ATION 01/12/2025 [facility] DATE CREATED AUTHOR AUTHOR'S ORGANIZ ATION 01/12/2025 [facility] Goals (unrecognized section and content) Goals may [...] Member Role: Primary Care Physician Address: Address: [address] [place] [address]- [place] Name: Jennifer Faviola 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 Position: HIM: Coders Member Role: HIM: Coders Name: JESSIKA WORTHINGTON DO Position: ED Physician Member Role: ED Physician Address: Address: [address] [place] [address].[place] [id number]- [place] Name: Dori Linares RN Position: AO RN Member Role: RN Care Team Related Persons Name: ABIEL BLANC Address: Home [address] [place] [address] Name: SHAY NUNEZ Address: Home [address] [place] [address] [address] [place] [address] Care Team Personnel Name: DEANA AMARO MD Member Role: Primary Care Physician Address: Address: [address] [place], [place] [address]- Name: ALEXIS MCCOLLUM MD Position: ED Physician Member Role: ED Physician Address: Address: [facility] [address] [place] [address]- [place] Name: MD PERKINS TIMOTHY MD Position: ED Physician Member Role: ED Physician Address: Address: [address] [place] [address]- Care Team Related Persons Name: ABIEL BLANC Address: Home [address] [place] [address] Name: SHAY NUNEZ Address: Home [address] [place] [address] [address] [place] [address] Care Team Personnel Name: DEANA AMARO MD Member Role: Primary Care Physician Address: Address: [address] [place] [address]- [place] Name: Leigh Ann Gallardo RN Position: AO RN Member Role: ED RN Name: JESSIKA WORTHINGTON DO Position: ED Physician Member Role: Attending Physician Address: Address: [address] [place] [address].[place] [id number]- Care Team Related Persons Name: ABIEL BLANC Address: Home [address] [place] [address] Name: SHAY NUNEZ Address: Home [address] [place] [address] [address] [place] [address] Care Team Personnel Name: DEANA AMARO MD Member Role: Primary Care Physician Address: Address: [address] [place] [address]- [place] Name: ARIEL CHOE MD Position: ED Physician Member Role: ED Physician [facility]: [facility] [address] [place] [address]- Name: Deana Neri RN Position: AO RN Member Role: ED RN Care Team Related Persons Name: ABIEL BLANC Address: Home [address] [place] [address] Name: SHAY NUNEZ Address: Home [address] [place] [address] [address] [place] [address] Care Teams (unrecognized sec tion and content) [...] Status: Inactive Member Role/Relationship Status Dates Dr. Kirs Amaro MD Primary Care Provider Acti ve [...] End: January 07, 2025 Dr. Je Nails DO Emergency Provider [...] BE BASED ON THE PRIMARY CLINICAL RECORDS. [facility]. provides no warranty or guarantee of the accuracy or completeness of information in this document.
[2025-01-27 05:11] VITALS: BP 111/60; PULSE 79; RESP 16; TEMP 36.7; O2SAT 100
== END 2025-01-27 05:15 | disposition home or self-care (01) ==
PROVIDERS: Emergency Provider Emergency Medicine; PCP Family Medicine; Visit Provider Emergency Medicine
DX: S13.4XXA Sprain of ligaments of cervical spine, initial encounter (principal); M25.512 Pain in left shoulder; R20.2 Paresthesia of skin; R07.89 Other chest pain; V89.2XXA Person injured in unspecified motor-vehicle accident, traffic, initial encounter; M54.12 Radiculopathy, cervical region; M54.2 Cervicalgia; M54.6 Pain in thoracic spine; F17.290 Nicotine dependence, other tobacco product, uncomplicated
CPT/HCPCS: 71250; 96374; 96375; 99283; A4216; J2405